=== PATIENT | female | born 1950 | race Caucasian/White ===

== ENCOUNTER 2023-05-26 11:45 | Outpatient (AMB) | payer MEDICARE, OTHER, SELFPAY ==
[2023-05-26 11:54] VITALS: BP 112/72; PULSE 47; O2SAT 96; BMI 31.8
--- NOTE | 2023-05-26 11:54 | HO.NEPHOV ---
PFSH Family History Brother Hemochromatosis Brother Parkinson's disease Social History Alcohol intake: current Patient Tobacco Use Status: Never used Tobacco Vital Signs 05/26/23 11:54 Height 5 ft 3 in Weight 179 lb 6 oz BMI 31.8 BP 112/72 Blood Pressure Location Lt brachial Position Sitting Pulse 47 L Pulse Source Pulse Oximeter Pulse Oximetry (%) 96 Oxygen Delivery Method Room Air Physical Exam Vital Signs: Last Vital Signs Pulse 47 L 05/26/23 11:54 BP 112/72 05/26/23 11:54 Pulse Ox 96 05/26/23 11:54 Oxygen Delivery Method Room Air 05/26/23 11:54 BMI result Body Mass Index 31.8 Const General: comfortable; No acute distress Orientation/consciousness: patient oriented x3 Eyes General: appearance normal, both eyes and all related structures Visual Blank: normal visual blank by confrontation Neck Neck: Yes supple and Yes no JVD Resp Effort & Inspection: normal respiratory effort and respiratory effort not decreased Auscultation: rhonchi Cardio Palpation: no palpable S3 and no palpable S4 Heart sounds: no rubs GI Inspection: Yes normal to inspection Palpation (GI): Soft to palpation Percussion: Yes normal to percussion Auscultation: normal bowel sounds General: Yes no CVA tenderness Back/Spine/Pelvis Back: no CVA tenderness Skin General skin exam: no petechiae and no purpura Neuro General: patient oriented x3 and no focal motor deficits Extrem General: No clubbing and No edema Assessment & Plan Assessment & Plan (1) HTN (hypertension): Code(s): I10 - Essential (primary) hypertension Plan: BP is well controlled Renal function is stable Stay on low salt diet Monitor BP At home Needs weight loss No changes were made Orders: Orders Basic Metabolic Panel 6 Months I10 - Essential (primary) hypertension Coding Level of Care Code Est Pt Level 4 (81685) Diagnoses HTN (hypertension) I10 Results Reviewed Results Reviewed: 05/17/23 BUN 24 Cr 0.99 UMACR 5 K 4.7 Nephrology Results: No Data to Display
== END 2023-05-26 12:10 | disposition home or self-care (01) ==
LOC: HO.HKA 11:45
PROVIDERS: PCP Internal Medicine; Visit Provider Internal Medicine Hypertension Specialist
DX: I10 Essential (primary) hypertension (principal)
CPT/HCPCS: 99214

== ENCOUNTER → 2023-05-26 11:45 | Outpatient (BNVA) | payer MEDICARE, OTHER, SELFPAY | PROVIDERS: PCP Internal Medicine; Visit Provider Internal Medicine Hypertension Specialist | DX: I10 Essential (primary) hypertension (principal) | CPT/HCPCS: 99212 ==

== ENCOUNTER 2023-07-03 07:48 | Outpatient (AMB) | payer MEDICARE, OTHER, SELFPAY ==
--- NOTE | 2023-07-03 07:59 | MHC.OFFVIS ---
Intake Vital Signs 07/03/23 08:00 Height 5 ft 3 in Weight 179 lb BMI 31.7 BP 114/70 Blood Pressure Location Rt brachial Position Sitting Respiration 16 Pulse 70 Pulse Source Pulse Oximeter Pulse Oximetry (%) 98 Oxygen Delivery Method Room Air Intake Visit Reasons: [id number] Intake Note: Pt presents tot he office for new pt evaluation for tremors. Pt reports this has been going on for a year, grant UE, mostly the left. Sales And Marketing Specialist Required: No Allergies dexamethasone [From Maxitrol (neomycin sulf)] Allergy (Mild, Verified 07/03/23 08:00) Swelling neomycin [From Maxitrol (neomycin sulf)] Allergy (Mild, Verified 07/03/23 08:00) Swelling polymyxin B [From Maxitrol (neomycin sulf)] Allergy (Mild, Verified 07/03/23 08:00) Swelling simvastatin Allergy (Mild, Verified 07/03/23 08:00) cramping Seasonal Allergies Allergy (Unknown, Verified 07/03/23 08:00) Unknown HPI HPI Comments History of Present Illness Details 73y/o right handed female comes for evaluation of tremors. she started noticing tremors in her left hand about 1 year ago and now she has tremors in both her hands left more than right . The tremors are intermittent both at rest and with action. It is worse when she is stressed. she is concerned as her brother and her mother have h/o parkinsons disease. No tremor sin her legs , voice or head tremors.No h/o head injury . No exposure to chemical or pesticides. Memory- mild Mood- she has son with mental health issues that affects her mood. SLeep- has sleep apnea on CPAP no REM behavior disorder reported . 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; occlusion with macular edema, she has a prism [facility] Medical History (Updated 07/03/23 @ 08:34 by Cordelia Engle MD) Coarse tremors Arthritis Low back pain Diabetes Strabismic amblyopia Irritable bowel syndrome Hyperlipidemia GERD (gastroesophageal reflux disease) Diverticulosis CKD (chronic kidney disease) stage 3, GFR 30-59 ml/min Colon polyp Asthma Allergic rhinitis Surgical History H/O section History of appendectomy H/O eye surgery Family History Brother Hemochromatosis Brother Parkinson's disease Mother Parkinson's disease Social History Alcohol intake: current Patient Tobacco Use Status: Never used Tobacco Physical Exam Vital Signs: Last Vital Signs Pulse 70 07/03/23 08:00 Resp 16 07/03/23 08:00 BP 114/70 07/03/23 08:00 Pulse Ox 98 07/03/23 08:00 Oxygen Delivery Method Room Air 07/03/23 08:00 BMI result Body Mass Index 31.7 Const General: cooperative, healthy appearing, comfortable and no acute distress Nutritional Appearance: overweight Orientation/consciousness: patient oriented x3 Eyes Pupils: Equal, round and reactive pupils present Neuro Other: mild voice tremors Mild postural and action tremors L>R General: patient oriented x3, gait normal, tone normal, moves all extremities and no focal motor deficits Cranial nerves: Yes Facial sensation intact/muscles of mastication intact, Yes Equal, round and reactive pupils present, Yes Bilaterally intact EOM present, Yes Normal facial strength present, Yes Midline tongue present and Yes Ability to bilaterally elevate shoulders present Cognition (Neuro): normal cognition Gait exam (Neuro): Normal gait present Motor exam (neuro): 5/5 motor strength present throughout and Normal motor muscle tone present throughout Deep tendon reflexes (DTR's): Right triceps reflex intensity grade: 1+, Left triceps reflex intensity grade: 1+, Rt Biceps (C5, C6): 1+, Left biceps reflex intensity grade: 1+, Right brachioradialis reflex intensity grade: 1+, Left brachioradialis reflex intensity grade: 1+, Right patellar reflex intensity grade: 1+ and Left patellar reflex intensity grade: 1+ Coordination: [id number] test normal Psych Affect: Anxious affect present Assessment & Plan Assessment & Plan (1) Coarse tremors: Comment: essential tremors vs exaggerated physiological tremors Code(s): G25.2 - Other specified forms of tremor Plan No evidence of parkinsons on todays visit Discussed various management options and she wants to start with occupational therapy before considering medications. Orders: Orders OT Evaluation and Treatment Today G25.2 - Other specified forms of tremor Coding Level of Care Code New Pt Level 4 (98555) Diagnoses Coarse tremors G25.2
[2023-07-03 08:00] VITALS: BP 114/70; PULSE 70; RESP 16; O2SAT 98; BMI 31.7
== END 2023-07-03 08:41 | disposition home or self-care (01) ==
PROVIDERS: PCP Internal Medicine; Visit Provider Psychiatry & Neurology Neurology
DX: G25.2 Other specified forms of tremor (principal)
CPT/HCPCS: 99204

== ENCOUNTER → 2023-07-03 07:48 | Outpatient (BNVA) | payer MEDICARE, OTHER, SELFPAY | PROVIDERS: PCP Internal Medicine; Visit Provider Psychiatry & Neurology Neurology | DX: G25.2 Other specified forms of tremor (principal) | CPT/HCPCS: 99202 ==

== ENCOUNTER 2023-12-03 13:30 | Outpatient (AMB) | payer OTHER, SELFPAY ==
--- NOTE | 2023-12-03 13:25 | HO.NEPHOV_ITS ---
Vital Signs 12/03/23 13:27 Height 5 ft 3 in Weight 185 lb BMI 32.8 BP 116/74 Blood Pressure Location Rt brachial Position Sitting Pulse 73 Pulse Source Pulse Oximeter Pulse Oximetry (%) 94 Oxygen Delivery Method Room Air Intake Visit Reasons: November FU/ Conf Production Control Expediter Required: No Accompanied by: Self / Same As Patient Allergies dexamethasone [From Maxitrol (neomycin sulf)] Allergy (Mild, Verified 12/03/23 13:32) Swelling neomycin [From Maxitrol (neomycin sulf)] Allergy (Mild, Verified 12/03/23 13:32) Swelling polymyxin B [From Maxitrol (neomycin sulf)] Allergy (Mild, Verified 12/03/23 13:32) Swelling simvastatin Allergy (Mild, Verified 12/03/23 13:32) cramping Seasonal Allergies Allergy (Unknown, Verified 12/03/23 13:32) Unknown Medication List - Last Reconciled 12/03/23 by Walt Engle MD albuterol sulfate 90 mcg/actuation 2 puffs inhalation Q6H PRN cholecalciferol (vitamin D3) 10 mcg PO DAILY coenzyme Q10 100 mg PO DAILY famotidine 20 mg PO BID fenofibrate micronized 200 mg PO DAILY glipizide 2.5 mg PO DAILY lisinopril 10 mg PO DAILY magnesium oxide 250 mg PO DAILY metformin 1,000 mg PO BID naltrexone 50 mg PO DAILY nifedipine ER 90 mg PO DAILY omega-3 acid ethyl esters 2 caps PO BID rosuvastatin 5 mg PO DAILY HPI Comments Details: Pleasant woman with long standing HTn and DM with mild CKD Here for annual follow up No new issues today Home BP readings are excellent [facility] Medical History (Updated 12/03/23 @ 13:44 by Walt Engle MD) Coarse tremors Arthritis Low back pain Diabetes Strabismic amblyopia Irritable bowel syndrome Hyperlipidemia GERD (gastroesophageal reflux disease) Diverticulosis CKD (chronic kidney disease) stage 3, GFR 30-59 ml/min Colon polyp Asthma Allergic rhinitis Surgical History H/O section History of appendectomy H/O eye surgery Family History Brother Hemochromatosis Brother Parkinson's disease Mother Parkinson's disease Social History Alcohol intake: current Patient Tobacco Use Status: Never used Tobacco Physical Exam Vital Signs: Last Vital Signs Pulse 73 12/03/23 13:27 BP 116/74 12/03/23 13:27 Pulse Ox 94 12/03/23 13:27 Oxygen Delivery Method Room Air 12/03/23 13:27 BMI result Body Mass Index 32.8 Const General: comfortable; No acute distress Orientation/consciousness: patient oriented x3 Eyes General: appearance normal, both eyes and all related structures Visual Carter: normal visual carter by confrontation Neck Neck: Yes supple and Yes no JVD Resp Effort & Inspection: normal respiratory effort and respiratory effort not decreased Auscultation: rhonchi Cardio Palpation: no palpable S3 and no palpable S4 Heart sounds: no rubs GI Inspection: Yes normal to inspection Palpation (GI): Soft to palpation Percussion: Yes normal to percussion Auscultation: normal bowel sounds General: Yes no CVA tenderness Back/Spine/Pelvis Back: no CVA tenderness Skin General skin exam: no petechiae and no purpura Neuro General: patient oriented x3 and no focal motor deficits Extrem General: No clubbing and Yes edema (1+) Results Reviewed Results Reviewed: Cr 1.05 on 11/18/23 eGFR 57 ml/mt Nephrology Results: No Data to Display Assessment & Plan Assessment & Plan (1) CKD (chronic kidney disease) stage 3, GFR 30-59 ml/min: Comment: Mild and Stable; Cr 1.05 on 11/18/23 Code(s): N18.30 - Chronic kidney disease, stage 3 unspecified Category: Medical (2) HTN (hypertension): Code(s): I10 - Essential (primary) hypertension Category: Medical Plan Elderly woman with HTN Overall , BP is well controlled Renal function is stable Maintain A1C < 7% BP < 130/80 She will benefit form SGLT-2 inhibitors , weight loss and low salt diet Mild Edema due to CCB Coding Level of Care Code Est Pt Level 4 (69574) Diagnoses CKD (chronic kidney disease) stage 3, GFR 30-59 ml/min N18.30 HTN (hypertension) I10
[2023-12-03 13:27] VITALS: BP 116/74; PULSE 73; O2SAT 94; BMI 32.8
== END 2023-12-03 13:46 | disposition home or self-care (01) ==
PROVIDERS: PCP Internal Medicine; Visit Provider Internal Medicine Hypertension Specialist
DX: N18.30 Chronic kidney disease, stage 3 unspecified (principal); I10 Essential (primary) hypertension
CPT/HCPCS: 99214

== ENCOUNTER → 2023-12-03 13:30 | Outpatient (BNVA) | payer MEDICARE, OTHER, SELFPAY | PROVIDERS: PCP Internal Medicine; Visit Provider Internal Medicine Hypertension Specialist | DX: I12.9 Hypertensive chronic kidney disease with stage 1 through stage 4 chronic kidney disease, or unspecified chronic kidney disease (principal); E11.22 Type 2 diabetes mellitus with diabetic chronic kidney disease; N18.30 Chronic kidney disease, stage 3 unspecified | CPT/HCPCS: 99212 ==

== ENCOUNTER 2024-01-06 14:27 | Outpatient (AMB) | payer MEDICARE, OTHER, SELFPAY ==
--- NOTE | 2024-01-06 14:29 | A.OFFVIS_ITS ---
Vital Signs 01/06/24 14:30 Height 5 ft 3 in Weight 182 lb BMI 32.2 BP 118/76 Blood Pressure Location Rt brachial Position Sitting Intake Visit Reasons: 6 Month F/U Intake Note: Patient presents for follow up Allergies dexamethasone [From Maxitrol (neomycin sulf)] Allergy (Mild, Verified 01/06/24 14:32) Swelling neomycin [From Maxitrol (neomycin sulf)] Allergy (Mild, Verified 01/06/24 14:32) Swelling polymyxin B [From Maxitrol (neomycin sulf)] Allergy (Mild, Verified 01/06/24 14:32) Swelling simvastatin Allergy (Mild, Verified 01/06/24 14:32) cramping Seasonal Allergies Allergy (Unknown, Verified 01/06/24 14:32) Unknown HPI Comments Details: 73y/o right handed female comes for follow up of tremors. No change since last visit . she did OT and does the exercises everyday. SHe had trouble carrying things due to tremors. Initial visit history-she started noticing tremors in her left hand about 1 year ago and now she has tremors in both her hands left more than right . The tremors are intermittent both at rest and with action. It is worse when she is stressed. she is concerned as her brother and her mother have h/o parkinsons disease. No tremor sin her legs , voice or head tremors.No h/o head injury . No exposure to chemical or pesticides. Memory- mild Mood- she has son with mental health issues that affects her mood. SLeep- has sleep apnea on CPAP no REM behavior disorder reported . 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; occlusion with macular edema, she has a prism PFSH Medical History Coarse tremors Arthritis Low back pain Diabetes Strabismic amblyopia Irritable bowel syndrome Hyperlipidemia GERD (gastroesophageal reflux disease) Diverticulosis CKD (chronic kidney disease) stage 3, GFR 30-59 ml/min Colon polyp Asthma Allergic rhinitis Surgical History H/O section History of appendectomy H/O eye surgery Family History Brother Hemochromatosis Brother Parkinson's disease Mother Parkinson's disease Social History Alcohol intake: current Patient Tobacco Use Status: Never used Tobacco Physical Exam Vital Signs: Last Vital Signs BP 118/76 01/06/24 14:30 BMI result Body Mass Index 32.2 Const General: cooperative, healthy appearing, comfortable and no acute distress Nutritional Appearance: overweight Orientation/consciousness: patient oriented x3 Eyes Pupils: Equal, round and reactive pupils present Neuro Other: mild voice tremors Mild postural and action tremors L>R General: patient oriented x3, gait normal, tone normal, moves all extremities and no focal motor deficits Cranial nerves: Yes Facial sensation intact/muscles of mastication intact, Yes E qual, round and reactive pupils present, Yes Bilaterally intact EOM present, Yes Normal facial strength present, Yes Midline tongue present and Yes Ability to bilaterally elevate shoulders present Cognition (Neuro): normal cognition Gait exam (Neuro): Normal gait present Motor exam (neuro): 5/5 motor strength present throughout and Normal motor muscle tone present throughout Coordination: [id number] test normal Psych Affect: Anxious affect present Assessment & Plan Assessment & Plan (1) Coarse tremors: Comment: essential tremors vs exaggerated physiological tremors Code(s): G25.2 - Other specified forms of tremor Category: Medical Plan No evidence of parkinsons on todays visit Discussed various management options will hold off on medications for now continue exercise Coding Level of Care Code Est Pt Level 4 (30456) Complex EM visit Add On G2211 Diagnoses Coarse tremors G25.2
[2024-01-06 14:30] VITALS: BP 118/76; BMI 32.2
== END 2024-01-06 15:00 | disposition home or self-care (01) ==
PROVIDERS: PCP Internal Medicine; Visit Provider Psychiatry & Neurology Neurology
DX: G25.2 Other specified forms of tremor (principal)
CPT/HCPCS: 99214; G2211

== ENCOUNTER → 2024-01-06 14:27 | Outpatient (BNVA) | payer MEDICARE, OTHER, SELFPAY | PROVIDERS: PCP Internal Medicine; Visit Provider Psychiatry & Neurology Neurology | DX: G25.2 Other specified forms of tremor (principal) | CPT/HCPCS: 99212 ==

== ENCOUNTER 2024-12-01 13:46 | Outpatient (AMB) | payer MEDICARE, OTHER, SELFPAY ==
--- OUTSIDE RECORDS SUMMARY | 2023-09-05 09:56 | XMS_ITS | Encounter Summary ---
Author Organization [facility] Address [address] [place] [address] Care Team Providers Care Fiberglass Quality Technician Name Role Phone Clara Motley MD Primary Care Provider + [phone] Daisy Ramsey MD Unavailable [phone] Frank Livingston MD Unavailable [phone] Shirley De La Garza APRN Unavailable Cordelia Engle MD Unavailable [phone] Daja Sloan MD Unavailable [phone] Luis Alberto Renee MD Unavailable [phone] Vandana Bates RN Unavailable [phone] Clara Motley MD Unavailable [phone] Clarence Hollingsworth MD Unavailable Encounter Details Date Type Department Care Team (Late st Contact Info) Description 09/05/2023 9:56 AM EDT Hospital Encounter [facility] [address] [place] [address] Social History Tobacco Use Types Packs/Day Years Used Date Smoking Tobacco: Never Smokeless Tobacco: Never Alcohol Use Standard Drinks/Week Comments Yes 1 (1 standard drink = 0.6 oz pur e alcohol) social [facility] Utilities Answer Date Recorded In the past 12 months has [employer] electric, gas, oil, or water company threatened to shut off services in your home? No 02/05/2024 Social Connection and Isolation Panel [NHANES] A nswer Date Recorded In a typical week, how many times do you talk on the phone with family, friends, or neighbors? Once a week 02/05/2024 Frequency of Social Gatherings with Friends and Family Not on file 02/05/2024 Attends Yazdanism Services Not on file 02/04 Active Member [...] any time in the past 12 m [facility], were you homeless or living in a halfway (including now)? No 02/05/2024 Education Answer Date [...] Care Team (Late st Contact Info) Description 12/13/2024 11:15 AM EDT Office Visit [address] [place] [phone] Clara Motley MD [address] [place] [address] [place] [phone] documented as of this encounter Procedures Procedure [...] on filedocumented in this encounter Care Teams Fiberglass Quality Technician Relationship Specialty Start Date End Date Clara Motley MD PCP - General Internal Medicine 10/16/15 Clara Motley MD [address] [place] [address] PCP - MSSP Attributed 03/24/21 4 Daisy Ramsey MD [address] [place] [address] Consulting Provider Dermatology 06/17/17 Frank Livingston MD [address] [place] [address] Gastroenterology 06/17/17 Shirley De La Garza APRN [address] [place] [address] Nurse Practitioner Gynecology 06/17/17 Cordelia Engle MD [address] [address] Nephrology 06/17/17 Daja Sloan MD [address] [address] Ophthalmology 06/17/17 Luis Alberto Renee MD [address] [place] [phone] Ophthalmology 05/19/18 Vandana Bates, RN [address] [address] [facility] Community Route Sales Delivery Driver 04/01/19 10/08/24 Clarence Hollingsworth MD [address] [place] [id number] Primary [place] Cardiovascular Disease 03/24/22 documented as of this encounter
[2024-12-01 13:41] VITALS: BP 134/74; PULSE 68; O2SAT 98; BMI 31.9
--- NOTE | 2024-12-01 13:41 | HO.NEPHOV_ITS ---
Vital Signs 12/01/24 13:41 Height 5 ft 3 in Weight 180 lb BMI 31.9 BP 134/74 Blood Pressure Location Rt brachial Position Sitting Pulse 68 Pulse Source Pulse Oximeter Pulse Oximetry (%) 98 Oxygen Delivery Method Room Air Intake Visit Reasons: 1 yr follow up-Conf Clinical Assistant Professor Required: No Accompanied by: Self / Same As Patient Allergies dexamethasone (From Maxitrol (neomycin sulf)) Allergy (Mild, Verified 12/01/24 13:43) Swelling neomycin (From Maxitrol (neomycin sulf)) Allergy (Mild, Verified 12/01/24 13:43) Swelling polymyxin B (From Maxitrol (neomycin sulf)) Allergy (Mild, Verified 12/01/24 13:43) Swelling simvastatin Allergy (Mild, Verified 12/01/24 13:43) cramping Seasonal Allergies Allergy (Unknown, Verified 12/01/24 13:43) Unknown Medication List - Last Reconciled 12/01/24 by Walt Engle MD albuterol sulfate 90 mcg/actuation 2 puffs inhalation Q6H PRN cholecalciferol (vitamin D3) 10 mcg PO DAILY coenzyme Q10 100 mg PO DAILY famotidine 20 mg PO BID fenofibrate micronized 200 mg PO DAILY glipizide 2.5 mg PO DAILY lisinopril 10 mg PO DAILY magnesium oxide 250 mg PO DAILY metformin 1,000 mg PO BID naltrexone 50 mg PO DAILY nifedipine ER 60 mg PO DAILY omega-3 acid ethyl esters 2 caps PO BID rosuvastatin 5 mg PO DAILY HPI Comments Details: Pleasant woman with long standing HTn and DM with mild CKD Here for annual follow up No new issues today Home BP readings are excellent 12/01/24 Doing well. No new issues [facility] Medical History Coarse tremors Arthritis Low back pain Diabetes Strabismic amblyopia Irritable bowel syndrome Hyperlipidemia GERD (gastroesophageal reflux disease) Diverticulosis CKD (chronic kidney disease) stage 3, GFR 30-59 ml/min Colon polyp Asthma Allergic rhinitis Surgical History H/O section History of appendectomy H/O eye surgery Family History Brother Hemochromatosis Brother Parkinson's disease Mother Parkinson's disease Social History Alcohol intake: current Patient Tobacco Use Status: Never used Tobacco Physical Exam Vital Signs: Last Vital Signs Pulse 68 12/01/24 13:41 Pulse Ox 98 12/01/24 13:41 Oxygen Delivery Method Room Air 12/01/24 13:41 BMI result Body Mass Index 31.9 Const General: comfortable; No acute distress Orientation/consciousness: patient oriented x3 Eyes General: appearance normal, both eyes and all related structures Visual Carter: normal visual carter by confrontation Neck Neck: Yes supple and Yes no JVD Resp Effort & Inspection: normal respiratory effort and respiratory effort not decreased Auscultation: rhonchi Cardio Palpation: no palpable S3 and no palpable S4 Heart sounds: no rubs GI Inspection: Yes normal to inspection Palpation (GI): Soft to palpation Percussion: Yes normal to percussion Auscultation: normal bowel sounds General: Yes no CVA tenderness Back/Spine/Pelvis Back: no CVA tenderness Skin General skin exam: no petechiae and no purpura Neuro General: patient oriented x3 and no focal motor deficits Extrem General: No clubbing and Yes edema (1+) Assessment & Plan Assessment & Plan (1) HTN (hypertension): Code(s): I10 - Essential (primary) hypertension Category: Medical Plan Elderly woman with HTN Overall , BP is well controlled Renal function is stable Maintain A1C < 7% BP < 130/80 She will benefit form SGLT-2 inhibitors , weight loss and low salt diet 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
--- OUTSIDE RECORDS SUMMARY | 2024-12-01 16:51 | XMS_ITS | Encounter Summary ---
Author Organization [facility] Address [address] [place] [id number] Care Team Providers Care Crown Attacher Name Role Phone Clara Motley MD Primary Care Provider Daisy Ramsey MD Unavailable [phone] Frank Livingston MD Unavailable [phone] Shirley De La Garza APRN Unavailable Cordelia Engle MD Unavailable [phone] Daja Sloan MD Unavailable [phone] Clara Motley MD Unavailable [phone] Arin Liu RN Unavailable [phone] Luis Alberto Renee MD Unavailable [phone] Vandana Bates RN Unavailable [phone] Clara Motley MD Unavailable [phone] Clarence Hollingsworth MD Unavailable Dawn Agrawal LCSW Unavailable [phone] Renay Ford Unavailable Encounter Details Date Type Department Care Team (Late st Contact Info) Description 02/24/2019 Scanned Document [facility] [address] [place] [address] Provider, Generic Social History Tobacco Use Types Packs/Day Years Used Date Smoking Tobacco: Never Smokeless Tobacco: Never Alcohol Use Standard Drinks/Week Comments Yes 1 (1 standard drink = 0.6 oz pur e alcohol) social Comments No Sex and Gender Information Value Date Recorded Sex Assigned at Female 09/03/2022 7:45 AM EDT Legal Sex Female 11:33 AM EDT Gender Identity Female 03/30/2020 6:15 AM EST Sexual Orientation Heterosexual (straight) 03/30 6:15 AM EST documented as of this encounter Plan of Treatment Upcoming Encounters Date Type Department Care Team (Late st Contact Info) Description 12/13/2024 11:15 AM EDT Office Visit [facility] [address] [place] [address] Clara Motley MD [address] [place] [address] documented as of this encounter Visit Diagnoses Not on filedocumented in this encounter Care Teams Crown Attacher Relationship Specialty Start Date End Date Clara Motley MD PCP - General Internal Medicine 10/16/15 Clara Motley MD [address] [place] [address] PCP - MSSP Attributed 09/21/18 0 Clara Motley MD [address] [place] [address] PCP - MSSP Attributed 03/24/21 4 Daisy Ramsey MD [address] [place] [address] Consulting Provider Dermatology 06/17/17 Frank Livingston MD [address] [place] [address] Gastroenterology 06/17/17 Shirley De La Garza APRN [address] [place] [address] Nurse Practitioner Gynecology 06/17/17 Cordelia Engle MD [address] [address] Nephrology 06/17/17 Daja Sloan MD [address] [address] Ophthalmology 06/17/17 Arin Liu RN [address] [facility] [address] [place] [address] ICP Community Wheat Inspector 01/29/18 04/01/19 Luis Alberto Renee MD [address] [place] [id number] Ophthalmology 05/19/18 Vandana Bates RN [address] [facility] [address] [place] [address] ICP Community Wheat Inspector 04/01/19 10/08/24 Clarence Hollingsworth MD [address] [place] [address] Primary Traffic Worker Cardiovascular Disease 03/24/22 Dawn Agrawal STORE ADMINISTRATIVE ASSISTANT [address] Adrianoanna Begum [address] [place] [address] ICP Community Wheat Inspector 10/08/24 10/26/24 Renay Ford [address] araceli [address] [address] ICP Community Wheat Inspector 10/26/24 documented as of this encounter
--- OUTSIDE RECORDS SUMMARY | 2024-12-01 16:51 | XMS_ITS ---
Author Name [facility] Organization Unknown Results Test Name/Text Value Interpretation Date Range Source Globulin Ser Calc-mCnc 2.3 g/dL (calc) Normal 11/30/2024 1.9 - 3.7 [facility] Albumin SerPl-mCnc 4.6 g/dL Normal 11/30/2024 3.6 - 5.1 [facility] BUN/Creat SerPl SEE NOTE: 11/30/2024 6 - [address] Prot SerPl-mCnc 6.9 g/dL Normal 11/30/2024 6.1 - 8.[address] Glucose SerPl-mCnc 138.0 mg/dL Above high normal 11/30/2024 65 - 99 [facility] CO2 SerPl-sCnc 30.0 mmol/L Normal 11/30/2024 20 - 32 [facility] Sodium SerPl-sCnc 142.0 mmol/L Normal 11/30/2024 135 - 14 6 [facility] eGFRcr SerPlBld CKD-EPI 2020 64.0 mL/min/1.73m2 Normal 11/30/2024 - [facility] Bilirub SerPl-mCnc 0.4 mg/dL Normal 11/30/2024 0.2 - 1.2 [facility] AST SerPl-cCnc 23.0 U/L Normal 11/30/2024 10 - 35 [facility] Chloride SerPl-sCnc 105.0 mmol/L Normal 11/30/2024 98 - 110 [facility] Albumin/Glob SerPl 2.0 (calc) Normal 11/30/2024 1 - 2.5 [facility] ALP SerPl-cCnc 45.0 U/L Normal 11/30/2024 37 - 153 [facility] BUN SerPl-mCnc 20.0 mg/dL Normal 11/30/2024 7 - [address] Potassium SerPl-sCnc 4.3 mmol/L Normal 11/30/2024 3.5 - 5.3 [facility] ALT SerPl-cCnc 21.0 U/L Normal 11/30/2024 6 - 29 [facility] Calcium SerPl-mCnc 9.5 mg/dL Normal 11/30/2024 8.6 - 10.4 [facility] Creat SerPl-mCnc 0.95 mg/dL Normal 11/30/2024 0.6 - 1 Q [facility] MCH RBC Qn Auto 30.5 pg Normal 11/30/2024 27 - [address] WBC # Bld Auto 5.7 Thousand/uL Normal 11/30/2024 3.8 - 10 .8 [facility] PMV Bld Андрей-Pritesh 10.8 fL Normal 11/30/2024 7.5 - 12.5 [facility] RBC # Bld Auto 4.36 Million/uL Normal 11/30/2024 3.8 - 5. 1 [facility] MCV RBC Auto 95.0 fL Normal 11/30/2024 80 - 100 [facility] Hgb Bld-mCnc 13.3 g/dL Normal 11/30/2024 11.7 - 15.5 [facility] Erythrocyte DistWidth Bld Auto 12.8 % Normal 11/30/2024 11 - 15 [facility] Platelet # Bld Auto 291.0 Thousand/uL Normal 11/30/2024 140 - 400 [facility] Hct VFr Bld Auto 41.4 % Normal 11/30/2024 35 - 45 [facility] MCHC RBC Auto-EntMCnc 32.1 g/dL Normal 11/30/2024 32 - 36 [facility] TSH SerPl-aCnc 3.46 mIU/L Normal 11/30/2024 0.4 - 4.[address] HbA1c MFr Bld 7.3 % Above high normal 11/30/2024 - 5.7 [facility] HbA1c MFr Bld 7.2 % of total Hgb Above high normal 5 - 5.7 [facility] Albumin/Creat Ur 9.0 mg/g creat Normal 06/22/2024 - 30 [facility] Microalbumin Ur-mCnc 0.5 mg/dL Normal 06/22/2024 - [facility] Creat Ur-mCnc 56.0 mg/dL Normal 06/22/2024 20 - 275 [facility] RBC Auto 95.3 fL Normal 06/22/2024 80 - 100 [facility] MCHC RBC Auto-EntMCnc 31.8 g/dL Below low normal 06/22/2024 32 - 36 [facility] Platelet # Bld Auto 255.0 Thousand/uL Normal 06/22/2024 140 - 400 [facility] RBC # Bld Auto 4.49 Million/uL Normal 06/22/2024 3.8 - 5. 1 [facility] RDW RBC Auto 12.8 % Normal 06/22/2024 11 - 15 [facility] Hgb Bld-mCnc 13.6 g/dL Normal 06/22/2024 11.7 - 15.5 [facility] WBC # Bld Auto 7.0 Thousand/uL Normal 06/22/2024 3.8 - 10 .8 [facility] PMV Bld Андрей-Pritesh 11.0 fL Normal 06/22/2024 7.5 - 12.5 [facility] MCH RBC Qn Auto 30.3 pg Normal 06/22/2024 27 - [address] Hct VFr Bld Auto 42.8 % Normal 06/22/2024 35 - 45 [facility] NonHDLc SerPl-mCnc 112.0 mg/dL (calc) Normal 06/22/2024 - 130 [facility] Cholest SerPl-mCnc 178.0 mg/dL Normal 06/22/2024 - 200 [facility] Cholest/HDLc SerPl 2.7 (calc) Normal 06/22/2024 - 5 [facility] HDLc SerPl-mCnc 66.0 mg/dL Normal 06/22/2024 - [facility] Trigl SerPl-mCnc 125.0 mg/dL Normal 06/22/2024 - 150 [facility] LDLc SerPl Calc-mCnc 89.0 mg/dL (calc) Normal 06/22/2024 [facility] BUN/Creat SerPl SEE NOTE: Normal 06/22/2024 6 - [address] BUN SerPl-mCnc 23.0 mg/dL Normal 06/22/2024 7 - [address] ALP SerPl-cCnc 57.0 U/L Normal 06/22/2024 37 - 153 [facility] Potassium SerPl-sCnc 4.1 mmol/L Normal 06/22/2024 3.5 - 5.3 [facility] Creat SerPl-mCnc 0.88 mg/dL Normal 06/22/2024 0.6 - 1 Q [facility] eGFRcr SerPlBld CKD-EPI 2020 70.0 mL/min/1.73m2 Normal 06/22/2024 - [facility] Sodium SerPl-sCnc 140.0 mmol/L Normal 06/22/2024 135 - 14 6 [facility] Chloride SerPl-sCnc 102.0 mmol/L Normal 06/22/2024 98 - 110 [facility] Albumin SerPl-mCnc 4.6 g/dL Normal 06/22/2024 3.6 - 5.1 [facility] Prot SerPl-mCnc 7.0 g/dL Normal 06/22/2024 6.1 - 8.[address] ALT SerPl-cCnc 20.0 U/L Normal 06/22/2024 6 - 29 [facility] Glucose SerPl-mCnc 124.0 mg/dL Above high normal 06/22/2024 65 - 99 [facility] Globulin Ser Calc-mCnc 2.4 g/dL (calc) Normal 06/22/2024 1.9 - 3.7 [facility] Albumin/Glob SerPl 1.9 (calc) Normal 06/22/2024 1 - 2.5 [facility] AST SerPl-cCnc 20.0 U/L Normal 06/22/2024 10 - 35 [facility] Bilirub SerPl-mCnc 0.4 mg/dL Normal 06/22/2024 0.2 - 1.2 [facility] Calcium SerPl-mCnc 9.8 mg/dL Normal 06/22/2024 8.6 - 10.4 [facility] CO2 SerPl-sCnc 30.0 mmol/L Normal 06/22/2024 20 - 32 [facility] Hgb Ur Ql Strip.auto NEGATIVE Normal 05/29/2023 [facility] Clarity Ur Refract.auto CLOUDY Normal 05/29/2023 [facility] pH Ur Strip.auto 7.0 Normal 05/29/2023 4.5 - 8 [facility] Ketones Ur Ql Strip.auto NEGATIVE Normal 05/29/2023 [facility] Glucose Ur Ql Strip.auto NEGATIVE Normal 05/29/2023 [facility] Leukocyte esterase Ur Ql Strip.auto SMALL Abnormal 05/29/2023 - [facility] Sp Gr Ur Strip.auto 1.015 Normal 05/29/2023 1.005 - 1.03 [facility] Prot Ur Ql Strip.auto 30.0 mg/dL Abnormal 05/29/2023 - [facility] Nitrite Ur Ql Strip.auto POSITIVE Abnormal 05/29/2023 - [facility] SPECIMEN SOURCE XXX URINE CLEAN CATCH Normal 05/29/2023 [facility] SQUAMOUS NO./AREA URNS LPF 15.0 /LPF Above high normal 05/29/2023 0 - 5 [facility] RBC number/area UrnS Auto 1.0 /HPF Normal 05/29/2023 0 - 3 [facility] WBC number/area UrnS Auto 4.0 /HPF Normal 05/29/2023 0 - 5 [facility] IMMATURE GRANULOCYTE, ABSOLUTE 0.01 k/uL Normal 05/29/2023 - 0.1 [facility] NEUTROPHILS NO. BLD AUTO 3.1 K/uL Normal 05/29/2023 1.8 - 7.8 [facility] MONOCYTES NO. BLD AUTO 0.5 K/uL Normal 05/29/2023 0 - 0.8 [facility] WBC NO. BLD AUTO 5.5 K/uL Normal 05/29/2023 4 - 10.5 CT [facility] LYMPHOCYTES NFR BLD AUTO 30.7 % Normal 05/29/2023 20 - 48 [facility] BASOPHILS IN BLOOD BY AUTOMATED COUNT 0.0 K/uL Normal 05/29/2023 0 - 0.2 [facility] HCT VFR BLD AUTO 38.9 % Normal 05/29/2023 37 - 47 [facility] RDW RBC AUTO RTO 12.3 % Normal 05/29/2023 12.1 - 16.2 [facility] RBC NO. BLD AUTO 4.16 M/uL Below low normal 05/29/2023 4.2 - 5.4 [facility] BASOPHILS NFR BLD AUTO 0.2 % Normal 05/29/2023 0 - 2 [facility] EOSINOPHIL NO. BLD AUTO 0.2 K/uL Normal 05/29/2023 0 - 0.5 [facility] PLATELET NO. BLD AUTO 215.0 K/uL Normal 05/29/2023 150 - 450 [facility] IMMATURE GRANULOCYTE, PERCENT 0.2 % Normal 05/29/2023 0 - 1 [facility] LYMPHOCYTES NO. BLD AUTO 1.7 K/uL Normal 05/29/2023 1 - 3.2 [facility] MCHC RBC AUTO MCNC 32.9 g/dL Normal 05/29/2023 32 - 36 [facility] PMV BLD AUTO 10.9 fL Normal 05/29/2023 7.4 - 11.4 [facility] NEUTROPHILS NFR BLD AUTO 57.2 % Normal 05/29/2023 44 - 74 [facility] MCH RBC QN AUTO 30.8 pg Normal 05/29/2023 25 - 33 [facility] MONOCYTES NFR BLD AUTO 8.4 % Normal 05/29/2023 2 - 12 [facility] HGB BLD MCNC 12.8 g/dL Normal 05/29/2023 12.5 - 16 [facility] H EOSINOPHIL NFR BLD AUTO 3.3 % Normal 05/29/2023 0 - 6 [facility] NUCLEATED RBC 0.0 % Normal 05/29/2023 0 - 1 [facility] MCV RBC AUTO 93.5 fL Normal 05/29/2023 78 - 100 [facility] INR PPP 1.0 Normal 05/29/2023 0.8 - 1.1 [facility] PT TIME PPP 11.9 sec Normal 05/29/2023 10.5 - 13.3 [facility] D DIMER DDU PPP EIA MCNC 208.0 ng/mL DDU Normal 05/29/2023 - 231 [facility] Troponin I SerPl HS-mCnc 5.0 ng/L Normal 05/29/2023 0 - 14 [facility] CHLORIDE SERPL SCNC 105.0 mmol/L Normal 05/29/2023 98 - 107 [facility] CREAT SERPL MCNC 1.1 mg/dL Above high normal 05/29/2023 0.5 - 1 [facility] BILIRUB SERPL MCNC 0.3 mg/dL Normal 05/29/2023 0.3 - 1 [facility] AST SERPL CCNC 42.0 U/L Above high normal 05/29/2023 5 - 40 [facility] HCO3 SER SCNC 29.0 mmol/L Normal 05/29/2023 24 - 32 [facility] ANION GAP SERPL SCNC 9.0 mmol/L Normal 05/29/2023 5 - 14 [facility] ALT SERPL CCNC 54.0 U/L Above high normal 05/29/2023 7 - 52 [facility] SODIUM SERPL SCNC 143.0 mmol/L Normal 05/29/2023 135 - 14 5 [facility] Glomerular filtration rate/1.73 sq M. predicted 54.0 Below low normal 05/29/2023 60 - [facility] CALCIUM SERPL MCNC 9.6 mg/dL Normal 05/29/2023 8.4 - 10.2 [facility] ALP SERPL-CCNC 50.0 U/L Normal 05/29/2023 34 - 104 [facility] POTASSI[facility]PL SCNC 3.8 mmol/L Normal 05/29/2023 3.5 - 5.1 [facility] BUN SERPL MCNC 26.0 mg/dL Above high normal 05/29/2023 7 - 1 7 [facility] ALBUMIN SERPL BCG MCNC 4.4 g/dL Normal 05/29/2023 3.5 - 5 [facility] PROT SERPL MCNC 7.1 g/dL Normal 05/29/2023 6.4 - 8.5 [facility] GLUCOSE SERPL MCNC 128.0 mg/dL Normal 05/29/2023 70 - 199 [facility] Service [facility] XXX-Imp Cepheid GeneXpert (RT-PCR) [facility] Normal 05/29/2023 [facility] FLUBV RNA Nph Ql JORDAN+non-probe NEGATIVE Normal 05/29/2023 [facility] RSV RNA Nph Ql JORDAN+non-probe NEGATIVE Normal 05/29/2023 [facility] FLUAV RNA Nph Ql JORDAN+non-probe NEGATIVE Normal 05/29/2023 [facility] SPECIMEN SOURCE XXX NASOPHARYNGEAL Normal 05/29/2023 [facility] History of Medication Use Medication Directions Dispensed Refills Start Date End Date Stat predniSONE (DELTASONE) tablet 60 mg 60 mg, Oral, Once, On Fri10/17/23 at 2330, For 1 dose 10/18/2023 completed rosuvastatin (CRESTOR) 5 MG tablet TAKE 1 TABLET (5 MG TOTAL) BY MOUTH DAILY. 05/19/2023 active ezetimibe (ZeTIA) 10 MG tablet TAKE 1 TABLET BY MOUTH EVERY DAY 03/17/2022 active ezetimibe (ZeTIA) 10 MG tablet Take 1 tablet (10 mg total) by mouth daily. 02/18/2022 active glipiZIDE (GLUCOTROL XL) 2.5 MG 24 hr tablet Take 1 tablet (2.5 mg total) by mouth every morning with breakfast. 10/16/2021 active lisinopril (PRINIVIL,ZeSTRIL) 10 MG tablet Take 1 tablet (10 mg total) by mouth daily. 11/17/2020 active albuterol (PROVENTIL HFA; VENTOLIN HFA) 108 (90 Base) MCG/ACT inhaler Inhale 2 puffs 4 times daily (every 6 hours) as needed for wheezing or shortness of breath. 10/13/2020 2 active Carboxymeth-Glycerin- Polysorb (Refresh Optive Advanced) 0.5-1-0.5 % Solution by Does not apply route. 11/22/2019 active naltrexone (REVIA) 50 MG tablet Take 1 tablet (50 mg total) by mouth 2 (two) times a day. 10/26/2018 active lisinopril (PRINIVIL,ZESTRIL) tablet 20 mg Take 10 mg by mouth daily as needed. 06/08/2015 active acetaminophen (TYLENOL) 325 MG tablet Take 2 tablets (650 mg total) by mouth 4 times daily (every 6 hours) as needed for mild pain. active Aflibercept (EYLEA) 2 MG/0.05ML SOLN by Intravitreal route. Every 5 weeks active cholecalciferol (VITAMIN D3) 400 units tablet Take 400 Units by mouth daily. active coenzyme Q10 (CO Q 10) 100 MG capsule Take 1 capsule (100 mg total) by mouth daily. active Lutein-Zeaxanthin 20-1 MG CAPS Take 1 tablet by mouth daily. active Psyllium (METAMUCIL FIBER PO) Take by mouth 2 (two) times a day. active psyllium (METAMUCIL) 58.6 % powder Take 1 packet by mouth 2 (two) times a day. active TURMERIC PO Take 1 tablet by mouth daily. active Ubiquinol 100 MG Cap Take by mouth. active Allergies Allergen Reaction Severity Comment Documented Date Source Statu s STATINS OTHER (SEE COMMENTS)OTHER (SEE COMMENTS) Has cramping with Simvastatin 09/15/2017 [facility] active OTHER OTHER (SEE COMMENTS) [facility]al [facility] 01/19/2015 [facility] NEOMYCIN-POLYM YXIN-DEXAMETH SWELLING 12/13/2014 [facility] active Problems Problem Status Onset Date Problem Type Date of Resolution Source Encounter for gynecological examination with abnormal finding active 2019-12-06 ProblemAct [facility] Osteoporosis screening active 2019-12-06 ProblemAct [facility] Class 1 obesity due to excess calories with serious comorbidity and body mass index (BMI) of 33.0 to 33.9 in adult active 2021-07-02 ProblemAct [facility] Diverticular disease of left colon active 2021-11-15 ProblemAct [facility] Encounter for colorectal cancer screening active 2021-11-15 ProblemAct [facility] Duodenal erythema active 2018-12-03 ProblemAct [facility] Essential hypertension active 2019-12-06 ProblemAct [facility] Contact dermatitis active EncounterDiagnosisAct [facility] Hiatal hernia with gastroesophageal reflux active 2018-12-03 ProblemAct [facility] Breast cancer screening active 2019-12-06 ProblemAct [facility] Prominent ileocecal valve active 2021-11-15 ProblemAct [facility] Polyp of stomach active 2018-12-03 ProblemAct [facility] Cervical cancer screening active 2019-12-06 ProblemAct [facility] Post-traumatic osteoarthritis, left shoulder active 2016-02-27 ProblemAct [facility] Colon polyp active 2021-11-15 ProblemAct [facility] Chronic left shoulder pain active 2016-02-06 ProblemAct [facility] Internal hemorrhoids without complication active 2021-11-15 ProblemAct [facility] Osteopenia of left hip active 2021-07-02 ProblemAct [facility] History of rectal polyps active 2015-11-09 ProblemAct [facility] Tear of left rotator cuff active 2016-02-06 ProblemAct [facility] Chronic kidney disease, stage III (moderate) active 2014-09-19 ProblemAct [facility] 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 active 2014-09-19 ProblemAct [facility] Gastroesophageal reflux disease without esophagitis active 2013-07-29 ProblemAct [facility] Plantar fasciitis of right foot active 2018-06-16 ProblemAct [facility] Perez's neuroma of right foot active 2018-06-16 ProblemAct [facility] Shoulder pain active 2016-02-06 ProblemAct [facility] Impingement syndrome of left shoulder active 2016-02-06 ProblemAct [facility] Migraine without aura, not intractable active 2013-07-29 ProblemAct [facility] Rotator cuff disorder, left active EncounterDiagnosisAct [facility] Impingement of left shoulder active EncounterDiagnosisAct [facility] Asthma active 2013-07-29 ProblemAct [facility] Bleeding internal hemorrhoids active 2015-11-09 ProblemAct [facility] History of colonic polyps active 2015-11-09 ProblemAct [facility] Diverticular disease of left colon active 2015-11-09 ProblemAct [facility] Allergic rhinitis active 2013-07-29 ProblemAct [facility] Benign neoplasm of colon active 2013-07-29 ProblemAct [facility] Low back pain active 2014-12-13 ProblemAct [facility] Muscle pain active 2018-06-18 ProblemAct [facility] Abnormal ECG active 2022-12-17 ProblemAct [facility] Family history of colon cancer active 2015-11-09 ProblemAct [facility] Impingement syndrome of shoulder region active 2016-02-06 ProblemAct [facility] Strabismic amblyopia active 2013-07-29 ProblemAct [facility] Irritable bowel syndrome active 2013-07-29 ProblemAct [facility] Traumatic arthropathy involving shoulder region active 2016-02-27 ProblemAct [facility] Right foot pain active 2018-06-16 ProblemAct [facility] Chronic left shoulder pain active EncounterDiagnosisAct [facility] Essential hypertension active ProblemAct [facility] Hyperlipidemia active 2014-09-[address] Rotator cuff syndrome active 2016-02-06 ProblemAct [facility] Heart palpitations active 2022-12-17 ProblemAct [facility] Immunizations Vaccine Date Source Lot Number Status Influenza High-Dose Quadriva lent,(FLUZONE HIGH-DOSE), Perservative Free IM 0.7 mL 65 years and older 02/12/2021 [facility] [id number] completed Influenza High-Dose Trivalen t,(FLUZONE HIGH-DOSE), Perservative Free IM 0.5 mL 65 years and older 02/12/2021 [facility] [id number] completed Influenza, Unspecified 02/12/2021 [facility] [id number] co mpleted zzInfluenza Inactivated/Spli t with Preservative IM 02/12/2021 [facility] [id number] completed Zoster Vaccine Live/Attenuated (Zostavax) 11/07/2020 [facility] [id number] completed Zoster Vaccine Recombinant (Shingrix) 11/07/2020 [facility] [id number] completed Zoster Vaccine Live/Attenuated (Zostavax) 08/02/2020 [facility] [id number] completed Zoster Vaccine Recombinant (Shingrix) 08/02/2020 [facility] [id number] completed Covid-19 MRNA Vaccine - Pfiz er 12+ (Purple Cap) 05/31/2020 [facility] [id number] completed Influenza Virus Trivalent Sp lit Vaccine (MDV) IM 01/07/2020 [facility] [id number] completed Influenza High-Dose Quadriva lent,(FLUZONE HIGH-DOSE), Perservative Free IM 0.7 mL 65 years and older 12/08/2018 [facility] completed Influenza High-Dose Trivalen t,(FLUZONE HIGH-DOSE), Perservative Free IM 0.5 mL 65 years and older 12/08/2018 [facility] [id number] completed Influenza, Unspecified 12/08/2018 [facility] co mpleted Pneumococcal Polysaccharide 23-Valent 09/18/2018 [facility] completed Pneumococcal Conjugate 13-Valent 06/17/2017 [facility] [id number] completed Influenza (AFLURIA/FLUZONE) Inactivated/Split Quadrivalent with Preservative IM 02/24/2014 [facility] [id number] completed Influenza Virus Trivalent Sp lit Vaccine (MDV) IM 02/24/2014 [facility] [id number] completed Influenza (AFLURIA/FLUZONE) Inactivated/Split Quadrivalent with Preservative IM 02/02/2013 [facility] [id number] 2P completed Influenza Virus Trivalent Sp lit Vaccine (MDV) IM 02/02/2013 [facility] 1346 2P completed Influenza Virus Trivalent Sp lit Vaccine (MDV) IM 12/26/2011 [facility] [id number] completed Influenza Virus Trivalent Sp lit Vaccine (MDV) IM 02/26/2011 [facility] [id number] completed Tdap 01/12/2010 [facility] [id number] completed Influenza (AFLURIA/FLUZONE) Inactivated/Split Quadrivalent with Preservative IM 01/30/2009 [facility] [id number] completed Influenza Virus Trivalent Sp lit Vaccine (MDV) IM 01/30/2009 [facility] [id number] completed Encounters Encounter Type Encounter Reason Primary Diagnosis Location Date Ambulatory Encounter for screening mammogram for malignant neoplasm of breast Encounter for screening mammogram for malignant neoplasm of breast [facility] 08/04/2024 Ambulatory Essential (primary) hypertension Essential (primary) hypertension [facility] 03/09/2024 Ambulatory Essential (primary) hypertension Essential (primary) hypertension [facility] 02/06/2024 Ambulatory [facility] 11/18/2023 Emergency Unspecified contact dermatitis, unspecified cause Unspecified contact dermatitis, unspecified cause [facility] 10/17/2023 Ambulatory [facility] 10/14/2023 Ambulatory [facility] 10/01/2023 Ambulatory [facility] 09/29/2023 Ambulatory Type 2 diabetes mellitus without complications Type 2 diabetes mellitus without complications [facility] 09/22/2023 Ambulatory [facility] 09/16/2023 Ambulatory [facility] 09/09/2023 Ambulatory [facility] 09/05/2023 Ambulatory Hand Injury Hand Injury [facility] 09/05/2023 Ambulatory [facility] 09/04/2023 Ambulatory Pain in left shoulder Pain in left shoulder [facility] 09/03/2023 Ambulatory Pain in left shoulder Pain in left shoulder [facility] 09/01/2023 Ambulatory [facility] 08/27/2023 Ambulatory [facility] 08/26/2023 Ambulatory [facility] 08/25/2023 Ambulatory [facility] 08/21/2023 Ambulatory Pain in left shoulder Pain in left shoulder [facility] 08/19/2023 Ambulatory [facility] 08/15/2023 Ambulatory Pain in left shoulder Pain in left shoulder [facility] 08/13/2023 Ambulatory Pain in left shoulder Pain in left shoulder [facility] 08/11/2023 Ambulatory Tremor, unspecified Tremor, unspecified [facility] 07/31/[facility]23 Ambulatory Pain in left shoulder Pain in left shoulder [facility] 07/30/2023 Emergency COVID-19 COVID-19 [facility] 05/29/19 Ambulatory Deficiency of other specified B group vitamins Deficiency of other specified B group vitamins [facility] 05/09/2023 Ambulatory Family history of other endocrine, nutritional and metabolic diseases Family history of other endocrine, nutritional and metabolic diseases [facility] 01/10/2023 Ambulatory Precordial pain Precordial pain [facility] 01/03/2023 Ambulatory Precordial pain Precordial pain [facility] 12/17/2022 Ambulatory Palpitations [facility] 09/12/2022 Ambulatory Hallux valgus (acquired), left foot [facility] 09/03/2022 Ambulatory Bunion of left foot [facility] 08/27/2022 Ambulatory Type 2 diabetes mellitus without complications [facility] 05/07/2022 Ambulatory [facility] 03/28/2022 Ambulatory Pain in left shoulder [facility] 03/26/2022 Ambulatory Pain in left shoulder [address] [facility] 03/08/2022 Ambulatory [place] [facility] 02/26/2022 Ambulatory Mild intermitten t asthma with (acute) exacerbation [place] [facility] 02/22/2022 Ambulatory [place] [facility] 02/21/2022 Ambulatory Acute cough [place] [facility] 02/17/2022 Ambulatory Type 2 diabetes mellitus without complications [place] [facility] 02/12/2022 Ambulatory [place] [facility] 02/07/2022 Ambulatory [place] [facility] 11/20/2021 Ambulatory Strain of muscle (s) and tendon(s) of the rotator cuff of left shoulder, subsequent encounter [facility] 11/06/2021 Ambulatory Arthralgia of le ft temporomandibular joint [place] [facility] 11/03/2021 Ambulatory Strain of muscle (s) and tendon(s) of the rotator cuff of left shoulder, subsequent encounter [facility] 11/02/2021 Ambulatory Strain of muscle (s) and tendon(s) of the rotator cuff of left shoulder, subsequent encounter [facility] 10/30/2021 Ambulatory [facility] 10/25/2021 Ambulatory [place] [facility] 10/23/2021 Ambulatory Personal history of other diseases of the circulatory system [place] [facility] 10/21/2021 Ambulatory Tremor, unspecified [place] [facility] 10/12/2021 Ambulatory Strain of muscle (s) and tendon(s) of the rotator cuff of left shoulder, subsequent encounter [facility] 10/10/2021 Ambulatory Strain of muscle (s) and tendon(s) of the rotator cuff of left shoulder, subsequent encounter [facility] 10/03/2021 Ambulatory Strain of muscle (s) and tendon(s) of the rotator cuff of left shoulder, subsequent encounter [facility] 10/01/2021 Ambulatory Strain of muscle (s) and tendon(s) of the rotator cuff of left shoulder, subsequent encounter [facility] 09/28/2021 Ambulatory Strain of muscle (s) and tendon(s) of the rotator cuff of left shoulder, subsequent encounter [facility] 09/25/2021 Ambulatory Strain of muscle (s) and tendon(s) of the rotator cuff of left shoulder, subsequent encounter [facility] 09/21/2021 Ambulatory Strain of muscle (s) and tendon(s) of the rotator cuff of left shoulder, subsequent encounter [facility] 09/18/2021 Ambulatory [facility] 09/14/2021 Ambulatory Strain of muscle (s) and tendon(s) of the rotator cuff of left shoulder, subsequent encounter [facility] 09/12/2021 Ambulatory [facility] 09/07/2021 Ambulatory [facility] 09/04/2021 Ambulatory Strain of muscle (s) and tendon(s) of the rotator cuff of left shoulder, subsequent encounter [facility] 08/31/2021 Ambulatory Hypertension [facility] 06/12/2021 Ambulatory Pain in left shoulder [address] [facility] 05/24/2021 Ambulatory Pain in left shoulder [address] [facility] 05/22/2021 Ambulatory Pain in left shoulder [address] [facility] 05/17/2021 Ambulatory Pain in left shoulder [address] [facility] 05/14/2021 Ambulatory Pain in left shoulder [address] [facility] 05/09/2021 Ambulatory Pain in left shoulder [address] [facility] 05/07/2021 Ambulatory Pain in left shoulder [address] [facility] 05/04/2021 Ambulatory Pain in left shoulder [address] [facility] 05/02/2021 Ambulatory Pain in left shoulder [address] [facility] 04/24/2021 Ambulatory Pain in left shoulder [address] [facility] 04/19/2021 Ambulatory COVID-19 [employer] 03/06/2021 Ambulatory Type 2 diabetes mellitus without complications [employer] 02/12/2021 Care Team Organization Name Specialty Phone Email Start Date End Da te [employer] [facility] 08/04/202409/02 [facility] Primary Care 05/29/2023 10/05/2024 [facility] 05/29/2023 [facility] Primary Care 0 05/29/2023 [facility] 01/24/2023 [facility] 12/13/2022 024 [facility] 08/24/2022 [employer] Clara Motley Primary Care 02/[facility]202209[facility]02 [facility] 10/17/201702/12 Maria G Gonzalez
--- OUTSIDE RECORDS SUMMARY | 2024-12-01 16:51 | XMS_ITS | Encounter Summary ---
Author Organization [facility] Address [address] [place] [address] Care Team Providers Care Regional Sales Representative Name Role Phone Clara Motley MD Primary Care Provider [phone] Daisy Ramsey MD Unavailable +[phone] Frank Livingston MD Unavailable +[phone] Shirley De La Garza APRN Unavailable Cordelia Engle MD Unavailable +[phone] Daja Sloan MD Unavailable [phone] Luis Alberto Renee MD Unavailable [phone] Vandana Bates RN Unavailable [phone] Clara Motley MD Unavailable +[phone] Clarence Hollingsworth MD Unavailable Dawn Agrawal LCSW Unavailable +[phone] Renay Ford Unavailable Encounter Details Date Type Department Care Team (Late st Contact Info) Description 12/18/2021 Scanned Document [facility] PRIMARY CARE SCAN Clara Motley MD [address] [place] [address] Social History Tobacco Use Types Packs/Day Years [...] Orientation Heterosexual (straight) 03/30 6:15 AM EST COVID-19 Exposure Response Date Recorded In the last 10 days, have yo u been in contact with someone who was confirmed or suspected to have Coronavirus/COVID-19? No / Unsure 11/20/2021 2:01 PM EDT documented as of this encounter Plan of Treatment Upcoming Encounters Date Type Department Care Team (Late st Contact Info) Description 12/13/2024 11:15 AM EDT Office Visit [facility] [address] [facility] [address] [place] [address] Clara Motley MD 100 [facility] [address] [place] [address] documented as of this encounter Visit Diagnoses Not on filedocumented in this encounter Care Teams Regional Sales Representative Relationship Specialty Start Date End Date Clara Motley MD PCP - General Internal Medicine 10/16/15 Claar Motley MD [address] [place] [address] PCP - MSSP Attributed 03/24/21 4 Daisy Ramsey MD [address] [facility] [address] [place] [address] Consulting Provider Dermatology 06/17/17 Frank Livingston MD [address] [place] [address] Gastroenterology 06/17/17 Shirley De La Garza APRN [address] [place] [address] Nurse Practitioner Gynecology 06/17/17 Cordelia Engle MD [address] [address] Nephrology 06/17/17 Daja Sloan MD [address] [address] Ophthalmology 06/17/17 Luis Alberto Renee MD 43 [place] [address] Ophthalmology 05/19/18 Vandana Bates, JUAN MIGUEL [address] [facility] 4 [place] [address] ICP Community Director Of Digital Platforms 04/01/19 10/08/24 Clarence Hollingsworth MD 420 [place] [address] Primary Transit Mixer Driver Cardiovascular Disease 03/24/22 Dawn Agrawal LCSW [address] [address] ICP Community Director Of Digital Platforms 10/08/24 10/26/24 Renay Ford [address] [address] ICP Community Director Of Digital Platforms 10/26/24 documented as of this encounter
--- OUTSIDE RECORDS SUMMARY | 2024-12-01 16:51 | XMS_ITS | Encounter Summary ---
Author Organization [facility] Address [address] [place] [address] Care Team Providers Care Nursing Service Administrator Name Role Phone Clara Motley MD Primary Care Provider [phone] Daisy Ramsey MD Unavailable [phone] Frank Livingston MD Unavailable [phone] Shirley De La Garza APRN Unavailable Cordelia Engle MD Unavailable [phone] Daja Sloan MD Unavailable [phone] Luis Alberto Renee MD Unavailable [phone] Vandana Bates RN Unavailable [phone] Clara Motley MD Unavailable [phone] Clarence Hollingsworth MD Unavailable Dawn Agrawal LCSW Unavailable +[phone] Renay Ford Unavailable Encounter Details Date Type Department Care Team (Late st Contact Info) Description 05/16/2022 Scanned Document [facility] PRIMARY CARE SCAN Clara Motley MD [address] [place] [address] Social History Tobacco Use Types Packs/Day Years [...] suspected to have Coronavirus/COVID-19? No / Unsure 05/07/2022 10:51 AM EST documented as of this encounter Plan of Treatment Upcoming Encounters Date Type Department Care Team (Late st Contact Info) Description 12/13/2024 11:15 AM EDT Office Visit [facility] [address] [facility] [address] [place] [address] Clara Motley MD 100 [facility] [address] [place] [address] documented as of this encounter Visit Diagnoses Not on filedocumented in this encounter Care Teams Nursing Service Administrator Relationship Specialty Start Date End Date Clara Motley MD PCP - General Internal Medicine 10/16/15 Clara Motley MD 100 [facility] [address] [place] [address] PCP - MSSP Attributed 03/24/21 4 Daisy Ramsey MD [address] [facility] [address] [place] [address] Consulting Provider Dermatology 06/17/17 Frank Livingston MD [address] [place] [address] Gastroenterology 06/17/17 Shirley De La Garza APRN [address] [place] [address] Nurse Practitioner Gynecology 06/17/17 Cordelia Engle MD [address] [address] Nephrology 06/17/17 Daja Sloan MD [address] [address] Ophthalmology 06/17/17 Luis Alberto Renee MD 43 [place] [address] Ophthalmology 05/19/18 Vandana Bates, JUAN MIGUEL [address] [address] ICP Community Gift Shop Assistant 04/01/19 10/08/24 Clarence Hollingsworth MD 420 [place] [address] Primary Hemstitching Machine Operator Cardiovascular Disease 03/24/22 Dawn Agrawal LCSW [address] [address] ICP Community Gift Shop Assistant 10/08/24 10/26/24 Renay Ford [address] [address] ICP Community Gift Shop Assistant 10/26/24 documented as of this encounter
--- OUTSIDE RECORDS SUMMARY | 2024-12-01 16:51 | XMS_ITS | Encounter Summary ---
Author Organization [facility] Address [address] [place] [address] Care Team Providers Care Solid Waste Collection Worker Name Role Phone Clara Motley MD Primary Care Provider Daisy Ramsey MD Unavailable [phone] Frank Livingston MD Unavailable [phone] Shirley De La Garza APRN Unavailable Cordelia Engle MD Unavailable [phone] Daja Sloan MD Unavailable [phone] Luis Alberto Renee MD Unavailable [phone] Vandana Bates RN Unavailable [phone] Clara Motley MD Unavailable [phone] Clarence Hollingsworth MD Unavailable Dawn Agrawal LCSW Unavailable [phone] Renay Ford Unavailable Encounter Details Date Type Department Care Team (Late st Contact Info) Description 03/23/2021 Scanned Document [address] [place] [address] Provider, Generic Social History Tobacco Use [...] Exposure Response Date Recorded In the last month, have you been in contact with someone who was confirmed or suspected to have Coronavirus / COVID-19? Unable to assess 03/06/2021 11:34 AM ES T documented as of this encounter Plan of Treatment Upcoming Encounters Date Type Department Care Team (Late st Contact Info) Description 12/13/2024 11:15 AM EDT Office Visit [facility] [address] [place] [address] Clara Motley MD [address] [place] [address] documented as of this encounter Visit Diagnoses Not on filedocumented in this encounter Care Teams Solid Waste Collection Worker Relationship Specialty Start Date End Date Clara Motley MD PCP - General Internal Medicine 10/16/15 Clara Motley MD [address] [place] [address] PCP - MSSP Attributed 03/24/21 4 Daisy Ramsey MD [address] [place] [address] Consulting Provider Dermatology 06/17/17 Frank Livingston MD [address] [place] [address] Gastroenterology 06/17/17 Shirley De La Garza APRN [address] [place] [address] Nurse Practitioner Gynecology 06/17/17 Cordelia Engle MD [address] [address] Nephrology 06/17/17 Daja Sloan MD [address] [address] Ophthalmology 06/17/17 Luis Alberto Renee MD 43 [place] [address] Ophthalmology 05/19/18 Vandana Bates RN [address] [address] ICP Community Senior Front End Engineer 04/01/19 10/08/24 Clarence Hollingsworth MD [address] [place] [address] Primary Calender Runner Cardiovascular Disease 03/24/22 Dawn Agrawal LCSW [address] [address] ICP Community Senior Front End Engineer 10/08/24 10/26/24 Renay Ford [address] [address] ICP Community Senior Front End Engineer 10/26/24 documented as of this encounter
--- OUTSIDE RECORDS SUMMARY | 2024-12-01 16:51 | XMS_ITS | Encounter Summary ---
Author Organization [facility] Address [address] [place] [address] Care Team Providers Care Senior Quality Technician Name Role Phone Clara Motley MD Primary Care Provider Daisy Ramsey MD Unavailable [phone] Frank Livingston MD Unavailable [phone] Shirley De La Garza APRN Unavailable Cordelia Engle MD Unavailable [phone] Daja Sloan MD Unavailable [phone] Luis Alberto Renee MD Unavailable [phone] Vandana Bates RN Unavailable [phone] Clara Motley MD Unavailable +[phone] Clarence Hollingsworth MD Unavailable Dawn Agrawal LCSW Unavailable [phone] Renay Ford Unavailable Encounter Details Date Type Department Care Team (Late st Contact Info) Description 03/15/2022 Scanned Document [address] [place] [address] Provider, Generic Social History Tobacco Use [...] suspected to have Coronavirus/COVID-19? No / Unsure 03/08/2022 1:57 PM EST documented as of this encounter Plan of Treatment Upcoming Encounters Date Type Department Care Team (Late st Contact Info) Description 12/13/2024 11:15 AM EDT Office Visit [facility] [address] [place] [address] Clara Motley MD [address] [facility] [address] [place] [address] documented as of this encounter Visit Diagnoses Not on filedocumented in this encounter Care Teams Senior Quality Technician Relationship Specialty Start Date End Date Clara Motley MD PCP - General Internal Medicine 10/16/15 Clara Motley MD 100 [facility] [address] [place] [address] PCP - MSSP Attributed 03/24/21 4 Daisy Ramsey MD [address] [place] [address] Consulting Provider Dermatology 06/17/17 Frank Livingston MD [address] [place] [address] Gastroenterology 06/17/17 Shirley De La Garza APRN [address] [place] [address] Nurse Practitioner Gynecology 06/17/17 Cordelia Engle MD [address] [address] Nephrology 06/17/17 Daja Sloan MD [address] [address] Ophthalmology 06/17/17 Luis Alberto Renee MD 43 [place] [address] Ophthalmology 05/19/18 Vandana Bates RN [address] [address] ICP Community Legislative Analyst 04/01/19 10/08/24 Clarence Hollingsworth MD [address] [place] [address] Primary Meter Calibrator Cardiovascular Disease 03/24/22 Dawn Agrawal LCSW [address] [address] ICP Community Legislative Analyst 10/08/24 10/26/24 Renay Ford [address] [address] ICP Community Legislative Analyst 10/26/24 documented as of this encounter
--- OUTSIDE RECORDS SUMMARY | 2024-12-01 16:51 | XMS_ITS | Encounter Summary ---
Author Organization [facility] Address [address] [place] [address] Care Team Providers Care Builder Operator Name Role Phone Clara Motley MD Primary Care Provider Daisy Ramsey MD Unavailable [phone] Frank Livingston MD Unavailable [phone] Shirley De La Garza APRN Unavailable Cordelia Engle MD Unavailable [phone] Daja Sloan MD Unavailable [phone] Clara Motley MD Unavailable [phone] Arin Liu RN Unavailable [phone] Luis Alberto Renee MD Unavailable [phone] Vandana Bates RN Unavailable [phone] Clara Motley MD Unavailable [phone] Clarence Hollingsworth MD Unavailable Dawn Agrawal LCSW Unavailable [phone] Renay Ford Unavailable Encounter Details Date Type Department Care Team (Late st Contact Info) Description 10/20/2015 Scanned Document [address] [place] [address] Provider, Generic Social History Tobacco Use Types Packs/Day Years Used Date Smoking Tobacco: Never Alcohol Use Standard Drinks/Week Comments Not Asked 0 (1 standard drink = 0.6 oz pur e alcohol) Comments Unknown Sex and Gender Information Value Date Recorded Sex Assigned at Female 09/03/2022 7:45 AM EDT Legal Sex Female 11:33 AM EDT Gender Identity Female 03/30/2020 6:15 AM EST Sexual Orientation Heterosexual (straight) 03/30 6:15 AM EST documented as of this encounter Plan of Treatment Upcoming Encounters Date Type Department Care Team (Late st Contact Info) Description 12/13/2024 11:15 AM EDT Office Visit [facility] 100 [facility] [address] [place] [address] Clara Motley MD [address] [place] [address] documented as of this encounter Procedures Procedure Name Priority Date/Time Associated Diagnosis Comments PATHOLOGY SURGERY 11/09/2015 LAB RESULT 10/20/2015 documented in this encounter Results * PATHOLOGY SURGERY (11/09/2015) Narrative 11/09/2015 Ordered by an unspecified provider. Generic Provider [facility] HX PATH PROCEDURES Edited R esult - Final * LAB RESULT (10/20/2015) Narrative 10/20/2015 Ordered by an unspecified provider. us Generic Provider HX AMB PROCEDURES Edited Result - Final documented in this encounter Visit Diagnoses Not on filedocumented in this encounter Care Teams Builder Operator Relationship Specialty Start Date End Date Clara Motley MD PCP - General Internal Medicine 10/16/15 Clara Motley MD [address] [place] [address] PCP - MSSP Attributed 09/21/18 0 Clara Motley MD [address] [place] [address] PCP - MSSP Attributed 03/24/21 4 Daisy Ramsey MD [address] [facility] [address] [place] [address] Consulting Provider Dermatology 06/17/17 Frank Livingston MD [address] [facility] [address] [place] [address] Gastroenterology 06/17/17 Shirley De La Garza APRN [address] [place] [address] Nurse Practitioner Gynecology 06/17/17 Cordelia Engle MD [address] [address] Nephrology 06/17/17 Daja Sloan MD [address] [address] Ophthalmology 06/17/17 Arin Liu RN 1290 [facility] [address] [place], [place] [address] [facility] Community Physical Sciences Professor 01/29/18 04/01/19 Luis Alberto Renee MD 43 [place] [address] Ophthalmology 05/19/18 Vandana Bates, RN [address] [place] [address] [facility] Community Physical Sciences Professor 04/01/19 10/08/24 Clarence Hollingsworth MD [address] [place] [address] Primary Nail Making Machine Tender Cardiovascular Disease 03/24/22 Dawn Agrawal LCSW [address] [address] [facility] Community Physical Sciences Professor 10/08/24 10/26/24 Renay Ford [address] [address] ICP Community Physical Sciences Professor 10/26/24 documented as of this encounter
--- OUTSIDE RECORDS SUMMARY | 2024-12-01 16:51 | XMS_ITS | Encounter Summary ---
Author Organization [facility] Address [address] [place] [address] Care Team Providers Care Patient Service Representative Name Role Phone Clara Motley MD Primary Care Provider + [phone] Daisy Ramsey MD Unavailable [phone] Frank Livingston MD Unavailable [phone] Shirley De La Garza APRN Unavailable Cordelia Engle MD Unavailable Daja Sloan MD Unavailable [phone] Luis Alberto Renee MD Unavailable [phone] Vandana Bates RN Unavailable [phone] Clara Motley MD Unavailable +[phone] Clarence Hollingsworth MD Unavailable Dawn Agrawal LCSW Unavailable +[phone] Renay Ford Unavailable Encounter Details Date Type Department Care Team (Late st Contact Info) Description 11/04/2021 Scanned Document [address] [place] [address] Gastroenterology, Scan Social History Tobacco Use Types Packs/Day Years [...] suspected to have Coronavirus/COVID-19? No / Unsure 11/06/2021 7:06 AM EDT documented as of this encounter Plan of Treatment Upcoming Encounters Date Type Department Care Team (Late st Contact Info) Description 12/13/2024 11:15 AM EDT Office Visit [facility] 100 [facility] [address] [place] [address] Clara Motley MD [address] [facility] [address] [place] [address] documented as of this encounter Visit Diagnoses Not on filedocumented in this encounter Care Teams Patient Service Representative Relationship Specialty Start Date End Date Clara Motley MD PCP - General Internal Medicine 10/16/15 Clara Motley MD [address] [facility] [address] [place] [address] PCP - MSSP Attributed 03/24/21 4 Daisy Ramsey MD [address] [place] [address] Consulting Provider Dermatology 06/17/17 Frank Livingston MD [address] [place] [address] Gastroenterology 06/17/17 Shirley De La Garza APRN [address] [place] [address] Nurse Practitioner Gynecology 06/17/17 Cordelia Engle MD [address] [address] Nephrology 06/17/17 Daja Sloan MD [address] [address] Ophthalmology 06/17/17 Luis Alberto Renee MD 43 [place] [address] Ophthalmology 05/19/18 Vandana Bates RN [address] [address] ICP Community Care Advocate 04/01/19 10/08/24 Clarence Hollingsworth MD [address] [place] [address] Primary Flue Gas Analyst Cardiovascular Disease 03/24/22 Dawn Agrawal LCSW [address] [address] ICP Community Care Advocate 10/08/24 10/26/24 Renay Ford [address] [address] ICP Community Care Advocate 10/26/24 documented as of this encounter
--- OUTSIDE RECORDS SUMMARY | 2024-12-01 16:51 | XMS_ITS | Encounter Summary ---
Author Organization [facility] Address [address] [place] [address] Care Team Providers Care Power System Operator Name Role Phone Clara Motley MD Primary Care Provider + [phone] Daisy Ramsey MD Unavailable [phone] Frank Livingston MD Unavailable [phone] Shirley De La Garza APRN Unavailable Cordelia Engle MD Unavailable Daja Sloan MD Unavailable +[phone] Clara Motley MD Unavailable +[phone] Arin Liu RN Unavailable +[phone] Luis Alberto Renee MD Unavailable [phone] Vandana Bates RN Unavailable [phone] Clara Motley MD Unavailable +[phone] Clarence Hollingsworth MD Unavailable Dawn Agrawal LCSW Unavailable +[phone] Renay Ford Unavailable Reason for Visit * Reason Comments Medication Refill Encounter Details Date Type Department Care Team (Late st Contact Info) Description 02/28/[address] [address] Clara Motley MD 100 [facility] [address] [place] [address] HTN (hypertension), benign Social History Tobacco Use Types Packs/Day Years [...] Description 12/13/2024 11:15 AM EDT Office Visit [facility] [address] [address] Clara Motley MD [address] [address] documented as of this encounter Visit Diagnoses Diagnosis HTN (hypertension), benign Essential hypertension, benign documented in this encounter Care Teams Power System Operator Relationship Specialty Start Date End Date Clara Motley MD PCP - General Internal Medicine 10/16/15 Clara Motley MD 100 [facility] [address] [place] [address] PCP - MSSP Attributed 09/21/18 0 Clara Motley MD 100 [facility] [address] [place] [address] PCP - MSSP Attributed 03/24/21 4 Daisy Ramsey MD 113 [facility] [address] [place] [address] Consulting Provider Dermatology 06/17/17 Frank Livingston MD [address] [place] [address] Gastroenterology 06/17/17 Shirley De La Garza APRN [address] [place] [address] Nurse Practitioner Gynecology 06/17/17 Cordelia Engle MD [address] [address] Nephrology 06/17/17 Daja Sloan MD [address] [address] Ophthalmology 06/17/17 Arin Liu RN [facility] [address] [place], [place] [address] ICP Community Property Accountant 01/29/18 04/01/19 Luis Alberto Renee MD 43 [place] [address] Ophthalmology 05/19/18 Vandana Bates, JUAN MIGUEL [address] [facility] [place], [place] [address] ICP Community Property Accountant 04/01/19 10/08/24 Clarence Hollingsworth MD [address] [place] [address] Primary Chain Mortiser Operator Cardiovascular Disease 03/24/22 Dawn Agrawal LCSW [address] [address] [facility] Community Property Accountant 10/08/24 10/26/24 Renay Ford [address] [address] [facility] Community Property Accountant 10/26/24 documented as of this encounter
--- OUTSIDE RECORDS SUMMARY | 2024-12-01 16:51 | XMS_ITS | Encounter Summary ---
Author Organization [facility]ly [facility] Address [address] [place] [address] Care Team Providers Care Broke Worker Name Role Phone Clara Motley MD Primary Care Provider [phone] Daisy Ramsey MD Unavailable [phone] Frank Livingston MD Unavailable +[phone] Shirley De La Garza APRN Unavailable Cordelia Engle MD Unavailable [phone] Daja Sloan MD Unavailable [phone] Luis Alberto Renee MD Unavailable [phone] Vandana Bates RN Unavailable [phone] Clara Motley MD Unavailable +[phone] Clarence Hollingsworth MD Unavailable Dawn Agrawal LCSW Unavailable +[phone] Renay Ford Unavailable Encounter Details Date Type Department Care Team (Late st Contact Info) Description 02/19/[address] [place] [phone] Clara Motley MD [address] [place] [address] [address] [place] [address] Social History Tobacco Use Types Packs/Day Years Used Date Smoking Tobacco: Never Smokeless Tobacco: Never Alcohol Use Standard Drinks/Week Comments Yes 1 (1 standard drink = 0.6 oz pur e alcohol) social PHQ-2 Answer Date Recorded PHQ-2 Total Score 0 01/10/2023 Comments No Sex and Gender Information Value Date Recorded Sex Assigned at Female 09/03/2022 7:45 AM EDT Legal Sex Female 11:33 AM EDT Gender Identity Female 03/30/2020 6:15 AM EST Sexual Orientation Heterosexual (straight) 03/30 6:15 AM EST documented as of this encounter Miscellaneous Notes * Telephone Encounter - Miryam Marsh MA - 02/21/2023 8:41 AM EST New referral and OV notes faxed * Telephone Encounter - Maria Del Rosario [place] - 02/19/2023 2:19 PM EST Pt stated (neuro)changed practices.They are asking for a new referral and clinical notes to be faxed to [phone] documented in this encounter Plan of Treatment Upcoming Encounters Date Type Department Care Team (Late st Contact Info) Description 12/13/2024 11:15 AM EDT Office Visit [address] [place] [phone] Clara Motley MD [address] [place] [address] [address] [place] [address] documented as of this encounter Visit Diagnoses Not on filedocumented in this encounter Care Teams Broke Worker Relationship Specialty Start Date End Date Clara Motley MD PCP - General Internal Medicine 10/16/15 Clara Motley MD [address] [place] [address] PCP - MSSP Attributed 03/24/21 4 Daisy Ramsey MD [address] [place] [address] Consulting Provider Dermatology 06/17/17 Frank Livingston MD [address] [place] [address] Gastroenterology 06/17/17 Shirley De La Garza APRN [address] [place] [address] Nurse Practitioner Gynecology 06/17/17 Cordelia Engle MD [address] [address] Nephrology 06/17/17 Daja Sloan MD [address] [address] Ophthalmology 06/17/17 Luis Alberto Renee MD [address] [place] [phone] Ophthalmology 05/19/18 Vandana Bates, JUAN MIGUEL [address] [id number] [facility] Community Copra Sampler 04/01/19 10/08/24 Clarence Hollingsworth MD [address] [place] [address] Primary Professional Employer Consultant Cardiovascular Disease 03/24/22 Dawn Agrawal LCSW [address] Oh araceli [address] [address] [facility] Community Copra Sampler 10/08/24 10/26/24 Renay Ford [address] Oh araceli [address] [address] [facility] Community Copra Sampler 10/26/24 documented as of this encounter
--- OUTSIDE RECORDS SUMMARY | 2024-12-01 16:51 | XMS_ITS | Encounter Summary ---
Author Organization [facility] Address [address] [place] [address] Care Team Providers Care Court Crier Name Role Phone Clara Motley MD Primary Care Provider + [phone] Daisy Ramsey MD Unavailable [phone] Frank Livingston MD Unavailable +[phone] Shirley De La Garza APRN Unavailable Cordelia Engle MD Unavailable +[phone] Daja Sloan MD Unavailable [phone] Luis Alberto Renee MD Unavailable [phone] Vandana Bates RN Unavailable [phone] Clara Motley MD Unavailable [phone] Clarence Hollingsworth MD Unavailable Dawn Agrawal LCSW Unavailable +[phone] Renay oFrd Unavailable Encounter Details Date Type Department Care Team (Late st Contact Info) Description 12/26/2020 Scanned Document [address] [place] [phone] Provider, Generic Social History Tobacco Use [...] or suspected to have Coronavirus / COVID-19? No / Unsure 12/04/2020 12:48 PM EDT documented as of this encounter Plan of Treatment Upcoming Encounters Date Type Department Care Team (Late st Contact Info) Description 12/13/2024 11:15 AM EDT Office Visit [facility] [address] [place] [address] Clara Motley MD [address] [facility] [address] [place] [address] documented as of this encounter Visit Diagnoses Not on filedocumented in this encounter Care Teams Court Crier Relationship Specialty Start Date End Date Clara Motley MD PCP - General Internal Medicine 10/16/15 Clara Motley MD 100 [facility] [address] [place] [address] PCP - MSSP Attributed 03/24/21 4 Daisy Ramsey MD [address] [place] [address] Consulting Provider Dermatology 06/17/17 Frank Livingston MD [address] [place] [address] Gastroenterology 06/17/17 Shirley De La Garza APRN [address] [place] [address] Nurse Practitioner Gynecology 06/17/17 Cordelia Engle MD [address] [address] Nephrology 06/17/17 Daja Sloan MD [address] [address] Ophthalmology 06/17/17 Luis Alberto Renee MD 43 [place] [phone] Ophthalmology 05/19/18 Vandana Bates RN [address] Oh [address] [address] [facility] Community Forensic Medical Examiner 04/01/19 10/08/24 Clarence Hollingsworth MD [address] [place] [address] Primary Printing Machine Operator Tape Rules Cardiovascular Disease 03/24/22 Dawn Agrawal LCSW [address] Oh [address] [address] [facility] Community Forensic Medical Examiner 10/08/24 10/26/24 Renay Ford [address] [address] [facility] Community Forensic Medical Examiner 10/26/24 documented as of this encounter
--- OUTSIDE RECORDS SUMMARY | 2024-12-01 16:51 | XMS_ITS | Encounter Summary ---
Author Organization [facility] Address [address] [place] [address] Care Team Providers Care Drying Room Supervisor Name Role Phone Clara Motley MD Primary Care Provider Daisy Ramsey MD Unavailable [phone] Frank Livingston MD Unavailable [phone] Shirley De La Garza APRN Unavailable Cordelia Engle MD Unavailable [phone] Daja Sloan MD Unavailable [phone] Luis Alberto Renee MD Unavailable [phone] Vandana Bates RN Unavailable [phone] Clara Motley MD Unavailable [phone] Clarence Hollingsworth MD Unavailable Dawn Agrawal LCSW Unavailable [phone] Renay Ford Unavailable Encounter Details Date Type Department Care Team (Late st Contact Info) Description 07/13/2021 Scanned Document [address] [place] [phone] Provider, Generic Social History Tobacco Use [...] Description 12/13/2024 11:15 AM EDT Office Visit [facility] [address] [place] [address] Clara Motley MD [address] [place] [address] documented as of this encounter Visit Diagnoses Not on filedocumented in this encounter Care Teams Drying Room Supervisor Relationship Specialty Start Date End Date Clara Motley MD PCP - General Internal Medicine 10/16/15 Clara Motley MD [address] [place] [address] PCP - MSSP Attributed 03/24/21 4 Daisy Ramsey MD [address] [place] [address] Consulting Provider Dermatology 06/17/17 Frank Livingston MD [address] [place] [address] Gastroenterology 06/17/17 Shirley De La Garza APRN [address] [place] [address] Nurse Practitioner Gynecology 06/17/17 Cordelia Engle MD [address] [address] Nephrology 06/17/17 Daja Sloan MD [address] [address] Ophthalmology 06/17/17 Luis Alberto Renee MD [address] [place] [phone] Ophthalmology 05/19/18 Vandana Bates, JUAN MIGUEL [address] [address] [facility] Community Battery Builder 04/01/19 10/08/24 Clarence Hollingsworth MD [address] [place] [address] Primary Black Leather Buffer Cardiovascular Disease 03/24/22 Dawn Agrawal LCSW [address] Oh [address] [address] [facility] Community Battery Builder 10/08/24 10/26/24 Renay Ford [address] [address] [facility] Community Battery Builder 10/26/24 documented as of this encounter
--- OUTSIDE RECORDS SUMMARY | 2024-12-01 16:51 | XMS_ITS | Encounter Summary ---
Author Organization [facility] Address [address] [place] [address] Care Team Providers Care Cost Consultant Name Role Phone Clara Motley MD Primary Care Provider + [phone] Daisy Ramsey MD Unavailable [phone] Frank Livingston MD Unavailable [phone] Shirley De La Garza APRN Unavailable Cordelia Engle MD Unavailable [phone] Daja Sloan MD Unavailable [phone] Luis Alberto Renee MD Unavailable [phone] Vandana Bates RN Unavailable [phone] Clara Motley MD Unavailable [phone] Clarence Hollingsworth MD Unavailable Dawn Agrawal LCSW Unavailable [phone] Renay Ford Unavailable Encounter Details Date Type Department Care Team (Late st Contact Info) Description 07/18/2020 Scanned Document [address] [place] [phone] Provider, Generic Social History Tobacco Use [...] Description 12/13/2024 11:15 AM EDT Office Visit [facility] [address] [place] [address] Clara Motley MD [address] [place] [address] documented as of this encounter Visit Diagnoses Not on filedocumented in this encounter Care Teams Cost Consultant Relationship Specialty Start Date End Date Clara Motley MD PCP - General Internal Medicine 10/16/15 Clara Motley MD [address] [place] [address] PCP - MSSP Attributed 03/24/21 4 Daisy Ramsey MD [address] [place] [address] Consulting Provider Dermatology 06/17/17 Frank Livingston MD [address] [place] [address] Gastroenterology 06/17/17 Shirley De La Garza APRN [address] [place] [address] Nurse Practitioner Gynecology 06/17/17 Cordelia Engle MD [address] [address] Nephrology 06/17/17 Daja Sloan MD [address] [address] Ophthalmology 06/17/17 Luis Alberto Renee MD [address] [place] [phone] Ophthalmology 05/19/18 Vandana Bates, JUAN MIGUEL [address] Noble [address] [address] [facility] Community Intelligence Consultant 04/01/19 10/08/24 Clarence Hollingsworth MD [address] [place] [address] Primary Forging Operator Cardiovascular Disease 03/24/22 Dawn Agrawal LCSW [address] [address] [facility] Community Intelligence Consultant 10/08/24 10/26/24 Renay Ford [address] [address] [facility] Community Intelligence Consultant 10/26/24 documented as of this encounter
--- OUTSIDE RECORDS SUMMARY | 2024-12-01 16:51 | XMS_ITS | Encounter Summary ---
Author Organization [facility] Address [address] [place] [address] Care Team Providers Care Asphalt Blender Name Role Phone Clara Motley MD Primary Care Provider Daisy Ramsey MD Unavailable [phone] Frank Livingston MD Unavailable [phone] Shirley De La Garza APRN Unavailable Cordelia Engle MD Unavailable [phone] Daja Sloan MD Unavailable [phone] Luis Alberto Renee MD Unavailable [phone] Vandana Bates RN Unavailable [phone] Clara Motley MD Unavailable [phone] Clarence Hollingsworth MD Unavailable Dawn Agrawal LCSW Unavailable [phone] Renay Ford Unavailable Encounter Details Date Type Department Care Team (Late st Contact Info) Description 06/11/2020 Scanned Document [address] [place] [phone] Provider, Generic Social History Tobacco Use [...] Description 12/13/2024 11:15 AM EDT Office Visit [facility] [address] [place] [address] Clara Motley MD [address] [place] [address] documented as of this encounter Visit Diagnoses Not on filedocumented in this encounter Care Teams Asphalt Blender Relationship Specialty Start Date End Date Clara Motley MD PCP - General Internal Medicine 10/16/15 Clara Motley MD [address] [place] [address] PCP - MSSP Attributed 03/24/21 4 Daisy Ramsey MD [address] [facility] [address] [place] [address] Consulting Provider Dermatology 06/17/17 Frank Livingston MD [address] [place] [address] Gastroenterology 06/17/17 Shirley De La Garza APRN [address] [place] [address] Nurse Practitioner Gynecology 06/17/17 Cordelia Engle MD [address] [address] Nephrology 06/17/17 Daja Sloan MD [address] [address] Ophthalmology 06/17/17 Luis Alberto Renee MD [address] [place] [phone] Ophthalmology 05/19/18 Vandana Bates, JUAN MIGUEL [address] Noble [address] [address] [facility] Community Blood Bank Calendar Control Clerk 04/01/19 10/08/24 Clarence Hollingsworth MD [address] [place] [address] Primary Bottle And Glass Inspector Cardiovascular Disease 03/24/22 Dawn Agrawal LCSW [address] Oh [address] [address] [facility] Community Blood Bank Calendar Control Clerk 10/08/24 10/26/24 Renay Ford [address] Oh [address] [address] [facility] Community Blood Bank Calendar Control Clerk 10/26/24 documented as of this encounter
--- OUTSIDE RECORDS SUMMARY | 2024-12-01 16:51 | XMS_ITS | Encounter Summary ---
Author Organization [facility] Address [address] [place] [address] Care Team Providers Care Recreational Programs Director Name Role Phone Clara Motley MD Primary Care Provider Daisy Ramsey MD Unavailable [phone] Frank Livingston MD Unavailable [phone] Shirley De La Garza APRN Unavailable Cordelia Engle MD Unavailable [phone] Daja Sloan MD Unavailable [phone] Luis Alberto Renee MD Unavailable [phone] Vandana Bates RN Unavailable [phone] Clara Motley MD Unavailable [phone] Clarence Hollingsworth MD Unavailable Dawn Agrawal LCSW Unavailable [phone] Renay Ford Unavailable Encounter Details Date Type Department Care Team (Late st Contact Info) Description 01/14/2022 Scanned Document [address] [place] [phone] Provider, Generic Social History Tobacco Use Types [...] Description 12/13/2024 11:15 AM EDT Office Visit [facility] [address] [place] [address] Clara Motley MD [address] [place] [address] documented as of this encounter Procedures Procedure Name Priority Date/Time Associated Diagnosis Comments IMAGING BREAST/BX/MAMMO 01/14/2022 documented in this encounter Results * IMAGING BREAST/BX/MAMMO (01/14/2022) Anatomical Region Laterality Modality Other 01/14/2022 Narrative 01/14/2022 Ordered by an unspecified provider. us Generic Provider IMG LEGACY PROCEDURES Edited Re sult - Final documented in this encounter Visit Diagnoses Not on filedocumented in this encounter Care Teams Recreational Programs Director Relationship Specialty Start Date End Date Clara Motley MD PCP - General Internal Medicine 10/16/15 Clara Motley MD [address] [place] [address] PCP - MSSP Attributed 03/24/21 4 Daisy Ramsey MD [address] [place] [address] Consulting Provider Dermatology 06/17/17 Frank Livingston MD [address] [place] [address] Gastroenterology 06/17/17 Shirley De La Garza APRN [address] [place] [address] Nurse Practitioner Gynecology 06/17/17 Cordelia Engle MD [address] [address] Nephrology 06/17/17 Daja Sloan MD [address] [address] Ophthalmology 06/17/17 Luis Alberto Renee MD 43 [place] [phone] Ophthalmology 05/19/18 Vandana Bates, JUAN MIGUEL [address] [address] [facility] Community Marketing Communications Coordinator 04/01/19 10/08/24 Clarence Hollingsworth MD 420 [facility] [place] [address] Primary Help Aid Cardiovascular Disease 03/24/22 Dawn Agrawal LCSW 12[address] Noble [facility] [address] [place] [address] [facility] Community Marketing Communications Coordinator 10/08/24 10/26/24 Renay Ford [address] [place] [address] [facility] Community Marketing Communications Coordinator 10/26/24 documented as of this encounter
--- OUTSIDE RECORDS SUMMARY | 2024-12-01 16:51 | XMS_ITS | Encounter Summary ---
Author Organization [facility] Address [address] [place] [address] Care Team Providers Care Trimmer Operator Three Knife Name Role Phone Clara Motley MD Primary Care Provider [phone] Daisy Ramsey MD Unavailable [phone] Frank Livingston MD Unavailable [phone] Shirley De La Garza APRN Unavailable Cordelia Engle MD Unavailable [phone] Daja Sloan MD Unavailable [phone] Luis Alberto Renee MD Unavailable [phone] Vandana Bates RN Unavailable [phone] Clara Motley MD Unavailable [phone] Clarence Hollingsworth MD Unavailable Dawn Agrawal LCSW Unavailable [phone] Renay Ford Unavailable Encounter Details Date Type Department Care Team (Late st Contact Info) Description 09/06/[address] [place] [phone] Clara Motley MD [address] [place] [address] [address] [place] [address] Social History Tobacco Use Types Packs/Day Years [...] suspected to have Coronavirus/COVID-19? No / Unsure 09/03/2022 7:30 AM EDT documented as of this encounter Miscellaneous Notes * Telephone Encounter - Miryam Marsh MA - 09/06/2022 10:48 AM EDT T/c to Pt, aware lab orders have been placed. * Telephone Encounter - Clara Motley MD - 09/06/2022 10:34 AM EDT She only needs BMP and A1c. New orders placed. * Telephone Encounter - Miryam Marsh MA - 09/06/2022 9:35 AM EDT Last labs done done 05/24/22, orders placed for A1C, CMP, CBC, TSH and lipid for diabetes. * Telephone Encounter - Maria Del Rosario [place] - 09/06/2022 9:10 AM EDT Pt Is asking to get labs done before her appt. Please call once placed. documented in this encounter Plan of Treatment Upcoming Encounters Date Type Department Care Team (Late st Contact Info) Description 12/13/2024 11:15 AM EDT Office Visit [facility] [address] [place] [address] Clara Motley MD [address] [place] [address] documented as of this encounter Visit Diagnoses Not on filedocumented in this encounter Care Teams Trimmer Operator Three Knife Relationship Specialty Start Date End Date Clara Motley MD PCP - General Internal Medicine 10/16/15 Clara Motley MD [address] [place] [address] PCP - MSSP Attributed 03/24/21 4 Daisy Ramsey MD [address] [place] [address] Consulting Provider Dermatology 06/17/17 Frank Livingston MD [address] [place] [address] Gastroenterology 06/17/17 Shirley De La Garza APRN [address] [place] [address] Nurse Practitioner Gynecology 06/17/17 Cordelia Engle MD [address] [address] Nephrology 06/17/17 Daja Sloan MD [address] [address] Ophthalmology 06/17/17 Luis Alberto Renee MD [address] [place] [phone] Ophthalmology 05/19/18 Vandana Bates, RN [address] Oh [address] [address] [facility] Community Warehouse Supervisor 3Rd Shift 04/01/19 10/08/24 Clarence Hollingsworth MD [address] [place] [address] Primary Computer Lab Assistant Cardiovascular Disease 03/24/22 Dawn Agrawal [facility] [address] [place] [address] [address] [facility] Community Warehouse Supervisor 3Rd Shift 10/08/24 10/26/24 Renay Ford [address] [address] [facility] Community Warehouse Supervisor 3Rd Shift 10/26/24 documented as of this encounter
--- OUTSIDE RECORDS SUMMARY | 2024-12-01 16:51 | XMS_ITS | Encounter Summary ---
Author Organization [facility] Address [address] [place] [address] Care Team Providers Care Emergency Room Doctor Name Role Phone Clara Motley MD Primary Care Provider Daisy Ramsey MD Unavailable [phone] Frank Livingston MD Unavailable [phone] Shirley De La Garza APRN Unavailable Cordelia Engle MD Unavailable [phone] Daja Sloan MD Unavailable [phone] Clara Motley MD Unavailable +[phone] Arin Liu RN Unavailable [phone] Luis Alberto Renee MD Unavailable [phone] Vandana Bates RN Unavailable [phone] Clara Motley MD Unavailable [phone] Clarence Hollingsworth MD Unavailable Dawn Agrawal LCSW Unavailable +[phone] Renay Ford Unavailable Encounter Details Date Type Department Care Team (Late st Contact Info) Description 10/16/2018 Scanned Document [address] [place] [address] Provider, Generic Social History Tobacco [...] Description 12/13/2024 11:15 AM EDT Office Visit [facility] [address] [place] [address] Clara Motley MD [address] [place] [address] documented as of this encounter Visit Diagnoses Not on filedocumented in this encounter Care Teams Emergency Room Doctor Relationship Specialty Start Date End Date Clara Motley MD PCP - General Internal Medicine 10/16/15 Clara Motley MD [address] [place] [address] PCP - MSSP Attributed 09/21/18 0 Clara Motley MD [address] [place] [address] PCP - MSSP Attributed 03/24/21 4 Daisy Ramsey MD [address] [place] [address] Consulting Provider Dermatology 06/17/17 Frank Livingston MD [address] [place] [address] Gastroenterology 06/17/17 Shirley De La Garza APRN [address] [place] [address] Nurse Practitioner Gynecology 06/17/17 Cordelia Engle MD [address] [address] Nephrology 06/17/17 Daja Sloan MD [address] [address] Ophthalmology 06/17/17 Arin Liu RN [address] [facility] [address] [place] [address] [facility] Community Plant Operations Manager 01/29/18 04/01/19 Luis Alberto Renee MD [address] [place] [phone] Ophthalmology 05/19/18 Vandana Bates RN 12[address] Oh [facility] 4 [place] [address] ICP Community Plant Operations Manager 04/01/19 10/08/24 Clarence Hollingsworth MD [address] [place] [address] Primary Boatswains Mate Cardiovascular Disease 03/24/22 Dawn Agrawal WASTE MACHINE OPERATOR [address] Adrianoanna Begum [address] [place] [address] [facility] Community Plant Operations Manager 10/08/24 10/26/24 Renay Ford [address] araceli [address] [address] [facility] Community Plant Operations Manager 10/26/24 documented as of this encounter
--- OUTSIDE RECORDS SUMMARY | 2024-12-01 16:51 | XMS_ITS | Encounter Summary ---
Author Organization [facility] Address [address] [place] [address] Care Team Providers Care Hand Stemmer Name Role Phone Clara Motley MD Primary Care Provider + [phone] Daisy Ramsey MD Unavailable +[phone] Frank Livingston MD Unavailable +[phone] Shirley De La Garza APRN Unavailable Cordelia Engle MD Unavailable +[phone] Daja Sloan MD Unavailable +[phone] Luis Alberto Renee MD Unavailable Vandana Bates RN Unavailable +[phone] Clara Motley MD Unavailable +[phone] Clarence Hollingsworth MD Unavailable Dawn Agrawal LCSW Unavailable +[phone] Renay Ford Unavailable Reason for Visit * Reason Comments Appointment Encounter Details Date Type Department Care Team (Late st Contact Info) Description 08/28/[address] [address] Suyapa Webb, DPArchana [address] [phone] Appointment Social History Tobacco Use Types Packs/Day Years [...] was confirmed or suspected to have Coronavirus/COVID-19? Unable to assess 08/27/2022 9:49 AM EDT documented as of this encounter Plan of Treatment Upcoming Encounters Date Type Department Care Team (Late st Contact Info) Description 12/13/2024 11:15 AM EDT Office Visit [facility] 100 [facility] 101 [place] [address] Clara Motley MD 100 [facility] [address] [place] [address] documented as of this encounter Visit Diagnoses Not on filedocumented in this encounter Care Teams Hand Stemmer Relationship Specialty Start Date End Date Clara Motley MD PCP - General Internal Medicine 10/16/15 Clara Motley MD 100 [facility] [address] [place] [address] PCP - MSSP Attributed 03/24/21 4 Daisy Ramsey MD 113 [facility] [address] [place] [phone] Consulting Provider Dermatology 06/17/17 Frank Livingston MD [address] [place] [address] Gastroenterology 06/17/17 Shirley De La Garza APRN [address] [place] [address] Nurse Practitioner Gynecology 06/17/17 Cordelia Engle MD [address] [address] Nephrology 06/17/17 Daja Sloan MD [address] [address] Ophthalmology 06/17/17 Luis Alberto Renee MD [address] [place] [phone] Ophthalmology 05/19/18 Vandana Bates, JUAN MIGUEL [address] [phone] [facility] Community Guest Services Manager 04/01/19 10/08/24 Clarence Hollingsworth MD [address] [place] [address] Primary Merchandise Coordinator Cardiovascular Disease 03/24/22 Dawn Agrawal LCSW [address] [id number] [facility] Community Guest Services Manager 10/08/24 10/26/24 Renay Ford [address] [address] [facility] Community Guest Services Manager 10/26/24 documented as of this encounter
--- OUTSIDE RECORDS SUMMARY | 2024-12-01 16:51 | XMS_ITS | Encounter Summary ---
Author Organization [facility] Address [address] [place] [address] Care Team Providers Care Wiring Technician Name Role Phone Clara Motley MD Primary Care Provider + [phone] Daisy Ramsey MD Unavailable [phone] Frank Livingston MD Unavailable [phone] Shirley De La Garza APRN Unavailable Cordelia Engle MD Unavailable +[phone] Daja Sloan MD Unavailable [phone] Clara Motley MD Unavailable [phone] Arin Liu RN Unavailable +[phone] Luis Alberto Renee MD Unavailable +[phone] Vandana Bates RN Unavailable +[phone] Clara Motley MD Unavailable +[phone] Clarence Hollingsworth MD Unavailable Dawn Agrawal LCSW Unavailable +[phone] Renay Ford Unavailable Encounter Details Date Type Department Care Team (Late st Contact Info) Description 11/25/2018 Scanned Document [facility] 100 [facility] [address] [place] [address] Gastroenterology, Scan Social History Tobacco Use [...] Description 12/13/2024 11:15 AM EDT Office Visit [facility] [address] [place] [address] Clara Motley MD [address] [place], [place] [phone] documented as of this encounter Procedures Procedure Name Priority Date/Time Associated Diagnosis Comments PATHOLOGY GENERAL 12/03/2018 documented in this encounter Results * PATHOLOGY GENERAL (12/03/2018) 12/03/2018 us Scan Gastroenterology [facility] HX PATH PROCEDURES Radames yordan Result - Final documented in this encounter Visit Diagnoses Not on filedocumented in this encounter Care Teams Wiring Technician Relationship Specialty Start Date End Date Clara Motley MD PCP - General Internal Medicine 10/16/15 Clara Motley MD [address] [place] [address] PCP - MSSP Attributed 09/21/18 0 Clara Motley MD [address] [place] [address] PCP - MSSP Attributed 03/24/21 4 Daisy Ramsey MD [address] [place] [address] Consulting Provider Dermatology 06/17/17 Frank Livingston MD [address] [place] [address] Gastroenterology 06/17/17 Shirley De La Garza APRN [address] [place] [address] Nurse Practitioner Gynecology 06/17/17 Cordelia Engle MD [address] [address] Nephrology 06/17/17 Daja Sloan MD [address] [address] Ophthalmology 06/17/17 Arin Liu RN [address] [facility] [address] [place] [address] ICP Community District Operations Manager 01/29/18 04/01/19 Luis Alberto Renee MD 43 [place] [phone] Ophthalmology 05/19/18 Vandana Bates RN [address] [facility] Fl 4 [place] [address] ICP Community District Operations Manager 04/01/19 10/08/24 Clarence Hollingsworth MD 420 [place] [address] Primary Tankroom Tender Cardiovascular Disease 03/24/22 Dawn Agrawal LCSW [address] araceli [address] [address] [facility] Community District Operations Manager 10/08/24 10/26/24 Renay Ford [address] [address] [facility] Community District Operations Manager 10/26/24 documented as of this encounter
--- OUTSIDE RECORDS SUMMARY | 2024-12-01 16:51 | XMS_ITS | Encounter Summary ---
Author Organization [facility] Address [address] [place] [address] Care Team Providers Care Investment Recovery Technician Name Role Phone Clara Motley MD Primary Care Provider Daisy Ramsey MD Unavailable +[phone] Frank Livingston MD Unavailable +[phone] Shirley De La Garza APRN Unavailable Cordelia Engle MD Unavailable [phone] Daja Sloan MD Unavailable [phone] Clara Motley MD Unavailable [phone] Arin Liu RN Unavailable [phone] Luis Alberto Renee MD Unavailable [phone] Vandana Bates RN Unavailable [phone] Clara Motley MD Unavailable +[phone] Clarence Hollingsworth MD Unavailable Dawn Agrawal LCSW Unavailable +[phone] Renay Ford Unavailable Encounter Details Date Type Department Care Team (Late st Contact Info) Description 12/26/2015 Scanned Document [address] [place] [address] Provider, Generic Social History Tobacco [...] Description 12/13/2024 11:15 AM EDT Office Visit [facility] [address] [place] [address] Clara Motley MD [address] [place] [address] documented as of this encounter Visit Diagnoses Not on filedocumented in this encounter Care Teams Investment Recovery Technician Relationship Specialty Start Date End Date Clara Motley MD PCP - General Internal Medicine 10/16/15 Clara Motley MD [address] [place] [address] PCP - MSSP Attributed 09/21/18 0 Clara Motley MD [address] [place] [address] PCP - MSSP Attributed 03/24/21 4 Daiys Ramsey MD [address] [place] [address] Consulting Provider Dermatology 06/17/17 Frank Livingston MD [address] [place] [address] Gastroenterology 06/17/17 Shirley De La Garza APRN [address] [place] [address] Nurse Practitioner Gynecology 06/17/17 Cordelia Engle MD [address] [address] Nephrology 06/17/17 Daja Sloan MD [address] [address] Ophthalmology 06/17/17 Arin Liu RN [address] [facility] 4[address] [place] [address] ICP Community Interventional Radiology Rn 01/29/18 04/01/19 Luis Alberto Renee MD [address] [place] [phone] Ophthalmology 05/19/18 Vandana Bates RN [address] [facility] 4 [place] [address] ICP Community Interventional Radiology Rn 04/01/19 10/08/24 Clarence Hollingsworth MD [address] [place] [address] Primary Foundry Metallurgist Cardiovascular Disease 03/24/22 Dawn Agrawal LCSW [address] [facility] [address] [place] [address] [facility] Community Interventional Radiology Rn 10/08/24 10/26/24 Renay Ford [address] [address] [facility] Community Interventional Radiology Rn 10/26/24 documented as of this encounter
--- OUTSIDE RECORDS SUMMARY | 2024-12-01 16:51 | XMS_ITS | Encounter Summary ---
Author Organization [facility] Address [address] [place] [address] Care Team Providers Care Rice Drier Name Role Phone Clara Motley MD Primary Care Provider + [phone] Daisy Ramsey MD Unavailable [phone] Frank Livingston MD Unavailable [phone] Shirley De La Garza APRN Unavailable Cordelia Engle MD Unavailable [phone] Daja Sloan MD Unavailable [phone] Luis Alberto Renee MD Unavailable [phone] Vandana Bates RN Unavailable [phone] Clara Motley MD Unavailable +[phone] Clarence Hollingsworth MD Unavailable Dawn Agrawal LCSW Unavailable +[phone] Renay Ford Unavailable Encounter Details Date Type Department Care Team (Late st Contact Info) Description 10/24/2020 Scanned Document [address] [place] [address] Provider, Generic Social History Tobacco Use [...] 12/13/2024 11:15 AM EDT Office Visit [facility] [address] [place] [address] Clara Motley MD [address] [place] [address] documented as of this encounter Visit Diagnoses Not on filedocumented in this encounter Care Teams Rice Drier Relationship Specialty Start Date End Date Clara Motley MD PCP - General Internal Medicine 10/16/15 Clara Motley MD [address] [place] [address] PCP - MSSP Attributed 03/24/21 4 Daisy Ramsey MD [address] [facility] [address] [place] [address] Consulting Provider Dermatology 06/17/17 Frank Livingston MD [address] [place] [address] Gastroenterology 06/17/17 Shirley De La Garza APRN [address] [place] [address] Nurse Practitioner Gynecology 06/17/17 Cordelia Engle MD [address] [address] Nephrology 06/17/17 Daja Sloan MD [address] [address] Ophthalmology 06/17/17 Luis Alberto Renee MD [address] [place] [phone] Ophthalmology 05/19/18 Vandana Bates, JUAN MIGUEL [address] [address] ICP Community Refrigeration Person 04/01/19 10/08/24 Clarence Hollingsworth MD [address] [place] [address] Primary Wildland Fire Operations Specialist Cardiovascular Disease 03/24/22 Dawn Agrawal LCSW [address] [address] ICP Community Refrigeration Person 10/08/24 10/26/24 Renay Ford [address] [address] ICP Community Refrigeration Person 10/26/24 documented as of this encounter
--- OUTSIDE RECORDS SUMMARY | 2024-12-01 16:51 | XMS_ITS | Encounter Summary ---
Author Organization [facility] Address 100 [place] [address] Care Team Providers Care Banquet Kitchen Supervisor Name Role Phone Clara Motley MD Primary Care Provider + [phone] Daisy Ramsey MD Unavailable [phone] Frank Livingston MD Unavailable [phone] Shirley De La Garza APRN Unavailable Cordelia Engle MD Unavailable [phone] Daja Sloan MD Unavailable [phone] Luis Alberto Renee MD Unavailable [phone] Vandana Bates RN Unavailable [phone] Clarence Hollingsworth MD Unavailable Dawn AgrawalW Unavailable [phone] Renay Ford Unavailable Encounter Details Date Type Department Care Team (Late st Contact Info) Description 08/24/2024 Scanned Document [facility] [address] [place] [address] Ophthalmology, Scan Social History Tobacco Use Types Packs/Day Years Used Date Smoking Tobacco: Never Smokeless Tobacco: Never Alcohol Use Standard Drinks/Week Comments Yes 1 (1 standard drink = 0.6 oz pur e alcohol) social [facility] Utilities Answer Date Recorded In the past 12 months has [employer] gas, oil, or water [employer] threatened to shut off services in your home? No 02/05/2024 Social Connection and Isolation Panel [NHANES] A nswer Date Recorded In a typical week, how many times do you talk on the phone with family, friends, or neighbors? Once a week 02/05/2024 Frequency of Social Gatherings with Friends and Family Not on file 02/05/2024 Attends Buddhism Services Not on file 02/04 Active Member [...] any time in the past 12 m [facility], were you homeless or living in a fpc (including now)? No 02/05/2024 Education Answer Date [...] Description 12/13/2024 11:15 AM EDT Office Visit [facility] [address] [place] [address] Clara Motley MD [address] [facility] [address] [place] [address] documented as of this encounter Visit Diagnoses Not on filedocumented in this encounter Care Teams Banquet Kitchen Supervisor Relationship Specialty Start Date End Date Clara Motley MD PCP - General Internal Medicine 10/16/15 Daisy Ramsey MD 113 [facility] [address] [place] [address] Consulting Provider Dermatology 06/17/17 Frank Livingston MD 139 [facility] [address] [place] [address] Gastroenterology 06/17/17 Shirley De La Garza APRN 151 [place] [address] Nurse Practitioner Gynecology 06/17/17 Cordelia Engle MD [address] [address] Nephrology 06/17/17 Daja Sloan MD [address] [address] Ophthalmology 06/17/17 Luis Alberto Renee MD [address] [place] [phone] Ophthalmology 05/19/18 Vandana Bates, JUAN MIGUEL [address] araceli [address] [address] ICP Community Vocal Music Teacher 04/01/19 10/08/24 Clarence Hollingsworth MD [address] [place] [address] Primary Order Takers Supervisor Cardiovascular Disease 03/24/22 Dawn Agrawal [facility] [address] [address] ICP Community Vocal Music Teacher 10/08/24 10/26/24 Renay Ford [address] [address] ICP Community Vocal Music Teacher 10/26/24 documented as of this encounter
--- OUTSIDE RECORDS SUMMARY | 2024-12-01 16:51 | XMS_ITS | Encounter Summary ---
Author Organization [facility] Address [address] [place] [address] Care Team Providers Care Manager Integrity Name Role Phone Clara Motley MD Primary Care Provider Daisy Ramsey MD Unavailable [phone] Frank Livingston MD Unavailable [phone] Shirley De La Garza APRN Unavailable Cordelia Engle MD Unavailable [phone] Daja Sloan MD Unavailable [phone] Luis Alberto Renee MD Unavailable [phone] Vandana Bates RN Unavailable [phone] Clara Motley MD Unavailable +[phone] Clarence Hollingsworth MD Unavailable Dawn gArawal LCSW Unavailable +[phone] Renay Ford Unavailable Encounter Details Date Type Department Care Team (Late st Contact Info) Description 06/12/2021 Scanned Document [address] [place] [address] Provider, Generic Social History Tobacco Use [...] have Coronavirus / COVID-19? No / Unsure 05/22/2021 2:20 PM EST documented as of this encounter Plan of Treatment Upcoming Encounters Date Type Department Care Team (Late st Contact Info) Description 12/13/2024 11:15 AM EDT Office Visit [facility] [address] [place] [address] Clara Motley MD [address] [place] [address] documented as of this encounter Visit Diagnoses Not on filedocumented in this encounter Care Teams Manager Integrity Relationship Specialty Start Date End Date Clara Motley MD PCP - General Internal Medicine 10/16/15 Clara Motley MD [address] [place] [address] PCP - MSSP Attributed 03/24/21 4 Daisy Ramsey MD [address] [place] [address] Consulting Provider Dermatology 06/17/17 Frank Livingston MD [address] [place] [address] Gastroenterology 06/17/17 Shirley De La Garza APRN [address] [place] [address] Nurse Practitioner Gynecology 06/17/17 Cordelia Engle MD [address] [address] Nephrology 06/17/17 Daja Sloan MD [address] [address] Ophthalmology 06/17/17 Luis Alberto Renee MD 43 [place] [phone] Ophthalmology 05/19/18 Vandana Bates RN [address] [address] ICP Community Cytology Laboratory Manager 04/01/19 10/08/24 Clarence Hollingsworth MD [address] [place] [address] Primary Friction Paint Machine Tender Cardiovascular Disease 03/24/22 Dawn Agrawal LCSW [address] [address] ICP Community Cytology Laboratory Manager 10/08/24 10/26/24 Renay Ford [address] [address] ICP Community Cytology Laboratory Manager 10/26/24 documented as of this encounter
--- OUTSIDE RECORDS SUMMARY | 2024-12-01 16:51 | XMS_ITS | Encounter Summary ---
Author Organization [facility] Address [address] [place] [address] Care Team Providers Care Distance Education Faculty Liaison Name Role Phone Clara Motley MD Primary Care Provider Daisy Ramsey MD Unavailable [phone] Frank Livingston MD Unavailable [phone] Shirley De La Garza APRN Unavailable Cordelia Engle MD Unavailable [phone] Daja Sloan MD Unavailable [phone] Clara Motley MD Unavailable +[phone] Arin Liu RN Unavailable +[phone] Luis Alberto Renee MD Unavailable [phone] Vandana Bates RN Unavailable +[phone] Clara Motley MD Unavailable +[phone] Clarence Hollingsworth MD Unavailable Dawn Agrawal LCSW Unavailable +[phone] Renay Ford Unavailable Encounter Details Date Type Department Care Team (Late st Contact Info) Description 06/13/2015 Scanned Document [address] [place] [address] Provider, Generic Social History Tobacco [...] Description 12/13/2024 11:15 AM EDT Office Visit [facility] [address] [place] [address] Clara Motley MD [address] [place] [address] documented as of this encounter Visit Diagnoses Not on filedocumented in this encounter Care Teams Distance Education Faculty Liaison Relationship Specialty Start Date End Date Clara Motley MD PCP - General Internal Medicine 10/16/15 Clara Motley MD [address] [place] [address] PCP - MSSP Attributed 09/21/18 0 Clara Motley MD [address] [place] [address] PCP - MSSP Attributed 03/24/21 4 Daisy Ramsey MD [address] [facility] [address] [place] [address] Consulting Provider Dermatology 06/17/17 Frank Livingston MD [address] [place] [address] Gastroenterology 06/17/17 Shirley De La Garza APRN [address] [place] [address] Nurse Practitioner Gynecology 06/17/17 Cordelia Engle MD [address] [address] Nephrology 06/17/17 Daja Sloan MD [address] [address] Ophthalmology 06/17/17 Arin Liu RN [address] [facility] 4B [place] [address] ICP Community Food Court Team Member 01/29/18 04/01/19 Luis Alberto Renee MD [address] [place] [phone] Ophthalmology 05/19/18 Vandana Bates RN [address] [facility] 4 [place] [address] ICP Community Food Court Team Member 04/01/19 10/08/24 Clarence Hollingsworth MD [address] [place] [address] Primary Airline Pilot Cardiovascular Disease 03/24/22 Dawn Agrawal LCSW [address] Adriano [facility] 4[address] [place] [address] [facility] Community Food Court Team Member 10/08/24 10/26/24 Renay Ford [address] [address] [facility] Community Food Court Team Member 10/26/24 documented as of this encounter
--- OUTSIDE RECORDS SUMMARY | 2024-12-01 16:51 | XMS_ITS | Encounter Summary ---
Author Organization [facility] Address [address] [place] [address] Care Team Providers Care Counselor Aid Name Role Phone Clara Motley MD Primary Care Provider + [phone] Daisy Ramsey MD Unavailable [phone] Frank Livingston MD Unavailable [phone] Shirley De La Garza APRN Unavailable Cordelia Engle MD Unavailable [phone] Daja Sloan MD Unavailable [phone] Clara Motley MD Unavailable +[phone] Arin Liu RN Unavailable +[phone] Luis Alberto Renee MD Unavailable [phone] Vandana Bates RN Unavailable +[phone] Clara Motley MD Unavailable +[phone] Clarence Hollingsworth MD Unavailable Dawn Agrawal LCSW Unavailable +[phone] Renay Ford Unavailable Encounter Details Date Type Department Care Team (Late st Contact Info) Description 08/31/2018 Scanned Document [facility] 100 [facility] [address] [place] [address] Vascular Surgery, Scan Social History Tobacco Use Types Packs/Day [...] Description 12/13/2024 11:15 AM EDT Office Visit [facility] 100 [facility] [address] [place] [phone] Clara Motley MD 100 [facility] [address] [place] [address] documented as of this encounter Procedures Procedure Name Priority Date/Time Associated Diagnosis Comments VASCULAR TEST 08/31/2018 documented in this encounter Results * VASCULAR TEST (08/31/2018) us Scan Vascular Surgery HX AMB PROCEDURES Final Re sult documented in this encounter Visit Diagnoses Not on filedocumented in this encounter Care Teams Counselor Aid Relationship Specialty Start Date End Date Clara Motley MD PCP - General Internal Medicine 10/16/15 Clara Motley MD [address] [place] [address] PCP - MSSP Attributed 09/21/18 0 Clara Motley MD [address] [place] [address] PCP - MSSP Attributed 03/24/21 4 Daisy Ramsey MD 113 [facility] 304 [place] [address] Consulting Provider Dermatology 06/17/17 Frank Livingston MD [address] [place] [address] Gastroenterology 06/17/17 Shirley De La Garza APRN [address] [place] [address] Nurse Practitioner Gynecology 06/17/17 Cordelia Engle MD [address] [address] Nephrology 06/17/17 Daja Sloan MD [address] [address] Ophthalmology 06/17/17 Arin Liu RN [facility] [address] [place], [place] [address] ICP Community Pick Pulling Machine Tender 01/29/18 04/01/19 Luis Alberto Renee MD 43 [place] [phone] Ophthalmology 05/19/18 Vandana Bates, JUAN MIGUEL [address] [facility] 4 [place], [place] [address] ICP Community Pick Pulling Machine Tender 04/01/19 10/08/24 Clarence Hollingsworth MD [address] [place] [address] Primary Information Security Architect Cardiovascular Disease 03/24/22 Dawn Agrawal LCSW [address] [address] [facility] Community Pick Pulling Machine Tender 10/08/24 10/26/24 Renay Ford [address] [address] [facility] Community Pick Pulling Machine Tender 10/26/24 documented as of this encounter
--- OUTSIDE RECORDS SUMMARY | 2024-12-01 16:51 | XMS_ITS | Clinical Summary ---
Author Organization [facility] Address [address] [place] [address] Care Team Providers Care Cadd Technician Name Role Phone Clara Motley MD Primary Care Provider [phone] Daisy Ramsey MD Unavailable [phone] Frank Livingston MD Unavailable [phone] Shirley De La Garza APRN Unavailable Cordelia Engle MD Unavailable [phone] Daja Sloan MD Unavailable [phone] Luis Alberto Renee MD Unavailable [phone] Clarence Hollingsworth MD Unavailable Renay Ford Unavailable Allergies Active Allergy Reactions Criticality Noted Date Comments Qewqsobf-Rrzlwzmxi-G exameth Swelling Medium 12/13/2014 Other Unknown/Patient and Family Unable to Define,Other (See Comments) Medium 01/19/2015 Seasonal allergies Seasonal allergies Statins Myalgia/Myositis/Art h ralgia/Arthritis,Othe r (See Comments) Low 09/15/2017 Has cramping with Simvastatin Has cramping with Simvastatin Other reaction(s): Other (See Comments) Has cramping with Simvastatin Has cramping with Simvastatin Medications famotidine (PEPCID) 20 MG tablet 2 (two) times a day. Famotidine 20 MG Oral Tablet ; Start Date: 10/06/2012; End Date: Active acetaminophen (TYLENOL) 325 MG tablet Take 2 tablets (650 mg total) by mouth 4 times daily (every 6 hours) as needed for mild pain. Active SUPPLY DME MISCIndications:Venous insufficiency Bilateral compression stockings 1 supply Active naltrexone (REVIA) 50 MG tablet Take 1 tablet (50 mg total) by mouth 2 (two) times a day. 0 Active cholecalciferol (VITAMIN D3) 10 MCG (400 UNIT) tablet Take 1 tablet (400 Units total) by mouth. Active Ubiquinol 100 MG Cap Take by mouth. Active Nutritional Supplements (SILICA PO) Take by mouth. Act geovany ASHWAGANDHA PO Take by mouth. Active TURMERIC PO Take by mouth. Act geovany glucose monitoring kit (FREESTYLE) monitoring kitIndications:Type 2 diabetes mellitus without complication, without long-term current use of insulin ([facility]) Check twice daily 1 Device Active coenzyme Q10 (CO Q 10) 100 MG capsule Take 1 capsule (100 mg total) by mouth daily. Active Lutein-Zeaxanthin 20-1 MG Cap Take 1 tablet by mouth daily. Active aflibercept (Eylea) 2 MG/0.05ML ophthalmic syringe by Intravitreal route. Active Hjdrmhsmiqc-Mzqtwndi-Ga lysorb (Refresh Optive Advanced) 0.5-1-0.5 % Solution by Does not apply route. Active FREESTYLE LITE stripIndications:Type 2 diabetes mellitus without complication, without long-term current use of insulin ([facility]) USE TO TEST ONCE DAILY 100 strip 1 Active FreeStyle Lancets lancetIndications:Type 2 diabetes mellitus without complication, without long-term current use of insulin ([facility]) USE TO TEST ONCE DAILY 100 each 1 Active Magnesium Oxide 250 MG Tab tablet Take 1 tablet (250 mg total) by mouth daily. Take 2 hours apart from other medications; take with food Active lisinopril (PRINIVIL,ZeSTRIL) 10 MG tablet Take 1 tablet (10 mg total) by mouth daily. 023 Active omega-3 acid ethyl esters (LOVAZA) 1 G capsuleIndications:Hype rlipidemia, unspecified hyperlipidemia type TAKE 2 CAPSULES BY MOUTH IN THE MORNING WITH BREAKFAST & TAKE 2 CAPSULES IN THE EVENING WITH SUPPER 360 capsule 4 024 Active metFORMIN (GLUCOPHAGE) 1000 MG tabletIndications:Diabe ginger mellitus without complication (HCC) Take 1 tablet (1,000 mg total) by mouth 2 (two) times a day with meals. 180 tablet 3 025 Active rosuvastatin (CRESTOR) 5 MG tabletIndications:Hyper cholesterolemia Take 1 tablet (5 mg total) by mouth daily. 90 tablet 3 025 Active albuterol (PROVENTIL HFA; VENTOLIN HFA) 108 (90 Base) MCG/ACT inhalerIndications:Whee zing Inhale 2 puffs 4 times daily (every 6 hours) as needed for wheezing or shortness of breath. 1 each 025 Active glipiZIDE (GLUCOTROL XL) 2.5 MG 24 hr tabletIndications:Type 2 diabetes mellitus without complication, without long-term current use of insulin (HCC) TAKE 1 TABLET (2.5 MG TOTAL) BY MOUTH EVERY MORNING WITH BREAKFAST 90 tablet 1 025 Active NIFEdipine (PROCARDIA XL) 60 MG 24 hr tabletIndications:Essen tial hypertension TAKE 1 TABLET BY MOUTH EVERY DAY 90 tablet 1 025 Active fenofibrate micronized (LOFIBRA) 200 MG capsuleIndications:Pure hypercholesterolemia TAKE 1 CAPSULE BY MOUTH EVERY DAY 90 capsule 1 025 Active Active Problems Problem Noted Date Diagnosed Date Heart palpitations 12/17/2022 Abnormal ECG 12/17/2022 Muscle pain 06/18/2018 Plantar fasciitis of right foot 06/16/2018 Perez's neuroma of right foot 06/16/2018 Right foot pain 06/16/2018 Traumatic arthropathy involving shoulder region 02/27/2016 Shoulder pain 02/06/2016 Impingement syndrome of shoulder region 02/06/20 16 Rotator cuff syndrome 02/06/2016 Impingement syndrome of left shoulder 02/06/2016 Diverticular disease of left colon 11/09/2015 Family history of colon cancer 11/09/2015 Bleeding internal hemorrhoids 11/09/2015 History of colonic polyps 11/09/2015 Low back pain 12/13/2014 Chronic kidney disease, stage III (moderate) Hyperlipidemia 09/19/2014 Type 2 diabetes with ophthalmic manifestations 0 09/19/2014 Allergic rhinitis 07/29/2013 Asthma 07/29/2013 Benign neoplasm of colon 07/29/2013 Migraine without aura, not intractable 4 Diverticulosis of large intestine without hemorr solitario 07/29/2013 Esophageal reflux 07/29/2013 Irritable bowel syndrome 07/29/2013 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 Hypertension Resolved Problems Problem Noted Date Diagnosed Date Resolved Date Encounter for gynecological examination without abnormal finding 07/26/2016 09/07/2016 Encounter for screening for malignant neoplasm of colon 11/09/2015 09/07/2016 Dysuria 01/02/2015 02/15/2015 Obesity 07/29/2013 09/07/2016 Immunizations Immunization Administration Dates Next Due Covid-19 MRNA Vaccine - Pfiz er 12+ (Purple Cap) 05/31/2020,05/31/2020 Influenza (AFLURIA/FLUZONE) Inactivated/Split Quadrivalent with Preservative IM 02/24/2014,02/02/2013,01/30/2009 Influenza High-Dose Quadrivalent,(FLUZONE HIGH-DOSE), Perservative Free IM 0.7 mL 65 years and older 02/12/2021,12/08/2018,12/08/2018 Influenza High-Dose Trivalen t,(FLUZONE HIGH-DOSE), Perservative Free IM 0.5 mL 65 years and older 02/12/2021,12/08/2018 Influenza Inactivated/Split Preservative Free IM 01/07/2020,02/24/2014,02/02/2013,12/25,02/26/2011,01/30/2009, Influenza Virus Trivalent Sp lit Vaccine (MDV) IM 01/07/2020,02/24/2014,02/02/2013,12/25,02/26/2011,01/30/2009 Influenza, Unspecified 02/12/2021,12/08/2018 Pneumococcal Conjugate 13-Valent 06/17/2017 Pneumococcal Polysaccharide 23-Valent 09/18/2018 ,09/18/2018 Tdap 01/12/2010 Zoster Vaccine Live/Attenuat ed (Zostavax) 11/07/2020,08/02/2020 Zoster Vaccine Recombinant (Shingrix) ,11/07/2020,08/02/2020,08/02 Mastera Inactivated/Spli t with Preservative IM 02/12/2021 Family History Medical History Relation Name Comments Stroke Father Hypertension Mother Parkinson's disease Mother Hypertension Son Mental illness Son Relation Name Status Comments Brother Alive Father Mother Alive Son Alive Social History Tobacco Use Types Packs/Day Years Used Date Smoking Tobacco: Never Smokeless Tobacco: Never Tobacco Cessation:Counseling Given: Not Answered Alcohol Use Standard Drinks/Week Comments Yes 1 (1 standard drink = 0.6 oz pur e alcohol) social [facility] Utilities Answer Date Recorded In the past 12 months has th e electric, gas, oil, or water company threatened to shut off services in your home? No 02/05/2024 Social Connection and Isolation Panel [NHANES] A nswer Date Recorded In a typical week, how many times do you talk on the phone with family, friends, or neighbors? Once a week 02/05/2024 Frequency of Social Gatherings with Friends and Family Not on file 02/05/2024 Attends [employer] Services Not on file 02/04 Active Member [...] any time in the past 12 m [place], were you homeless or living in a fdc (including now)? No 02/05/2024 Education Answer Date [...] Orientation Heterosexual (straight) 03/30 6:15 AM EST Last Filed Vital Signs Vital Sign Reading Time Taken Comments Blood Pressure 122/70 08/04/2024 11:30 AM EDT Pulse 64 08/04/2024 11:30 AM EDT Temperature 36.6 C (97.8 F) 08/04/2024 11:30 AM EDT Respiratory Rate 16 08/04/2024 11:30 AM EDT Oxygen Saturation 99% 08/04/2024 11:30 AM EDT Inhaled Oxygen Concentration - - Weight 82.4 kg (181 lb 9.6 oz) 08/04/2024 11:30 AM EDT Height 160 cm (5' 2.99 ) 08/04/2024 11:30 AM EDT Body Mass Index 32.18 08/04/2024 11:30 AM EDT Plan of Treatment Upcoming Encounters Date Type Department Care Team (Late st Contact Info) Description 12/13/2024 11:15 AM EDT Office Visit [address] [phone] Clara Motley MD [address] [address] Health Maintenance Due Date Last Done Comments Advance Care Planning 1950 Physical 1970 RSV Vaccine 60 years and older and Patients (1 - Risk 60-74 years 1-dose series) 2012 DTaP/Tdap/Td Vaccines (2 - Td or Tdap) 01/13/2020 01/12/2010 Zoster (Shingles) Vaccine (3 of 3) 01/02/2021 11/07/2020, 11/07/2020, 11/07/2020, Additional history exists DXA Bone Density (Females,Ages 65 and older) 01/02/2022 01/03/2020 Annual Wellness Visit 01/11/2024 01/10/2023, 018 Influenza Vaccine 10/22/2024 02/12/2021, , 02/12/2021, Additional history exists COVID-19 Vaccine ( season) 2024 06/21/2020, 05/31/2020, 05/31/2020 Ophthalmology Exam 12/18/2024 12/19/2023, 0 08/05/2023, 05/08/2020, Additional history exists Foot Exam 02/05/2025 02/06/2024, 01/22, 01/10/2023, Additional history exists Hemoglobin A1C 05/29/2025 11/29/2024, 0303/2024, 02/03/2024, Additional history exists Lipid Panel 06/21/2025 06/21/2024, 01/22, 09/05/2023, Additional history exists Microalbumin/Creatinine Ratio Urine 06/21/2025 06/21/2024, 05/15/2023, 07/22/2020, Additional history exists Colonoscopy 10/29/2025 10/30/2015 (Prev iously Completed) Creatinine with GFR 11/29/2025 11/29/2024, 06/21/2024, 02/03/2024, Additional history exists Hepatitis C Virus Screening Completed 05/15/2018 Pneumococcal Vaccines 50+ Completed 2018, 09/18/2018, 06/17/2017 Mammogram Discontinued 08/07/2024, /10/2022, 01/14/2022, Additional history exists Hepatitis B Vaccines Aged Out No long er eligible based on patient's age to complete this topic Procedures Procedure Name Priority Date/Time Associated Diagnosis Comments COMPLETE BLOOD COUNT, WITHOUT DIFFERENTIAL Routine 11/29/2024 6:25 AM EDT Type 2 diabetes mellitus with other ophthalmic complication, without long-term current use of insulin (HCC) HEMOGLOBIN A1C Routine 11/29/2024 6:25 AM EDT Type 2 diabetes mellitus with other ophthalmic complication, without long-term current use of insulin (HCC) COMPREHENSIVE METABOLIC PANEL Routine 11/29/2024 6:25 AM EDT Type 2 diabetes mellitus with other ophthalmic complication, without long-term current use of insulin (HCC) TSH REFLEX TO FREE T4 Routine 11/29/2024 6:25 AM EDT Type 2 diabetes mellitus with other ophthalmic complication, without long-term current use of insulin (HCC) IMAGING BREAST/BX/MAMMO Routine 08/07/2024 1:58 PM EDT MICROALBUMIN, CREATININE, URINE, RANDOM Routine 06/21/2024 6:55 AM EDT Type 2 diabetes mellitus without complication, without long-term current use of insulin (HCC) LIPID PANEL WITH NONHDL Routine 06/21/2024 6:55 AM EDT Type 2 diabetes mellitus without complication, without long-term current use of insulin (HCC) HX OPHTHALMOLOGY TESTING PROCEDURES Routine 12/19/2023 12:17 PM EDT IMAGING DEXA 01/03/2020 HEPATITIS C VIRUS (HCV) ANTIBODY Routine 05/15/2018 6:01 AM EST Need for hepatitis C screening test from Last 3 Months or Most Recently Relevant to Health Maintenance Results * TSH REFLEX FREE T4 (11/29/2024 6:25 AM EDT) TSH reflex Free T4 3.46 0.40 - 4.50 mIU/L [facility] Blood specimen / Unknown 11/29/2024 6:25 AM EDT 11/29/2024 6:25 AM EDT Narrative [facility] - 11/29/2024 11:00 PM EDT FASTING:YES FASTING: YES Clara Motley MD LAB BLOOD ORDERABLES Final Result [facility] [address] [place] [phone] * COMPLETE BLOOD COUNT, WITHOUT DIFFERENTIAL (11/29/2024 6:25 AM EDT) Pathologist [facility] [place] White Blood Cell Count 5.7 3.8 - 10.8 Thousand/u L [facility] Red Blood Cell Count 4.36 3.80 - 5.10 Million/uL [facility] Hemoglobin 13.3 11.7 - 15.5 g/dL [facility] Hematocrit 41.4 35.0 - 45.0 % [facility] MCV 95.0 80.0 - 100.0 fL [facility] MCH 30.5 27.0 - 33.0 pg [facility] MCHC 32.1 32.0 - 36.0 g/dL [facility] Comment: For adults, a slight decrease in the calculated MCHC value (in the range of 30 to 32 g/dL) is most likely not clinically significant; however, it should be interpreted with caution in correlation with other red cell parameters and the patient's clinical condition. RDW 12.8 11.0 - 15.0 % [facility] Platelet Count 291 140 - 400 Thousand/u L [facility] MPV 10.8 7.5 - 12.5 fL [facility] Blood specimen / Unknown 11/29/2024 6:25 AM EDT 11/29/2024 6:25 AM EDT Narrative [facility] - 11/29/2024 11:00 PM EDT FASTING:YES FASTING: YES Clara Motley MD LAB BLOOD ORDERABLES Final Result Performing Organization Address [facility] de Phone Number [employer] [address] [place] [address] * (ABNORMAL) Hemoglobin A1C (11/29/2024 6:25 AM EDT) Hemoglobin A1C 7.3(H) <5.7 % [facility] Comment: For someone without known diabetes, a hemoglobin A1c value of 6.5% or greater indicates that they may have diabetes and this should be confirmed with a follow-up test. For someone with known diabetes, a value <7% indicates that their diabetes is well controlled and a value greater than or equal to 7% indicates suboptimal control. A1c targets should be individualized based on duration of diabetes, age, comorbid conditions, and other considerations. Currently, no consensus exists regarding use of hemoglobin A1c for diagnosis of diabetes for children. Blood specimen / Unknown 11/29/2024 6:25 AM EDT 11/29/2024 6:25 AM EDT Narrative [facility] - 11/29/2024 11:00 PM EDT FASTING:YES FASTING: YES Clara Motley MD LAB BLOOD ORDERABLES Final Result Performing Organization Address [facility] de Phone Number [employer] [address] [place] [address] * (ABNORMAL) Comprehensive Metabolic Panel (11/29/2024 6:25 AM EDT) Glucose 138(H) 65 - 99 mg/dL [facility] Comment: Fasting reference interval For someone without known diabetes, a glucose value >125 mg/dL indicates that they may have diabetes and this should be confirmed with a follow-up test. Blood Urea Nitrogen (BUN) 20 7 - 25 mg/dL [facility] Creatinine 0.95 0.60 - 1.00 mg/dL [facility] Creatinine w/ eGFR 64 > OR = 60 mL/min/1. 73m2 [facility] BUN/Creatinine Ratio SEE NOTE: 6 - 22 (calc) [facility] Comment: Not Reported: BUN and Creatinine are within reference range. Sodium 142 135 - 146 mmol/L [facility] Potassium 4.3 3.5 - 5.3 mmol/L [facility] Chloride 105 98 - 110 mmol/L [facility] CO2 30 20 - 32 mmol/L [facility] Calcium 9.5 8.6 - 10.4 mg/dL [facility] Protein, Total 6.9 6.1 - 8.1 g/dL [facility] Albumin 4.6 3.6 - 5.1 g/dL [facility] Globulin 2.3 1.9 - 3.7 g/dL (calc) [facility] Albumin/Globuli n Ratio 2.0 1.0 - 2.5 (calc) [facility] Bilirubin, Total 0.4 0.2 - 1.2 mg/dL [facility] Alkaline Phosphatase 45 37 - 153 U/L [facility] Aspartate Aminotrans (AST) 23 10 - 35 U/L [facility] Alanine Aminotrans (ALT) 21 6 - 29 U/L [facility] Blood Blood specimen / Unknown 11/29/2024 6:25 AM EDT 11/29/2024 6:25 AM EDT Narrative [facility] - 11/29/2024 11:00 PM EDT FASTING:YES FASTING: YES us Clara Motley MD LAB BLOOD ORDERABLES Final Result [facility] [address] [place] [phone] * Imaging Breast/Bx/Mammo Result (08/07/2024 1:58 PM EDT) Anatomical Region Laterality Modality Other us Scan Obstetrics And Gynecology IMG LEGACY PROCED URES Edited Result - Final * Lipid panel (06/21/2024 6:55 AM EDT) Cholesterol, Total 178 <200 mg/dL [facility] Cholesterol, HDL 66 > OR = 50 mg/dL [facility] Triglycerides 125 <150 mg/dL [facility] LDL Cholesterol 89 mg/dL (calc) [facility] Comment: Reference range: <100 Desirable range <100 mg/dL for primary prevention; <70 mg/dL for patients with CHD or diabetic patients with > or = 2 CHD risk factors. LDL-C is now calculated using the Robi-Silvestre calculation, which is a validated novel method providing better accuracy than the Friedewald equation in the estimation of LDL-C. Robi SS et al. SATISH. 2013;310(03): 6635-9450 (http://education.Hotelogix/faq/NQZ349) Cholesterol/HDL Ratio 2.7 <5.0 (calc) [facility] Non HDL Chol. (LDL+VLDL) 112 <130 mg/dL (calc) [facility] Comment: For patients with diabetes plus 1 major ASCVD risk factor, treating to a non-HDL-C goal of <100 mg/dL (LDL-C of <70 mg/dL) is considered a therapeutic option. Blood Blood specimen / Unknown 06/21/2024 6:55 AM EDT 06/21/2024 6:57 AM EDT Narrative [facility] - 06/22/2024 6:59 PM EDT FASTING:YES FASTING: YES Clara Motley MD LAB BLOOD ORDERABLES Final Result [employer] [address] [place] [phone] * Microalbumin, Creatinine, Urine, Random (06/21/2024 6:55 AM EDT) [facility] Creatinine, Urine, Random 56 20 - 275 mg/dL [facility] Microalbumin, Urine, Random 0.5 See Note: mg/dL [facility] Comment: Reference Range: Reference Range Not established Microalbumin/Creat inine Ratio 9 <30 mg/g creat [facility] Comment: The ADA defines abnormalities in albumin excretion as follows: Albuminuria Category Result (mg/g creatinine) Normal to Mildly increased <30 Moderately increased 30-299 Severely increased > OR = 300 The ADA recommends that at least two of three specimens collected within a 3-6 month period be abnormal before considering a patient to be within a diagnostic category. Urine Urine specimen / Unknown 06/21/2024 6:55 AM EDT 06/21/2024 6:57 AM EDT Narrative [facility] - 06/22/2024 6:59 PM EDT FASTING:YES FASTING: YES us Clara Motley MD URINE ORDERABLES Final Res ult [facility] [address] [place] [phone] * OPHTHALMOLOGY TESTING PROCEDURES (12/19/2023 12:17 PM EDT) us Scan Ophthalmology HX AMB PROCEDURES Edited Resu lt - Final * IMAGING DEXA (01/03/2020) Anatomical Region Laterality Modality Other 01/03/2020 Narrative 01/03/2020 Ordered by an unspecified provider. us Generic Provider IMG LEGACY PROCEDURES Edited Re sult - Final * Hepatitis C Virus (HCV) Antibody (05/15/2018 6:01 AM EST) Hepatitis C Antibody NON-REACT GEOVANY NON-REACT GEOVANY [facility] Hepatitis C Antibody (s/co) 0.01 <1.00 [facility] Comment: HCV antibody was non-reactive. There is no laboratory evidence of HCV infection. In most cases, no further action is required. However, if recent HCV exposure is suspected, a test for HCV RNA (test code 39258) is suggested. For additional information please refer to http://education.Actively Learn/faq/BNZ76w8 (This link is being provided for informational/ educational purposes only.) Blood specimen (specimen) 05/15/2018 6:01 AM EST 05/15/2018 6:01 AM EST Narrative [facility] - 05/16/2018 11:20 AM EST FASTING:YES FASTING: YES Resulting Agency Comment Performing Organization Information: Site ID: [id number] Name: [facility] Address: [address] [place] [address], [place] [address] Director: Yana Bates MD Clara Motley MD LAB BLOOD ORDERABLES Final Result [facility] [address], [place] [address] from Last 3 Months or Most Recently Relevant to Health Maintenance Insurance MEDICARE PART A & B [facility] [place] [id number] MEDICARE PART A & B [facility] [place] [id number] Care Teams Cadd Technician Relationship Specialty Start Date End Date Clara Motley MD PCP - General Internal Medicine 10/16/15 Daisy Ramsey MD [address] [place] [address] Consulting Provider Dermatology 06/17/17 Frank Livingston MD [address] [place] [address] Gastroenterology 06/17/17 Shirley De La Garza APRN [address] [place] [address] Nurse Practitioner Gynecology 06/17/17 Cordelia Engle MD [address] [address] Nephrology 06/17/17 Daja Sloan MD [address] [address] Ophthalmology 06/17/17 Luis Alberto Renee MD [address] [place] [phone] Ophthalmology 05/19/18 Clarence Hollingsworth MD [address] [place] [phone] Primary Systems Lead Cardiovascular Disease 03/24/22 Renay Ford [address] [address] [facility] Community Piercer 10/26/24
--- OUTSIDE RECORDS SUMMARY | 2024-12-01 16:51 | XMS_ITS | Encounter Summary ---
Author Organization [facility] Address [address] [place] [address] Care Team Providers Care Manager Data Warehousing Name Role Phone Clara Motley MD Primary Care Provider + [phone] Daisy Ramsey MD Unavailable [phone] Frank Livingston MD Unavailable [phone] Shirley De La Garza APRN Unavailable Cordelia Engle MD Unavailable Daja Sloan MD Unavailable [phone] Clara Motley MD Unavailable [phone] Arin Liu RN Unavailable [phone] Luis Alberto Renee MD Unavailable [phone] Vandana Bates RN Unavailable [phone] Clara Motley MD Unavailable [phone] Clarence Hollingsworth MD Unavailable Dawn Agrawal LCSW Unavailable [phone] Renay Ford Unavailable Reason for Visit * Reason Comments Medication Refill Encounter Details Date Type Department Care Team (Late st Contact Info) Description 01/25/[address] [place] [address] Clara Motley MD [address] [place] [address] Diabetes mellitus without complication (HCC) Social History Tobacco Use Types Packs/Day Years [...] Description 12/13/2024 11:15 AM EDT Office Visit [facility] 100 [facility] [address] [place] [phone] Clara Motley MD 100 [facility] [address] [place] [phone] documented as of this encounter Visit Diagnoses Diagnosis Diabetes mellitus without complication (HCC) Type II or unspecified type diabetes mellitus without mention of complication, not stated as uncontrolled documented in this encounter Care Teams Manager Data Warehousing Relationship Specialty Start Date End Date Clara Motley MD PCP - General Internal Medicine 10/16/15 Clara Motley MD [address] [place] [address] PCP - MSSP Attributed 09/21/1803/23/ 0 Clara Motley MD [address] [place] [address] PCP - MSSP Attributed 03/24/21 4 Daisy aRmsey MD 113 [facility] [address] [place] [address] Consulting Provider Dermatology 06/17/17 Frank Livingston MD [address] [place] [address] Gastroenterology 06/17/17 Shirley De La Garza APRN [address] [place] [address] Nurse Practitioner Gynecology 06/17/17 Cordelia Engle MD [address] [address] Nephrology 06/17/17 Daja Sloan MD [address] [address] Ophthalmology 06/17/17 Arin Liu RN [facility] [address] [place] [address] ICP Community Quality Assurance Qa Lab Technician 01/29/18 04/01/19 Luis Alberto Renee MD [address] [place] [phone] Ophthalmology 05/19/18 Vandana Bates RN [address] [facility] 4 [place], [place] [id number] ICP Community Quality Assurance Qa Lab Technician 04/01/19 10/08/24 Clarence Hollingsworth MD [address] [place] [address] [place] [address] Primary Public Relations Counselor Cardiovascular Disease 03/24/22 Dawn Agrawal LCSW [address] araceli [address] [address] [facility] Community Quality Assurance Qa Lab Technician 10/08/24 10/26/24 Renay Ford [address] [address] [facility] Community Quality Assurance Qa Lab Technician 10/26/24 documented as of this encounter
--- OUTSIDE RECORDS SUMMARY | 2024-12-01 16:52 | XMS_ITS | Encounter Summary ---
Author Organization [facility] Address [address] [place] [address] Care Team Providers Care Power Transformer Repair Supervisor Name Role Phone Clara Motley MD Primary Care Provider + [phone] Daisy Ramsey MD Unavailable [phone] Frank Livingston MD Unavailable [phone] Shirley De La Garza APRN Unavailable Cordelia Engle MD Unavailable +[phone] Daja Sloan MD Unavailable +[phone] Clara Motley MD Unavailable +[phone] Arin Liu RN Unavailable +[phone] Luis Alberto Renee MD Unavailable Vandana Bates RN Unavailable +[phone] Clara Motley MD Unavailable +[phone] Clarence Hollingsworth MD Unavailable Dawn Agrawal LCSW Unavailable +[phone] Renay Ford Unavailable Reason for Visit * Reason Comments Medication Refill Encounter Details Date Type Department Care Team (Late st Contact Info) Description 09/05/[address] [place] [address] Clara Motley MD 100 [facility] [address] [place] [address] Hyperlipidemia, unspecified hyperlipidemia type; Diabetes mellitus without complication (HCC); Hypertension; Pure hypercholesterolemia Social History Tobacco Use Types Packs/Day Years [...] Description 12/13/2024 11:15 AM EDT Office Visit [facility] [address] [address] Clara Motley MD [address] [address] documented as of this encounter Visit Diagnoses Diagnosis Hyperlipidemia, unspecified hyperlipidemia type Diabetes mellitus without complication (HCC) Type II or unspecified type diabetes mellitus without mention of complication, not stated as uncontrolled Hypertension Unspecified essential hypertension Pure hypercholesterolemia Pure hypercholesterolemia documented in this encounter Care Teams Power Transformer Repair Supervisor Relationship Specialty Start Date End Date Clara Motley MD PCP - General Internal Medicine 10/16/15 Clara Motley MD [address] [place] [address] PCP - MSSP Attributed 09/21/18 0 Clara Motley MD [address] [place] [address] PCP - MSSP Attributed 03/24/21 4 Daisy Ramsey MD [address] [place] [address] Consulting Provider Dermatology 06/17/17 Frank Livingston MD [address] [place] [address] Gastroenterology 06/17/17 Shirley De La Garza APRN [address] [place] [address] Nurse Practitioner Gynecology 06/17/17 Cordelia Engle MD [address] [address] Nephrology 06/17/17 Daja Sloan MD [address] [address] Ophthalmology 06/17/17 Arin Liu RN [address] [facility] [address] [place] [address] ICP Community Remote Sensing Analyst 01/29/18 04/01/19 Luis Alberto Renee MD 43 [place] [address] Ophthalmology 05/19/18 Vandana Bates RN [address] [facility] [address] 4 [place], [place] [id number] ICP Community Remote Sensing Analyst 04/01/19 10/08/24 Clarence Hollingsworth MD [address] [place] [address] Primary Heavy Forger Cardiovascular Disease 03/24/22 Dawn Agrawal LCSW [address] araceli [address] [address] [facility] Community Remote Sensing Analyst 10/08/24 10/26/24 Renay Ford [address] [address] [facility] Community Remote Sensing Analyst 10/26/24 documented as of this encounter
--- OUTSIDE RECORDS SUMMARY | 2024-12-01 16:52 | XMS_ITS | Encounter Summary ---
Author Organization [facility] Address [address] [place] [address] Care Team Providers Care Plastics Scientist Name Role Phone Clara Motley MD Primary Care Provider + [phone] Daisy Ramsey MD Unavailable [phone] Frank Livingston MD Unavailable [phone] Shirley De La Garza APRN Unavailable Cordelia Engle MD Unavailable +[phone] Daja Sloan MD Unavailable +[phone] Luis Alberto Renee MD Unavailable [phone] Vandana Bates RN Unavailable [phone] Clara Motley MD Unavailable +[phone] Clarence Hollingsworth MD Unavailable Dawn Agrawal LCSW Unavailable +[phone] Renay Ford Unavailable Encounter Details Date Type Department Care Team (Late st Contact Info) Description 10/23/2022 Scanned Document [facility] NEPHROLOGY SCAN Nephrology, Scan Social History Tobacco Use Types Packs/Day [...] Description 12/13/2024 11:15 AM EDT Office Visit [facility] [address] [place] [address] Clara Motley MD [address] [place] [address] documented as of this encounter Visit Diagnoses Not on filedocumented in this encounter Care Teams Plastics Scientist Relationship Specialty Start Date End Date Clara Motley MD PCP - General Internal Medicine 10/16/15 Clara Motley MD [address] [place] [address] PCP - MSSP Attributed 03/24/21 4 Daisy Ramsey MD 113 [facility] [address] [place] [address] Consulting Provider Dermatology 06/17/17 Frank Livingston MD [address] [place] [address] Gastroenterology 06/17/17 Shirley De La Garza APRN [address] [place] [address] Nurse Practitioner Gynecology 06/17/17 Cordelia Engle MD [address] [address] Nephrology 06/17/17 Daja Sloan MD [address] [address] Ophthalmology 06/17/17 Luis Alberto Renee MD [address] [place] [phone] Ophthalmology 05/19/18 Vandana Bates, JUAN MIGUEL [address] [address] [facility] Community Mirror Specialist 04/01/19 10/08/24 Clarence Hollingsworth MD [address] [place] [address] Primary Pediatric Physiatrist Cardiovascular Disease 03/24/22 Dawn Agrawal [facility] [address] [address] ICP Community Mirror Specialist 10/08/24 10/26/24 Renay Ford [address] [address] ICP Community Mirror Specialist 10/26/24 documented as of this encounter
--- OUTSIDE RECORDS SUMMARY | 2024-12-01 16:52 | XMS_ITS | Encounter Summary ---
Author Organization [facility] Address [address] [place] [address] Care Team Providers Care Rug Layer Name Role Phone Clara Motley MD Primary Care Provider + [phone] Daisy Ramsey MD Unavailable [phone] Frank Livingston MD Unavailable [phone] Shirley De La Garza APRN Unavailable Cordelia Engle MD Unavailable [phone] Daja Sloan MD Unavailable [phone] Clara Motley MD Unavailable [phone] Arin Liu RN Unavailable [phone] Luis Alberto Renee MD Unavailable Vandana Bates RN Unavailable +[phone] Clara Motley MD Unavailable +[phone] Clarence Hollingsworth MD Unavailable Dawn Agrawal LCSW Unavailable +[phone] Renay Ford Unavailable Reason for Visit * Reason Comments Medication Refill Encounter Details Date Type Department Care Team (Late st Contact Info) Description 06/09/[address] [place] [address] Clara Motley MD 100 [facility] [address] [place] [address] Diabetes mellitus without complication (HCC) Social History [...] encounter Miscellaneous Notes * Telephone Encounter - Betsy Rosenbaum LPN - 06/09/2018 8:36 AM EDT Tc from patient stating she took her morning and evening pills this morning. Patient has taken 2000Mg of Metformin, 20 mg of Lisinopril, 2.5 mg of Glipizide and 200 mg of fenofibrate. Patient statesshe feels a little jittery and off. Patient states she spoke with the pharmacist who told her to contact the office and was told to eat a big breakfast and keep snacks with her throughout the day andinformed patient of possible GI upset. Patient states she will restart he medication tomorrow and will call the office or go to the ER if symptoms increase. documented in this encounter Plan of Treatment Upcoming Encounters Date Type Department Care Team (Late st Contact Info) Description 12/13/2024 11:15 AM EDT Office Visit [address] [phone] Clara Motley MD 100 [facility] [address] [place] [address] documented as of this encounter Visit Diagnoses Diagnosis Diabetes mellitus without complication (HCC) Type II or unspecified type diabetes mellitus without mention of complication, not stated as uncontrolled documented in this encounter Care Teams Rug Layer Relationship Specialty Start Date End Date Clara Motley MD PCP - General Internal Medicine 10/16/15 Clara Motley MD [address] [place] [address] PCP - MSSP Attributed 09/21/18 0 Clara Motley MD [address] [place] [address] PCP - MSSP Attributed 03/24/21 4 Daisy Ramsey MD [address] [facility] [address] [place] [address] Consulting Provider Dermatology 06/17/17 Frank Livingston MD [address] [place] [address] Gastroenterology 06/17/17 Shirley De La Garza APRN [address] [place] [address] Nurse Practitioner Gynecology 06/17/17 Cordelai Engle MD [address] [address] Nephrology 06/17/17 Daja Sloan MD [address] [address] Ophthalmology 06/17/17 Arin Liu, JUAN MIGUEL [address] [place] [address] ICP Community Switchboard Mechanic 01/29/18 04/01/19 Luis Alberto Renee MD [address] [place] [phone] Ophthalmology 05/19/18 Vandana Bates, JUAN MIGUEL [address] [place] [address] ICP Community Switchboard Mechanic 04/01/19 10/08/24 Clarence Hollingsworth MD [address] [place] [address] Primary Software Educator Cardiovascular Disease 03/24/22 Dawn Agrawal LCSW [address] [facility] 4[address] [place] [address] ICP Community Switchboard Mechanic 10/08/24 10/26/24 Renay Ford [address] [place] [address] ICP Community Switchboard Mechanic 10/26/24 documented as of this encounter
--- OUTSIDE RECORDS SUMMARY | 2024-12-01 16:52 | XMS_ITS | Encounter Summary ---
Author Organization [facility] Address [address] [place] [address] Care Team Providers Care Oleo Hasher And Renderer Name Role Phone Clara Motley MD Primary Care Provider + [phone] Daisy Ramsey MD Unavailable [phone] Frank Livingston MD Unavailable [phone] Shirley De La Garza APRN Unavailable Cordelia Engle MD Unavailable [phone] Daja Sloan MD Unavailable [phone] Clara Motley MD Unavailable [phone] Arin Liu RN Unavailable [phone] Luis Alberto Renee MD Unavailable [phone] Vandana Bates RN Unavailable [phone] Clara Motley MD Unavailable [phone] Clarence Hollingsworth MD Unavailable Dawn Agrawal LCSW Unavailable +[phone] Renay Ford Unavailable Reason for Visit * Reason Comments Medication Refill Encounter Details Date Type Department Care Team (Late st Contact Info) Description 12/12/[address] [place] [address] Clara Motley MD 100 [facility] [address] [place] [address] Diabetes mellitus without complication (HCC) Social History [...] Description 12/13/2024 11:15 AM EDT Office Visit [facility] [address] [phone] Clara Motley MD 100 [place] [address] documented as of this encounter Visit Diagnoses Diagnosis Diabetes mellitus without complication (HCC) Type II or unspecified type diabetes mellitus without mention of complication, not stated as uncontrolled documented in this encounter Care Teams Oleo Hasher And Renderer Relationship Specialty Start Date End Date Clara Motley MD PCP - General Internal Medicine 10/16/15 Clara Motley MD [address] [address] PCP - MSSP Attributed 09/21/1803/23/ 0 Clara Motley MD [address] [address] PCP - MSSP Attributed 03/24/21 4 Daisy Ramsey MD 113 [facility] [address] [place] [address] Consulting Provider Dermatology 06/17/17 Frank Livingston MD [address] [place] [address] Gastroenterology 06/17/17 Shirley De La Garza APRN [address] [place] [address] Nurse Practitioner Gynecology 06/17/17 Cordelia Engle MD [address] [address] Nephrology 06/17/17 Daja Sloan MD [address] [address] Ophthalmology 06/17/17 Arin Liu RN 1290 [facility] [address] [place] [address] ICP Community Chief Data Officer 01/29/18 04/01/19 Luis Alberto Renee MD 43 [place] [phone] Ophthalmology 05/19/18 Vandana Bates RN [address] [facility] 4 [place], [place] [address] ICP Community Chief Data Officer 04/01/19 10/08/24 Clarence Hollingsworth MD 420 [facility] [place] [address] Primary Incinerator Plant General Supervisor Cardiovascular Disease 03/24/22 Dawn Agrawal LCSW [address] araceli [address] [address] [facility] Community Chief Data Officer 10/08/24 10/26/24 Renay Ford [address] [address] [facility] Community Chief Data Officer 10/26/24 documented as of this encounter
--- OUTSIDE RECORDS SUMMARY | 2024-12-01 16:52 | XMS_ITS | Encounter Summary ---
Author Organization [facility] Address [address] [place] [address] Care Team Providers Care Truck Caterer Name Role Phone Clara Motley MD Primary Care Provider Daisy Ramsey MD Unavailable +[phone] Frank Livingston MD Unavailable [phone] Shirley De La Garza APRN Unavailable Cordelia Engle MD Unavailable [phone] Daja Sloan MD Unavailable [phone] Clara Motley MD Unavailable +[phone] Arin Liu RN Unavailable [phone] Luis Alberto Renee MD Unavailable [phone] Vandana Bates RN Unavailable [phone] Clara Motley MD Unavailable [phone] Clarence Hollingsworth MD Unavailable Dawn Agrawal LCSW Unavailable +[phone] Renay Ford Unavailable Encounter Details Date Type Department Care Team (Late st Contact Info) Description 06/24/2017 Scanned Document [address] [place] [address] Provider, Generic Social History Tobacco [...] Description 12/13/2024 11:15 AM EDT Office Visit [facility] [address] [place] [address] Clara Motley MD [address] [place] [address] documented as of this encounter Visit Diagnoses Not on filedocumented in this encounter Care Teams Truck Caterer Relationship Specialty Start Date End Date Clara Motley MD PCP - General Internal Medicine 10/16/15 Clara Motley MD [address] [place] [address] PCP - MSSP Attributed 09/21/18 0 Clara Motley MD [address] [place] [address] PCP - MSSP Attributed 03/24/21 4 Daisy Ramsey MD [address] [place] [address] Consulting Provider Dermatology 06/17/17 Frank Livingston MD [address] [place] [address] Gastroenterology 06/17/17 Shirley De La Garza APRN [address] [place] [address] Nurse Practitioner Gynecology 06/17/17 Cordelia Engle MD [address] [address] Nephrology 06/17/17 Daja Sloan MD [address] [address] Ophthalmology 06/17/17 Arin Liu RN [address] [facility] [address] [place] [address] ICP Community Electronic Page Makeup System Operator 01/29/18 04/01/19 Luis Alberto Renee MD [address] [place] [phone] Ophthalmology 05/19/18 Vandana Bates RN [address] [facility] 4 [place] [address] ICP Community Electronic Page Makeup System Operator 04/01/19 10/08/24 Clarence Hollingsworth MD [address] [place] [address] Primary Solution Coordinator Cardiovascular Disease 03/24/22 Dawn Agrawal LCSW [address] [facility] [address] [place] [address] [facility] Community Electronic Page Makeup System Operator 10/08/24 10/26/24 Renay Ford [address] [address] [facility] Community Electronic Page Makeup System Operator 10/26/24 documented as of this encounter
--- OUTSIDE RECORDS SUMMARY | 2024-12-01 16:52 | XMS_ITS | Encounter Summary ---
Author Organization [facility] Address [address] [place] [address] Care Team Providers Care Cutter Grinder Name Role Phone Clara Motley MD Primary Care Provider + [phone] Daisy Ramsey MD Unavailable [phone] Frank Livingston MD Unavailable [phone] Shirley De La Garza APRN Unavailable Cordelia Engle MD Unavailable [phone] Daja Sloan MD Unavailable +[phone] Clara Motley MD Unavailable +[phone] Arin Liu RN Unavailable +[phone] Luis Alberto Renee MD Unavailable [phone] Vandana Bates RN Unavailable [phone] Clara Motley MD Unavailable +[phone] Clarence Hollingsworth MD Unavailable Dawn Agrawal LCSW Unavailable +[phone] Renay Ford Unavailable Encounter Details Date Type Department Care Team (Late st Contact Info) Description 01/08/2019 Scanned Document [address] [place] [phone] Clara Motley MD [address] [place] [address] Social History Tobacco Use Types Packs/Day Years [...] Description 12/13/2024 11:15 AM EDT Office Visit [facility] 100 [facility] [address] [place] [address] Clara Motley MD [address] [place], [place] [phone] documented as of this encounter Visit Diagnoses Not on filedocumented in this encounter Care Teams Cutter Grinder Relationship Specialty Start Date End Date Clara Motley MD PCP - General Internal Medicine 10/16/15 Clara Motley MD [address] [place] [address] PCP - MSSP Attributed 09/21/18 0 Clara Motley MD [address] [place] [address] PCP - MSSP Attributed 03/24/21 4 Daisy Ramsey MD 113 [facility] 304 [place] [address] Consulting Provider Dermatology 06/17/17 Frank Livingston MD [address] [facility] 3 [place] [address] Gastroenterology 06/17/17 Shirley De La Garza APRN [address] [place] [address] Nurse Practitioner Gynecology 06/17/17 Cordelia Engle MD [address] [address] Nephrology 06/17/17 Daja Sloan MD [address] [address] Ophthalmology 06/17/17 Arin Liu RN [address] [facility] 4[address] [place] [address] ICP Community Reservations Specialist 01/29/18 04/01/19 Luis Alberto Renee MD [address] [place] [phone] Ophthalmology 05/19/18 Vandana Bates RN [address] [facility] 4 [place] [address] ICP Community Reservations Specialist 04/01/19 10/08/24 Clarence Hollingsworth MD [address] [place] [address] Primary Client Service Consultant Cardiovascular Disease 03/24/22 Dawn Agrawal LCSW [address] araceli [address] [phone] [facility] Community Reservations Specialist 10/08/24 10/26/24 Renay Ford [address] arac[address] [address] [facility] Community Reservations Specialist 10/26/24 documented as of this encounter
--- OUTSIDE RECORDS SUMMARY | 2024-12-01 16:52 | XMS_ITS | Encounter Summary ---
Author Organization [facility] Address [address] [place] [address] Care Team Providers Care Photographer Scientific Name Role Phone Clara Motley MD Primary Care Provider Daisy Ramsey MD Unavailable [phone] Frank Livingston MD Unavailable [phone] Shirley De La Garza APRN Unavailable Cordelia Engle MD Unavailable +[phone] Daja Sloan MD Unavailable +[phone] Clara Motley MD Unavailable +[phone] Arin Liu RN Unavailable +[phone] Luis Alberto Renee MD Unavailable [phone] Vandana Bates RN Unavailable [phone] Clara Motley MD Unavailable +[phone] Clarence Hollingsworth MD Unavailable Dawn Agrawal LCSW Unavailable +[phone] Renay Ford Unavailable Encounter Details Date Type Department Care Team (Late st Contact Info) Description 04/23/2015 Scanned Document [address] [place] [address] Provider, Generic Social History Tobacco [...] Description 12/13/2024 11:15 AM EDT Office Visit [facility] [address] [place] [address] Clara Motley MD [address] [place] [address] documented as of this encounter Visit Diagnoses Not on filedocumented in this encounter Care Teams Photographer Scientific Relationship Specialty Start Date End Date Clara Motley MD PCP - General Internal Medicine 10/16/15 Clara Motlye MD [address] [place] [address] PCP - MSSP Attributed 09/21/18 0 Clara Motley MD [address] [place] [address] PCP - MSSP Attributed 03/24/21 4 Daisy Ramsey MD [address] [facility] [address] [place] [address] Consulting Provider Dermatology 06/17/17 Frank Livingston MD [address] [place] [address] Gastroenterology 06/17/17 Shirley De La Garza APRN [address] [place] [address] Nurse Practitioner Gynecology 06/17/17 Cordelia Engle MD [address] [address] Nephrology 06/17/17 Daja Sloan MD [address] [address] Ophthalmology 06/17/17 Arin Liu RN [address] [facility] 4[address] [place] [address] ICP Community [place] 01/29/18 04/01/19 Luis Alberto Renee MD [address] [place] [phone] Ophthalmology 05/19/18 Vandana Bates RN [address] [facility] 4 [place] [address] ICP Community [place] 04/01/19 10/08/24 Clarence Hollingsworth MD [address] [place] [address] Primary Pharmacy Student Cardiovascular Disease 03/24/22 Dawn Agrawal LCSW [address] Adriano [facility] [address] [place] [address] [facility] Community [place] 10/08/24 10/26/24 Renay Ford [address] [address] [facility] Community [place] L[place] 10/26/24 documented as of this encounter
--- OUTSIDE RECORDS SUMMARY | 2024-12-01 16:52 | XMS_ITS | Encounter Summary ---
Author Organization Formerly [facility] Address [address] [place] [address] Care Team Providers Care Icu Manager Name Role Phone Clara Motley MD Primary Care Provider Daisy Ramsey MD Unavailable [phone] Frank Livingston MD Unavailable [phone] Shirley De La Garza APRN Unavailable Cordelia Engle MD Unavailable +[phone] Daja Sloan MD Unavailable +[phone] Clara Motley MD Unavailable [phone] Arin Liu RN Unavailable +[phone] Luis Alberto Renee MD Unavailable [phone] Vandana Bates RN Unavailable +[phone] Clara Motley MD Unavailable +[phone] Clarence Hollingsworth MD Unavailable Dawn Agrawal LCSW Unavailable +[phone] Renay Ford Unavailable Encounter Details Date Type Department Care Team (Late st Contact Info) Description 07/08/2017 Scanned Document [address] [place] [address] Provider, Generic Social History Tobacco [...] Office Visit [facility] [address] [place] [address] Clara Motley MD [address] [place] [address] documented as of this encounter Visit Diagnoses Not on filedocumented in this encounter Care Teams Icu Manager Relationship Specialty Start Date End Date Clara Motley MD PCP - General Internal Medicine 10/16/15 Clara Motley MD [address] [place] [address] PCP - MSSP Attributed 09/21/18 0 Clara Motley MD [address] [place] [address] PCP - MSSP Attributed 03/24/21 4 Daisy aRmsey MD [address] [place] [address] Consulting Provider Dermatology 06/17/17 Frank Livingston MD [address] [place] [address] Gastroenterology 06/17/17 Shirley De La Garza APRN [address] [place] [address] Nurse Practitioner Gynecology 06/17/17 Cordelia Engle MD [address] [address] Nephrology 06/17/17 Daja Sloan MD [address] [address] Ophthalmology 06/17/17 Arin Liu RN [address] [facility] [address] [place] [address] ICP Community Breaker Off 01/29/18 04/01/19 Luis Alberto Renee MD [address] [place] [phone] Ophthalmology 05/19/18 Vandana Bates RN [address] Oh [facility] 4 [place] [address] ICP Community Breaker Off 04/01/19 10/08/24 Clarence Hollingsworth MD [address] [place] [address] Primary Western Philosophy Professor Cardiovascular Disease 03/24/22 Dawn Agrawal LCSW [address] Adriano [facility] [address] [place] [address] [facility] Community Breaker Off 10/08/24 10/26/24 Renay Ford [address] [address] [facility] Community Breaker Off 10/26/24 documented as of this encounter
--- OUTSIDE RECORDS SUMMARY | 2024-12-01 16:52 | XMS_ITS | Encounter Summary ---
Author Organization Formerly [facility] Address [address] [place] [address] Care Team Providers Care Appetizer Packer Name Role Phone Clara Motley MD Primary Care Provider + [phone] Daisy Ramsey MD Unavailable [phone] Frank Livingston MD Unavailable [phone] Sihrley De La Garza APRN Unavailable Cordelia Engle MD Unavailable [phone] Daja Sloan MD Unavailable +[phone] Clara Motley MD Unavailable [phone] Arin Liu RN Unavailable [phone] Luis Alberto Renee MD Unavailable Vandana Bates RN Unavailable +[phone] Clara Motley MD Unavailable +[phone] Clarence Hollingsworth MD Unavailable Dawn Agrawal LCSW Unavailable +[phone] Renay Ford Unavailable Reason for Visit * Reason Comments Medication Refill Encounter Details Date Type Department Care Team (Late st Contact Info) Description 12/10/[address] [place] [address] Clara Motley MD [address] [place] [address] HTN (hypertension), benign Social History Tobacco Use [...] Description 12/13/2024 11:15 AM EDT Office Visit [facility] 100 [facility] 101 [place] [address] Clara Motley MD 100 [facility] [address] [place] [address] documented as of this encounter Visit Diagnoses Diagnosis HTN (hypertension), benign Essential hypertension, benign documented in this encounter Care Teams Appetizer Packer Relationship Specialty Start Date End Date Clara Motley MD PCP - General Internal Medicine 10/16/15 Clara Motley MD [address] [place] [address] PCP - MSSP Attributed 09/21/18 0 Clara Motley MD [address] [place] [address] PCP - MSSP Attributed 03/24/21 4 Daisy Ramsey MD 113 [facility] 304 [place] [address] Consulting Provider Dermatology 06/17/17 Frank Livingston MD [address] [place] [address] Gastroenterology 06/17/17 Shirley De La Garza APRN [address] [place] [address] Nurse Practitioner Gynecology 06/17/17 Cordelia Engle MD [address] [address] Nephrology 06/17/17 Daja Slona MD [address] [address] Ophthalmology 06/17/17 Arin Liu RN 1290 [facility] [place], [place] [address] ICP Community Atg Architect 01/29/18 04/01/19 Luis Alberto Renee MD 43 [place] [phone] Ophthalmology 05/19/18 Vandana Bates, JUAN MIGUEL [address] [facility] 4 [place], [place] [address] ICP Community Atg Architect 04/01/19 10/08/24 Clarence Hollingsworth MD [address] [place] [address] Primary Predatory Animal Exterminator Cardiovascular Disease 03/24/22 Dawn Agrawal LCSW [address] Oh [address] [address] [facility] Community Atg Architect 10/08/24 10/26/24 Renay Ford [address] [address] [facility] Community Atg Architect 10/26/24 documented as of this encounter
--- OUTSIDE RECORDS SUMMARY | 2024-12-01 16:52 | XMS_ITS | Encounter Summary ---
Author Organization [facility] Address [address] [place] [address] Care Team Providers Care Water Technician Name Role Phone Clara Motley MD Primary Care Provider + [phone] Daisy Ramsey MD Unavailable [phone] Frank Livingston MD Unavailable [phone] Shirley De La Garza APRN Unavailable Cordelia Engle MD Unavailable [phone] Daja Sloan MD Unavailable [phone] Clara Motley MD Unavailable [phone] Luis Alberto Renee MD Unavailable [phone] Vandana Bates RN Unavailable [phone] Clara Motley MD Unavailable [phone] Clarence Hollingsworth MD Unavailable ArictorresDawn alcantarW Unavailable +[phone] Renay Ford Unavailable Encounter Details Date Type Department Care Team (Late st Contact Info) Description 01/03/2020 Scanned Document [address] [place] [address] Provider, Generic Social History Tobacco Use [...] AM EST documented as of this encounter Progress Notes * Padmini Myles APRN - 01/07/2020 7:22 AM EDT Benign finding * Padmini Myles APRN - 01/05/2020 12:35 PM EDT Osteopenia. Takes calcium and vitamin D. documented in this encounter Plan of Treatment Upcoming Encounters Date Type Department Care Team (Late st Contact Info) Description 12/13/2024 11:15 AM EDT Office Visit [address] [place] [phone] Clara Motley MD [address] [place] [address] [place] [address] documented as of this encounter Procedures Procedure Name Priority Date/Time Associated Diagnosis Comments IMAGING DEXA 01/03/2020 IMAGING BREAST/BX/MAMMO 01/03/2020 documented in this encounter Results * IMAGING DEXA (01/03/2020) Anatomical Region Laterality Modality Other 01/03/2020 Narrative 01/03/2020 Ordered by an unspecified provider. us Generic Provider IMG LEGACY PROCEDURES Edited Re sult - Final * IMAGING BREAST/BX/MAMMO (01/03/2020) Anatomical Region Laterality Modality Other 01/03/2020 Narrative 01/03/2020 Ordered by an unspecified provider. us Generic Provider IMG LEGACY PROCEDURES Edited Re sult - Final documented in this encounter Visit Diagnoses Not on filedocumented in this encounter Care Teams Water Technician Relationship Specialty Start Date End Date Clara Motley MD PCP - General Internal Medicine 10/16/15 Clara Motley MD [address] [place] [address] PCP - MSSP Attributed 09/21/18 0 Clara Motley MD [address] [place] [address] PCP - MSSP Attributed 03/24/21 4 Daisy Ramsey MD 113 [facility] [address] [place] [address] Consulting Provider Dermatology 06/17/17 Frank Livingston MD [address] [place] [address] Gastroenterology 06/17/17 Shirley De La Garza APRN [address] [place] [address] Nurse Practitioner Gynecology 06/17/17 Cordelia Engle MD [address] [address] Nephrology 06/17/17 Daja Sloan MD [address] [address] Ophthalmology 06/17/17 Luis Alberto Renee MD 43 [place] [address] Ophthalmology 05/19/18 Vandana Bates, RN [address] [address] [facility] Community Farm Rancher 04/01/19 10/08/24 Clarence Hollingsworth MD [address] [place] [address] Primary Forensic Engineer Cardiovascular Disease 03/24/22 Dawn Agrawal LCSW [address] Oh araceli [address] [address] [facility] Community Farm Rancher 10/08/24 10/26/24 Renay Ford [address] [address] [facility] Community Farm Rancher 10/26/24 documented as of this encounter
--- OUTSIDE RECORDS SUMMARY | 2024-12-01 16:52 | XMS_ITS | Encounter Summary ---
Author Organization [facility] Address [address] [place] [address] Care Team Providers Care Electronic Installer Name Role Phone Clara Motley MD Primary Care Provider Daisy Ramsey MD Unavailable [phone] Frank Livingston MD Unavailable [phone] Shirley De La Garza APRN Unavailable Cordelia Engle MD Unavailable [phone] Daja Sloan MD Unavailable [phone] Clara Motley MD Unavailable [phone] Arin Liu RN Unavailable [phone] Luis Alberto Renee MD Unavailable [phone] Vandana Bates RN Unavailable [phone] Clara Motley MD Unavailable [phone] Clarence Hollingsworth MD Unavailable Dawn Agrawal LCSW Unavailable [phone] Renay Ford Unavailable Encounter Details Date Type Department Care Team (Late st Contact Info) Description 04/17/2016 Scanned Document [address] [place] [address] Provider, Generic Social History Tobacco [...] [facility] [address] [place] [address] Clara Motley MD [address] [place] [address] documented as of this encounter Visit Diagnoses Not on filedocumented in this encounter Care Teams Electronic Installer Relationship Specialty Start Date End Date Clara Motley MD PCP - General Internal Medicine 10/16/15 Clara Motley MD [address] [place] [address] PCP - MSSP Attributed 09/21/18 0 Clara Motley MD [address] [place] [address] PCP - MSSP Attributed 03/24/21 4 Daisy Ramsey MD [address] [place] [address] Consulting Provider Dermatology 06/17/17 Frank Livingston MD [address] [place] [address] Gastroenterology 06/17/17 Shirley De La Garza APRN [address] [place] [address] Nurse Practitioner Gynecology 06/17/17 Cordelia Engle MD [address] [address] Nephrology 06/17/17 Daja Sloan MD [address] [address] Ophthalmology 06/17/17 Arin Liu RN [address] [facility] 4[address] [place] [address] ICP Community Manager Renewable Energy 01/29/18 04/01/19 Luis Alberto Renee MD [address] [place] [phone] Ophthalmology 05/19/18 Vandana Bates RN [address] Oh [facility] 4 [place] [address] ICP Community Manager Renewable Energy 04/01/19 10/08/24 Clarence Hollingsworth MD [address] [place] [address] Primary Sausage Cooker Cardiovascular Disease 03/24/22 Dawn Agrawal LCSW [address] Adriano [facility] 4[address] [place] [address] [facility] Community Manager Renewable Energy 10/08/24 10/26/24 Renay Ford [address] [address] [facility] Community Manager Renewable Energy 10/26/24 documented as of this encounter
--- OUTSIDE RECORDS SUMMARY | 2024-12-01 16:52 | XMS_ITS | Encounter Summary ---
Author Organization [facility] Address [address] [place] [address] Care Team Providers Care Halver Machine Operator Name Role Phone Clara Motley MD Primary Care Provider Daisy Ramsey MD Unavailable [phone] Frank Livingston MD Unavailable [phone] Shirley De La Garza APRN Unavailable Cordelia Enlge MD Unavailable Daja Sloan MD Unavailable [phone] Luis Alberto Renee MD Unavailable [phone] Vandana Bates RN Unavailable [phone] Clara Motley MD Unavailable [phone] Clarence Hollingsworth MD Unavailable Dawn Agrawal LCSW Unavailable +[phone] Renay Ford Unavailable Encounter Details Date Type Department Care Team (Late st Contact Info) Description 10/09/2021 Scanned Document [address] [place] [address] Provider, Generic Social History Tobacco Use [...] suspected to have Coronavirus/COVID-19? No / Unsure 10/10/2021 10:31 AM EDT documented as of this encounter Plan of Treatment Upcoming Encounters Date Type Department Care Team (Late st Contact Info) Description 12/13/2024 11:15 AM EDT Office Visit [facility] 100 [facility] [address] [place] [address] Clara Motley MD [address] [facility] [address] [place] [address] documented as of this encounter Visit Diagnoses Not on filedocumented in this encounter Care Teams Halver Machine Operator Relationship Specialty Start Date End Date Clara Motley MD PCP - General Internal Medicine 10/16/15 Clara Motley MD 100 [facility] [address] [place] [address] PCP - MSSP Attributed 03/24/21 4 Daisy Ramsey MD [address] [place] [address] Consulting Provider Dermatology 06/17/17 Frank Livingston MD [address] [place] [address] Gastroenterology 06/17/17 Shirley De La Garza APRN [address] [place] [address] Nurse Practitioner Gynecology 06/17/17 Cordelia Engle MD [address] [address] Nephrology 06/17/17 Daja Sloan MD [address] [address] Ophthalmology 06/17/17 Luis Alberto Renee MD 43 [place] [address] Ophthalmology 05/19/18 Vandana Bates RN [address] Oh [address] [address] [facility] Community Neuropsychology Division Chief 04/01/19 10/08/24 Clarence Hollingsworth MD [address] [place] [address] Primary Hospital Personnel Director Cardiovascular Disease 03/24/22 Dawn Agrawal LCSW [address] [address] [facility] Community Neuropsychology Division Chief 10/08/24 10/26/24 Renay Ford [address] [address] [facility] Community Neuropsychology Division Chief 10/26/24 documented as of this encounter
--- OUTSIDE RECORDS SUMMARY | 2024-12-01 16:52 | XMS_ITS | Encounter Summary ---
Author Organization [facility] Address [address] [place] [address] Care Team Providers Care Chamfering Machine Operator Name Role Phone Clara Motley MD Primary Care Provider Daisy Ramsey MD Unavailable [phone] Frank Livingston MD Unavailable +[phone] Shirley De La Garza APRN Unavailable Cordelia Engle MD Unavailable [phone] Daja Sloan MD Unavailable [phone] Clara Motley MD Unavailable [phone] Arin Liu RN Unavailable [phone] Luis Alberto Renee MD Unavailable [phone] Vandana Bates RN Unavailable [phone] Clara Motley MD Unavailable +[phone] Clarence Hollingsworth MD Unavailable Dawn Agrawal LCSW Unavailable +[phone] eRnay Ford Unavailable Encounter Details Date Type Department Care Team (Late st Contact Info) Description 06/24/2017 Scanned Document [address] [place] [address] Provider, Generic Social History Tobacco [...] [facility] [address] [place] [address] Clara Motley MD [address] [place] [address] documented as of this encounter Visit Diagnoses Not on filedocumented in this encounter Care Teams Chamfering Machine Operator Relationship Specialty Start Date End Date Calra Motley MD PCP - General Internal Medicine 10/16/15 Clara Motley MD [address] [place] [address] PCP - MSSP Attributed 09/21/18 0 Clara Motley MD [address] [place] [address] PCP - MSSP Attributed 03/24/21 4 Daisy Ramsey MD [address] [place] [address] Consulting Provider Dermatology 06/17/17 Frank Livingston MD [address] [place] [address] Gastroenterology 06/17/17 Shirley De La Garza APRN [address] [place] [address] Nurse Practitioner Gynecology 06/17/17 Cordelia Engle MD [address] [address] Nephrology 06/17/17 Daja Sloan MD [address] [address] Ophthalmology 06/17/17 Arin Liu RN [address] [facility] 4[address] [place] [address] ICP Community Manager Golf 01/29/18 04/01/19 Luis Alberto Renee MD [address] [place] [phone] Ophthalmology 05/19/18 Vandana Bates RN [address] Oh [facility] 4 [place] [address] ICP Community Manager Golf 04/01/19 10/08/24 Clarence Hollingsworth MD [address] [place] [address] Primary Director Of Medical Staff Services Cardiovascular Disease 03/24/22 Dawn Agrawal LCSW [address] Adriano [facility] 4[address] [place] [address] [facility] Community Manager Golf 10/08/24 10/26/24 Renay Ford [address] [address] [facility] Community Manager Golf 10/26/24 documented as of this encounter
--- OUTSIDE RECORDS SUMMARY | 2024-12-01 16:52 | XMS_ITS | Encounter Summary ---
Author Organization [facility] Address [address] [place] [address] Care Team Providers Care Legal Coordinator Name Role Phone Clara Motley MD Primary Care Provider Daisy Ramsey MD Unavailable [phone] Frank Livingston MD Unavailable +[phone] Shirley De La Garza APRN Unavailable Cordelia Engle MD Unavailable [phone] Daja Sloan MD Unavailable [phone] Clara Motley MD Unavailable [phone] Arin Liu RN Unavailable +[phone] Luis Alberto Renee MD Unavailable [phone] Vandana Bates RN Unavailable [phone] Clara Motley MD Unavailable +[phone] Clarence Hollingsworth MD Unavailable Dawn Agrawal LCSW Unavailable +[phone] Renay Ford Unavailable Encounter Details Date Type Department Care Team (Late st Contact Info) Description 02/24/2018 Scanned Document [address] [place] [address] Provider, Generic Social History Tobacco [...] [facility] [address] [place] [address] Clara Motley MD [address] [place] [address] documented as of this encounter Visit Diagnoses Not on filedocumented in this encounter Care Teams Legal Coordinator Relationship Specialty Start Date End Date Clara Motley MD PCP - General Internal Medicine 10/16/15 Clara Motley MD [address] [place] [address] PCP - MSSP Attributed 09/21/18 0 Clara Motley MD [address] [place] [address] PCP - MSSP Attributed 03/24/21 4 Daisy Ramsey MD [address] [place] [address] Consulting Provider Dermatology 06/17/17 Frank Livingston MD [address] [place] [address] Gastroenterology 06/17/17 Shirley De La Garza APRN [address] [place] [address] Nurse Practitioner Gynecology 06/17/17 Cordelia Engle MD [address] [address] Nephrology 06/17/17 Daja Sloan MD [address] [address] Ophthalmology 06/17/17 Arin Liu RN [address] [facility] 4B [place] [address] ICP Community Sanitarian Inspector 01/29/18 04/01/19 Luis Alberto Renee MD 43 [place] [phone] Ophthalmology 05/19/18 Vandana Bates RN [address] Oh [facility] 4 [place] [address] ICP Community Sanitarian Inspector 04/01/19 10/08/24 Clarence Hollingsworth MD [address] [place] [address] Primary Access Tech Cardiovascular Disease 03/24/22 Dawn Agrawal SUGARCANE PLANTER [address] Adrianoanna Begum [address] [place] [address] [facility] Community Sanitarian Inspector 10/08/24 10/26/24 Renay Ford [address] Oh araceli [address] [address] [facility] Community Sanitarian Inspector 10/26/24 documented as of this encounter
--- OUTSIDE RECORDS SUMMARY | 2024-12-01 16:52 | XMS_ITS | Clinical Summary ---
Author Organization [facility] it Address [id number] [place] [id number] Care Team Providers Care X Ray Equipment Servicer Name Role Phone Clara Motley MD Primary Care Provider [phone] Immunizations Name Administration Dates Next Due Pfizer SARS-CoV-2 COVID-19, mRNA, LNP-S, preservative free 06/21/2020 Surgical History Surgery Date Site/Laterality Comments APPENDECTOMY PROCEDURE:APPENDECTOMY SECTION PROCEDURE: SECTION EYE SURGERY PROCEDURE:EYE SURGERY;COMMENT:grant COLONOSCOPY PROCEDURE:COLONOSCOPY;COMMENT :last one 3 years ago hx of polyps WISDOM TOOTH EXTRACTION PROCEDURE:WISDOM TOOTH EXTRACTION COLONOSCOPY 11/09/2015 N/A PROCEDURE:COLONOSCOPY;COMMENT :Procedure: COLONOSCOPY B SF/biopsy and polypectomy; Surgeon: Frank Livingston MD; Location: [facility]; Service: Gastroenterology; Laterality: N/A; UTERINE FIBROID SURGERY PROCEDURE:UTERINE FIBROID SURGERY COLONOSCOPY 10/15/2018 N/A PROCEDURE:COLONOSCOPY;COMMENT :Procedure: COLONOSCOPY- BSF/Biopsy and polypectomy; Surgeon: Frank Livingston MD; Location: [facility]; Service: Gastroenterology; Laterality: N/A; UPPER GASTROINTESTINAL ENDOSCOPY 12/03/2018 N/A PROCEDURE:UPPER GASTROINTESTINAL ENDOSCOPY;COMMENT:Procedure: UPPER ENDOSCOPY-EGD/Biopsy and polypectomy; Surgeon: Frank Livingston MD; Location: [facility]; Service: Gastroenterology; Laterality: N/A; DILATION AND CURETTAGE OF UTERUS PROCEDURE:DILATION AND CURETTAGE OF UTERUS;COMMENT:x2 COLONOSCOPY 11/15/2021 N/A PROCEDURE:COLONOSCOPY;COMMENT :Procedure: COLONOSCOPY B SF/Biopsy and polypectomy; Surgeon: Frank Livingston MD; Location: [facility]; Service: Gastroenterology; Laterality: N/A; Medical History Medical History Date Comments Asthma DX:Asthma Heart murmur DX:Heart murmur GERD (gastroesophageal reflux disease) DX:GERD (gastroesophageal reflux disease);COMMENT:acid reflux Hypertension DX:Hypertension Hyperlipidemia DX:Hyperlipidemi a Osteoarthritis DX:Osteoarthriti s Diabetes mellitus, type II ( CMS/HCC V24, CMS/HCC V28) DX:Diabetes mellitus, type I I (HCC) Sleep apnea, central DX:Sleep ap zaira, central;COMMENT:CPAP Diverticulosis DX:Diverticulosi s 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 Family History Medical History Relation Name Comments Stroke Father Colon cancer Maternal Grandfather Colon cancer Maternal Grandmother Parkinsonism Mother Colon cancer Mother's Sister Relation Name Status Comments Father Maternal Grandfather Maternal Grandmother Mother Mother's Sister Social History Tobacco Use Types Packs/Day Years Used Date Smoking Tobacco: Never Smokeless Tobacco: Never Alcohol Use Standard Drinks/Week Comments Yes 4 (1 standard drink = 0.6 oz pur e alcohol) Comments Unknown Sex and Gender Information Value Date Recorded Sex Assigned at Not on file Legal Sex Female 12:56 PM EST Gender Identity Not on file Sexual Orientation Not on file Obstetrics History Last Filed Vital Signs Vital Sign Reading Time Taken Comments Blood Pressure 116/68 07/02/2021 3:54 PM EDT Sit ting Left arm Pulse - - Temperature - - Respiratory Rate - - Oxygen Saturation - - Inhaled Oxygen Concentration - - Weight 86.6 kg (191 lb) 07/02/2021 3:54 PM EDT Height - - Body Mass Index - - Plan of Treatment Health Maintenance Due Date Last Done Comments Breast Cancer Screening 1950 DTaP,Tdap,and Td Vaccines (2 - Td or Tdap) 01/13/2020 01/12/2010 Cholesterol Screening (Lipid Panel) 02/28/2022 Colorectal Cancer Screening: Colonoscopy 02/28/2022 Falls Risk Assessment 02/28/2022 Hepatitis C Screening 02/28/2022 Social Influencers of Health Screening 02/28/2022 Depression Screening 03/24/2024 Hypertension/CHF/CAD Annual BMP Blood Test 05/28/2024 05/29/2023, 05/29/2023 COVID-19 Vaccine ( season) 2024 06/21/2020, 05/31/2020 Influenza Vaccine (#1) 2024 , 01/07/2020, 12/08/2018, Additional history exists RSV Immunization Adult Patients (1 - 1-dose 75+ series) 2027 Osteoporosis Screening (Bone Density Screening) 01/12/2032 01/11/2022 Pneumococcal Vaccine: 50+ Years Completed 09/18/2018, 06/17/2017 Zoster Vaccines Completed 11/07/2020, 08/02/2020 HIB Vaccines Aged Out No longer eligi ble based on patient's age to complete this topic HPV Vaccines Aged Out No longer eligi ble based on patient's age to complete this topic Hepatitis A Vaccines Aged Out No long er eligible based on patient's age to complete this topic Hepatitis B Vaccines Aged Out No long er eligible based on patient's age to complete this topic IPV Vaccines Aged Out No longer eligi ble based on patient's age to complete this topic MMR Vaccines Aged Out No longer eligi ble based on patient's age to complete this topic Meningococcal ACWY Vaccine Aged Out N o longer eligible based on patient's age to complete this topic Meningococcal B Vaccine Aged Out No l onger eligible based on patient's age to complete this topic RSV Immunization Patients Under 20 months Aged Out No longer eligible based on patient's age to complete this topic Varicella Vaccines Aged Out No longer eligible based on patient's age to complete this topic Procedures Procedure Name Priority Date/Time Associated Diagnosis Comments BONE DENSITY STUDY Routine 01/11/2022 2: 08 PM EDT Encounter for screening for osteoporosis Other specified disorders of bone density and structure, left thigh from Last 3 Months or Most Recently Relevant to Health Maintenance Results * BONE DENSITY STUDY (01/11/2022 2:08 PM EDT) Anatomical Region Laterality Modality Bone Densitometr y 07/02/2021 5:46 PM EDT Narrative 01/14/2022 9:35 AM EDT Bone density study Indication and risk factors: Postmenopausal female. Screening for osteoporosis. No priors. Study acquired on a iSSimple densitometer. Imaging of the lumbar spine and hip was completed. FINDINGS: Averaged L1 through L4: Bone density: 1.27 g/cm2 Z score: 1.6 T score: 0.6 Left femoral neck: Bone density: 0.85 g/cm2 Z score: -0.1 T score: -1.4 CONCLUSION: 1. Osteopenia of the left hip. 2. Lumbar spine bone density is within normal limits. FRAX 10 year probability of fracture, when taking into consideration the patient's personal risk factors: There is a 7% chance of a major osteoporotic fracture and a 1% chance of a hip fracture. SESSION: Not applicable World Health Organization Definitions of Osteoporosis: T score -0.9 and above: Normal BMD T score between -1.0 and -2.4: Low BMD (Osteopenia) T score -2.5 and below: Osteoporosis Report reviewed and signed by : Dr. Babita Rosenbaum on 01/14/2022 9:35 AM. Workstation Name - [employer] Procedure Note Babita Rosenbaum MD - 03/15/2022 Bone density study Indication and risk factors: Postmenopausal female. Screening forosteoporosis. No priors. Study acquired on a iSSimple densitometer. Imaging of thelumbar spine and hip was completed. FINDINGS: Averaged L1 through L4: Bone density: 1.27 g/cm2 Z score: 1.6 T score: 0.6 Left femoral neck: Bone density: 0.85 g/cm2 Z score: -0.1 T score: -1.4 CONCLUSION: 1. Osteopenia of the left hip. 2. Lumbar spine bone density is within normal limits. FRAX 10 year probability of fracture, when taking into consideration thepatient's personal risk factors: There is a 7% chance of a majorosteoporotic fracture and a 1% chance of a hip fracture. SESSION: Not applicable World Health Organization Definitions of Osteoporosis: T score -0.9 and above: Normal BMD T score between -1.0 and -2.4: Low BMD (Osteopenia) T score -2.5 and below: Osteoporosis Report reviewed and signed by : Dr. Babita Rosenbaum on 01/14/2022 9:35 AM.Workstation Name - [employer] Shirley De La Garza NP IM DXA PROCEDURES Final Result from Last 3 Months or Most Recently Relevant to Health Maintenance Care Teams X Ray Equipment Servicer Relationship Specialty Start Date End Date Clara Motley MD [address] [place] [address] PCP - General Internal Medicine 10/13/18
--- OUTSIDE RECORDS SUMMARY | 2024-12-01 16:52 | XMS_ITS | Encounter Summary ---
Author Organization [facility] Address [address] [place] [address] Care Team Providers Care Nanotechnician Name Role Phone Clara Motley MD Primary Care Provider Daisy Ramsey MD Unavailable [phone] Frank Livingston MD Unavailable [phone] Shirley De La Garza APRN Unavailable Cordelia Engle MD Unavailable [phone] Daja Sloan MD Unavailable [phone] Clara Motley MD Unavailable [phone] Arin Liu RN Unavailable [phone] Luis Alberto Renee MD Unavailable [phone] Vandana Bates RN Unavailable [phone] Clara Motley MD Unavailable [phone] Clarence Hollingsworth MD Unavailable Dawn Agrawal LCSW Unavailable [phone] Renay Ford Unavailable Encounter Details Date Type Department Care Team (Late st Contact Info) Description 12/24/2016 Scanned Document [address] [place] [address] Provider, Generic Social History Tobacco [...] Description 12/13/2024 11:15 AM EDT Office Visit [facility] [address] [place] [phone] Clara Motley MD [address] [place] [address] documented as of this encounter Visit Diagnoses Not on filedocumented in this encounter Care Teams Nanotechnician Relationship Specialty Start Date End Date Clara Motley MD PCP - General Internal Medicine 10/16/15 Clara Motley MD [address] [place] [address] PCP - MSSP Attributed 09/21/18 0 Clara Motley MD [address] [place] [address] PCP - MSSP Attributed 03/24/21 4 Daisy Ramsey MD [address] [place] [address] Consulting Provider Dermatology 06/17/17 Frank Livingston MD [address] [place] [address] Gastroenterology 06/17/17 Shirley De La Garza APRN [address] [place] [address] Nurse Practitioner Gynecology 06/17/17 Cordelia Engle MD [address] [address] Nephrology 06/17/17 Daja Sloan MD [address] [address] Ophthalmology 06/17/17 Arin Liu RN [address] [facility] [address] [place] [address] [facility] Community Chromium Plater 01/29/18 04/01/19 Luis Alberto Renee MD [address] [place] [phone] Ophthalmology 05/19/18 Vandana Bates RN [address] [facility] [address] [place] [address] [facility] Community Chromium Plater 04/01/19 10/08/24 Clarence Hollingsworth MD [address] [place] [address] Primary Flash Welding Machine Operator Cardiovascular Disease 03/24/22 Dawn Agrawal LCSW [address]ano [facility] [address] [place] [address] [facility] Community Chromium Plater 10/08/24 10/26/24 Renay Ford [address] [address] [facility] Community Chromium Plater 10/26/24 documented as of this encounter
--- OUTSIDE RECORDS SUMMARY | 2024-12-01 16:52 | XMS_ITS | Encounter Summary ---
Author Organization [facility] Address [address] [place] [address] Care Team Providers Care Human Resources Assistant Manager Name Role Phone Clara Motley MD Primary Care Provider + [phone] Daisy Ramsey MD Unavailable [phone] Frank Livingston MD Unavailable [phone] Shirley De La Garza QUALITY CONTROL TESTER Unavailable Cordelia Engle MD Unavailable [phone] Daja Sloan MD Unavailable [phone] Clara Motley MD Unavailable [phone] Luis Alberto Renee MD Unavailable [phone] Vandana Bates RN Unavailable [phone] Clara Motley MD Unavailable [phone] Clarence Hollingsworth MD Unavailable ArictorresDawn alcantarW Unavailable [phone] Renay Ford Unavailable Reason for Visit * Reason Comments Medication Refill Encounter Details Date Type Department Care Team (Late st Contact Info) Description 10/31/[address] [place] [phone] Clara Motley MD [address] [place] [address] [place] [phone] Type 2 diabetes mellitus with complication, without long-term current use of insulin (HCC); HTN (hypertension), benign Social History Tobacco Use [...] Description 12/13/2024 11:15 AM EDT Office Visit [facility] [address] [address] Clara Motley MD [address] [address] documented as of this encounter Visit Diagnoses Diagnosis Type 2 diabetes mellitus with complication, without long-term current use of insulin (HCC) HTN (hypertension), benign Essential hypertension, benign documented in this encounter Care Teams Human Resources Assistant Manager Relationship Specialty Start Date End Date Clara Motley MD PCP - General Internal Medicine 10/16/15 Clara Motley MD [address] [address] PCP - MSSP Attributed 09/21/1803/23/ 0 Clara Motley MD [address] [address] PCP - MSSP Attributed 03/24/21 4 Daisy Ramsey MD [facility] [address] [place] [address] Consulting Provider Dermatology 06/17/17 Frank Livingston MD [address] [place] [address] Gastroenterology 06/17/17 Shirley De La Garza APRN [address] [place] [address] Nurse Practitioner Gynecology 06/17/17 Cordelia Engle MD [address] [address] Nephrology 06/17/17 Daja Sloan MD [address] [address] Ophthalmology 06/17/17 Luis Alberto Renee MD 43 [place] [phone] Ophthalmology 05/19/18 Vandana Bates, RN [address] [place] [address] [address] [facility] Community Ordnance Truck Installation Mechanic 04/01/19 10/08/24 Clarence Hollingsworth MD [address] [place] [address] Primary Taker Off Cardiovascular Disease 03/24/22 Dawn Agrawal LCSW [address] [address] [facility] Community Ordnance Truck Installation Mechanic 10/08/24 10/26/24 Renay Ford [address] [address] [facility] Community Ordnance Truck Installation Mechanic 10/26/24 documented as of this encounter
--- OUTSIDE RECORDS SUMMARY | 2024-12-01 16:52 | XMS_ITS | Encounter Summary ---
Author Organization [facility] Address [address] [place] [address] Care Team Providers Care Sawyer Cork Slabs Name Role Phone Clara Motley MD Primary Care Provider Daisy Ramsey MD Unavailable [phone] Frank Livingston MD Unavailable [phone] Shirley De La Garza APRN Unavailable Cordelia Engle MD Unavailable [phone] Daja Sloan MD Unavailable [phone] Clara Motley MD Unavailable [phone] Arin Liu RN Unavailable [phone] Luis Alberto Renee MD Unavailable [phone] Vandana Bates RN Unavailable [phone] Clara Motley MD Unavailable [phone] Clarence Hollingsworth MD Unavailable Dawn Agrawal LCSW Unavailable [phone] Renay Ford Unavailable Encounter Details Date Type Department Care Team (Late st Contact Info) Description 11/24/2018 Scanned Document [address] [place] [address] Provider, Generic Social History Tobacco [...] Description 12/13/2024 11:15 AM EDT Office Visit [facility] [address] [place] [address] Clara Motley MD [address] [place] [address] documented as of this encounter Visit Diagnoses Not on filedocumented in this encounter Care Teams Sawyer Cork Slabs Relationship Specialty Start Date End Date Clara Motley MD PCP - General Internal Medicine 10/16/15 Clara Motley MD [address] [place] [address] PCP - MSSP Attributed 09/21/18 0 Clara Motley MD [address] [place] [address] PCP - MSSP Attributed 03/24/21 4 Daisy Ramsey MD [address] [place] [address] Consulting Provider Dermatology 06/17/17 Frank Livingston MD [address] [place] [address] Gastroenterology 06/17/17 Shirley De La Garza APRN [address] [place] [address] Nurse Practitioner Gynecology 06/17/17 Cordelia Engle MD [address] [address] Nephrology 06/17/17 Daja Sloan MD [address] [address] Ophthalmology 06/17/17 Arin Liu RN [address] [facility] [address] [place] [address] [facility] Community Financial Services Internship 01/29/18 04/01/19 Luis Alberto Renee MD 43 [place] [phone] Ophthalmology 05/19/18 Vandana Bates RN [address] Oh [facility] 4 [place] [address] [facility] Community Financial Services Internship 04/01/19 10/08/24 Clarence Hollingsworth MD [address] [place] [address] Primary Body Fitter Cardiovascular Disease 03/24/22 Dawn Agrawal SINGER AND UNLOADER [address] Begum [address] [place] [address] [facility] [employer] Internship 10/08/24 10/26/24 Renay Ford [address] Oh araceli [address] [address] [facility] [employer] 10/26/24 documented as of this encounter
--- OUTSIDE RECORDS SUMMARY | 2024-12-01 16:52 | XMS_ITS | Clinical Summary ---
Author Organization [facility] Address [address] [place] [address] Care Team Providers Care Cryptography Teacher Name Role Phone Clara Motley MD Primary Care Provider [phone] Allergies Active Allergy Reactions Criticality Noted Date Comments Neomycin-Polymyxin- Dexameth Swelling Medium 08/11/2015 Statins Other (See Comments) Low 09/15/2017 Has cramping with Simvastatin Medications Medication Sig Dispensed Refills Start Date End Date Status metFORMIN (GLUCOPHAGE) tablet 500 mg Take 1,000 mg by mouth 2 (two) times a day with meals. 0 08/04/2015 Active lisinopril (PRINIVIL,ZESTRIL) tablet 20 mg Take 10 mg by mouth daily as needed. 0 06/08/2015 Active famotidine (PEPCID) 20 MG tablet 2 (two) times a day. 0 10/06/2012 Acti ve fenofibrate micronized (LOFIBRA) 200 MG capsule Take 200 mg by mouth daily. 0 08/04/2015 Active Albuterol Sulfate (PROAIR HFA IN) Inhale 2 puffs into the lungs as needed. 0 Active Aflibercept (EYLEA) 2 MG/0.05ML SOLN by Intravitreal route. Every 5 weeks 0 Active glipiZIDE (GLUCOTROL XL) ER 24 hr tablet 2.5 mg Take 2.5 mg by mouth daily. 0 Active Psyllium (METAMUCIL FIBER PO) Take by mouth 2 (two) times a day. 0 Active Rousseau-3 Fatty Acids (FISH OIL PO) Take 1 tablet by mouth daily. 0 Active TURMERIC PO Take 1 tablet by mouth daily. 0 Active cholecalciferol (VITAMIN D3) 400 units tablet Take 400 Units by mouth daily. 0 Active UNABLE TO FIND Take 1 tablet by mouth daily. Bospro 0 Active ASHWAGANDHA PO Take 1 tablet by mouth 2 (two) times a day. 0 Active NIACINAMIDE PO Take 1 tablet by mouth 2 (two) times a day. 0 Active Ascorbic Acid (VITAMIN C) 1000 MG tablet Take 1,000 mg by mouth daily. 0 Active Coenzyme Q10 (COQ10) 100 MG CAPS Take 1 caplet by mouth daily. 0 Active naltrexone (DEPADE) 50 MG tablet Take by mouth daily. 0 05/18/2020 Acti ve NIFEdipine (PROCARDIA XL) 90 MG 24 hr tablet TAKE 1 TABLET (90 MG TOTAL) BY MOUTH 1 (ONE) TIME EACH DAY DO NOT CRUSH, CHEW, OR SPLIT. 0 06/14/2021 Active Lutein-Zeaxanthin 20-1 MG CAPS Take 1 tablet by mouth daily. 0 Active Iodine Strong, Lugols, (IODINE STRONG PO) Take 1 tablet by mouth daily. 0 Active predniSONE (DELTASONE) tablet 20 mg Take 3 [id number],2 tabx 4 days,[id number],1/2 tabx4 days. 26 tablet 0 10/17/2023 Active Active Problems Problem Noted Date Diagnosed Date Encounter for colorectal cancer screening 2021 Colon polyp 11/15/2021 Prominent ileocecal valve 11/15/2021 Diverticular disease of left colon 11/15/2021 Internal hemorrhoids without complication 2021 Class 1 obesity due to exces s calories with serious comorbidity and body mass index (BMI) of 33.0 to 33.9 in adult 07/02/2021 Osteopenia of left hip 07/02/2021 Encounter for gynecological examination with abnormal finding 12/06/2019 Breast cancer screening 12/06/2019 Osteoporosis screening 12/06/2019 Cervical cancer screening 12/06/2019 Essential hypertension 12/06/2019 Hiatal hernia with gastroesophageal reflux 12/03 Duodenal erythema 12/03/2018 Polyp of stomach 12/03/2018 Encounter for colorectal cancer screening 2018 Colon polyp 10/15/2018 Diverticular disease of left colon 10/15/2018 Internal hemorrhoids without complication 2018 Encounter for gynecological examination without abnormal finding 07/26/2016 Post-traumatic osteoarthritis, left shoulder 08/2015 Tear of left rotator cuff 02/06/2016 Chronic left shoulder pain 02/06/2016 Impingement syndrome of left shoulder 02/06/2016 Encounter for colorectal cancer screening 2015 Family history of colon cancer 11/09/2015 History of rectal polyps 11/09/2015 Hemorrhoids, internal, with bleeding 11/09/2015 Diverticular disease of left colon 11/09/2015 Resolved Problems Problem Noted Date Diagnosed Date Resolved Date Class 1 obesity due to exces s calories with serious comorbidity and body mass index (BMI) of 32.0 to 32.9 in adult 12/06/2019 07/02/2021 Hot flash, menopausal 12/06/20192021 Immunizations Name Administration Dates Next Due Covid-19 (Pfizer) Dilution Required 05/31/2020 Influenza Trivalent (Fluzone High Dose) 0.7 mL (65yrs &>) 02/12/2021,12/08/2018 Influenza Trivalent (Fluzone /Afluria) 5.0mL Multi-dose Vial 02/12/2021,01/07/2020,02/24/2014,02/02,12/26/2011,02/26/2011,01/30/2009 Influenza Vaccine, Unspecifi ed formulation 02/12/2021,12/08/2018 Pneumococcal Conjugate PCV13 06/17/2017 Pneumococcal Polysaccharide PPSV23 09/18/2018 Shingrix Vaccine (Zoster Recombinant) 11/07/2020 ,08/02/2020 Tdap 01/12/2010 Zostavax (Zoster Live) 11/07/2020,08/02/2020 Family History Medical History Relation Name Comments Stroke Father Colon cancer Maternal Aunt Colon cancer Maternal Grandfather Colon cancer Maternal Grandmother Parkinsonism Mother Relation Name Status Comments Father Maternal Aunt Maternal Grandfather Maternal Grandmother Mother Social History Tobacco Use Types Packs/Day Years Used Date Smoking Tobacco: Never Smokeless Tobacco: Never Tobacco Cessation:Counseling Given: No Alcohol Use Standard Drinks/Week Comments Yes 4 (1 standard drink = 0.6 oz pur e alcohol) Sex and Gender Information Value Date Recorded Sex Assigned at Female 10/13/2018 11:09 AM EDT Gender Identity Female 12/06/2019 9:35 AM EDT Sexual Orientation Straight 12/06/2019 9: 35 AM EDT Job Start Date Occupation Industry Not on file Not on file Not on file Last Filed Vital Signs Vital Sign Reading Time Taken Comments Blood Pressure 138/89 10/17/2023 10:48 PM EDT Pulse 74 10/17/2023 10:48 PM EDT Temperature 36.4 C (97.5 F) 10/17/2023 10:48 PM EDT Respiratory Rate 20 10/17/2023 10:48 PM EDT Oxygen Saturation 97% 10/17/2023 10:48 PM EDT Inhaled Oxygen Concentration - - Weight 81.6 kg (180 lb) 10/17/2023 10:48 PM EDT Height 162.6 cm (5' 4 ) 10/17/2023 10:48 PM EDT Body Mass Index 30.9 10/17/2023 10:48 PM EDT Plan of Treatment Health Maintenance Due Date Last Done Comments Hepatitis C Screening 1950 Breast Cancer Screening (Mammogram) 2002 Fall Risk Assessment 2017 DTap / Tdap / Td (2 - Td or Tdap) 01/13/2020 01/12/2010 BMI Counseling 07/02/2022 07/02/2021, 12/06/2019 Depression Screening 07/02/2022 07/02/2021, 12/06/19 Preventative Health Evaluation 07/02/2022 07/02/2021, 07/26/2016 Osteoporosis Screening (DEXA Scan) 01/12/2024 01/11/2022 COVID-19 Vaccine ( season) 2024 06/21/2020, 05/31/2020 Influenza Vaccine (#1) 2024 , 02/12/2021, 02/12/2021, Additional history exists RSV Adult > 60+ Yrs or (1 - 1-dose 75+ series) 2027 Colon Cancer Screening (Colonoscopy) 11/16/2031 11/15/2021 Pneumococcal Vaccine Completed 09/18/2018, 06/18/19 18 Shingrix-Zoster Vaccine Completed 11/07/2020, 08/02 Hepatitis B Vaccines Aged Out No long er eligible based on patient's age to complete this topic RSV Ped < 20 months Aged Out No longe r eligible based on patient's age to complete this topic Advance Directives For more information, please contact: [phone] Latest Code Status on File Code Status Date Activated Date Inactivated Comments Full Code 11/15/2021 10:33 AM 11/15/2021 5:21 PM This code status was ascertained in the following way: discussion with patient . Code Status History Code Status Date Activated Date Inactivated Comments Full Code 12/03/2018 10:44 AM 12/03/2018 5:21 PM This code status was ascertained in the following way: discussion with patient . Full Code 10/15/2018 9:32 AM 10/15/2018 4:26 PM This code status was ascertained in the following way: discussion with patient . Full Code 11/09/2015 8:49 AM 11/09/2015 3:35 PM This code status was ascertained in the following way: discussion with patient. Care Teams Cryptography Teacher Relationship Specialty Start Date End Date Clara Motley MD [address] [place] [address] PCP - General Internal Medicine 10/13/18
--- OUTSIDE RECORDS SUMMARY | 2024-12-01 16:52 | XMS_ITS | Encounter Summary ---
Author Organization [facility] Address [address] [place] [address] Phone Care Team Providers Care Residential Coordinator Name Role Phone Unavailable Primary Care Provider Unavailabl e Encounter Details Date Type Department Care Team (Late st Contact Info) Description 12/19/2021 Telephone [facility] [address] [place] [address] Walt Engle MD Social History Tobacco Use Types Packs/Day Years Used Date Smoking Tobacco: Never Smokeless Tobacco: Never Alcohol Use Standard Drinks/Week Comments Yes 0 (1 standard drink = 0.6 oz pure alcohol) Alcoholic Drinks/day: Occasional social drink Comments Unknown Sex and Gender Information Value Date Recorded Sex Assigned at Not on file Legal Sex Female 5:10 PM EST Gender Identity Not on file Sexual Orientation Not on file documented as of this encounter Miscellaneous Notes * Telephone Encounter - Tayler Cook - 12/19/2021 4:31 PM EDT Pt advised told her to call back if symptoms dont improve * Telephone Encounter - Tayler Cook - 12/19/2021 11:17 AM EDT Please advise * Telephone Encounter - Chio Beard - 12/19/2021 10:56 AM EDT Pt called, her BP readings has been flucuatoing between being very low and being normal every couple days. Right now her bp is at 94/69 and she feels light headed. Please call her back at [phone] Thank you documented in this encounter Plan of Treatment Not on file documented as of this encounter Visit Diagnoses Not on filedocumented in this encounter
--- OUTSIDE RECORDS SUMMARY | 2024-12-01 16:52 | XMS_ITS | Encounter Summary ---
Author Organization [facility] Address [address] [place] [address] Care Team Providers Care Vault Mechanic Name Role Phone Clara Motley MD Primary Care Provider Daisy Ramsey MD Unavailable [phone] Frank Livingston MD Unavailable [phone] Shirley De La Garza APRN Unavailable Cordelia Engle MD Unavailable [phone] Daja Sloan MD Unavailable [phone] Clara Motley MD Unavailable [phone] Arin Liu RN Unavailable [phone] Luis Alberto Renee MD Unavailable [phone] Vandana Bates RN Unavailable [phone] Clara Motley MD Unavailable [phone] Clarence Hollingsworth MD Unavailable Dawn Agrawal LCSW Unavailable [phone] Renay Ford Unavailable Encounter Details Date Type Department Care Team (Late st Contact Info) Description 07/05/2017 Scanned Document [address] [place] [address] Provider, Generic Social History Tobacco [...] Description 12/13/2024 11:15 AM EDT Office Visit [facility] [address] [place] [address] Clara Motley MD [address] [place] [address] documented as of this encounter Visit Diagnoses Not on filedocumented in this encounter Care Teams Vault Mechanic Relationship Specialty Start Date End Date Clara Motley MD PCP - General Internal Medicine 10/16/15 Clara Motley MD [address] [place] [address] PCP - MSSP Attributed 09/21/18 0 Clara Motley MD [address] [place] [address] PCP - MSSP Attributed 03/24/21 4 Daisy Ramsey MD [address] [place] [address] Consulting Provider Dermatology 06/17/17 Frank Livingston MD [address] [place] [address] Gastroenterology 06/17/17 Shirley De La Garza APRN [address] [place] [address] Nurse Practitioner Gynecology 06/17/17 Cordelia Engle MD [address] [address] Nephrology 06/17/17 Daja Sloan MD [address] [address] Ophthalmology 06/17/17 Arin Liu RN [address] [facility] [address] [place] [address] ICP Community Sales Branch Manager 01/29/18 04/01/19 Luis Alberto Renee MD [address] [place] [phone] Ophthalmology 05/19/18 Vandana Bates RN [address] [facility] 4 [place] [address] ICP Community Sales Branch Manager 04/01/19 10/08/24 Clarence Hollingsworth MD [address] [place] [address] Primary Accessibility Lift Technician Cardiovascular Disease 03/24/22 Dawn Agrawal LCSW [address] [facility] [address] [place] [address] [facility] Community Sales Branch Manager 10/08/24 10/26/24 Renay Ford [address] [address] [facility] Community Sales Branch Manager 10/26/24 documented as of this encounter
--- OUTSIDE RECORDS SUMMARY | 2024-12-01 16:52 | XMS_ITS | Clinical Summary ---
Author Organization [facility] Address [address] [place] [address] Phone Care Team Providers Care Communications Technician Name Role Phone Unavailable Primary Care Provider Unavailabl e Allergies Active Allergy Reactions Criticality Noted Date Comments Lisrzyuc-Rqbvhaedh-C exameth Swelling Medium 12/13/2014 Other Other (see comments) Medium 01/19/2015 Seasonal allergies Statins Other (see comments) Low 09/15/2017 Other reaction(s): Other (See Comments) Has cramping with Simvastatin Has cramping with Simvastatin Medications acetaminophen (TYLENOL) 325 MG tablet Take 650 mg by mouth every 6 (six) hours if needed Active Aflibercept (Eylea) 2 MG/0.05ML solution by Intravitreal route Active albuterol HFA (PROVENTIL HFA;VENTOLIN HFA) 108 (90 Base) MCG/ACT inhaler 8 Active ascorbic acid (VITAMIN C) 1000 MG tablet Take 1,000 mg by mouth Active Cholecalciferol (VITAMIN D3 PO) Take 5,000 Units by mouth 1 (one) time each day Active coenzyme Q-10 100 MG capsule Take 100 mg by mouth daily Active famotidine (PEPCID) 20 MG tablet twice a day 3 Active fenofibrate micronized (LOFIBRA) 200 MG capsule Take 1 capsule by mouth 1 (one) time each day 6 Active glipiZIDE (GLUCOTROL XL) 2.5 MG 24 hr tablet Take 2.5 mg by mouth daily 0 Active Lutein-Zeaxanth in 20-1 MG capsule Take 1 tablet by mouth daily Active metFORMIN (GLUCOPHAGE) 1000 MG tablet Take 1,000 mg by mouth 2 (two) times a day with meals 1 Active naltrexone (DEPADE) 50 MG tablet Take 50 mg by mouth 1 (one) time each day 1 Active psyllium (METAMUCIL) 0.52 g capsule Activ e TURMERIC PO Take by mouth Acti ve fish oil-omega-3 fatty acids 1000 MG capsule Take by mouth Active ASHWAGANDHA PO Take by mouth A ctive pravastatin (PRAVACHOL) 10 MG tablet 1 Active ezetimibe (ZETIA) 10 MG tablet Take 10 mg by mouth 1 (one) time each day 2 Active NIFEdipine XL (PROCARDIA XL) 90 MG 24 hr tablet TAKE 1 TABLET (90 MG TOTAL) BY MOUTH 1 TIME EACH DAY DO NOT CRUSH, CHEW, OR SPLIT. 90 tablet 3 3 Active lisinopril 40 MG tablet TAKE 0.5 TABLETS BY MOUTH 2 TIMES A DAY. 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 Osteopenia 07/02/2021 Cervical cancer screening 12/06/2019 Essential hypertension 12/06/2019 Menopausal flushing 12/06/2019 Obesity 12/06/2019 Osteoporosis screening 12/06/2019 Hiatal hernia with gastroesophageal reflux 12/03 Erythematous duodenopathy 12/03/2018 Internal hemorrhoids 10/15/2018 Overview (12/23/2023): Replacing diagnoses that were inactivated after the 12/23/23 Regulatory Import Polyp of colon 10/15/2018 Muscle pain 06/18/2018 Pain in right foot 06/16/2018 Plantar fasciitis of right foot 06/16/2018 Patient encounter status 07/26/2016 Traumatic arthropathy involving shoulder region 02/27/2016 Chronic pain 02/06/2016 Impingement syndrome of left shoulder region Rotator cuff syndrome 02/06/2016 Shoulder pain 02/06/2016 Rupture of rotator cuff of left shoulder 016 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 11/08 Family history of cancer of colon 11/09/2015 History of polyp of colon 11/09/2015 Low back pain 12/13/2014 Chronic kidney disease stage 3 09/19/2014 Disorder of eye due to type 2 diabetes mellitus 09/19/2014 Hyperlipidemia 09/19/2014 Allergic rhinitis 07/29/2013 Asthma 07/29/2013 Benign neoplasm of colon 07/29/2013 Diverticulosis of large inte kamran without perforation or abscess without bleeding 07/29/2013 Irritable bowel syndrome 07/29/2013 Migraine without aura, not refractory 07/29/2013 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 Immunizations Immunization Administration Dates Next Due Influenza Split High Dose Pr eservative Free IM 02/12/2021,12/08/2018 Influenza TIV (IM) 01/07/2020, 4,02/02/2013,12/25,02/26/2011,01/30/2009 Influenza, Unspecified 02/12/2021,12/08/2018 Pfizer SARS-COV-2 06/21/2020,05/31/2020 Pneumococcal Conjugate 13-Valent 06/17/2017 Pneumococcal Polysaccharide 09/18/2018 Shingrix 11/07/2020,08/02/2020 Tdap 01/12/2010 Zoster 11/07/2020,08/02/2020 Family History Medical History Relation Comments Hypertension Father Stroke Father Cancer Sibling brother Relation Status Comments Father Mother Alive Sibling Social History Tobacco Use Types Packs/Day Years [...] on file Sexual Orientation Not on file Last Filed Vital Signs Vital Sign Reading Time Taken Comments Blood Pressure 120/80 10/22/2022 1:23 PM EDT Pulse 67 10/22/2022 1:23 PM EDT Temperature - - Respiratory Rate - - Oxygen Saturation 98% 10/22/2022 1:23 PM EDT Inhaled Oxygen Concentration - - Weight 83.9 kg (185 lb) 10/09/2021 1:28 PM EDT Height 160 cm (5' 3 ) 12/26/2020 2:29 PM EDT Body Mass Index 32.77 12/26/2020 2:29 PM EDT Plan of Treatment Health Maintenance Due Date Last Done Comments Breast Cancer Screening 1950 Colorectal Cancer Screening: Annual FOBT 2001 Colorectal Cancer Screening: Colonoscopy 2001 Colorectal Cancer Screening: Sigmoidoscopy 2001 Diabetes: Hemoglobin A1C 04/21/2020 Diabetes: Ophthalmology Exam 04/21/2020 Diabetes: Pedal Pulse Checked 04/21/2020 Diabetes: Sensory Foot Exam 04/21/2020 Diabetes: Visual Foot Exam 04/21/2020 Influenza Vaccine (#1) 2024 , 02/12/2021, 01/07/2020, Additional history exists Pneumococcal Vaccine: 50+ Years Completed 09/18/2018, 06/17/2017 Pneumococcal Vaccine: Peds (0 to 5 Years) and At-Risk Patients (6 to 49 Years) Discontinued 09/18/2018, 06/17/2017 Hepatitis B Vaccine Aged Out No longe r eligible based on patient's age to complete this topic Insurance Medicare [facility] [place] [id number] Medicare [facility] [place] [id number]
--- OUTSIDE RECORDS SUMMARY | 2024-12-01 16:52 | XMS_ITS | Encounter Summary ---
Author Organization [facility] Address [address] [place] [address] Care Team Providers Care Manager Social Responsibility Name Role Phone Clara Motley MD Primary Care Provider + [phone] Daisy Ramsey MD Unavailable [phone] Frank Livingston MD Unavailable [phone] Shirley De La Garza APRN Unavailable Cordelia Engle MD Unavailable Daja Sloan MD Unavailable [phone] Clara Motley MD Unavailable [phone] Arin Liu RN Unavailable [phone] Luis Alberto Renee MD Unavailable [phone] Vandana Bates RN Unavailable [phone] Clara Motley MD Unavailable [phone] Clarence Hollingsworth MD Unavailable Dawn Agrawal LCSW Unavailable [phone] Renay Ford Unavailable Reason for Visit * Reason Comments Medication Refill Encounter Details Date Type Department Care Team (Late st Contact Info) Description 04/17/[address] [place] [address] Clara Motley MD [address] [place] [address] Diabetes mellitus without complication (HCC) Social History [...] AM EDT Office Visit [facility] 100 [facility] [address] [place] [phone] Clara Motley MD 100 [facility] [address] [place] [address] documented as of this encounter Visit Diagnoses Diagnosis Diabetes mellitus without complication (HCC) Type II or unspecified type diabetes mellitus without mention of complication, not stated as uncontrolled documented in this encounter Care Teams Manager Social Responsibility Relationship Specialty Start Date End Date Clara Motley MD PCP - General Internal Medicine 10/16/15 Clara Motley MD [address] [place] [address] PCP - MSSP Attributed 09/21/1803/23/ 0 Clara Motley MD [address] [place] [address] PCP - MSSP Attributed 03/24/21 4 Daisy Ramsey MD 113 [facility] [address] [place] [address] Consulting Provider Dermatology 06/17/17 Frank Livingston MD [address] [place] [address] Gastroenterology 06/17/17 Shirley De La Garza APRN [address] [place] [address] Nurse Practitioner Gynecology 06/17/17 Cordelia Engle MD [address] [address] Nephrology 06/17/17 Daja Sloan MD [address] [address] Ophthalmology 06/17/17 Arin Liu RN [facility] [address] [place] [address] ICP Community Transportation Escort 01/29/18 04/01/19 Luis Alberto Renee MD 43 [place] [phone] Ophthalmology 05/19/18 Vandana Bates RN [address] [facility] 4 [place], [place] [id number] ICP Community Transportation Escort 04/01/19 10/08/24 Clarence Hollingsworth MD [address] [place] [address] [place] [address] Primary Sound Controller Cardiovascular Disease 03/24/22 Dawn Agrawal LCSW [address] araceli [address] [address] [facility] Community Transportation Escort 10/08/24 10/26/24 Renay Ford [address] [address] [facility] Community Transportation Escort 10/26/24 documented as of this encounter
--- OUTSIDE RECORDS SUMMARY | 2024-12-01 16:52 | XMS_ITS | Encounter Summary ---
Author Organization [facility] Address [address] [place] [address] Care Team Providers Care Mental Health Consultant Name Role Phone Clara Motley MD Primary Care Provider Daisy Ramsey MD Unavailable [phone] Frank Livingston MD Unavailable [phone] Shirley De La Garza APRN Unavailable Cordelia Engle MD Unavailable [phone] Daja Sloan MD Unavailable [phone] Clara Motley MD Unavailable [phone] Arin Liu RN Unavailable [phone] Luis Alberto Renee MD Unavailable [phone] Vandana Bates RN Unavailable [phone] Clara Motley MD Unavailable [phone] Clarence Hollingsworth MD Unavailable Dawn Agrawal LCSW Unavailable [phone] Renay Ford Unavailable Encounter Details Date Type Department Care Team (Late st Contact Info) Description 05/20/2016 Scanned Document [address] [place] [address] Provider, Generic Social History Tobacco [...] EDT Office Visit [facility] [address] [place] [address] Clara Motley MD [address] [place] [address] documented as of this encounter Visit Diagnoses Not on filedocumented in this encounter Care Teams Mental Health Consultant Relationship Specialty Start Date End Date Clara Motley MD PCP - General Internal Medicine 10/16/15 Clara Motley MD [address] [place] [address] PCP - MSSP Attributed 09/21/18 0 Clara Motley MD [address] [place] [address] PCP - MSSP Attributed 03/24/21 4 Daisy Ramsey MD [address] [place] [address] Consulting Provider Dermatology 06/17/17 Frank Livingston MD [address] [place] [address] Gastroenterology 06/17/17 Shirley De La Garza APRN [address] [place] [address] Nurse Practitioner Gynecology 06/17/17 Cordelia Engle MD [address] [address] Nephrology 06/17/17 Daja Sloan MD [address] [address] Ophthalmology 06/17/17 Arin Liu RN [address] [facility] [address] [place] [address] ICP Community Construction Sales Manager 01/29/18 04/01/19 Luis Alberto Renee MD [address] [place] [phone] Ophthalmology 05/19/18 Vandana Bates RN [address] [facility] 4 [place] [address] ICP Community Construction Sales Manager 04/01/19 10/08/24 Clarence Hollingsworth MD [address] [place] [address] Primary Senior Business Process Analyst Cardiovascular Disease 03/24/22 Dawn Agrawal LCSW [address] [facility] [address] [place] [address] [facility] Community Construction Sales Manager 10/08/24 10/26/24 Renay Ford [address] [address] [facility] Community Construction Sales Manager 10/26/24 documented as of this encounter
--- OUTSIDE RECORDS SUMMARY | 2024-12-01 16:52 | XMS_ITS | Encounter Summary ---
Author Organization [facility] Address [address] [place] [address] Care Team Providers Care Head Paper Tester Name Role Phone Clara Motley MD Primary Care Provider Daisy Ramsey MD Unavailable +[phone] Frank Livingston MD Unavailable +[phone] Shirley De La Garza APRN Unavailable Cordelia Engle MD Unavailable +[phone] Daja Sloan MD Unavailable +[phone] Clara Motley MD Unavailable +[phone] Arin Liu RN Unavailable +[phone] Luis Alberto Renee MD Unavailable [phone] Vandana Bates RN Unavailable +[phone] Clara Motley MD Unavailable +[phone] Clarence Hollingsworth MD Unavailable Dawn Agrawal LCSW Unavailable +[phone] Renay Ford Unavailable Encounter Details Date Type Department Care Team (Late st Contact Info) Description 06/30/2017 Scanned Document [address] [place] [address] Provider, Generic Social History Tobacco [...] 12/13/2024 11:15 AM EDT Office Visit [facility] [address] [place] [address] Clara Motley MD [address] [place] [address] documented as of this encounter Visit Diagnoses Not on filedocumented in this encounter Care Teams Head Paper Tester Relationship Specialty Start Date End Date Clara Motley MD PCP - General Internal Medicine 10/16/15 Clara Motley MD [address] [place] [address] PCP - MSSP Attributed 09/21/18 0 Clara Motley MD [address] [place] [address] PCP - MSSP Attributed 03/24/21 4 Daisy Ramsey MD [address] [place] [address] Consulting Provider Dermatology 06/17/17 Frank Livingston MD [address] [place] [address] Gastroenterology 06/17/17 Shirley De La Garza APRN [address] [place] [address] Nurse Practitioner Gynecology 06/17/17 Cordelia Engle MD [address] [address] Nephrology 06/17/17 Daaj Sloan MD [address] [address] Ophthalmology 06/17/17 Arin Liu RN [address] [facility] [address] [place] [address] ICP Community Business Systems Advisor 01/29/18 04/01/19 Luis Alberto Renee MD [address] [place] [phone] Ophthalmology 05/19/18 Vandana Bates RN [address] Oh [facility] 4 [place] [address] ICP Community Business Systems Advisor 04/01/19 10/08/24 Clarence Hollingsworth MD [address] [place] [address] Primary Helicopter Officer Cardiovascular Disease 03/24/22 Dawn Agrawal LCSW [address] Adriano [facility] [address] [place] [address] [facility] Community Business Systems Advisor 10/08/24 10/26/24 Renay Ford [address] [address] [facility] Community Business Systems Advisor 10/26/24 documented as of this encounter
--- OUTSIDE RECORDS SUMMARY | 2024-12-01 16:52 | XMS_ITS | Encounter Summary ---
Author Organization [facility] Address [address] [place] [address] Care Team Providers Care Senior Microstrategy Developer Name Role Phone Clara Motley MD Primary Care Provider Daisy Ramsey MD Unavailable +[phone] Frank Livingston MD Unavailable +[phone] Shirley De La Garza APRN Unavailable Cordelia Engle MD Unavailable +[phone] Daja Sloan MD Unavailable +[phone] Clara Motley MD Unavailable +[phone] Arin Liu RN Unavailable +[phone] Luis Alberto Renee MD Unavailable [phone] Vandana Bates RN Unavailable +[phone] Clara Motley MD Unavailable +[phone] Clarence Hollingsworth MD Unavailable Dawn Agrawal LCSW Unavailable +[phone] Renay Ford Unavailable Encounter Details Date Type Department Care Team (Late st Contact Info) Description 04/23/2015 Scanned Document [address] [place] [address] Provider, Generic Social History Tobacco [...] Description 12/13/2024 11:15 AM EDT Office Visit [facility] [address] [place] [address] Clara Motley MD [address] [place] [address] documented as of this encounter Visit Diagnoses Not on filedocumented in this encounter Care Teams Senior Microstrategy Developer Relationship Specialty Start Date End Date Clara Motley MD PCP - General Internal Medicine 10/16/15 Clara Motley MD [address] [place] [address] PCP - MSSP Attributed 09/21/18 0 Clara Motley MD [address] [place] [address] PCP - MSSP Attributed 03/24/21 4 Daisy Ramsey MD [address] [facility] [address] [place] [address] Consulting Provider Dermatology 06/17/17 Frank Livingston MD [address] [place] [address] Gastroenterology 06/17/17 Shirley De La Garza APRN [address] [place] [address] Nurse Practitioner Gynecology 06/17/17 Cordelia Engle MD [address] [address] Nephrology 06/17/17 Daja Sloan MD [address] [address] Ophthalmology 06/17/17 Arin Liu RN [address] [facility] 4[address] [place] [address] ICP Community Mercerizing Range Feeder 01/29/18 04/01/19 Luis Alberto Renee MD [address] [place] [phone] Ophthalmology 05/19/18 Vandana Bates RN [address] Oh [facility] 4 [place] [address] ICP Community Mercerizing Range Feeder 04/01/19 10/08/24 Clarence Hollingsworth MD [address] [place] [address] Primary Flight Physician Cardiovascular Disease 03/24/22 Dawn Agrawal LCSW [address] Adriano [facility] 4[address] [place] [address] [facility] Community Mercerizing Range Feeder 10/08/24 10/26/24 Renay Ford [address] [address] [facility] Community Mercerizing Range Feeder 10/26/24 documented as of this encounter
--- OUTSIDE RECORDS SUMMARY | 2024-12-01 16:52 | XMS_ITS | Encounter Summary ---
Author Organization [facility] Address [address] [place] [address] Care Team Providers Care Client Retention Specialist Name Role Phone Clara Motley MD Primary Care Provider + [phone] Daisy Ramsey MD Unavailable +[phone] Frank Livingston MD Unavailable [phone] Shirley De La Garza APRN Unavailable Cordelia Engle MD Unavailable +[phone] Daja Sloan MD Unavailable +[phone] Clara Motley MD Unavailable +[phone] Arin Liu RN Unavailable +[phone] Luis Alberto Renee MD Unavailable [phone] Vandana Bates RN Unavailable +[phone] Clara Motley MD Unavailable +[phone] Clarence Hollingsworth MD Unavailable Dawn Agrawal LCSW Unavailable +[phone] Renay Ford Unavailable Reason for Visit * Reason Comments Medication Refill Encounter Details Date Type Department Care Team (Late st Contact Info) Description 11/15/[address] [place] [address] Clara Motley MD [address] [place] [address] Type 2 diabetes mellitus with complication, without long-term current use of insulin (HCC) Social History Tobacco Use Types Packs/Day [...] 11:15 AM EDT Office Visit [facility] 100 [facility] [address] [place] [address] Clara Motley MD 100 [facility] [address] [place] [address] documented as of this encounter Visit Diagnoses Diagnosis Type 2 diabetes mellitus with complication, without long-term current use of insulin (HCC) documented in this encounter Care Teams Client Retention Specialist Relationship Specialty Start Date End Date Clara Motley MD PCP - General Internal Medicine 10/16/15 Clara Motley MD [address] [place] [address] PCP - MSSP Attributed 09/21/1803/23/ 0 Clara Motley MD [address] [place] [address] PCP - MSSP Attributed 03/24/21 4 Daisy Ramsey MD 113 [facility] [address] [place] [address] Consulting Provider Dermatology 06/17/17 Frank Livingston MD [address] [place] [address] Gastroenterology 06/17/17 Shirley De La Garza APRN [address] [place] [address] Nurse Practitioner Gynecology 06/17/17 Cordelia Engle MD [address] [address] Nephrology 06/17/17 Daja Sloan MD [address] [address] Ophthalmology 06/17/17 Arin Liu RN [facility] [address] [place] [address] ICP Community Health Care Sanitary Technician 01/29/18 04/01/19 Luis Alberto Renee MD 43 [place] [phone] Ophthalmology 05/19/18 Vandana Bates RN [address] Oh [facility] Fl 4 [place] [address] ICP Community Health Care Sanitary Technician 04/01/19 10/08/24 Clarence Hollingsworth MD [address] [place] [place] [address] Primary Area Supervisor Cardiovascular Disease 03/24/22 Dawn Agrawal LCSW [address] Oh [address] [address] [facility] Community Health Care Sanitary Technician 10/08/24 10/26/24 Renay Ford [address] Oh [address] [address] [facility] Community Health Care Sanitary Technician 10/26/24 documented as of this encounter
--- OUTSIDE RECORDS SUMMARY | 2024-12-01 16:52 | XMS_ITS | Encounter Summary ---
Author Organization [facility] Address [address] [place] [address] Care Team Providers Care Bill Board Poster Name Role Phone Clara Motley MD Primary Care Provider + [phone] Daisy Ramsey MD Unavailable [phone] Frank Livingston MD Unavailable +[phone] Shirley De La Garza APRN Unavailable Cordelia Engle MD Unavailable [phone] Daja Sloan MD Unavailable +[phone] Clara Motley MD Unavailable +[phone] Arin Liu RN Unavailable +[phone] Luis Alberto Renee MD Unavailable [phone] Vandana Bates RN Unavailable [phone] Clara Motley MD Unavailable +[phone] Clarence Hollingsworth MD Unavailable Dawn Agrawal LCSW Unavailable +[phone] Renya Ford Unavailable Reason for Visit * Reason Comments Medication Refill Encounter Details Date Type Department Care Team (Late st Contact Info) Description 01/10/[address] [place] [address] Clara Motley MD [address] [place] [address] Pure hypercholesterolemia Social History Tobacco Use Types [...] 12/13/2024 11:15 AM EDT Office Visit [facility] 100 [facility] [address] [place] [address] Clara Motely MD [address] [place] [address] documented as of this encounter Visit Diagnoses Diagnosis Pure hypercholesterolemia Pure hypercholesterolemia documented in this encounter Care Teams Bill Board Poster Relationship Specialty Start Date End Date Clara Motley MD PCP - General Internal Medicine 10/16/15 Clara Motley MD [address] [place] [address] PCP - MSSP Attributed 09/21/18 0 Clara Motley MD [address] [place] [address] PCP - MSSP Attributed 03/24/21 4 Daisy Ramsey MD 113 [facility] 304 [place] [address] Consulting Provider Dermatology 06/17/17 Frank Livingston MD [address] [place] [address] Gastroenterology 06/17/17 Shirley De La Garza APRN [address] [place] [address] Nurse Practitioner Gynecology 06/17/17 Cordelia Engle MD [address] [address] Nephrology 06/17/17 Djaa Sloan MD [address] [address] Ophthalmology 06/17/17 Arin Liu RN [facility] [address] [place] [address] ICP Community Retail Sales Teammate 01/29/18 04/01/19 Luis Alberto Renee MD [address] [place] [phone] Ophthalmology 05/19/18 Vandana Bates RN [address] Oh [facility] 4 [place] [address] ICP Community Retail Sales Teammate 04/01/19 10/08/24 Clarence Hollingsworth MD [address] [place] [address] Primary Health Inspector Cardiovascular Disease 03/24/22 Dawn Agrawal LCSW [address] Oh araceli [address] [address] [facility] Community Retail Sales Teammate 10/08/24 10/26/24 Renay Ford [address] Oh araceli [address] [address] [facility] Community Retail Sales Teammate 10/26/24 documented as of this encounter
--- OUTSIDE RECORDS SUMMARY | 2024-12-01 16:52 | XMS_ITS | Encounter Summary ---
Author Organization [facility] Address [address] [place] [address] Care Team Providers Care Hand Developer Name Role Phone Clara Motley MD Primary Care Provider Daisy Ramsey MD Unavailable +[phone] Frank Livingston MD Unavailable +[phone] Shirley De La Garza APRN Unavailable Cordelia Engle MD Unavailable [phone] Daja Sloan MD Unavailable +[phone] Clara Motley MD Unavailable +[phone] Arin Liu RN Unavailable +[phone] Luis Alberto Renee MD Unavailable [phone] Vandana Bates RN Unavailable [phone] Clara Motley MD Unavailable +[phone] Clarence Hollingsworth MD Unavailable Dawn Agrawal LCSW Unavailable +[phone] Renay Ford Unavailable Encounter Details Date Type Department Care Team (Late st Contact Info) Description 06/25/2016 Scanned Document [address] [place] [address] Provider, Generic Social History Tobacco [...] Description 12/13/2024 11:15 AM EDT Office Visit [facility] [address] [place] [address] Clara Motley MD [address] [place] [address] documented as of this encounter Visit Diagnoses Not on filedocumented in this encounter Care Teams Hand Developer Relationship Specialty Start Date End Date Clara Motley MD PCP - General Internal Medicine 10/16/15 Clara Motley MD [address] [place] [address] PCP - MSSP Attributed 09/21/18 0 Clara Motley MD [address] [place] [address] PCP - MSSP Attributed 03/24/21 4 Daisy Ramsey MD [address] [place] [address] Consulting Provider Dermatology 06/17/17 Frank Livingston MD [address] [place] [address] Gastroenterology 06/17/17 Shirley De La Garza APRN [address] [place] [address] Nurse Practitioner Gynecology 06/17/17 Cordelia Engle MD [address] [address] Nephrology 06/17/17 Daja Sloan MD [address] [address] Ophthalmology 06/17/17 Arin Liu RN [address] [facility] 4[address] [place] [address] ICP Community Motor Power Connector 01/29/18 04/01/19 Luis Alberto Renee MD [address] [place] [phone] Ophthalmology 05/19/18 Vandana Bates RN [address] Oh [facility] 4 [place] [address] ICP Community Motor Power Connector 04/01/19 10/08/24 Clarence Hollingsworth MD [address] [place] [address] Primary Utility Worker Roller Shop Cardiovascular Disease 03/24/22 Dawn Agrawal LCSW [address] Adriano [facility] [address] [place] [address] [facility] Community Motor Power Connector 10/08/24 10/26/24 Renay Ford [address] [address] [facility] Community Motor Power Connector 10/26/24 documented as of this encounter
--- OUTSIDE RECORDS SUMMARY | 2024-12-01 16:52 | XMS_ITS | Encounter Summary ---
Author Organization [facility] Address [address] [place] [address] Care Team Providers Care Plastic Battery Assembler Name Role Phone Clara Motley MD Primary Care Provider + [phone] Daisy Ramsey MD Unavailable [phone] Frank Livingston MD Unavailable +[phone] Shirley De La Garza APRN Unavailable Cordelia Engle MD Unavailable +[phone] Daja Sloan MD Unavailable +[phone] Clara Motley MD Unavailable +[phone] Arin Liu RN Unavailable +[phone] Luis Alberto Renee MD Unavailable +[phone] Vandana Bates RN Unavailable +[phone] Clara Motley MD Unavailable +[phone] Clarence Hollingsworth MD Unavailable Dawn Agrawal LCSW Unavailable +[phone] Renay Ford Unavailable Reason for Visit * Reason Comments Medication Refill Encounter Details Date Type Department Care Team (Late st Contact Info) Description 01/19/[address] [place] [address] Clara Motley MD [address] [place] [address] Pure hypercholesterolemia Social History Tobacco Use Types [...] Description 12/13/2024 11:15 AM EDT Office Visit [facility] [address] [place] [address] Clara Motley MD [address] [place] [address] documented as of this encounter Visit Diagnoses Diagnosis Pure hypercholesterolemia Pure hypercholesterolemia documented in this encounter Care Teams Plastic Battery Assembler Relationship Specialty Start Date End Date Clara Motley MD PCP - General Internal Medicine 10/16/15 Clara Motley MD [address] [place] [address] PCP - MSSP Attributed 09/21/1803/23/ 0 Clara Motley MD [address] [place] [address] PCP - MSSP Attributed 03/24/21 4 Daisy Ramsey MD [address] [facility] 304 [place] [address] Consulting Provider Dermatology 06/17/17 Frank Livingston MD [address] [place] [address] Gastroenterology 06/17/17 Shirley De La Garza APRN [address] [place] [address] Nurse Practitioner Gynecology 06/17/17 Cordelia Engle MD [address] [address] Nephrology 06/17/17 Daja Sloan MD [address] [address] Ophthalmology 06/17/17 Arin Liu RN 1290 [facility] 4B [place] [address] ICP Community Sorter Operator 01/29/18 04/01/19 Luis Alberto Renee MD [address] [place] [phone] Ophthalmology 05/19/18 Vandana Bates RN [address] Oh [facility] 4 [place], [place] [address] ICP Community Sorter Operator 04/01/19 10/08/24 Clarence Hollingsworth MD [address] [place] [address] Primary Animal Impersonator Cardiovascular Disease 03/24/22 Dawn Agrawal LCSW [address] Oh araceli [address] [address] [facility] Community Sorter Operator 10/08/24 10/26/24 Renay Ford [address] Oh araceli [address] [address] [facility] Community Sorter Operator 10/26/24 documented as of this encounter
--- OUTSIDE RECORDS SUMMARY | 2024-12-01 16:52 | XMS_ITS | Encounter Summary ---
Author Organization [facility] Address [address] [place] [address] Care Team Providers Care Preschool Education Director Name Role Phone Clara Motley MD Primary Care Provider + [phone] Daisy Ramsey MD Unavailable [phone] Frank Livingston MD Unavailable +[phone] Shirley De La Garza APRN Unavailable Cordelia Engle MD Unavailable +[phone] Daja Sloan MD Unavailable +[phone] Clara Motley MD Unavailable +[phone] Arin Liu RN Unavailable +[phone] Luis Alberto Renee MD Unavailable [phone] Vandana Bates RN Unavailable [phone] Clara Motley MD Unavailable +[phone] Clarence Hollingsworth MD Unavailable Dawn Agrawal LCSW Unavailable +[phone] Renay Ford Unavailable Encounter Details Date Type Department Care Team (Late st Contact Info) Description 10/12/2018 Scanned Document [facility] 100 [facility] [address] [place] [address] Gastroenterology, Scan Social History Tobacco [...] Description 12/13/2024 11:15 AM EDT Office Visit [facility] [address] [place] [address] Clara Motley MD [address] [place], [place] [address] documented as of this encounter Procedures Procedure Name Priority Date/Time Associated Diagnosis Comments PATHOLOGY GENERAL 10/15/2018 documented in this encounter Results * PATHOLOGY GENERAL (10/15/2018) 10/15/2018 us Scan Gastroenterology [facility] HX PATH PROCEDURES Radames yordan Result - Final documented in this encounter Visit Diagnoses Not on filedocumented in this encounter Care Teams Preschool Education Director Relationship Specialty Start Date End Date Clara Motley MD PCP - General Internal Medicine 10/16/15 Clara Motley MD [address] [place] [address] PCP - MSSP Attributed 09/21/18 0 Clara Motley MD [address] [place] [address] PCP - MSSP Attributed 03/24/21 4 Daisy Ramsey MD [address] [place] [address] Consulting Provider Dermatology 06/17/17 Frank Livingston MD [address] [place] [address] Gastroenterology 06/17/17 Shirley De La Garza APRN [address] [place] [address] Nurse Practitioner Gynecology 06/17/17 Cordelia Engle MD [address] [address] Nephrology 06/17/17 Daja Sloan MD [address] [address] Ophthalmology 06/17/17 Arin Liu RN [address] [facility] 4[address] [place] [address] ICP Community Weapons Designer 01/29/18 04/01/19 Luis Alberto Renee MD 43 [place] [phone] Ophthalmology 05/19/18 Vandana Bates RN [address] Oh [facility] Fl 4 [place] [address] ICP Community Weapons Designer 04/01/19 10/08/24 Clarence Hollingsworth MD 420 [facility] [address] Primary Crop Ranch Hand Cardiovascular Disease 03/24/22 Dawn Agrawal LCSW [address] araceli [address] [address] [facility] Community Weapons Designer 10/08/24 10/26/24 Renay Ford [address] [address] [facility] Community Weapons Designer 10/26/24 documented as of this encounter
--- OUTSIDE RECORDS SUMMARY | 2024-12-01 16:52 | XMS_ITS | Encounter Summary ---
Author Organization Formerly [facility] Address [address] [place] [address] Care Team Providers Care Certified Surgical Tech/First Assistant Name Role Phone Clara Motley MD Primary Care Provider + [phone] Daisy Ramsey MD Unavailable [phone] Frank Livingston MD Unavailable [phone] Shirley De La Garza APRN Unavailable Cordelia Engle MD Unavailable +[phone] Daja Sloan MD Unavailable [phone] Clara Motley MD Unavailable [phone] Arin Liu RN Unavailable [phone] Luis Alberto Renee MD Unavailable [phone] Vandana Bates RN Unavailable [phone] Clara Motley MD Unavailable [phone] Clarence Hollingsworth MD Unavailable Dawn Agrawal LCSW Unavailable +[phone] Renay [place] Unavailable Reason for Visit * Reason Comments Medication Refill Encounter Details Date Type Department Care Team (Late st Contact Info) Description 07/21/[address] [place] [address] Clara Motley MD [address] [place] [address] Pure hypercholesterolemia Social History Tobacco Use Types [...] Office Visit [facility] 100 [facility] [address] [place] [address] Clara Motley MD [address] [place] [address] documented as of this encounter Visit Diagnoses Diagnosis Pure hypercholesterolemia Pure hypercholesterolemia documented in this encounter Care Teams Certified Surgical Tech/First Assistant Relationship Specialty Start Date End Date Clara Motley MD PCP - General Internal Medicine 10/16/15 Clara Motley MD [address] [place] [address] PCP - MSSP Attributed 09/21/18 0 Clara Motley MD [address] [place] [address] PCP - MSSP Attributed 03/24/21 4 Daisy Ramsey MD 113 [facility] 304 [place] [address] Consulting Provider Dermatology 06/17/17 Frank Livingston MD [address] [place] [address] Gastroenterology 06/17/17 Shirley De La Garza APRN [address] [place] [address] Nurse Practitioner Gynecology 06/17/17 Cordelia Engle MD [address] [address] Nephrology 06/17/17 Daja Sloan MD [address] [address] Ophthalmology 06/17/17 Arin Liu RN [facility] [address] [place] [address] ICP Community Travel Consultant 01/29/18 04/01/19 Luis Alberto Renee MD [address] [place] [phone] Ophthalmology 05/19/18 Vandana Bates RN [address] [facility] 4 [place] [address] ICP Community Travel Consultant 04/01/19 10/08/24 Clarence Hollingsworth MD [address] [place] [address] Primary Employment Manager Cardiovascular Disease 03/24/22 Dawn Agrawal LCSW [address] araceli [address] [address] [facility] Community Travel Consultant 10/08/24 10/26/24 Renay [place] [address] [address] [facility] Community Travel Consultant 10/26/24 documented as of this encounter
== END 2024-12-01 13:54 | disposition home or self-care (01) ==
LOC: HO.HKAE 13:46
PROVIDERS: PCP Internal Medicine; Visit Provider Internal Medicine Hypertension Specialist
DX: I10 Essential (primary) hypertension (principal)
CPT/HCPCS: 99214

== ENCOUNTER → 2024-12-01 13:46 | Outpatient (BNVA) | payer MEDICARE, OTHER, SELFPAY | PROVIDERS: PCP Internal Medicine; Visit Provider Internal Medicine Hypertension Specialist | DX: I10 Essential (primary) hypertension (principal); N18.30 Chronic kidney disease, stage 3 unspecified | CPT/HCPCS: 99212 ==

== ENCOUNTER 2025-01-25 08:54 | Outpatient (AMB) | payer OTHER, SELFPAY ==
--- OUTSIDE RECORDS SUMMARY | 2018-08-31 09:45 | XMS_ITS | Continuity of Care Document ---
Author Organization [facility] Address [address] [address] Phone Care Team Providers Care Electrophysiology Technologist Name Role Phone Leon Aragon MD Unavailable Unavailabl e Allergies, Adverse Reactions, Alerts Substance Reaction Status Criticality POLYMYXIN B SULFATE Active No Infor mation neomycin Active No Information dexamethasone Active No Information Medications Medication Instructions Dosage Effective Dates (start - stop) Status Comments METFORMIN HCL (unknown strength) Not Available - Active LISINOPRIL (unknown strength) Not Available - Active FENOFIBRATE (unknown strength) Not Available - Active AMLODIPINE BESYLATE (unknown strength) Not Available - Active GLIPIZIDE (unknown strength) Not Available - Active PRAVASTATIN SODIUM (unknown strength) Not Available - Active Procedures Procedure Date Office/Oupt E&M New Pt 30 Mins 19 Duplex Scan-extrem Veins; Comp 19 Advance Directives Directive Yes / No Effective Date File Name No Information Encounters Encounter Description Practice Location Reason(s) For Visit Diagnoses Date Provider Providers Copied on Encounter Office/Oupt E&M New Pt 30 Mins [facility], [address] [facility], [place], [place], [id number], tel:[phone] [facility] Body mass index (BMI) 33.0-33.9, adultCramp and spasmLocalized edema 0-201 9 Mahesh Quintero. [address] [facility] [address], [place], [address], [place]. tel:[phone] Referring Provider: Clara Motley MD H, [address], [address]. tel:[phone] [facility], [address] [place] [address], [id number], [place] tel:[phone] [facility] Varicose veins of bilateral lower extremities with pain 0201 9 Mahesh Quintero. [address] [place], [address], [facility] [place], [address], [place]. tel: [phone] Referring Provider: Clara Motley MD H, [address] [place] [address], [address]. tel:[phone] Family History Family Member Type Diagnosis Age At Onset Father Problem (finding) Stroke Payers Payer name Insurance type Covered green party ID Authormikeya tibrannon(s) Medicare [place] [id number] Social History Type Description Quantity Date Captured Comments Alcohol Use Details Caffeine Use Details Unknown Tobacco Use Status No Information Smoking Status Never smoker Sex Female Vital Signs Date / Time: Height Weight BMI Pulse Rate Blood Pressure Temperature Respiratory Rate Body Surface Area Head Circumference Head Circ. Percentile Wt./Parviz. Percentile BMI percentile Pulse Ox Inhaled Ox 3:05 PM 63.00 in 85.729 kg (189.00 lbs) 33.4 8 kg/m eter (2) 68 /min 122/84 mm[Hg] 18 /min Chief Complaint And Reason For Visit No Information Reason For Referral Reason For Referral No Information Plan Of Treatment Date Type Action Status Goal Diet education completed Referral Ordered: Duplex Scan-extrem Veins; Comp Bilateral leg ordered History Of Present Illness Encounter Date Complaint History Of Prese nt Illness Skin Changes Cramping Functional Status Date Functional Assessmen t Pain Score 2/10 Instructions Date Instruction Additional Infor mation Continue compression stocking us e Related to Cramping Patient education booklet given Related to Cramping Giving Encouragement to Exercise Related to Body mass index (BMI) 33.0-33.9, adult Diet education Related to Body mass index (BMI) 33.0-33.9, adult Assessments Type Assessment Date assessment Body mass index (BMI) 33.0-33.9, adult assessment Cramp and spasm assessment Localized edema Patient Care Teams Name Effective Dates (start - stop) Status Members No Information
--- OUTSIDE RECORDS SUMMARY | 2023-09-05 08:56 | XMS_ITS | Encounter Summary ---
Author Organization [facility] Address [address] [place] [address] Care Team Providers Care Building And Construction Manager Name Role Phone Clara Motley MD Primary Care Provider + [phone] Daisy Ramsey MD Unavailable [phone] Frank Livingston MD Unavailable [phone] Shirley De La Garza APRN Unavailable Cordelia Engle MD Unavailable [phone] Daja Sloan MD Unavailable [phone] Luis Alberto Renee MD Unavailable [phone] Vandana Bates RN Unavailable [phone] Clara Motley MD Unavailable [phone] Clarence Hollingsworth MD Unavailable Encounter Details Date Type Department Care Team (Late st Contact Info) Description 09/05/2023 9:56 AM EDT Hospital Encounter [facility] [address] [place] [address] Social History Tobacco Use Types Packs/Day Years Used Date Smoking Tobacco: Never Smokeless Tobacco: Never Alcohol Use Standard Drinks/Week Comments Yes 1 (1 standard drink = 0.6 oz pur e alcohol) social [facility] Utilities Answer Date Recorded In the past 12 months has [employer] electric, gas, oil, or water company threatened to shut off services in your home? No 02/05/2024 Social Connection and Isolation Panel Answer Date Recorded In a typical week, how many times do you talk on the phone with family, friends, or neighbors? Once a week 02/05/2024 Frequency of Social Gatherings with Friends and Family Not on file 02/05/2024 Attends Sabianism Services Not on file 02/04 Active Member of Clubs or Organizations Not on f ile 02/05/2024 Attends Club or Organization Meetings Not on dmitry e 02/05/2024 Marital Status Not on file 02/05/2024 AUDIT-C Answer Date Recorded Q1: How often do you have a drink containing alc ohol? 2-3 times a week 02/05/2024 Q2: How many drinks containi ng alcohol do you have on a typical day when you are drinking? 1 or 2 02/05/2024 Frequency of Binge Drinking Not on file 01/22 PHQ-2 Answer Date Recorded PHQ-2 Total Score 0 01/10/2023 Hunger Vital Sign Answer Date Recorded Within the past 12 months, y ou worried that your food would run out before you got the money to buy more. Never true 02/05/20 24 Within the past 12 months, t he food you bought just didn't last and you didn't have money to get more. Never true 02/05/2024 PRAPARE - Transportation Answer Date Re corded In the past 12 months, has l ack of transportation kept you from medical appointments or from getting medications? No 01/22 In the past 12 months, has l ack of transportation kept you from meetings, work, or from getting things needed for daily living? No 02/05/2024 Housing Stability Vital Sign Answer Parveen e Recorded In the last 12 months, was t here a time when you were not able to pay the mortgage or rent on time? No 02/05/2024 In the past 12 months, how m any times have you moved where you were living? 0 02/05/2024 At any time in the past 12 m [facility], were you homeless or living in a senior care (including now)? No 02/05/2024 Education Answer Date Recorded What is the highest level of school you have completed or the highest degree you have received? Associate degree: academic program 02/05/2024 Comments No Sex and Gender Information Value Date Recorded Sex Assigned at Female 09/03/2022 7:45 AM EDT Legal Sex Female 11:33 AM EDT Gender Identity Female 03/30/2020 6:15 AM EST Sexual Orientation Heterosexual (straight) 03/30 6:15 AM EST documented as of this encounter Functional Status * Q1: How often do you have a drink containing alcohol? Answer Date of Assessment Author 2-3 times a week 02/05/2024 11:37 AM EST Mychart , Generic * Q2: How many drinks containing alcohol do you have on a typical day when you are drinking? Answer Date of Assessment Author 1 or 2 02/05/2024 11:37 AM EST Mychart, Generic documented as of this encounter Plan of Treatment Upcoming Encounters Date Type Department Care Team (Late st Contact Info) Description 04/19/2025 8:45 AM EST Office Visit [address] [place] [phone] Clara Motley MD [address] [place] [address] [place] [phone] documented as of this encounter Procedures Procedure Name Priority Date/Time Associated Diagnosis Comments XR FINGER (3RD) 2+ VIEWS-LEFT STAT 09/05/2023 10:03 AM EDT Contusion of left middle finger without damage to nail, initial encounter documented in this encounter Results * XR Finger (3rd) 2+ views-Left (09/05/2023 10:03 AM EDT) Anatomical Region Laterality Modality Hand Left Computed Radiogr aphy 09/05/2023 10:1 5 AM EDT Impressions 09/05/2023 10:17 AM EDT No acute osseous injury detected Narrative 09/05/2023 10:17 AM EDT XR FINGER (3RD) 2+ VIEWS-LEFT: 09/05/2023 9:56 AM CLINICAL HISTORY: Left 3rd digiti pain s/p crushing injury; rule out fracture. Finger pain, left. FINDINGS: The osseous structures are intact. There is no evidence of fracture. There are degenerative changes at the proximal interphalangeal joint. Calcification seen at the dorsal aspect of the middle phalanx possibly due to focal area of tendinosis. Procedure Note Elver Wasserman MD - 09/05/2023 XR FINGER (3RD) 2+ VIEWS-LEFT: 09/05/2023 9:56 AM CLINICAL HISTORY: Left 3rd digiti pain s/p crushing injury; rule out fracture. Finger pain,left. FINDINGS: The osseous structures are intact. There is no evidence of fracture. There are degenerative changes at the proximal interphalangeal joint. Calcification seen at the dorsal aspect of the middle phalanx possibly dueto focal area of tendinosis. IMPRESSION: No acute osseous injury detected RHONDA Tolbert IMG DIAGNOSTIC IMAGING ORDERABL ES Final Result documented in this encounter Visit Diagnoses Not on filedocumented in this encounter Care Teams Building And Construction Manager Relationship Specialty Start Date End Date Clara Motley MD PCP - General Internal Medicine 10/16/15 Clara Motley MD [address] [place] [address] PCP - MSSP Attributed 03/24/21 4 Daisy Ramsey MD [address] [place] [address] Consulting Provider Dermatology 06/17/17 Frank Livingston MD [address] [place] [address] Gastroenterology 06/17/17 Shirley De La Garza APRN [address] [place] [address] Nurse Practitioner Gynecology 06/17/17 Cordelia Engle MD [address] [address] Nephrology 06/17/17 Daja Sloan MD [address] [address] Ophthalmology 06/17/17 Luis Alberto Renee MD [address] [place] [phone] Ophthalmology 05/19/18 Vandana Bates, JUAN MIGUEL [address] [place] [address] [address] [facility] Community Utilization Review Specialist 04/01/19 10/08/24 Clarence Hollingsworth MD [address] [place] [address] Primary Garnett Mechanic Cardiovascular Disease 03/24/22 documented as of this encounter
[2025-01-25 08:57] VITALS: BP 138/82; PULSE 64; O2SAT 97; BMI 32.3
--- NOTE | 2025-01-25 08:57 | MHC.OFFVIS ---
Vital Signs 01/25/25 08:57 Height 5 ft 3 in Weight 182 lb 8 oz BMI 32.3 BP 138/82 Blood Pressure Location Rt brachial Position Sitting Pulse 64 Pulse Source Pulse Oximeter Pulse Oximetry (%) 97 Oxygen Delivery Method Room Air Intake Visit Reasons: F/U CX from 01/05/2025 Intake Note: Follow up Coarse tremors Shredder/Granulator Operator Required: No Accompanied by: Self / Same As Patient Allergies dexamethasone (From Maxitrol (neomycin sulf)) Allergy (Mild, Verified 01/25/25 08:57) Swelling neomycin (From Maxitrol (neomycin sulf)) Allergy (Mild, Verified 01/25/25 08:57) Swelling polymyxin B (From Maxitrol (neomycin sulf)) Allergy (Mild, Verified 01/25/25 08:57) Swelling simvastatin Allergy (Mild, Verified 01/25/25 08:57) cramping Seasonal Allergies Allergy (Unknown, Verified 01/25/25 08:57) Unknown Medication List - Last Reconciled 01/25/25 by Cordelia Engle MD albuterol sulfate 90 mcg/actuation 2 puffs inhalation Q6H PRN cholecalciferol (vitamin D3) 10 mcg PO DAILY coenzyme Q10 100 mg PO DAILY famotidine 20 mg PO BID fenofibrate micronized 200 mg PO DAILY glipizide 2.5 mg PO DAILY lisinopril 10 mg PO DAILY magnesium oxide 250 mg PO DAILY metformin 1,000 mg PO BID naltrexone 50 mg PO DAILY nifedipine ER 60 mg PO DAILY omega-3 acid ethyl esters 2 caps PO BID rosuvastatin 5 mg PO DAILY HPI Comments Details: 74y/o right handed female comes for follow up of tremors. No change in tremors since last visit . she did OT and does the exercises everyday. SHe had trouble carrying things due to tremors. she reports a fall while walking down the stairs without holding the rail Initial visit history-she started noticing tremors in her left hand about 1 year ago and now she has tremors in both her hands left more than right . The tremors are intermittent both at rest and with action. It is worse when she is stressed. she is concerned as her brother and her mother have h/o parkinsons disease. No tremor sin her legs , voice or head tremors.No h/o head injury . No exposure to chemical or pesticides. Memory- mild Mood- she has son with mental health issues that affects her mood. SLeep- has sleep apnea on CPAP no REM behavior disorder reported . 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; occlusion with macular edema, she has a prism PFSH Medical History Coarse tremors Arthritis Low back pain Diabetes Strabismic amblyopia Irritable bowel syndrome Hyperlipidemia GERD (gastroesophageal reflux disease) Diverticulosis CKD (chronic kidney disease) stage 3, GFR 30-59 ml/min Colon polyp Asthma Allergic rhinitis Surgical History H/O section History of appendectomy H/O eye surgery Family History Brother Hemochromatosis Brother Parkinson's disease Mother Parkinson's disease Social History Alcohol intake: current Patient Tobacco Use Status: Never used Tobacco Physical Exam Vital Signs: Last Vital Signs Pulse 64 01/25/25 08:57 BP 138/82 01/25/25 08:57 Pulse Ox 97 01/25/25 08:57 Oxygen Delivery Method Room Air 01/25/25 08:57 BMI result Body Mass Index 32.3 Const General: cooperative, healthy appearing, comfortable and no acute distress Nutritional Appearance: overweight Orientation/consciousness: patient oriented x3 Eyes Pupils: Equal, round and reactive pupils present Neuro Other: mild voice tremors Mild postural and action tremors L>R General: patient oriented x3, gait normal, tone normal, moves all extremities and no focal motor deficits Cranial nerves: Yes Facial sensation intact/muscles of mastication intact, Yes Equal, round and reactive pupils present, Yes Bilaterally intact EOM present, Yes Normal facial strength present, Yes Midline tongue present and Yes Ability to bilaterally elevate shoulders present Cognition (Neuro): normal cognition Gait exam (Neuro): Normal gait present Motor exam (neuro): 5/5 motor strength present throughout and Normal motor muscle tone present throughout Coordination: [id number] test normal Psych Affect: Anxious affect present Assessment & Plan Assessment & Plan (1) Coarse tremors: Comment: essential tremors vs exaggerated physiological tremors Code(s): G25.2 - Other specified forms of tremor Category: Medical Plan No evidence of parkinsons on todays visit Discussed various management options will hold off on medications for now continue exercise PT for balance Orders: Orders PT Evaluation and Treatment Today W19.XXXA - Unspecified fall, initial encounter Coding Level of Care Code Est Pt Level 4 (60219) Diagnoses Coarse tremors G25.2
--- OUTSIDE RECORDS SUMMARY | 2025-01-25 09:34 | XMS_ITS | Clinical Summary ---
Author Organization [facility] Address [address] [place] [address] Care Team Providers Care Edge Worker Name Role Phone Clara Motley MD Primary Care Provider [phone] Allergies Active Allergy Reactions Criticality Noted Date Comments Grass Pollen 01/25/2025 Neomycin-Polymyxin B-Dexameth Swelling Medium 12/13/2014 Hcalhpz-Pih-Wqq Reductase Inhibitors Pain Low 09/15/2017 Has cramping with Simvastatin Medications albuterol HFA (PROVENTIL HFA;VENTOLIN HFA) 108 (90 Base) MCG/ACT inhaler Inhale 2 puffs by mouth every 6 (six) hours if needed. Active ASHWAGANDHA EXTRACT ORAL Take 1 tablet by mouth 2 (two) times a day. Active OMEGA-3 FATTY ACIDS-FISH OIL ORAL Take 1 tablet by mouth 1 (one) time each day. Active fenofibrate micronized (LOFIBRA) 200 mg capsule Take 1 capsule (200 mg total) by mouth. 08/04/2015 Active glipiZIDE (GLUCOTROL XL) 2.5 mg 24 hr tablet Take 1 tablet (2.5 mg total) by mouth. Active lisinopriL (PRINIVIL,ZESTR IL) 20 mg tablet Take 0.5 tablets (10 mg total) by mouth. 06/08/2015 Active lutein-zeaxanth in 20 mg- 1,000 mcg capsule Take 1 tablet by mouth 1 (one) time each day. Active metFORMIN (GLUCOPHAGE) 500 mg tablet Take 2 tablets (1,000 mg total) by mouth. 08/04/2015 Active naltrexone (DEPADE) 50 mg tablet Take by mouth 1 (one) time each day. 05/18/2020 Active famotidine (PEPCID) 20 mg tablet 2 (two) times a day. 10/06/2012 Active NIFEdipine XL (PROCARDIA XL) 90 mg 24 hr tablet TAKE 1 TABLET (90 MG TOTAL) BY MOUTH 1 (ONE) TIME EACH DAY DO NOT CRUSH, CHEW, OR SPLIT. 06/14/2021 Active coenzyme [id number]-[id number] E 100-5 mg-unit capsule Take by mouth. Active cholecalciferol (VITAMIN D-3) 25 mcg (1,000 unit) capsule Take 5 capsules (5,000 Units total) by mouth 1 (one) time each day. Active turmeric, bulk, 95 % powder Take by mouth. Active rosuvastatin (CRESTOR) 5 mg tablet Take 1 tablet (5 mg total) by mouth daily. 05/23/2024 Active Immunizations Immunization Administration Dates Next Due Pfizer SARS-CoV-2 COVID-19, mRNA, LNP-S, preservative free 06/21/2020 Surgical History Surgery Date Site/Laterality Comments APPENDECTOMY PROCEDURE:APPENDECTOMY SECTION PROCEDURE: SECTION EYE SURGERY PROCEDURE:EYE SURGERY;COMMENT:grant COLONOSCOPY PROCEDURE:COLONOSCOPY;COMMENT :last one 3 years ago hx of polyps WISDOM TOOTH EXTRACTION PROCEDURE:WISDOM TOOTH EXTRACTION COLONOSCOPY 11/09/2015 N/A PROCEDURE:COLONOSCOPY;COMMENT :Procedure: COLONOSCOPY B SF/biopsy and polypectomy; Surgeon: Frank Livingston MD; Location: [facility]; Service: Gastroenterology; Laterality: N/A; UTERINE FIBROID SURGERY PROCEDURE:UTERINE FIBROID SURGERY COLONOSCOPY 10/15/2018 N/A PROCEDURE:COLONOSCOPY;COMMENT :Procedure: COLONOSCOPY- BSF/Biopsy and polypectomy; Surgeon: Frank Livingston MD; Location: [facility]; Service: Gastroenterology; Laterality: N/A; UPPER GASTROINTESTINAL ENDOSCOPY 12/03/2018 N/A PROCEDURE:UPPER GASTROINTESTINAL ENDOSCOPY;COMMENT:Procedure: UPPER ENDOSCOPY-EGD/Biopsy and polypectomy; Surgeon: Frank Livingston MD; Location: [facility]; Service: Gastroenterology; Laterality: N/A; DILATION AND CURETTAGE OF UTERUS PROCEDURE:DILATION AND CURETTAGE OF UTERUS;COMMENT:x2 COLONOSCOPY 11/15/2021 N/A PROCEDURE:COLONOSCOPY;COMMENT :Procedure: COLONOSCOPY B SF/Biopsy and polypectomy; Surgeon: Frank Livingston MD; Location: [facility]; Service: Gastroenterology; Laterality: N/A; Medical History [...] Mass Index - - Plan of Treatment Upcoming Encounters Date Type Department Care Team (Late st Contact Info) Description 02/03/2025 8:00 AM EST Hospital Encounter [facility] End[facility] [address] [place] [address] Frank Livingston MD [address] [place] [address] Health Maintenance Due Date Last Done Comments Breast Cancer Screening 1952 Colorectal Cancer Screening: Colonoscopy 1952 Diabetes: Annual Foot Exam 1962 Diabetes: Annual Retina Eye Exam 1962 RSV Immunization Adult Patients (1 - Risk 50-74 years 1-dose series) 2002 DTaP,Tdap,and Td Vaccines (2 - Td or Tdap) 01/13/2020 01/12/2010 Zoster Vaccines (2 of 3) 01/02/2021 11/07/2020, 07/22 Cholesterol Screening (Lipid Panel) 02/28/2022 Falls Risk Assessment 02/28/2022 Hepatitis C Screening 02/28/2022 Medicare Annual Wellness Visit 02/28/2022 Social Influencers of Health Screening 02/28/2022 Depression Screening 03/24/2024 Diabetes: Annual GFR (Glomerular Filtration Rate) 05/28/2024 05/29/2023, 05/29/2023, 09/07/2022 Hypertension/CHF/CAD Annual BMP Blood Test 05/28/2024 05/29/2023, 05/29/2023, 09/07/2022 COVID-19 Vaccine ( season) 2024 06/21/2020, 05/31/2020 Influenza Vaccine (#1) 2024 , 01/07/2020, 12/08/2018, Additional history exists Diabetes: Blood Sugar Control Test (HGBA1C) 01/20/2025 Diabetes: Annual Urine Albumin-Creatinine Ratio (uACR) 06/21/2025 06/21/2024, 05/15/2023, 07/22/2020, Additional history exists Osteoporosis Screening (Bone Density Screening) 01/12/2032 01/11/2022 Pneumococcal Vaccine: 50+ Years Completed 09/18/2018, 06/17/2017 HIB Vaccines Aged Out No longer eligi [...] on patient's age to complete this topic Goals Goal Patient Goal Type Associated Problems Recent Progress Patient-Stated? Author Autogenerat ed Goal Care Plan Autogenerated Problem No Shantal Womack Procedures Procedure Name Priority Date/Time Associated Diagnosis [...] osteoporosis. No priors. Study acquired on a Lovejuice densitometer. Imaging of the lumbar spine and [...] on 01/14/2022 9:35 AM. Workstation Name - SHIRLEY Procedure Note Babita Rosenbaum MD - 03/15/2022 Bone density study Indication and risk factors: Postmenopausal female. Screening forosteoporosis. No priors. Study acquired on a Lovejuice densitometer. Imaging of thelumbar spine and hip [...] Rosenbaum on 01/14/2022 9:35 AM.Workstation Name - SHIRLEY Shirley De La Garza NP IMG DXA PROCEDURES Final Result from Last 3 Months or Most Recently Relevant to Health Maintenance Additional Health Concerns Active Problems Noted Date Diagnosed Date Autogenerated Problem 01/18/2025 Insurance MEDICARE [facility] Care Teams Edge Worker Relationship Specialty Start Date End Date Clara Motley MD [address] [place], [place] [address] PCP - General Internal Medicine 10/13/18
--- OUTSIDE RECORDS SUMMARY | 2025-01-25 09:34 | XMS_ITS | Encounter Summary ---
Author Organization [facility] Address [address] [place] [address] Care Team Providers Care Discount Clerk Name Role Phone Clara Motley MD Primary Care Provider + [phone] Daisy Ramsey MD Unavailable [phone] Frank Livingston MD Unavailable [phone] Shirley De La Garza APRN Unavailable Cordelia Engle MD Unavailable Daja Sloan MD Unavailable [phone] Luis Alberto Renee MD Unavailable [phone] Vandana Bates RN Unavailable [phone] Clara Motley MD Unavailable [phone] Clarence Hollingsworth MD Unavailable Dawn Agrawal LCSW Unavailable [phone] Renay [place] Unavailable Clara Motley MD Unavailable [phone] Encounter Details Date Type Department Care Team (Late st Contact Info) Description 07/18/2020 Scanned Document [address] [place] [phone] Provider, Generic Social History Tobacco Use [...] Description 04/19/2025 8:45 AM EST Office Visit [facility] [place] [address] [place] [address] Clara Motley MD [address] [place] [address] documented as of this encounter Visit Diagnoses Not on filedocumented in this encounter Care Teams Discount Clerk Relationship Specialty Start Date End Date Clara Motley MD PCP - General Internal Medicine 10/16/15 Clara Motley MD [address] [place] [address] PCP - MSSP Attributed 03/24/21 4 Clara Motley MD [address] [place] [address] PCP - MSSP Attributed 06/22/24 Daisy Ramsey MD [address] [place] [address] Consulting Provider Dermatology 06/17/17 Frank Livingston MD [address] [place] [address] Gastroenterology 06/17/17 Shirley De La Garza APRN [address] [place] [address] Nurse Practitioner Gynecology 06/17/17 Cordelia Engle MD [address] [address] Nephrology 06/17/17 Daja Sloan MD [address] [address] Ophthalmology 06/17/17 Luis Alberto Renee MD [address] [place] [phone] Ophthalmology 05/19/18 Vandana Bates, JUAN MIGUEL [address] [phone] [facility] Community Ex Chef 04/01/19 10/08/24 Clarence Hollingsworth MD [address] [place] [address] Primary Mushroom Cultivator Cardiovascular Disease 03/24/22 Dawn Agrawal LCSW [address] [id number] [facility] Community Ex Chef 10/08/24 10/26/24 Renay [place] [address]aceli [address] [address] ICP Community Ex Chef 10/26/24 documented as of this encounter
--- OUTSIDE RECORDS SUMMARY | 2025-01-25 09:34 | XMS_ITS | Encounter Summary ---
Author Organization [facility] Address [address] [place] [address] Care Team Providers Care Division Traffic Superintendent Name Role Phone Clara Motley MD Primary Care Provider + [phone] Daisy Ramsey MD Unavailable [phone] Frank Livingston MD Unavailable [phone] Shirley De La Garza APRN Unavailable Cordelia Engle MD Unavailable [phone] Daja Sloan MD Unavailable [phone] Luis Alberto Renee MD Unavailable [phone] Vandana Bates RN Unavailable [phone] Clara Motley MD Unavailable [phone] Clarence Hollingsworth MD Unavailable Dawn AgrawalW Unavailable [phone] Renay [place] Unavailable Clara Motley MD Unavailable [phone] Encounter Details Date Type Department Care Team (Late st Contact Info) Description 11/04/2021 Scanned Document [address] [place] [phone] Gastroenterology, Scan Social History Tobacco Use [...] Upcoming Encounters Date Type Department Care Team ([facility] st Contact Info) Description 04/19/2025 8:45 AM EST Office Visit [facility] [address] [address] Clara Motley MD 100 [facility] [address] [place] [address] documented as of this encounter Visit Diagnoses Not on filedocumented in this encounter Care Teams Division Traffic Superintendent Relationship Specialty Start Date End Date Clara Motley MD PCP - General Internal Medicine 10/16/15 Clara Motley MD [address] [place], [place] [address] [address] [place] [address] PCP - MSSP Attributed 03/24/21 4 Clara Motley MD 100 [facility] [address] [place] [address] PCP - MSSP Attributed 06/22/24 Daisy Ramsey MD [address] [place] [address] [address] [place] [address] Consulting Provider Dermatology 06/17/17 Frank Livingston MD [address] [place] [address] Gastroenterology 06/17/17 Shirley De La Garza APRN [address] [place] [address] Nurse Practitioner Gynecology 06/17/17 Cordelia Engle MD [address] [address] Nephrology 06/17/17 Daja Sloan MD [address] [address] Ophthalmology 06/17/17 Luis Alberto Renee MD 43 [place] [address] Ophthalmology 05/19/18 Vandana Bates, RN [address] [phone] [facility] Community Medication Manager 04/01/19 10/08/24 Clarence Hollingsworth MD 420 [facility] [place] [address] Primary Real Estate Clerk Cardiovascular Disease 03/24/22 Dawn Agrawal LCSW [address] [facility] [address] [place], [place] [id number] [facility] Community Medication Manager 10/08/24 10/26/24 Renay [place] [address] [place] [address] [facility] Community Medication Manager 10/26/24 documented as of this encounter
--- OUTSIDE RECORDS SUMMARY | 2025-01-25 09:34 | XMS_ITS | Encounter Summary ---
Author Organization [facility] Address [address] [place] [address] Care Team Providers Care Dictaphone Typist Name Role Phone Clara Motley MD Primary Care Provider + [phone] Daisy Ramsey MD Unavailable [phone] Frank Livingston MD Unavailable [phone] Shirley De La Garza APRN Unavailable Cordelia Engle MD Unavailable [phone] Daja Sloan MD Unavailable [phone] Luis Alberto Renee MD Unavailable [phone] Vandana Bates RN Unavailable [phone] Clara Motley MD Unavailable [phone] Clarence Hollingsworth MD Unavailable Dawn AgrawalW Unavailable [phone] Renay [place] Unavailable Clara Motley MD Unavailable [phone] Encounter Details Date Type Department Care Team (Late st Contact Info) Description 03/23/2021 Scanned Document [address] [place] [phone] Provider, Generic Social History Tobacco Use [...] Upcoming Encounters Date Type Department Care Team ([facility] st Contact Info) Description 04/19/2025 8:45 AM EST Office Visit [facility] 100 [facility] [address] [place] [address] Clara Motley MD 100 [facility] [address] [place] [address] documented as of this encounter Visit Diagnoses Not on filedocumented in this encounter Care Teams Dictaphone Typist Relationship Specialty Start Date End Date Clara Motley MD PCP - General Internal Medicine 10/16/15 Clara Motley MD 100 [facility] [address] [place] [address] PCP - MSSP Attributed 03/24/21 4 Clara Motley MD 100 [facility] [address] [place] [address] PCP - MSSP Attributed 06/22/24 Daisy Ramsey MD [address] [place] [address] Consulting Provider Dermatology 06/17/17 Frank Livingston MD [address] [place] [address] Gastroenterology 06/17/17 Shirley De La Garza APRN [address] [place] [address] Nurse Practitioner Gynecology 06/17/17 Cordelia Engle MD [address] [address] Nephrology 06/17/17 Daja Sloan MD [address] [address] Ophthalmology 06/17/17 Luis Alberto Renee MD 43 [place] [address] Ophthalmology 05/19/18 Vandana Bates, RN [address] [id number] [facility] Community Loan Counselor 04/01/19 10/08/24 Clarence Hollingsworth MD 420 [facility] [address] Primary Digital Account Supervisor Cardiovascular Disease 03/24/22 Dawn Agrawal LCSW [address] [facility] [address] [place] [address] ICP Community Loan Counselor 10/08/24 10/26/24 Renay [place] [address] [place] [address] [facility] Community Loan Counselor 10/26/24 documented as of this encounter
--- OUTSIDE RECORDS SUMMARY | 2025-01-25 09:34 | XMS_ITS | Encounter Summary ---
Author Organization [facility] Address [address] [place] [address] Care Team Providers Care Manager Support Name Role Phone Clara Motley MD Primary Care Provider + [phone] Daisy Ramsey MD Unavailable [phone] Frank Livingston MD Unavailable [phone] Shirley De La Garza APRN Unavailable Cordelia Engle MD Unavailable [phone] Daja Sloan MD Unavailable [phone] Clara Motley MD Unavailable [phone] Arin Liu RN Unavailable [phone] Luis Alberto Renee MD Unavailable [phone] Vandana Bates RN Unavailable [phone] Clara Motley MD Unavailable [phone] Clarence Hollingsworth MD Unavailable Dawn Agrawal LCSW Unavailable [phone] Renay Ford Unavailable Clara Motley MD Unavailable [phone] Encounter Details Date Type Department Care Team (Late st Contact Info) Description 08/31/2018 Scanned Document [facility] [address] [address] Vascular Surgery, Scan Social History Tobacco Use [...] Description 04/19/2025 8:45 AM EST Office Visit [address] [phone] Clara Motley MD [address] [place] [address] documented as of this encounter Procedures Procedure Name Priority Date/Time Associated Diagnosis Comments VASCULAR TEST 08/31/2018 documented in this encounter Results * VASCULAR TEST (08/31/2018) us Scan Vascular Surgery HX AMB PROCEDURES Final Re sult documented in this encounter Visit Diagnoses Not on filedocumented in this encounter Care Teams Manager Support Relationship Specialty Start Date End Date Clara Motley MD PCP - General Internal Medicine 10/16/15 Clara Motley MD [address] [place] [address] PCP - MSSP Attributed 09/21/1803/23/ 0 Clara Motley MD [address] [place] [address] PCP - MSSP Attributed 03/24/21 4 Clara Motley MD [address] [place] [address] PCP - MSSP Attributed 06/22/24 Daisy Ramsey MD [address] [facility] [address] [place] [address] Consulting Provider Dermatology 06/17/17 Frank Livingston MD [address] [place] [address] Gastroenterology 06/17/17 Shirley De La Garza APRN [address] [place] [address] Nurse Practitioner Gynecology 06/17/17 Cordelia Engle MD [address] [address] Nephrology 06/17/17 Daja Sloan MD [address] [address] Ophthalmology 06/17/17 Arin Liu RN [address] [facility] [address] [place], [place] [phone] [facility] Community [address] Project Manager 01/29/18 04/01/19 Luis Alberto Renee MD [address] [place] [phone] Ophthalmology 05/19/18 Vandana Bates, RN [address] [place] [address] [facility] Community [address] Project Manager 04/01/19 10/08/24 Clarence Hollingsworth MD [address] [facility] [address] Primary Paper Slitter Cardiovascular Disease 03/24/22 Dawn Agrawal LCSW [address] [facility] [address] [place] [address] [facility] Community [address] Project Manager 10/08/24 10/26/24 Renay Ford [address] [address] [facility] Community [address] Project Manager 10/26/24 documented as of this encounter
--- OUTSIDE RECORDS SUMMARY | 2025-01-25 09:34 | XMS_ITS | Encounter Summary ---
Author Organization [facility] Address [address] [place] [address] Care Team Providers Care Artist Color Separation Name Role Phone Clara Motley MD Primary Care Provider + [phone] Daisy Ramsey MD Unavailable [phone] Frank Livingston MD Unavailable [phone] Shirley De La Garza APRN Unavailable Cordelia Engle MD Unavailable [phone] Daja Sloan MD Unavailable [phone] Luis Alberto Renee MD Unavailable [phone] Vandana Bates RN Unavailable [phone] Clara Motley MD Unavailable [phone] Clarence Hollingsworth MD Unavailable Dawn Agrawal LCSW Unavailable [phone] Renay Ford Unavailable Clara Motley MD Unavailable [phone] Encounter Details Date Type Department Care Team (Late st Contact Info) Description 06/11/2020 Scanned Document [address] [place] [phone] Provider, Generic Social History Tobacco Use [...] Description 04/19/2025 8:45 AM EST Office Visit [facility] [place] [address] [place] [address] Clara Motley MD [address] [place] [address] documented as of this encounter Visit Diagnoses Not on filedocumented in this encounter Care Teams Artist Color Separation Relationship Specialty Start Date End Date Clara Motley MD PCP - General Internal Medicine 10/16/15 Clara Motley MD [address] [place] [address] PCP - MSSP Attributed 03/24/21 4 Clara Motley MD [address] [place] [address] PCP - MSSP Attributed 06/22/24 Daisy Ramsey MD [address] [place] [address] Consulting Provider Dermatology 06/17/17 Frank Livingston MD [address] [place] [address] Gastroenterology 06/17/17 Shirley De La Garza APRN [address] [place] [address] Nurse Practitioner Gynecology 06/17/17 Cordelia Engle MD [address] [address] Nephrology 06/17/17 Daja Sloan MD [address] [address] Ophthalmology 06/17/17 Luis Alberto Renee MD [address] [place] [phone] Ophthalmology 05/19/18 Vandana Bates, JUAN MIGUEL [address] [phone] [facility] Community Food Cart Attendant 04/01/19 10/08/24 Clarence Hollingsworth MD [address] [place] [address] Primary Dock Operations Supervisor Cardiovascular Disease 03/24/22 Dawn Agrawal LCSW [address] [phone] [facility] Community Food Cart Attendant 10/08/24 10/26/24 Renay Ford [address]aceli [address] [address] [facility] Community Food Cart Attendant 10/26/24 documented as of this encounter
--- OUTSIDE RECORDS SUMMARY | 2025-01-25 09:34 | XMS_ITS | Encounter Summary ---
Author Organization [facility] Address [address] [place] [address] Care Team Providers Care Elocution Teacher Name Role Phone Clara Motley MD Primary Care Provider [phone] Daisy Ramsey MD Unavailable [phone] Frank Livingston MD Unavailable [phone] Shirley De La Garza APRN Unavailable Cordelia Engle MD Unavailable [phone] Daja Slona MD Unavailable [phone] Luis Alberto Renee MD Unavailable [phone] Vandana Bates RN Unavailable [phone] Clara Motley MD Unavailable [phone] Clarence Hollingsworth MD Unavailable Dawn AgrawalW Unavailable [phone] Renay Ford Unavailable Clara Motley MD Unavailable [phone] Encounter Details Date Type Department Care Team (Late st Contact Info) Description 12/18/2021 Scanned Document [facility] Clara Motley MD [address] [place] [address] Social History Tobacco Use Types Packs/Day Years [...] Description 04/19/2025 8:45 AM EST Office Visit [facility] [address] [place] [address] Clara Motley MD [address] [place] [address] documented as of this encounter Visit Diagnoses Not on filedocumented in this encounter Care Teams Elocution Teacher Relationship Specialty Start Date End Date Clara Motley MD PCP - General Internal Medicine 10/16/15 Clara Motley MD [address] [place] [address] PCP - MSSP Attributed 03/24/21 4 Clara Motley MD [address] [place] [address] PCP - MSSP Attributed 06/22/24 Daisy Ramsey MD [facility] [address] [place] [address] Consulting Provider Dermatology 06/17/17 Frakn Livingston MD [address] [place] [address] Gastroenterology 06/17/17 Shirley De La Garza APRN [address] [place] [address] Nurse Practitioner Gynecology 06/17/17 Cordelia Engle MD [address] [address] Nephrology 06/17/17 Daja Sloan MD [address] [address] Ophthalmology 06/17/17 Luis Alberto Renee MD [address] [place] [phone] Ophthalmology 05/19/18 Vandana Bates, JUAN MIGUEL [address] [phone] [facility] Community Corporate Treasury Analyst 04/01/19 10/08/24 Clarence Hollingsworth MD 420 [place] [address] Primary Knotting Machine Operator Portable Cardiovascular Disease 03/24/22 Dawn Agrawal LCSW [address] [phone] [facility] Community Corporate Treasury Analyst 10/08/24 10/26/24 Renay Ford [address] [address] [facility] Community Corporate Treasury Analyst 10/26/24 documented as of this encounter
--- OUTSIDE RECORDS SUMMARY | 2025-01-25 09:34 | XMS_ITS | Clinical Summary ---
Author Organization [facility] Address [address] [place] [address] Care Team Providers Care Long Term Care Phlebotomist Name Role Phone Clara Motley MD Primary Care Provider Daisy Ramsey MD Unavailable [phone] Frank Livingston MD Unavailable [phone] Shirley De La Garza APRN Unavailable Cordelia Engle MD Unavailable [phone] Daja Sloan MD Unavailable [phone] Luis Alberto Renee MD Unavailable [phone] Clarence Hollingsworth MD Unavailable Renay Ford Unavailable Clara Motley MD Unavailable [phone] Allergies Active Allergy Reactions Criticality Noted Date Comments Mnblgwoz-Kkacggiee-P exameth Swelling Medium 12/13/2014 Other Unknown/Patient and [...] complication, without long-term current use of insulin ([facility]) Check twice daily 1 Device Active coenzyme Q10 (CO Q 10) 100 MG capsule Take 1 capsule (100 mg total) by mouth daily. Active Lutein-Zeaxanthin 20-1 MG Cap Take 1 tablet by mouth daily. Active aflibercept (Eylea) 2 MG/0.05ML ophthalmic syringe by Intravitreal route. Active Uumqiawgwid-Cinrdzxr-Jg lysorb (Refresh Optive Advanced) 0.5-1-0.5 % Solution by Does not apply route. Active FREESTYLE LITE stripIndications:Type 2 diabetes mellitus without complication, without long-term current use of insulin ([facility]) USE TO TEST ONCE DAILY 100 strip 1 022 Active FreeStyle Lancets lancetIndications:Type 2 diabetes mellitus without complication, without long-term current use of insulin ([facility]) USE TO TEST ONCE DAILY 100 each 1 Active Magnesium Oxide 250 MG Tab tablet Take 1 tablet (250 mg total) by mouth daily. Take 2 hours apart from other medications; take with food Active lisinopril (PRINIVIL,ZeSTRIL) 10 MG tablet Take 1 tablet (10 mg total) by mouth daily. 09/25/2 023 Active omega-3 acid ethyl esters (LOVAZA) [...] 09/07/2016 Dysuria 01/02/2015 02/15/2015 Obesity 07/29/2013 09/07/2016 Encounters Date Type Department Care Team Description 01/19/2025 Scanned Document [facility] OPHTHALMOLOGY [address] [place] [address] Ophthalmology, Scan 12/17/2024 Scanned Document [facility] OPTHALMOLOGY SCAN Ophthalmology, Scan 12/13/2024 11:15 AM EDT Office Visit [facility] [address] [facility] [address] [place] [phone] Clara Motley MD Type 2 diabetes mellitus with chronic kidney disease, without long-term current use of insulin, unspecified CKD stage (HCC) (Primary Dx); Essential hypertension ; Hypercholesterolemia ; SYDNEY on CPAP 12/13/2024 Travel 12/08/2024 11:45 AM EDT Office Visit [facility] [address] [place] [address] Keshawn Alcala MD 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, 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, 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 Close exposure to COVID-19 virus (Primary Dx); Nasal congestion 12/08/2024 Travel from Last 3 Months Immunizations Immunization Administration Dates Next Due Covid-19 [...] (Zostavax) 11/07/2020,08/02/2020 Zoster Vaccine Recombinant (Shingrix) ,11/07/2020,08/02/2020,08/02 zzInfluenza Inactivated/Spli t with Preservative IM 02/12/2021 Family [...] = 0.6 oz pur e alcohol) social C Utilities Answer Date Recorded In the past 12 months has mya[employer], gas, oil, or water [employer] threatened to shut off services in your [...] any time in the past 12 m [facility], were you homeless or living in a chcf (including now)? No 02/05/2024 Education Answer Date [...] Sign Reading Time Taken Comments Blood Pressure 130/72 12/13/2024 11:02 AM EDT Pulse 78 12/13/2024 11:02 AM EDT Temperature 36.6 C (97.9 F) 12/13/2024 11:02 AM EDT Respiratory Rate 16 12/13/2024 11:02 AM EDT Oxygen Saturation 98% 12/13/2024 11:02 AM EDT Inhaled Oxygen Concentration - - Weight 82 kg (180 lb 12.8 oz) 12/13/2024 11:02 A M EDT Height 160 cm (5' 2.99 ) 12/13/2024 11:02 AM EDT Body Mass Index 32.04 12/13/2024 11:02 AM EDT Plan of Treatment Upcoming Encounters Date Type Department Care Team (Late st Contact Info) Description 04/19/2025 8:45 AM EST Office Visit [facility] [address] [facility] [address] [place] [phone] Clara Motley MD [address] [facility] [address] [place] [address] Health Maintenance Due Date Last Done Comments Advance Care Planning 1950 Physical 1970 RSV Vaccine 50 years and older and Patients (1 - Risk 50-74 years 1-dose series) 2002 DTaP/Tdap/Td Vaccines (2 - Td or Tdap) 01/13/2020 01/12/2010 Zoster (Shingles) Vaccine (3 of 3) 01/02/2021 11/07/2020, 11/07/2020, 11/07/2020, Additional history exists Annual Wellness Visit 01/11/2024 01/10/2023, 018 DXA Bone Density (Females,Ages 65 and older) 01/12/2024 01/11/2022, 01/03/2020 Influenza Vaccine 10/22/2024 02/12/2021, , 02/12/2021, Additional history exists COVID-19 Vaccine ( season) 2024 06/21/2020, 05/31/2020, 05/31/2020 Ophthalmology Exam 12/18/2024 12/19/2023, 0 08/05/2023, 05/08/2020, Additional history exists Foot Exam 02/05/2025 02/06/2024, 01/22, 01/10/2023, Additional history exists Hemoglobin A1C 05/29/2025 11/29/2024, 05/24, 02/03/2024, Additional history exists Lipid Panel 06/21/2025 06/21/2024, 01/22, 09/05/2023, Additional history exists Microalbumin/Creatinine Ratio Urine 06/21/2025 06/21/2024, 05/15/2023, 07/22/2020, Additional history exists Creatinine with GFR 11/29/2025 11/29/2024, 06/21/2024, 02/03/2024, Additional history exists Colonoscopy 11/16/2031 11/15/2021, 10/2015 (Previously Completed) Hepatitis C Virus Screening Completed 05/15/2018 Pneumococcal Vaccines 50+ Completed 2018, 09/18/2018, 06/17/2017 Mammogram Discontinued 08/07/2024, 01/23, 01/14/2022, Additional history exists Hepatitis B Vaccines Aged Out No long er eligible based on patient's age to complete this topic Procedures Procedure Name Priority Date/Time Associated Diagnosis Comments POCT RAPID COVID-19 AG (FDA EUA) Routine 12/08/2024 12:56 PM EDT Close exposure to COVID-19 virus COMPLETE BLOOD COUNT, WITHOUT DIFFERENTIAL Routine 11/29/2024 [...] Recently Relevant to Health Maintenance Results * POCT Rapid COVID-19 Antigen (FDA EUA) (12/08/2024 12:56 PM EDT) COVID-19 Rapid Antigen, POC (FDA EUA) Negative Result Comments: A Positive Result does not rule out bacterial infection or co-infection with other viruses. Clinical correlation advised. A Negative Result in symptomatic patients should be considered presumptive and needs confirmation by PCR. Kit Lot Number [id number] Washer Cutter Pass Pass Swab, Nasal Specimen from nose / Unknown 12/08/2024 12:56 PM EDT Fifi Willis APRN POINT OF CARE TEST ORDERA BLES Final Result * TSH REFLEX FREE T4 (11/29/2024 6:25 AM EDT) TSH reflex Free T4 3.46 0.40 - 4.50 mIU/L [facility] Blood specimen / Unknown 11/29/2024 6:25 AM EDT 11/29/2024 6:25 AM EDT Narrative [facility] - 11/29/2024 11:00 PM EDT FASTING:YES FASTING: YES us Clara Motley MD LAB BLOOD ORDERABLES Final Result [facility] [address] [place] [phone] * COMPLETE BLOOD COUNT, WITHOUT DIFFERENTIAL (11/29/2024 6:25 AM EDT) White Blood Cell Count 5.7 3.8 - 10.8 Thousand/u L [facility] Red Blood Cell Count 4.36 3.80 - 5.10 Million/uL [facility] Hemoglobin 13.3 11.7 - 15.5 g/dL [facility] Hematocrit 41.4 35.0 - 45.0 % [facility] Han grass biomass MCV 95.0 80.0 - 100.0 fL [facility] MCH 30.5 27.0 - 33.0 pg [facility] Han grass biomass MCHC 32.1 32.0 - 36.0 g/dL [facility] Han grass biomass Comment: For adults, a slight decrease in the calculated MCHC value (in the range of 30 to 32 g/dL) is most likely not clinically significant; however, it should be interpreted with caution in correlation with other red cell parameters and the patient's clinical condition. RDW 12.8 11.0 - 15.0 % [facility] Han grass biomass Platelet Count 291 140 - 400 Thousand/u L [facility] MPV 10.8 7.5 - 12.5 fL [facility] Blood specimen / Unknown 11/29/2024 6:25 AM EDT 11/29/2024 6:25 AM EDT Narrative [facility] - 11/29/2024 11:00 PM EDT FASTING:YES FASTING: YES us Clara Motley MD LAB BLOOD ORDERABLES Final Result Performing Organization Address [facility] Co de Phone Number [employer] [address] [place] [phone] * (ABNORMAL) Hemoglobin A1C (11/29/2024 6:25 AM EDT) Hemoglobin A1C 7.3(H) <5.7 % [facility] Comment: For someone without known diabetes, a [...] BLOOD ORDERABLES Final Result Performing Organization Address [facility] de Phone Number [employer] [address] [place] [phone] * (ABNORMAL) Comprehensive Metabolic Panel (11/29/2024 6:25 AM EDT) Glucose 138(H) 65 - 99 mg/dL [facility] Comment: Fasting reference interval For someone without known diabetes, a glucose value >125 mg/dL indicates that they may have diabetes and this should be confirmed with a follow-up test. Blood Urea Nitrogen (BUN) 20 7 - 25 mg/dL [facility] Creatinine 0.95 0.60 - 1.00 mg/dL [facility] Creatinine w/ eGFR 64 > OR = 60 mL/min/1. 73m2 [facility] BUN/Creatinine Ratio SEE NOTE: 6 - 22 (calc) [facility] Comment: Not Reported: BUN and Creatinine are within reference range. Sodium 142 135 - 146 mmol/L [facility] Potassium 4.3 3.5 - 5.3 mmol/L [facility] Chloride 105 98 - 110 mmol/L [facility] CO2 30 20 - 32 mmol/L [facility] Calcium 9.5 8.6 - 10.4 mg/dL [facility] Protein, Total 6.9 6.1 - 8.1 g/dL [facility] Albumin 4.6 3.6 - 5.1 g/dL [facility] Globulin 2.3 1.9 - 3.7 g/dL (calc) [facility] Albumin/Globuli n Ratio 2.0 1.0 - 2.5 (calc) [facility] Bilirubin, Total 0.4 0.2 - 1.2 mg/dL [facility] Alkaline Phosphatase 45 37 - 153 U/L [facility] Aspartate Aminotrans (AST) 23 10 - 35 U/L [facility] Alanine Aminotrans (ALT) 21 6 - 29 U/L [facility] Blood Blood specimen / Unknown 11/29/2024 6:25 AM EDT 11/29/2024 6:25 AM EDT Narrative [facility] - 11/29/2024 11:00 PM EDT FASTING:YES FASTING: YES us Clara Motley MD LAB BLOOD ORDERABLES Final Result [employer] [address] [place] [phone] * Imaging Breast/Bx/Mammo Result (08/07/2024 1:58 PM EDT) Anatomical Region Laterality Modality Other us Scan Obstetrics And Gynecology IMG LEGACY PROCED URES Edited Result - Final * Lipid panel (06/21/2024 6:55 AM EDT) Cholesterol, Total 178 <200 mg/dL [facility] Cholesterol, HDL 66 > OR = 50 mg/dL [facility] Triglycerides 125 <150 mg/dL [facility] LDL Cholesterol 89 mg/dL (calc) [facility] Comment: Reference range: <100 Desirable range <100 mg/dL for primary prevention; <70 mg/dL for patients with CHD or diabetic patients with > or = 2 CHD risk factors. LDL-C is now calculated using the Lacey calculation, which is a validated novel method providing better accuracy than the Friedewald equation in the estimation of LDL-C. Roib SS et al. SATISH. 2013;310(09): 4373-7471 (http://education.Worktopia/faq/QKX859) Cholesterol/HDL Ratio 2.7 <5.0 (calc) [facility] Non HDL Chol. (LDL+VLDL) 112 <130 mg/dL (calc) [facility] Comment: For patients with diabetes plus 1 major ASCVD risk factor, treating to a non-HDL-C goal of <100 mg/dL (LDL-C of <70 mg/dL) is considered a therapeutic option. Blood Blood specimen / Unknown 06/21/2024 6:55 AM EDT 06/21/2024 6:57 AM EDT Narrative [facility] - 06/22/2024 6:59 PM EDT FASTING:YES FASTING: YES Clara Motley MD LAB BLOOD ORDERABLES Final Result [employer] [address] [place] [phone] * Microalbumin, Creatinine, Urine, Random (06/21/2024 6:55 AM EDT) Creatinine, Urine, Random 56 20 - 275 mg/dL [facility] Microalbumin, Urine, Random 0.5 See Note: mg/dL [facility] Comment: Reference Range: Reference Range Not established Microalbumin/Creat inine Ratio 9 <30 mg/g creat [facility] Comment: The ADA defines abnormalities in albumin [...] Motley MD URINE ORDERABLES Final Res ult [employer] [address] [place] [phone] * OPHTHALMOLOGY TESTING PROCEDURES (12/19/2023 12:17 PM [...] Hepatitis C Antibody NON-REACT GEOVANY NON-REACT GEOVANY [facility] Hepatitis C Antibody (s/co) 0.01 <1.00 [facility] Comment: HCV antibody was non-reactive. There is no laboratory evidence of HCV infection. In most cases, no further action is required. However, if recent HCV exposure is suspected, a test for HCV RNA (test code 17864) is suggested. For additional information please refer to http://education.ScoreStream/faq/WBX54b8 (This link is being provided for informational/ educational purposes only.) Blood specimen (specimen) 05/15/2018 6:01 AM EST 05/15/2018 6:01 AM EST Narrative [facility] - 05/16/2018 11:20 AM EST FASTING:YES FASTING: YES Resulting Agency Comment Performing Organization Information: Site ID: [id number] Name: [facility] Address: [address], [place] [address] Director: Yana Bates MD Clara Motley MD LAB BLOOD ORDERABLES Final Result [facility] [address], [place] [address] from Last 3 Months or Most Recently Relevant to Health Maintenance Insurance MEDICARE PART A & B [facility] [place] [id number] MEDICARE PART A & [place] [id number] Care Teams Long Term Care Phlebotomist Relationship Specialty Start Date End Date Clara Motley MD PCP - General Internal Medicine 10/16/15 Clara Motley MD [address] [place] [phone] PCP - MSSP Attributed 06/22/24 Daisy Ramsey MD [address] [place] [address] Consulting Provider Dermatology 06/17/17 Frank Livingston MD [address] [place] [id number] Gastroenterology 06/17/17 Shirley De La Garza APRN [address] [place] [address] Nurse Practitioner Gynecology 06/17/17 Cordelia Engle MD [address] [address] Nephrology 06/17/17 Daja Sloan MD [address] [address] Ophthalmology 06/17/17 Luis Alberto Renee MD [address] [place] [phone] Ophthalmology 05/19/18 Clarence Hollingsworth MD 420 [place] [address] Primary Roller Maker Cardiovascular Disease 03/24/22 Renay Ford [address] [address] [facility] Community Telephone Order Supervisor 10/26/24
--- OUTSIDE RECORDS SUMMARY | 2025-01-25 09:34 | XMS_ITS | Encounter Summary ---
Author Organization [facility] Address [address] [place] [address] Care Team Providers Care Cattle Dealer Name Role Phone Clara Motley MD Primary Care Provider + [phone] Daisy Ramsey MD Unavailable +[phone] Frank Livingston MD Unavailable +[phone] Shirley De La Garza APRN Unavailable Cordelia Engle MD Unavailable +[phone] Daja Sloan MD Unavailable +[phone] Clara Motley MD Unavailable +[phone] Arin Liu RN Unavailable +[phone] Luis Alberto Renee MD Unavailable +[phone] Vandana Bates RN Unavailable +[phone] Clara Motley MD Unavailable +[phone] Clarence Hollingsworth MD Unavailable Dawn Agrawal LCSW Unavailable +[phone] Renay Ford Unavailable Clara Motley MD Unavailable +[phone] Reason for Visit * Reason Comments Medication Refill Encounter Details Date Type Department Care Team (Late st Contact Info) Description 01/25/2016 Refill [facility] [address] [address] Clara Motley MD [address] [address] Diabetes mellitus without complication (HCC) Social History [...] Description 04/19/2025 8:45 AM EST Office Visit [address] [phone] Clara Motley MD [address] [address] documented as of this encounter Visit Diagnoses Diagnosis Diabetes mellitus without complication (HCC) Type II or unspecified type diabetes mellitus without mention of complication, not stated as uncontrolled documented in this encounter Care Teams Cattle Dealer Relationship Specialty Start Date End Date Clara Motley MD PCP - General Internal Medicine 10/16/15 Clara Motley MD [address] [address] PCP - MSSP Attributed 09/21/18 0 Clara Motley MD [address] [place] [address] PCP - MSSP Attributed 03/24/21 4 Clara Motley MD [address] [place] [address] PCP - MSSP Attributed 06/22/24 Daisy Ramsey MD [address] [facility] [address] [place] [address] Consulting Provider Dermatology 06/17/17 Frank Livingston MD [address] [place] [address] Gastroenterology 06/17/17 Shirley De La Garza APRN [address] [place] [address] Nurse Practitioner Gynecology 06/17/17 Cordelia Engle MD [address] [address] Nephrology 06/17/17 Daja Sloan MD [address] [address] Ophthalmology 06/17/17 Arin Liu, JUAN MIGUEL 1290 [facility] [address] [place], [place] [phone] [facility] Community Rehabilitation Therapy Aide 01/29/18 04/01/19 Luis Alberto Renee MD [address] [place] [phone] Ophthalmology 05/19/18 Vandana Bates, RN [address] [address] [facility] Community Rehabilitation Therapy Aide 04/01/19 10/08/24 Clarence Hollingsworth MD [address] [place] [address] Primary Store Sales Leader Cardiovascular Disease 03/24/22 Dawn Agrawal LCSW [address] [address] [facility] Community Rehabilitation Therapy Aide 10/08/24 10/26/24 Renay Ford [address] Oh araceli [address] [address] [facility] Community Rehabilitation Therapy Aide 10/26/24 documented as of this encounter
--- OUTSIDE RECORDS SUMMARY | 2025-01-25 09:34 | XMS_ITS | Encounter Summary ---
Author Organization [facility] Address [address] [place] [address] Care Team Providers Care Animal Handler Name Role Phone Clara Motley MD Primary Care Provider + [phone] Daisy Ramsey MD Unavailable +[phone] Frakn Livingston MD Unavailable +[phone] Shirley De La Garza APRN Unavailable Cordelia Engle MD Unavailable +[phone] Daja Sloan MD Unavailable +[phone] Luis Alberto Renee MD Unavailable Vandana Bates RN Unavailable +[phone] Clara Motley MD Unavailable +[phone] Clarence Hollingsworth MD Unavailable Dawn AgrawalW Unavailable +[phone] Renay Ford Unavailable Clara Motley MD Unavailable +[phone] Encounter Details Date Type Department Care Team (Late st Contact Info) Description 12/26/2020 Scanned Document [address] [place] [phone] Provider, Generic Social History Tobacco Use [...] Description 04/19/2025 8:45 AM EST Office Visit [facility] 100 [facility] [address] [place] [address] Clara Motley MD 100 [facility] [address] [place] [address] documented as of this encounter Visit Diagnoses Not on filedocumented in this encounter Care Teams Animal Handler Relationship Specialty Start Date End Date Clara Motley MD PCP - General Internal Medicine 10/16/15 Clara Motley MD 100 [facility] [address] [place] [address] PCP - MSSP Attributed 03/24/21 4 Clara Motley MD 100 [facility] [address] [place] [address] PCP - MSSP Attributed 06/22/24 Daisy Ramsey MD [address] [place] [address] Consulting Provider Dermatology 06/17/17 Frank Livingston MD [address] [place] [address] Gastroenterology 06/17/17 Shirley De La Garza APRN [address] [place] [address] Nurse Practitioner Gynecology 06/17/17 Cordelia Enlge MD [address] [address] Nephrology 06/17/17 Daja Sloan MD [address] [address] Ophthalmology 06/17/17 Luis Alberto Renee MD 43 [place] [phone] Ophthalmology 05/19/18 Vandana Bates, RN [address] [phone] [facility] Community Metal Sander And Finisher 04/01/19 10/08/24 Clarence Hollingsworth MD 420 [place] [address] Primary Pottery Decoration Designer Cardiovascular Disease 03/24/22 Dawn Agrawal LCSW [address] [facility] [address] [place] [address] [facility] Community Metal Sander And Finisher 10/08/24 10/26/24 Renay Ford [address] [place] [address] [facility] Community Metal Sander And Finisher 10/26/24 documented as of this encounter
--- OUTSIDE RECORDS SUMMARY | 2025-01-25 09:34 | XMS_ITS | Encounter Summary ---
Author Organization [facility] Address [address] [place] [address] Care Team Providers Care Horticultural Nursery Assistant Name Role Phone Clara Motley MD Primary Care Provider + [phone] Daisy Ramsey MD Unavailable +[phone] Frank Livingston MD Unavailable +[phone] Shirley De La Garza APRN Unavailable Cordelia Engle MD Unavailable +[phone] Daja Sloan MD Unavailable +[phone] Luis Alberto Renee MD Unavailable [phone] Vandana Bates RN Unavailable +[phone] Clara Motley MD Unavailable [phone] Clarence Hollingsworth MD Unavailable Dawn Agrawal LCSW Unavailable +[phone] Renay Ford Unavailable Clara Motley MD Unavailable +[phone] Encounter Details Date Type Department Care Team (Late st Contact Info) Description 01/14/2022 Scanned Document [address] [place] [phone] Provider, Generic Social History Tobacco Use [...] Description 04/19/2025 8:45 AM EST Office Visit [facility] 100 [facility] [address] [place] [address] Clara Motley MD [address] [place] [address] documented as of this encounter Procedures Procedure Name Priority Date/Time Associated Diagnosis Comments IMAGING BREAST/BX/MAMMO 01/14/2022 documented in this encounter Results * IMAGING BREAST/BX/MAMMO (01/14/2022) Anatomical Region Laterality Modality Other 01/14/2022 Narrative 01/14/2022 Ordered by an unspecified provider. us Generic Provider IMG LEGACY PROCEDURES Edited Re sult - Final documented in this encounter Visit Diagnoses Not on filedocumented in this encounter Care Teams Horticultural Nursery Assistant Relationship Specialty Start Date End Date Clara Motley MD PCP - General Internal Medicine 10/16/15 Clara Motley MD [address] [place] [address] PCP - MSSP Attributed 03/24/21 4 Clara Motley MD [address] [place] [address] PCP - MSSP Attributed 06/22/24 Daisy Ramsey MD [address] [place] [address] Consulting Provider Dermatology 06/17/17 Frank Livingston MD [address] [place] [address] Gastroenterology 06/17/17 Shirley De La Garza APRN [address] [place] [address] Nurse Practitioner Gynecology 06/17/17 Cordelia Engle MD [address] [address] Nephrology 06/17/17 Daja Sloan MD [address] [address] Ophthalmology 06/17/17 Luis Alberto Renee MD [address] [place] [phone] Ophthalmology 05/19/18 Vandana Bates, JUAN MIGULE [address] [address] [facility] Community Condominium Association Manager 04/01/19 10/08/24 Clarence Hollingsworth MD [address] [place] [address] Primary Latex Spooler Cardiovascular Disease 03/24/22 Dawn Agrawal LCSW [address] araceli [address] [phone] [facility] Community Condominium Association Manager 10/08/24 10/26/24 Renay Ford [address] araceli [address] [address] [facility] Community Condominium Association Manager 10/26/24 documented as of this encounter
--- OUTSIDE RECORDS SUMMARY | 2025-01-25 09:34 | XMS_ITS | Encounter Summary ---
Author Organization [facility] Address [address] [place] [address] Care Team Providers Care Instructor Looping Name Role Phone Clara Motley MD Primary Care Provider + [phone] Daisy Ramsey MD Unavailable +[phone] Frank Livingston MD Unavailable [phone] Shirley De La Garza APRN Unavailable Cordelia Engle MD Unavailable +[phone] Daja Sloan MD Unavailable +[phone] Luis Alberto Renee MD Unavailable Vandana Bates RN Unavailable +[phone] Clara Motley MD Unavailable +[phone] Clarence Hollingsworth MD Unavailable Dawn AgrawalW Unavailable +[phone] Renay Ford Unavailable Clara Motley MD Unavailable +[phone] Encounter Details Date Type Department Care Team (Late st Contact Info) Description 03/15/2022 Scanned Document [address] [place] [phone] Provider, Generic Social History Tobacco Use [...] Description 04/19/2025 8:45 AM EST Office Visit [facility] 100 [facility] [address] [place] [address] Clara Motley MD 100 [facility] [address] [place] [address] documented as of this encounter Visit Diagnoses Not on filedocumented in this encounter Care Teams Instructor Looping Relationship Specialty Start Date End Date Clara Motley MD PCP - General Internal Medicine 10/16/15 Clara Motley MD 100 [facility] [address] [place] [address] PCP - MSSP Attributed 03/24/21 4 Clara Motley MD 100 [facility] [address] [place] [address] PCP - MSSP Attributed 06/22/24 Daisy Ramsey MD [address] [place] [address] [address] [place] [address] Consulting Provider Dermatology 06/17/17 Frank Livingston MD [address] [place] [address] Gastroenterology 06/17/17 Shirley De La Garza APRN [address] [place] [address] Nurse Practitioner Gynecology 06/17/17 Cordelia Engle MD [address] [address] Nephrology 06/17/17 Daja Sloan MD [address] [address] Ophthalmology 06/17/17 Luis Alberto Renee MD 43 [place] [phone] Ophthalmology 05/19/18 Vandana Bates, RN [address] [phone] [facility] Community Enamel Buffer 04/01/19 10/08/24 Clarence Hollingsworth MD 420 [facility] [place] [address] Primary Parking Control Officer Cardiovascular Disease 03/24/22 Dawn Agrawal LCSW [address] [facility] [address] [place] [address] [facility] Community Enamel Buffer 10/08/24 10/26/24 Renay Ford [address] [place] [address] [facility] Community Enamel Buffer 10/26/24 documented as of this encounter
--- OUTSIDE RECORDS SUMMARY | 2025-01-25 09:34 | XMS_ITS | Encounter Summary ---
Author Organization [facility] Address [address] [place] [address] Care Team Providers Care Supervisor Tower Name Role Phone Clara Motley MD Primary Care Provider [phone] Daisy Ramsey MD Unavailable +[phone] Frank Livingston MD Unavailable +[phone] Shirley De La Garza APRN Unavailable Cordelia Engle MD Unavailable +[phone] Daja Sloan MD Unavailable +[phone] Luis Alberto Renee MD Unavailable [phone] Vandana Bates RN Unavailable [phone] Clara Motley MD Unavailable +[phone] Clarence Hollingsworth MD Unavailable Dawn AgrawalW Unavailable +[phone] Renay Ford Unavailable Clara Motley MD Unavailable +[phone] Encounter Details Date Type Department Care Team (Late st Contact Info) Description 05/16/2022 Scanned Document [facility] PRIMARY CARE SCAN Clara Motley MD [address] [place] [address] Social History Tobacco Use Types Packs/Day Years [...] Description 04/19/2025 8:45 AM EST Office Visit [facility] [address] [place] [address] Clara Motley MD [address] [place] [address] documented as of this encounter Visit Diagnoses Not on filedocumented in this encounter Care Teams Supervisor Tower Relationship Specialty Start Date End Date Clara Motley MD PCP - General Internal Medicine 10/16/15 Clara Motley MD [address] [place] [address] PCP - MSSP Attributed 03/24/21 4 Claar Motley MD [address] [place] [address] PCP - MSSP Attributed 06/22/24 Daisy Ramsey MD [address] [facility] [address] [place] [address] Consulting Provider Dermatology 06/17/17 Frank Livingston MD [address] [place] [address] Gastroenterology 06/17/17 Shirley De La Garza APRN [address] [place] [address] Nurse Practitioner Gynecology 06/17/17 Cordelia Engle MD [address] [address] Nephrology 06/17/17 Daja Sloan MD [address] [address] Ophthalmology 06/17/17 Luis Alberto Renee MD [address] [place] [phone] Ophthalmology 05/19/18 Vandana Bates, JUAN MIGUEL [address] [phone] [facility] Community Blood Typer 04/01/19 10/08/24 Clarence Hollingsworth MD 420 [place] [address] Primary Grades 9 12 Tutor Cardiovascular Disease 03/24/22 Dawn Agrawal LCSW [address] [phone] [facility] Community Blood Typer 10/08/24 10/26/24 Renay Ford [address] araceli [address] [address] [facility] Community Blood Typer 10/26/24 documented as of this encounter
--- OUTSIDE RECORDS SUMMARY | 2025-01-25 09:34 | XMS_ITS | Encounter Summary ---
Author Organization [facility] Address [address] [place] [address] Care Team Providers Care Steam And Power Superintendent Name Role Phone Clara Motley MD Primary Care Provider + [phone] Daisy Ramsey MD Unavailable +[phone] Frank Livingston MD Unavailable +[phone] Shirley De La Garza APRN Unavailable Cordelia Engle MD Unavailable +[phone] Daja Sloan MD Unavailable +[phone] Luis Alberto Renee MD Unavailable [phone] Vandana Bates RN Unavailable +[phone] Clara Motley MD Unavailable +[phone] Clarence Hollingsworth MD Unavailable Dawn Agrawal LCSW Unavailable +[phone] Renay Ford Unavailable Clara Motley MD Unavailable +[phone] Reason for Visit * Reason Comments Appointment Encounter Details Date Type Department Care Team (Late st Contact Info) Description 08/28/[address] [address] Suyapa Webb, DPM [address] [address] Appointment Social History Tobacco Use Types Packs/Day [...] 8:45 AM EST Office Visit [facility] [address] [phone] Clara Motley MD [address] [place] [address] [place] [address] documented as of this encounter Visit Diagnoses Not on filedocumented in this encounter Care Teams Steam And Power Superintendent Relationship Specialty Start Date End Date Clara Motley MD PCP - General Internal Medicine 10/16/15 Clara Motley MD [address] [place] [address] [address] [place] [address] PCP - MSSP Attributed 03/24/21 4 Clara Motley MD [address] [place] [address] PCP - MSSP Attributed 06/22/24 Daisy Ramsey MD 113 [facility] [address] [place] [address] Consulting Provider Dermatology 06/17/17 Frank Livingston MD [address] [place] [address] Gastroenterology 06/17/17 Shirley De La Garza APRN [address] [place] [address] Nurse Practitioner Gynecology 06/17/17 Cordelia Engle MD [address] [address] Nephrology 06/17/17 Daja Sloan MD [address] [address] Ophthalmology 06/17/17 Luis Alberto Renee MD 43 [place] [phone] Ophthalmology 05/19/18 Vandana Bates, RN [address] [address] [facility] Community General Manager Farm 04/01/19 10/08/24 Clarence Hollingsworth MD [address] [place] [address] Primary Health Type Technician Cardiovascular Disease 03/24/22 Dawn Agrawal LCSW [address] [address] [facility] Community General Manager Farm 10/08/24 10/26/24 Renay Ford [address] [address] [facility] Community General Manager Farm 10/26/24 documented as of this encounter
--- OUTSIDE RECORDS SUMMARY | 2025-01-25 09:34 | XMS_ITS | Encounter Summary ---
Author Organization [facility] Address [address] [place] [address] Care Team Providers Care Cna Caregiver Name Role Phone Clara Motley MD Primary Care Provider + [phone] Daisy Ramsey MD Unavailable +[phone] Frank Livingston MD Unavailable +[phone] Shirley De La Garza APRN Unavailable Cordelia Engle MD Unavailable +[phone] Daja Sloan MD Unavailable +[phone] Luis Alberto Renee MD Unavailable [phone] Vandana Bates RN Unavailable [phone] Clara Motley MD Unavailable +[phone] Clarence Hollingsworth MD Unavailable Dawn AgrawalW Unavailable +[phone] Renay Ford Unavailable Clara Motley MD Unavailable +[phone] Encounter Details Date Type Department Care Team (Late st Contact Info) Description 09/06/[address] [place] [phone] Clara Motley MD 100 [facility] [address] Social History Tobacco Use Types Packs/Day Years [...] Description 04/19/2025 8:45 AM EST Office Visit [facility] [address] [place] [address] Clara Motley MD [address] [place] [address] documented as of this encounter Visit Diagnoses Not on filedocumented in this encounter Care Teams Cna Caregiver Relationship Specialty Start Date End Date Clara Motley MD PCP - General Internal Medicine 10/16/15 Clara Motley MD [address] [place] [address] PCP - MSSP Attributed 03/24/21 4 Clara Motley MD [address] [place] [address] PCP - MSSP Attributed 06/22/24 Daisy Ramsey MD [address] [place] [address] Consulting Provider Dermatology 06/17/17 Frank Livingston MD [address] [place] [address] Gastroenterology 06/17/17 Shirley De La Garza APRN [address] [place] [address] Nurse Practitioner Gynecology 06/17/17 Cordelia Engle MD [address] [address] Nephrology 06/17/17 Daja Sloan MD [address] [address] Ophthalmology 06/17/17 Luis Alberto Renee MD [address] [place] [phone] Ophthalmology 05/19/18 Vandana Bates, JUAN MIGUEL [address] [address] [facility] Community Agriculture Manager 04/01/19 10/08/24 Clarence Hollingsworth MD [address] [place] [address] Primary Manager Case Cardiovascular Disease 03/24/22 Dawn Agrawal LCSW [address] [address] [facility] Community Agriculture Manager 10/08/24 10/26/24 Renay Ford [address] [address] [facility] Community Agriculture Manager 10/26/24 documented as of this encounter
--- OUTSIDE RECORDS SUMMARY | 2025-01-25 09:34 | XMS_ITS | Encounter Summary ---
Author Organization [facility] Address [address] [place] [address] Care Team Providers Care Store Operations Manager Name Role Phone Clara Motley MD Primary Care Provider + [phone] Daisy Ramsey MD Unavailable +[phone] Frank Livingston MD Unavailable +[phone] Shirley De La Garza APRN Unavailable Cordelia Engle MD Unavailable +[phone] Daja Sloan MD Unavailable +[phone] Luis Alberto Renee MD Unavailable [phone] Vandana Bates RN Unavailable +[phone] Clara Motley MD Unavailable +[phone] Clarence Hollingsworth MD Unavailable Dawn Agrawal LCSW Unavailable +[phone] Renay Ford Unavailable Clara Motley MD Unavailable +[phone] Encounter Details Date Type Department Care Team (Late st Contact Info) Description 07/13/2021 Scanned Document [address] [place] [phone] Provider, Generic Social History Tobacco Use [...] Office Visit [facility] [place] [address] [place] [address] Clara Motley MD [address] [place] [address] documented as of this encounter Visit Diagnoses Not on filedocumented in this encounter Care Teams Store Operations Manager Relationship Specialty Start Date End Date Clara Motley MD PCP - General Internal Medicine 10/16/15 Clara Motley MD [address] [place] [address] PCP - MSSP Attributed 03/24/21 4 Clara Motley MD [address] [place] [address] PCP - MSSP Attributed 06/22/24 Daisy Ramsey MD [address] [place] [address] Consulting Provider Dermatology 06/17/17 Frank Livingston MD [address] [place] [address] Gastroenterology 06/17/17 Shirley De La Garza APRN [address] [place] [address] Nurse Practitioner Gynecology 06/17/17 Cordelia Engle MD [address] [address] Nephrology 06/17/17 Daja Sloan MD [address] [address] Ophthalmology 06/17/17 Luis Alberto Renee MD [address] [place] [phone] Ophthalmology 05/19/18 Vandana Bates, JUAN MIGUEL [address] [phone] [facility] Community Industrial Conveyor Belt Repairer 04/01/19 10/08/24 Clarence Hollingsworth MD [address] [place] [address] Primary Business Process Architect Cardiovascular Disease 03/24/22 Dawn Agrawal LCSW [address] [phone] [facility] Community Industrial Conveyor Belt Repairer 10/08/24 10/26/24 Renay Ford [address] araceli [address] [address] [facility] Community Industrial Conveyor Belt Repairer 10/26/24 documented as of this encounter
--- OUTSIDE RECORDS SUMMARY | 2025-01-25 09:34 | XMS_ITS | Encounter Summary ---
Author Organization [facility] Address [address] [place] [address] Care Team Providers Care Pipe And Boiler Covers Supervisor Name Role Phone Clara Motley MD Primary Care Provider + [phone] Daisy Ramsey MD Unavailable +[phone] Frank Livingston MD Unavailable +[phone] Shirley De La Garza APRN Unavailable Cordelia Engle MD Unavailable +[phone] Daja Sloan MD Unavailable +[phone] Luis Alberto Renee MD Unavailable +[phone] Vandana Bates RN Unavailable +[phone] Clara Motley MD Unavailable +[phone] Clarence Hollingsworth MD Unavailable Dawn AgrwaalW Unavailable +[phone] Renay Ford Unavailable Clara Motley MD Unavailable +[phone] Encounter Details Date Type Department Care Team (Late st Contact Info) Description 02/19/[address] [place] [phone] Clara Motley MD 100 [facility] [address] [place] [address] Social History Tobacco Use Types Packs/Day Years [...] and clinical notes to be faxed to [phone] documented in this encounter Plan of Treatment Upcoming Encounters Date Type Department Care Team (Late st Contact Info) Description 04/19/2025 8:45 AM EST Office Visit [address] [place] [phone] Clara Motley MD [address] [place] [address] [place] [address] documented as of this encounter Visit Diagnoses Not on filedocumented in this encounter Care Teams Pipe And Boiler Covers Supervisor Relationship Specialty Start Date End Date Clara Motley MD PCP - General Internal Medicine 10/16/15 Clara Motley MD [address] [place] [address] PCP - MSSP Attributed 03/24/21 4 Clara Motley MD [address] [place] [address] PCP - MSSP Attributed 06/22/24 Daisy Ramsey MD 113 [facility] 304 [place] [address] Consulting Provider Dermatology 06/17/17 Frank Livingston MD [address] [place] [address] Gastroenterology 06/17/17 Shirley De La Garza APRN [address] [place] [address] Nurse Practitioner Gynecology 06/17/17 Cordelia Engle MD [address] [address] Nephrology 06/17/17 Daja Sloan MD [address] [address] Ophthalmology 06/17/17 Luis Alberto Renee MD [address] [place] [phone] Ophthalmology 05/19/18 Vandana Bates, JUAN MIGUEL [address] [place] [address] ICP Community Log Roper 04/01/19 10/08/24 Clarence Hollingsworth MD [address] [place] [address] [place] [address] Primary Unit Manager Rn Cardiovascular Disease 03/24/22 Dawn Agrawal LCSW [address] [address] ICP Community Log Roper 10/08/24 10/26/24 Renay Ford [address] araceli [address] [address] ICP Community Log Roper 10/26/24 documented as of this encounter
--- OUTSIDE RECORDS SUMMARY | 2025-01-25 09:34 | XMS_ITS | Encounter Summary ---
Author Organization [facility] Address 100 [place] [address] Care Team Providers Care Nurse Supervisor Name Role Phone Clara Motley MD Primary Care Provider + [phone] Daisy Ramsey MD Unavailable +[phone] Frank Livingston MD Unavailable +[phone] Shirley De La Garza APRN Unavailable Cordelia Engle MD Unavailable +[phone] Daja Sloan MD Unavailable +[phone] Clara Motley MD Unavailable +[phone] Arin Liu RN Unavailable +[phone] Luis Alberto Renee MD Unavailable +[phone] Vandana Bates RN Unavailable +[phone] Clara Motley MD Unavailable +[phone] Clarence Hollingsworth MD Unavailable Dawn Agrawal LCSW Unavailable +[phone] Renay Ford Unavailable Clara Motley MD Unavailable +[phone] Reason for Visit * Reason Comments Medication Refill Encounter Details Date Type Department Care Team (Late st Contact Info) Description 02/28/2016 Refill [facility] 1559 [facility] [place] [address] Clara Motley MD [address] [place] [address] HTN (hypertension), benign Social History Tobacco Use [...] Description 04/19/2025 8:45 AM EST Office Visit [address] [address] Clara Motley MD 100 [place] [address] documented as of this encounter Visit Diagnoses Diagnosis HTN (hypertension), benign Essential hypertension, benign documented in this encounter Care Teams Nurse Supervisor Relationship Specialty Start Date End Date Clara Motley MD PCP - General Internal Medicine 10/16/15 Clara Motley MD [address] [place] [address] PCP - MSSP Attributed 09/21/1803/23/ 0 Clara Motley MD [address] [place] [address] PCP - MSSP Attributed 03/24/21 4 Clara Motley MD [address] [place] [address] PCP - MSSP Attributed 06/22/24 Daisy Ramsey MD [address] [facility] [address] [place] [address] Consulting Provider Dermatology 06/17/17 Frank Livingston MD [address] [place] [address] Gastroenterology 06/17/17 Shirley De La Garza APRN [address] [place] [address] Nurse Practitioner Gynecology 06/17/17 Cordelia Engle MD [address] [address] Nephrology 06/17/17 Daja Sloan MD [address] [address] Ophthalmology 06/17/17 Arin Liu RN 1290 [facility] [address] [place], [place] [phone] [facility] Community Orthodontist Small Business Owner 01/29/18 04/01/19 Luis Alberto Renee MD [address] [place] [phone] Ophthalmology 05/19/18 Vandana Bates, RN [address] [place] [address] [facility] Community Orthodontist Small Business Owner 04/01/19 10/08/24 Clarence Hollingsworth MD 420 [facility] [place] [address] Teller Cardiovascular Disease 03/24/22 Dawn Agrawal LCSW [address] [facility] [address] [place] [address] [facility] Community Orthodontist Small Business Owner 10/08/24 10/26/24 Renay Ford [address] [address] [facility] Community Orthodontist Small Business Owner 10/26/24 documented as of this encounter
--- OUTSIDE RECORDS SUMMARY | 2025-01-25 09:34 | XMS_ITS | Encounter Summary ---
Author Organization [facility] Address [address] [place] [address] Care Team Providers Care Equipment Service Lead Name Role Phone Clara Motley MD Primary Care Provider + [phone] Daisy Ramsey MD Unavailable +[phone] Frank Livingston MD Unavailable +[phone] Shirley De La Garza APRN Unavailable Cordelia Engle MD Unavailable +[phone] Daja Sloan MD Unavailable +[phone] Clara Motley MD Unavailable +[phone] Arin Liu RN Unavailable +[phone] Luis Alberto Renee MD Unavailable +[phone] Vandana Bates RN Unavailable +[phone] Clara Motley MD Unavailable +[phone] Clarence Hollingsworth MD Unavailable Dawn Agrawal LCSW Unavailable +[phone] Renay Ford Unavailable Clara Motley MD Unavailable +[phone] Encounter Details Date Type Department Care Team (Late st Contact Info) Description 10/20/2015 Scanned Document [facility] [address] [address] Provider, Generic Social History Tobacco Use Types [...] Description 04/19/2025 8:45 AM EST Office Visit [address] [address] Clara Motley MD [address] [address] documented as of this encounter Procedures Procedure Name Priority Date/Time Associated Diagnosis Comments PATHOLOGY SURGERY 11/09/2015 LAB RESULT 10/20/2015 documented in this encounter Results * PATHOLOGY SURGERY (11/09/2015) Narrative 11/09/2015 Ordered by an unspecified provider. Generic Provider [facility] HX PATH PROCEDURES Edited R esult - Final * LAB RESULT (10/20/2015) Narrative 10/20/2015 Ordered by an unspecified provider. us Generic Provider HX AMB PROCEDURES Edited Result - Final documented in this encounter Visit Diagnoses Not on filedocumented in this encounter Care Teams Equipment Service Lead Relationship Specialty Start Date End Date Clara Motley MD PCP - General Internal Medicine 10/16/15 Clara Motley MD [address] [place] [address] PCP - MSSP Attributed 09/21/18 0 Clara Motley MD [address] [place] [address] PCP - MSSP Attributed 03/24/21 4 Clara Motley MD [address] [place] [address] PCP - MSSP Attributed 06/22/24 Daisy Ramsey MD [address] [facility] [address] [place] [address] Consulting Provider Dermatology 06/17/17 Frank Livingston MD [address] [place] [address] Gastroenterology 06/17/17 Shirley De La Garza APRN [address] [place] [address] Nurse Practitioner Gynecology 06/17/17 Cordelia Engle MD [address] [address] Nephrology 06/17/17 Daja Sloan MD [address] [address] Ophthalmology 06/17/17 Arin Liu RN 1290 [facility] [address] [place] [address] ICP Community Open Hearth Laborer 01/29/18 04/01/19 Luis Alberto Renee MD [address] [place] [address] Ophthalmology 05/19/18 Vandana Bates, JUAN MIGUEL [address] [address] [facility] Community Open Hearth Laborer 04/01/19 10/08/24 Clarence Hollingsworth MD [address] [place] [address] Primary Talent Consultant Cardiovascular Disease 03/24/22 Dawn Agrawal [facility] [address] [address] [facility] Community Open Hearth Laborer 10/08/24 10/26/24 Renay Ford [address] [address] ICP Community Open Hearth Laborer 10/26/24 documented as of this encounter
--- OUTSIDE RECORDS SUMMARY | 2025-01-25 09:34 | XMS_ITS | Encounter Summary ---
Author Organization [facility] Address [address] [place] [address] Care Team Providers Care Traffic Control Technician Name Role Phone Clara Motley MD Primary Care Provider + [phone] Daisy Ramsey MD Unavailable +[phone] Frank Livingston MD Unavailable +[phone] Shirley De La Garza APRN Unavailable Cordelia Engle MD Unavailable +[phone] Daja Sloan MD Unavailable +[phone] Clara Motley MD Unavailable +[phone] Arin Liu RN Unavailable +[phone] Luis Alberto Renee MD Unavailable [phone] Vandana Bates RN Unavailable +[phone] Clara Motley MD Unavailable +[phone] Clarence Hollingsworth MD Unavailable Dawn Agrawal LCSW Unavailable +[phone] Renay Ford Unavailable Clara Motley MD Unavailable +[phone] Encounter Details Date Type Department Care Team (Late st Contact Info) Description 02/24/2019 Scanned Document [facility] [address] [address] Provider, Generic Social History Tobacco Use Types [...] Description 04/19/2025 8:45 AM EST Office Visit [address] [phone] Clara Motley MD [address] [address] documented as of this encounter Visit Diagnoses Not on filedocumented in this encounter Care Teams Traffic Control Technician Relationship Specialty Start Date End Date Clara Motley MD PCP - General Internal Medicine 10/16/15 Clara Motley MD [address] [place] [address] PCP - MSSP Attributed 09/21/18 0 Clara Motley MD [address] [place] [address] PCP - MSSP Attributed 03/24/21 4 Clara Motley MD [address] [place] [address], [place] [address] PCP - MSSP Attributed 06/22/24 Daisy Ramsey MD [address] [place] [address] Consulting Provider Dermatology 06/17/17 Frank Livingston MD [address] [place] [address] Gastroenterology 06/17/17 Shirley De La Garza APRN [address] [place] [address] Nurse Practitioner Gynecology 06/17/17 Cordelia Engle MD [address] [address] Nephrology 06/17/17 Daja Sloan MD [address] [address] Ophthalmology 06/17/17 Arin Liu RN 1290 [facility] 4[address] [place] [address] ICP Community Tie Sawyer 01/29/18 04/01/19 Luis Alberto Renee MD 43 [place] [phone] Ophthalmology 05/19/18 Vandana Bates, JUAN MIGUEL [address] [facility] Fl 4 [place], [place] [phone] ICP Community Tie Sawyer 04/01/19 10/08/24 Clarence Hollingsworth MD 420 [place] [address] Primary Feed Crusher Operator Cardiovascular Disease 03/24/22 Dawn Agrawal LCSW [address] [address] [facility] Community Tie Sawyer 10/08/24 10/26/24 Renay Ford [address] araceli [address] [address] [facility] Community Tie Sawyer 10/26/24 documented as of this encounter
--- OUTSIDE RECORDS SUMMARY | 2025-01-25 09:34 | XMS_ITS | Encounter Summary ---
Author Organization [facility] Address [address] [place] [address] Care Team Providers Care Senior Product Analyst Name Role Phone Clara Motley MD Primary Care Provider + [phone] Daisy Ramsey MD Unavailable +[phone] Frank Livingston MD Unavailable +[phone] Shirley De La Garza APRN Unavailable Cordelia Engle MD Unavailable +[phone] Daja Sloan MD Unavailable +[phone] Luis Alberto Renee MD Unavailable [phone] Vandana Bates RN Unavailable [phone] Clara Motley MD Unavailable +[phone] Clarence Hollingsworth MD Unavailable Dawn Agrawal LCSW Unavailable +[phone] Renay Ford Unavailable Clara Motley MD Unavailable +[phone] Encounter Details Date Type Department Care Team (Late st Contact Info) Description 10/24/2020 Scanned Document [address] [place] [phone] Provider, Generic Social History Tobacco Use [...] Description 04/19/2025 8:45 AM EST Office Visit [facility] [place] [address] [place] [address] Clara Motley MD [address] [place] [address] documented as of this encounter Visit Diagnoses Not on filedocumented in this encounter Care Teams Senior Product Analyst Relationship Specialty Start Date End Date Clara Motley MD PCP - General Internal Medicine 10/16/15 Clara Motley MD [address] [place] [address] PCP - MSSP Attributed 03/24/21 4 Clara Motley MD [address] [place] [address] PCP - MSSP Attributed 06/22/24 Daisy Ramsey MD [address] [place] [address] Consulting Provider Dermatology 06/17/17 Frank Livingston MD [address] [place] [address] Gastroenterology 06/17/17 Shirely De La Garza APRN [address] [place] [address] Nurse Practitioner Gynecology 06/17/17 Cordelia Engle MD [address] [address] Nephrology 06/17/17 aDja Sloan MD [address] [address] Ophthalmology 06/17/17 Luis Alberto Renee MD [address] [place] [phone] Ophthalmology 05/19/18 Vandana Bates, JUAN MIGUEL [address] [phone] [facility] Community Hoist Operator 04/01/19 10/08/24 Clarence Hollingsworth MD [address] [place] [address] Primary Associate Quality Engineer Cardiovascular Disease 03/24/22 Dawn Agrawal LCSW [address] [phone] [facility] Community Hoist Operator 10/08/24 10/26/24 Renay Ford [address] araceli [address] [address] ICP Community Hoist Operator 10/26/24 documented as of this encounter
--- OUTSIDE RECORDS SUMMARY | 2025-01-25 09:34 | XMS_ITS | Encounter Summary ---
Author Organization [facility] Address 100 [place] [address] Care Team Providers Care Cell Technician Name Role Phone Clara Motley MD Primary Care Provider + [phone] Daisy Ramsey MD Unavailable +[phone] Frank Livingston MD Unavailable +[phone] Shirley De La Garza APRN Unavailable Cordelia Engle MD Unavailable +[phone] Daja Sloan MD Unavailable [phone] Luis Alberto Renee MD Unavailable Vandana Bates RN Unavailable +[phone] Clarence Hollingsworth MD Unavailable Dawn Agrawal [facility] Unavailable +[phone] Renay Ford Unavailable Clara Motley MD Unavailable +[phone] Encounter Details Date Type Department Care Team (Late st Contact Info) Description 08/24/2024 Scanned Document [facility] [address] [place] [address] Ophthalmology, Scan Social History Tobacco Use Types Packs/Day Years Used Date Smoking Tobacco: Never Smokeless Tobacco: Never Alcohol Use Standard Drinks/Week Comments Yes 1 (1 standard drink = 0.6 oz pur e alcohol) social [facility] Utilities Answer Date Recorded In the past [...] and Family Not on file 02/05/2024 Attends Conf[employer] Services Not on file 02/04 Active Member [...] any time in the past 12 m [facility], were you homeless or living in a mcfp (including now)? No 02/05/2024 Education Answer Date [...] Description 04/19/2025 8:45 AM EST Office Visit [facility] [address] [place] [address] Clara Motley MD [address] [place] [address] documented as of this encounter Visit Diagnoses Not on filedocumented in this encounter Care Teams Cell Technician Relationship Specialty Start Date End Date Clara Motley MD PCP - General Internal Medicine 10/16/15 Clara Motley MD [address] [place] [address] PCP - MSSP Attributed 06/22/24 Daisy Ramsey MD [address] [facility] [address] [place] [address] Consulting Provider Dermatology 06/17/17 Frank Livingston MD [address] [place] [address] Gastroenterology 06/17/17 Shirley De La Garza APRN [address] [place] [address] Nurse Practitioner Gynecology 06/17/17 Cordelia Engle MD [address] [address] Nephrology 06/17/17 Daja Sloan MD [address] [address] Ophthalmology 06/17/17 Luis Alberto Renee MD [address] [place] [phone] Ophthalmology 05/19/18 Vandana Bates, JUAN MIGUEL [address] [address] [facility] Community Director Global 04/01/19 10/08/24 Clarence Hollingsworth MD [address] [place] [address] Primary Cut And Print Machine Operator Cardiovascular Disease 03/24/22 Dawn Agrawal LCSW [address] araceli [address] [address] ICP Community Director Global 10/08/24 10/26/24 Renay Ford [address] [address] ICP Community Director Global 10/26/24 documented as of this encounter
--- OUTSIDE RECORDS SUMMARY | 2025-01-25 09:34 | XMS_ITS | Encounter Summary ---
Author Organization [facility] Address [address] [place] [address] Care Team Providers Care Tightener Name Role Phone Clara Motley MD Primary Care Provider + [phone] Daisy Ramsey MD Unavailable +[phone] Frank Livingston MD Unavailable +[phone] Shirley De La Garza APRN Unavailable Cordelia Engle MD Unavailable +[phone] Daja Sloan MD Unavailable +[phone] Luis Alberto Renee MD Unavailable [phone] Vandana Bates RN Unavailable +[phone] Clara Motley MD Unavailable +[phone] Clarence Hollingsworth MD Unavailable Dawn Agrawal LCSW Unavailable +[phone] Renay Ford Unavailable Clara Motley MD Unavailable +[phone] Encounter Details Date Type Department Care Team (Late st Contact Info) Description 06/12/2021 Scanned Document [address] [place] [phone] Provider, Generic Social History Tobacco Use [...] Upcoming Encounters Date Type Department Care Team ([facility] st Contact Info) Description 04/19/2025 8:45 AM EST Office Visit [facility] 100 [facility] [address] [place] [address] Clara Motley MD 100 [facility] [address] [place] [address] documented as of this encounter Visit Diagnoses Not on filedocumented in this encounter Care Teams Tightener Relationship Specialty Start Date End Date Clara Motley MD PCP - General Internal Medicine 10/16/15 Clara Motley MD 100 [facility] [address] [place] [address] PCP - MSSP Attributed 03/24/21 4 Clara Motley MD 100 [facility] [address] [place] [address] PCP - MSSP Attributed 06/22/24 Daisy Ramsey MD [address] [place] [address] Consulting Provider Dermatology 06/17/17 Frank Livingston MD [address] [place] [address] Gastroenterology 06/17/17 Shirley De La Garza APRN [address] [place] [address] Nurse Practitioner Gynecology 06/17/17 Cordelia Engle MD [address] [address] Nephrology 06/17/17 Daja Sloan MD [address] [address] Ophthalmology 06/17/17 Luis Alberto Renee MD 43 [place] [address] Ophthalmology 05/19/18 Vandana Bates, RN [address] [phone] [facility] Community Deburr Operator 04/01/19 10/08/24 Clarence Hollingsworth MD 420 [facility] [place] [address] Primary Marbleizer Cardiovascular Disease 03/24/22 Dawn Agrawal LCSW [address] [facility] 4[address] [place] [address] ICP Community Deburr Operator 10/08/24 10/26/24 Renay Ford [address] [place] [address] [facility] Community Deburr Operator 10/26/24 documented as of this encounter
--- OUTSIDE RECORDS SUMMARY | 2025-01-25 09:35 | XMS_ITS | Encounter Summary ---
Author Organization [facility] Address [address] [place] [address] Care Team Providers Care Cotton Sampler Name Role Phone Clara Motley MD Primary Care Provider + [phone] Daisy Ramsey MD Unavailable +[phone] Frank Livingston MD Unavailable +[phone] Shirley De La Garza APRN Unavailable Cordelia Engle MD Unavailable +[phone] Daja Sloan MD Unavailable +[phone] Clara Motley MD Unavailable +[phone] Arin Liu RN Unavailable +[phone] Luis Alberto Renee MD Unavailable +[phone] Vandana Bates RN Unavailable +[phone] Clara Motley MD Unavailable +[phone] Clarence Hollingsworth MD Unavailable Dawn Agrawal LCSW Unavailable +[phone] Renay Ford Unavailable Clara Motley MD Unavailable +[phone] Encounter Details Date Type Department Care Team (Late st Contact Info) Description 04/23/2015 Scanned Document [facility] [address] [address] Provider, Generic Social History Tobacco Use Types [...] Description 04/19/2025 8:45 AM EST Office Visit [address] [address] Clara Motley MD [address] [address] documented as of this encounter Visit Diagnoses Not on filedocumented in this encounter Care Teams Cotton Sampler Relationship Specialty Start Date End Date Clara Motley MD PCP - General Internal Medicine 10/16/15 Clara Motley MD [address] [place] [address] PCP - MSSP Attributed 09/21/18 0 Clara Motley MD [address] [place] [address] PCP - MSSP Attributed 03/24/21 4 Clara Motley MD [address] [place] [address] PCP - MSSP Attributed 06/22/24 Daisy Ramsey MD [address] [facility] [address] [place] [address] Consulting Provider Dermatology 06/17/17 Frank Livingston MD [address] [place] [address] Gastroenterology 06/17/17 Shirley De La Garza APRN [address] [place] [address] Nurse Practitioner Gynecology 06/17/17 Cordelia Engle MD [address] [address] Nephrology 06/17/17 Daja Sloan MD [address] [address] Ophthalmology 06/17/17 Arin Liu RN [facility]90 [facility] [address] [place] [address] ICP Community Corner Former 01/29/18 04/01/19 Luis Alberto Renee MD 43 [place] [address] Ophthalmology 05/19/18 Vandana Bates, JUAN MIGUEL [address] [facility] 4 [place], [place] [id number] ICP Community Corner Former 04/01/19 10/08/24 Clarence Hollingsworth MD 420 [place] [address] Primary Lead Trainer Cardiovascular Disease 03/24/22 Dawn Agrawal LCSW [address] [address] [facility] Community Corner Former 10/08/24 10/26/24 Renay Ford [address] [address] [facility] Community Corner Former 10/26/24 documented as of this encounter
--- OUTSIDE RECORDS SUMMARY | 2025-01-25 09:35 | XMS_ITS | Encounter Summary ---
Author Organization [facility] Address [address] [place] [address] Care Team Providers Care Glass Belt Sander Name Role Phone Clara Motley MD Primary Care Provider + [phone] Daisy Ramsey MD Unavailable +[phone] Frank Livingston MD Unavailable +[phone] Shirley De La Garza APRN Unavailable Cordelia Engle MD Unavailable +[phone] Daja Sloan MD Unavailable +[phone] Clara Motley MD Unavailable +[phone] Arin Liu RN Unavailable +[phone] Luis Alberto Renee MD Unavailable +[phone] Vandana Bates RN Unavailable +[phone] Clara Motley MD Unavailable +[phone] Clarence Hollingsworth MD Unavailable Dawn Agrawal LCSW Unavailable +[phone] Renay Ford Unavailable Clara Motley MD Unavailable +[phone] Encounter Details Date Type Department Care Team (Late st Contact Info) Description 06/24/2017 Scanned Document [facility] [address] [address] Provider, Generic Social History Tobacco Use Types [...] Description 04/19/2025 8:45 AM EST Office Visit [address] [address] Clara Motley MD [address] [address] documented as of this encounter Visit Diagnoses Not on filedocumented in this encounter Care Teams Glass Belt Sander Relationship Specialty Start Date End Date Clara Motley MD PCP - General Internal Medicine 10/16/15 Clara Motley MD [address] [place] [address] PCP - MSSP Attributed 09/21/18 0 Clara Motley MD [address] [place] [address] PCP - MSSP Attributed 03/24/21 4 Clara Motley MD [address] [place] [address] PCP - MSSP Attributed 06/22/24 Daisy Ramsey MD [address] [facility] [address] [place] [address] Consulting Provider Dermatology 06/17/17 Frank Livingston MD [address] [place] [address] Gastroenterology 06/17/17 Shirley De La Garza APRN [address] [place] [address] Nurse Practitioner Gynecology 06/17/17 Cordelia Engle MD [address] [address] Nephrology 06/17/17 Daja Sloan MD [address] [address] Ophthalmology 06/17/17 Arin Liu RN [facility] [place] [address] ICP Community Director Of Primary Care 01/29/18 04/01/19 Luis Alberto Renee MD 43 [place] [address] Ophthalmology 05/19/18 Vandana Bates, JUAN MIGUEL [address] [facility] 4 [place], [place] [id number] ICP Community Director Of Primary Care 04/01/19 10/08/24 Clarence Hollingsworth MD 420 [facility] [place] [address] Primary Filer And Sander Cardiovascular Disease 03/24/22 Dawn Agrawal LCSW [address] [address] [facility] Community Director Of Primary Care 10/08/24 10/26/24 Renay Ford [address] [address] [facility] Community Director Of Primary Care 10/26/24 documented as of this encounter
--- OUTSIDE RECORDS SUMMARY | 2025-01-25 09:35 | XMS_ITS | Encounter Summary ---
Author Organization [facility] Address [address] [place] [address] Care Team Providers Care Artist Mannequin Coloring Name Role Phone Clara Motley MD Primary Care Provider + [phone] Daisy Ramsey MD Unavailable +[phone] Frank Livingston MD Unavailable +[phone] Shirley De La Garza APRN Unavailable Cordelia Engle MD Unavailable +[phone] Daja Sloan MD Unavailable +[phone] Clara Motley MD Unavailable +[phone] Arin Liu RN Unavailable +[phone] Luis Alberto Renee MD Unavailable +[phone] Vandana Bates RN Unavailable +[phone] Clara Motley MD Unavailable +[phone] Clarence Hollingsworth MD Unavailable Dawn Agrawal LCSW Unavailable +[phone] Renay Ford Unavailable Clara Motley MD Unavailable +[phone] Encounter Details Date Type Department Care Team (Late st Contact Info) Description 11/25/2018 Scanned Document [facility] [address] [address] Gastroenterology, Scan Social History Tobacco Use Types [...] Description 04/19/2025 8:45 AM EST Office Visit [address] [address] Clara Motley MD [address] [place] [address] documented as of this encounter Procedures Procedure Name Priority Date/Time Associated Diagnosis Comments PATHOLOGY GENERAL 12/03/2018 documented in this encounter Results * PATHOLOGY GENERAL (12/03/2018) 12/03/2018 us Scan Gastroenterology [facility] HX PATH PROCEDURES Radames yordan Result - Final documented in this encounter Visit Diagnoses Not on filedocumented in this encounter Care Teams Artist Mannequin Coloring Relationship Specialty Start Date End Date Clara Motley MD PCP - General Internal Medicine 10/16/15 Clara Motley MD [address] [place] [address] [address] [place] [address] PCP - MSSP Attributed 09/21/18 0 Clara Motley MD [address] [place] [address] PCP - MSSP Attributed 03/24/2103/23/2 4 Clara Motley MD [address] [place] [address] PCP - MSSP Attributed 06/22/24 Daisy Ramsey MD [address] [facility] [address] [place] [address] Consulting Provider Dermatology 06/17/17 Frank Livingston MD [address] [place] [address] Gastroenterology 06/17/17 Shirley De La Garza APRN [address] [place] [address] Nurse Practitioner Gynecology 06/17/17 Cordelia Engle MD [address] [address] Nephrology 06/17/17 Daja Sloan MD [address] [address] Ophthalmology 06/17/17 Arin Liu RN 1290 [facility] [address] [place], [place] [address] [facility] Community Rn Procedures 01/29/18 04/01/19 Luis Alberto Renee MD [address] [place] [address] Ophthalmology 05/19/18 Vandana Bates, RN [address] [address] [facility] Community Rn Procedures 04/01/19 10/08/24 Clarence Hollingsworth MD [address] [place] [address] Primary Crayon Sawyer Cardiovascular Disease 03/24/22 Dawn Agrawal LCSW [address] [address] [facility] Community Rn Procedures 10/08/24 10/26/24 Renay Ford [address] araceli [address] [address] [facility] Community Rn Procedures 10/26/24 documented as of this encounter
--- OUTSIDE RECORDS SUMMARY | 2025-01-25 09:35 | XMS_ITS | Encounter Summary ---
Author Organization [facility] Address [address] [place] [address] Care Team Providers Care Rn Appeals Name Role Phone Clara Motley MD Primary Care Provider + [phone] Daisy Ramsey MD Unavailable +[phone] Frank Livingston MD Unavailable +[phone] Shirley De La Garza APRN Unavailable Cordelia Engle MD Unavailable +[phone] Daja Sloan MD Unavailable +[phone] Clara Motley MD Unavailable +[phone] Arin Liu RN Unavailable +[phone] Luis Alberto Renee MD Unavailable [phone] Vandana Bates RN Unavailable +[phone] Clara Motley MD Unavailable +[phone] Clarence Hollingsworth MD Unavailable Dawn Agrawal LCSW Unavailable +[phone] Renay Ford Unavailable Clara Motley MD Unavailable +[phone] Reason for Visit * Reason Comments Medication Refill Encounter Details Date Type Department Care Team (Late st Contact Info) Description 09/05/2018 Refill [facility] [address] [phone] Clara Motley MD [address] [address] Hyperlipidemia, unspecified hyperlipidemia type; Diabetes mellitus without [...] 04/19/2025 8:45 AM EST Office Visit [address] [address] Clara Motley MD [address] [place] [address] documented as of this encounter Visit Diagnoses Diagnosis Hyperlipidemia, unspecified hyperlipidemia type Diabetes mellitus without complication (HCC) Type II or unspecified type diabetes mellitus without mention of complication, not stated as uncontrolled Hypertension Unspecified essential hypertension Pure hypercholesterolemia documented in this encounter Care Teams Rn Appeals Relationship Specialty Start Date End Date Clara Motley MD PCP - General Internal Medicine 10/16/15 Clara Motley MD [address] [place] [address] PCP - MSSP Attributed 09/21/18 0 Clara Motley MD [address] [place] [address] PCP - MSSP Attributed 03/24/21 4 Clara Motley MD [address] [place] [address] PCP - MSSP Attributed 06/22/24 Daisy Ramsey MD 113 [facility] [address] [place] [address] Consulting Provider Dermatology 06/17/17 Frank Livingston MD [address] [place] [address] Gastroenterology 06/17/17 Shirley De La Garza APRN [address] [place] [address] Nurse Practitioner Gynecology 06/17/17 Cordelia Engle MD [address] [address] Nephrology 06/17/17 Daja Sloan MD [address] [address] Ophthalmology 06/17/17 Arin Liu, JUAN MIGUEL 1290 [facility] [address] [place] [address] [facility] Community Radio Division Lieutenant 01/29/18 04/01/19 Luis Alberto Renee MD [address] [place] [address] Ophthalmology 05/19/18 Vandana Bates, JUAN MIGUEL [address] [place] [address] ICP Community Radio Division Lieutenant 04/01/19 10/08/24 Clarence Hollingsworth MD [address] [place] [address] Primary Space Control Agent Cardiovascular Disease 03/24/22 Dawn Agrawal LCSW [address] [address] [facility] Community Radio Division Lieutenant 10/08/24 10/26/24 Renay Ford [address]aceli [address] [address] [facility] Community Radio Division Lieutenant 10/26/24 documented as of this encounter
--- OUTSIDE RECORDS SUMMARY | 2025-01-25 09:35 | XMS_ITS | Encounter Summary ---
Author Organization [facility] Address [address] [place] [address] Care Team Providers Care Corporate Sales Manager Name Role Phone Clara Motley MD Primary Care Provider + [phone] Daisy Ramsey MD Unavailable +[phone] Frank Livingston MD Unavailable +[phone] Shirley De La Garza APRN Unavailable Cordelia Engle MD Unavailable Daja Sloan MD Unavailable +[phone] Clara Motley MD Unavailable +[phone] Arin Liu RN Unavailable +[phone] Luis Alberto Renee MD Unavailable [phone] Vandana Bates RN Unavailable [phone] Clara Motley MD Unavailable +[phone] Clarence Hollingsworth MD Unavailable Dawn Agrawal LCSW Unavailable +[phone] Renay Ford Unavailable Clara Motley MD Unavailable +[phone] Reason for Visit * Reason Comments Medication Refill Encounter Details Date Type Department Care Team (Late st Contact Info) Description 12/12/[address] [address] Clara Motley MD [address] [place] [address] Diabetes mellitus without complication (HCC) Social History [...] Description 04/19/2025 8:45 AM EST Office Visit [address] [phone] Clara Motley MD [address] [place] [address] documented as of this encounter Visit Diagnoses Diagnosis Diabetes mellitus without complication (HCC) Type II or unspecified type diabetes mellitus without mention of complication, not stated as uncontrolled documented in this encounter Care Teams Corporate Sales Manager Relationship Specialty Start Date End Date Clara Motley MD PCP - General Internal Medicine 10/16/15 Clara Motley MD [address] [place] [address] PCP - MSSP Attributed 09/21/1803/23/ 0 Clara Motley MD [address] [place] [address] PCP - MSSP Attributed 03/24/21 4 Clara Motley MD [address] [place] [address] PCP - MSSP Attributed 06/22/24 Daisy Ramsey MD [address] [place] [address] Consulting Provider Dermatology 06/17/17 Frank Livingston MD [address] [place] [address] Gastroenterology 06/17/17 Shirley De La Garza APRN [address] [place] [address] Nurse Practitioner Gynecology 06/17/17 Cordelia Engle MD [address] [address] Nephrology 06/17/17 Daja Sloan MD [address] [address] Ophthalmology 06/17/17 Arin Liu, JUAN MIGUEL 1290 [facility] [address] [place], [place] [phone] [facility] Community Portfolio Lead 01/29/18 04/01/19 Luis Alberto Renee MD [address] [place] [phone] Ophthalmology 05/19/18 Vandana Bates, RN [address] [place] [address] [facility] Community Portfolio Lead 04/01/19 10/08/24 Clarence Hollingsworth MD [address] [place] [address] Primary Carbonator Cardiovascular Disease 03/24/22 Dawn Agrawla LCSW [address] [address] [facility] Community Portfolio Lead 10/08/24 10/26/24 Renay Ford [address] araceli [address] [address] [facility] Community Portfolio Lead 10/26/24 documented as of this encounter
--- OUTSIDE RECORDS SUMMARY | 2025-01-25 09:35 | XMS_ITS | Encounter Summary ---
Author Organization [facility] Address [address] [place] [address] Care Team Providers Care Dry Kiln Operator Name Role Phone Clara Motley MD Primary Care Provider + [phone] Daisy Ramsey MD Unavailable +[phone] Frank Livingston MD Unavailable +[phone] Shirley De La Garza APRN Unavailable Cordelia Engle MD Unavailable +[phone] Daja Sloan MD Unavailable +[phone] Clara Motley MD Unavailable +[phone] Arin Liu RN Unavailable +[phone] Luis Alberto Renee MD Unavailable +[phone] Vandana Batse RN Unavailable +[phone] Clara Motley MD Unavailable [phone] Clarence Hollingsworth MD Unavailable Dawn Agrawal LCSW Unavailable +[phone] Renay Ford Unavailable Clara Motley MD Unavailable +[phone] Encounter Details Date Type Department Care Team (Late st Contact Info) Description 06/30/2017 Scanned Document [facility] [address] [address] Provider, Generic Social History Tobacco Use Types [...] Description 04/19/2025 8:45 AM EST Office Visit [address] [address] Clara Motley MD [address] [address] documented as of this encounter Visit Diagnoses Not on filedocumented in this encounter Care Teams Dry Kiln Operator Relationship Specialty Start Date End Date Clara Motley MD PCP - General Internal Medicine 10/16/15 Clara Motley MD [address] [place] [address] PCP - MSSP Attributed 09/21/18 0 Clara Motley MD [address] [place] [address] PCP - MSSP Attributed 03/24/21 4 Clara Motley MD [address] [place] [address] PCP - MSSP Attributed 06/22/24 Daisy Ramsey MD [address] [facility] [address] [place] [address] Consulting Provider Dermatology 06/17/17 Frank Livingston MD [address] [place] [address] Gastroenterology 06/17/17 Shirley De La Garza APRN [address] [place] [address] Nurse Practitioner Gynecology 06/17/17 Cordelia Engle MD [address] [address] Nephrology 06/17/17 Daja Sloan MD [address] [address] Ophthalmology 06/17/17 Arin Liu RN [facility] [address] [place] [address] ICP Community Registered Dental Assistant Rda 01/29/18 04/01/19 Luis Alberto Renee MD 43 [place] [address] Ophthalmology 05/19/18 Vandana Bates, JUAN MIGUEL [address] [facility] 4 [place], [place] [address] ICP Community Registered Dental Assistant Rda 04/01/19 10/08/24 Clarence Hollingsworth MD 420 [facility] [place] [address] Primary Paper Steamer Cardiovascular Disease 03/24/22 Dawn Agrawal LCSW [address] [address] [facility] Community Registered Dental Assistant Rda 10/08/24 10/26/24 Renay Ford [address] [address] [facility] Community Registered Dental Assistant Rda 10/26/24 documented as of this encounter
--- OUTSIDE RECORDS SUMMARY | 2025-01-25 09:35 | XMS_ITS | Encounter Summary ---
Author Organization [facility] Address [address] [place] [address] Care Team Providers Care Systems Project Manager Name Role Phone Clara Motley MD Primary Care Provider + [phone] Daisy Ramsey MD Unavailable [phone] Frank Livingston MD Unavailable +[phone] Shirley De La Garza APRN Unavailable Cordelia Engle MD Unavailable +[phone] Daja Sloan MD Unavailable +[phone] Clara Motley MD Unavailable +[phone] Arin Liu RN Unavailable +[phone] Luis Alberto Renee MD Unavailable +[phone] Vandana Bates RN Unavailable +[phone] Clara Motley MD Unavailable +[phone] Clarence Hollingsworth MD Unavailable Dawn Agrawal LCSW Unavailable +[phone] Renay Ford Unavailable Clara Motley MD Unavailable +[phone] Encounter Details Date Type Department Care Team (Late st Contact Info) Description 10/12/2018 Scanned Document [facility] [address] [address] Gastroenterology, Scan Social History Tobacco Use Types [...] Description 04/19/2025 8:45 AM EST Office Visit [address] [address] Clara Motley MD [address] [address] documented as of this encounter Procedures Procedure Name Priority Date/Time Associated Diagnosis Comments PATHOLOGY GENERAL 10/15/2018 documented in this encounter Results * PATHOLOGY GENERAL (10/15/2018) 10/15/2018 us Scan Gastroenterology [facility] HX PATH PROCEDURES Radames yordan Result - Final documented in this encounter Visit Diagnoses Not on filedocumented in this encounter Care Teams Systems Project Manager Relationship Specialty Start Date End Date Clara Motley MD PCP - General Internal Medicine 10/16/15 Clara Motley MD [address] [place] [address] [address] [place] [address] PCP - MSSP Attributed 09/21/18 0 Clara Motley MD [address] [place] [address] PCP - MSSP Attributed 03/24/2103/23/2 4 Clara Motley MD [address] [place] [address] PCP - MSSP Attributed 06/22/24 Daisy Ramsey MD [address] [facility] [address] [place] [address] Consulting Provider Dermatology 06/17/17 Frank Livingston MD [address] [place] [address] Gastroenterology 06/17/17 Shirley De La Garza APRN [address] [place] [address] Nurse Practitioner Gynecology 06/17/17 Cordelia Engle MD [address] [address] Nephrology 06/17/17 Daja Sloan MD [address] [address] Ophthalmology 06/17/17 Arin Liu RN 1290 [facility] [address] [place], [place] [phone] [facility] Community Director Of Elementary Education 01/29/18 04/01/19 Luis Alberto Renee MD [address] [place] [address] Ophthalmology 05/19/18 Vandana Bates, RN [address] [address] [facility] Community Director Of Elementary Education 04/01/19 10/08/24 Clarence Hollingsworth MD [address] [place] [address] Primary Power Shovel Engineer Cardiovascular Disease 03/24/22 Dawn Agrawal LCSW [address] [address] [facility] Community Director Of Elementary Education 10/08/24 10/26/24 Renay Ford [address] araceli [address] [address] [facility] Community Director Of Elementary Education 10/26/24 documented as of this encounter
--- OUTSIDE RECORDS SUMMARY | 2025-01-25 09:35 | XMS_ITS | Encounter Summary ---
Author Organization [facility] Address [address] [place] [address] Care Team Providers Care Semiconductor Packages Sealer Name Role Phone Clara Motley MD Primary Care Provider + [phone] Daisy Ramsey MD Unavailable +[phone] Frank Livingston MD Unavailable +[phone] Shirley De La Garza APRN Unavailable Cordelia Engle MD Unavailable Daja Sloan MD Unavailable +[phone] Clara Motley MD Unavailable +[phone] Arin Liu RN Unavailable +[phone] Luis Alberto Renee MD Unavailable +[phone] Vandana Bates RN Unavailable +[phone] Clara Motley MD Unavailable +[phone] Clarence Hollingsworth MD Unavailable Dawn Agrawal LCSW Unavailable +[phone] Renay Ford Unavailable Clara Motley MD Unavailable +[phone] Encounter Details Date Type Department Care Team (Late st Contact Info) Description 06/13/2015 Scanned Document [facility] [address] [address] Provider, Generic Social History Tobacco Use Types [...] Description 04/19/2025 8:45 AM EST Office Visit [address] [address] Clara Motley MD [address] [address] documented as of this encounter Visit Diagnoses Not on filedocumented in this encounter Care Teams Semiconductor Packages Sealer Relationship Specialty Start Date End Date Clara Motley MD PCP - General Internal Medicine 10/16/15 Clara Motley MD [address] [place] [address] PCP - MSSP Attributed 09/21/18 0 Clara Motley MD [address] [place] [address] PCP - MSSP Attributed 03/24/21 4 Clara Motley MD [address] [place] [address] PCP - MSSP Attributed 06/22/24 Daisy Ramsey MD [address] [facility] [address] [place] [address] Consulting Provider Dermatology 06/17/17 Frank Livingston MD [address] [place] [address] Gastroenterology 06/17/17 Shirley De La Garza APRN [address] [place] [address] Nurse Practitioner Gynecology 06/17/17 Cordelia Engle MD [address] [address] Nephrology 06/17/17 Daja Sloan MD [address] [address] Ophthalmology 06/17/17 Arin Liu RN 1290 [facility] [address] [place] [address] ICP Community Quarantine Inspector 01/29/18 04/01/19 Luis Alberto Renee MD 43 [place] [address] Ophthalmology 05/19/18 Vandana Bates, JUAN MIGUEL [address] [facility] 4 [place], [place] [phone] ICP Community Quarantine Inspector 04/01/19 10/08/24 Clarence Hollingsworth MD [address] [place] [address] Primary Soap Chipper Cardiovascular Disease 03/24/22 Dawn Agrawal LCSW [address] [address] [facility] Community Quarantine Inspector 10/08/24 10/26/24 Renay Ford [address] [address] [facility] Community Quarantine Inspector 10/26/24 documented as of this encounter
--- OUTSIDE RECORDS SUMMARY | 2025-01-25 09:35 | XMS_ITS | Encounter Summary ---
Author Organization [facility]ly [facility] Address [address] [place] [address] Care Team Providers Care Instrument Mechanics Supervisor Name Role Phone Clara Motley MD Primary Care Provider + [phone] Daisy Ramsey MD Unavailable +[phone] Frank Livingston MD Unavailable +[phone] Shirley De La Garza APRN Unavailable Cordelia Engle MD Unavailable +[phone] Daja Sloan MD Unavailable +[phone] Luis Alberto Renee MD Unavailable +[phone] Vandana Bates RN Unavailable +[phone] Clara Motley MD Unavailable +[phone] Clarence Hollingsworth MD Unavailable Dawn Agrawal LCSW Unavailable +[phone] Renay Ford Unavailable Clara Motley MD Unavailable +[phone] Encounter Details Date Type Department Care Team (Late st Contact Info) Description 10/23/2022 Scanned Document [facility] NEPHROLOGY SCAN Nephrology, Scan Social History Tobacco [...] Description 04/19/2025 8:45 AM EST Office Visit [facility] [address] [place] [address] Clara Motley MD [address] [place] [address] documented as of this encounter Visit Diagnoses Not on filedocumented in this encounter Care Teams Instrument Mechanics Supervisor Relationship Specialty Start Date End Date Clara Motley MD PCP - General Internal Medicine 10/16/15 Clara Motley MD [address] [place] [address] PCP - MSSP Attributed 03/24/21 4 Clara Motley MD [address] [place] [address] PCP - MSSP Attributed 06/22/24 Daisy Ramsey MD [address] [place] [address] Consulting Provider Dermatology 06/17/17 Frank Livingston MD [address] [place] [address] Gastroenterology 06/17/17 Shirley De La Garza APRN [address] [place] [address] Nurse Practitioner Gynecology 06/17/17 Cordelia Engle MD [address] [address] Nephrology 06/17/17 Daja Sloan MD [address] [address] Ophthalmology 06/17/17 Luis Alberto Renee MD [address] [place] [phone] Ophthalmology 05/19/18 Vandnaa Bates, JUAN MIGUEL [address] [address] ICP Community Coke Loader 04/01/19 10/08/24 Clarence Hollingsworth MD [address] [place] [address] Primary Otr Refrigerated Cdl Truck Driver Cardiovascular Disease 03/24/22 Dawn Agrawal LCSW [address] [address] ICP Community Coke Loader 10/08/24 10/26/24 Renay Ford [address] [address] ICP Community Coke Loader 10/26/24 documented as of this encounter
--- OUTSIDE RECORDS SUMMARY | 2025-01-25 09:35 | XMS_ITS | Encounter Summary ---
Author Organization [facility] Address [address] [place] [address] Care Team Providers Care Ingredient Handler Name Role Phone Clara Motley MD Primary Care Provider + [phone] Daisy Ramsey MD Unavailable +[phone] Frank Livingston MD Unavailable +[phone] Shirley De La Garza APRN Unavailable Cordelia Engle MD Unavailable +[phone] Daja Sloan MD Unavailable +[phone] Clara Motley MD Unavailable +[phone] Arin Liu RN Unavailable +[phone] Luis Alberto Renee MD Unavailable +[phone] Vandana Bates RN Unavailable +[phone] Clara Motley MD Unavailable +[phone] Clarence Hollingsworth MD Unavailable Dawn Agrawal LCSW Unavailable +[phone] Renay Ford Unavailable Clara Motley MD Unavailable +[phone] Encounter Details Date Type Department Care Team (Late st Contact Info) Description 10/16/2018 Scanned Document [facility] [address] [address] Provider, Generic Social History Tobacco Use Types [...] Description 04/19/2025 8:45 AM EST Office Visit [address] [phone] Clara Motley MD [address] [address] documented as of this encounter Visit Diagnoses Not on filedocumented in this encounter Care Teams Ingredient Handler Relationship Specialty Start Date End Date Clara Motley MD PCP - General Internal Medicine 10/16/15 Clara Motley MD [address] [place] [address] PCP - MSSP Attributed 09/21/18 0 Clara Motley MD [address] [place] [address] PCP - MSSP Attributed 03/24/21 4 Clara Motley MD [address] [place] [address], [place] [address] PCP - MSSP Attributed 06/22/24 Daisy Ramsey MD [address] [place] [address] Consulting Provider Dermatology 06/17/17 Frank Livingston MD [address] [place] [address] Gastroenterology 06/17/17 Shirley De La Garza APRN [address] [place] [address] Nurse Practitioner Gynecology 06/17/17 Cordelia Engle MD [address] [address] Nephrology 06/17/17 Daja Sloan MD [address] [address] Ophthalmology 06/17/17 Arin Liu RN 1290 [facility] [address] [place] [address] ICP Community Accounts Payable Lead 01/29/18 04/01/19 Luis Alberto Renee MD 43 [place] [phone] Ophthalmology 05/19/18 Vandana Bates, JUAN MIGUEL [address] [facility] [address] [place], [place] [phone] ICP Community Accounts Payable Lead 04/01/19 10/08/24 Clarence Hollingsworth MD 420 [facility] [place] [address] Primary Project Financial Analyst Cardiovascular Disease 03/24/22 Dawn Agrawal LCSW [address] [address] [facility] Community Accounts Payable Lead 10/08/24 10/26/24 Renay Ford [address] araceli [address] [address] [facility] Community Accounts Payable Lead 10/26/24 documented as of this encounter
--- OUTSIDE RECORDS SUMMARY | 2025-01-25 09:35 | XMS_ITS | Encounter Summary ---
Author Organization [facility] Address [address] [place] [address] Care Team Providers Care Brokerage Purchase And Sale Clerk Name Role Phone Clara Motley MD Primary Care Provider + [phone] Daisy Ramsey MD Unavailable +[phone] Frank Livingston MD Unavailable +[phone] Shirley De La Garza APRN Unavailable Cordelia Engle MD Unavailable +[phone] Daja Sloan MD Unavailable +[phone] Clara Motley MD Unavailable +[phone] Arin Liu RN Unavailable +[phone] Luis Alberto Renee MD Unavailable +[phone] Vandana Bates RN Unavailable +[phone] Clara Motley MD Unavailable +[phone] Clarence Hollingsworth MD Unavailable Dawn Agrawal LCSW Unavailable +[phone] Renay Ford Unavailable Clara Motley MD Unavailable +[phone] Encounter Details Date Type Department Care Team (Late st Contact Info) Description 04/17/2016 Scanned Document [facility] [address] [address] Provider, Generic Social History Tobacco Use Types [...] 04/19/2025 8:45 AM EST Office Visit [address] [address] Clara Motley MD [address] [address] documented as of this encounter Visit Diagnoses Not on filedocumented in this encounter Care Teams Brokerage Purchase And Sale Clerk Relationship Specialty Start Date End Date Clara Motley MD PCP - General Internal Medicine 10/16/15 Clara Motley MD [address] [place] [address] PCP - MSSP Attributed 09/21/18 0 Clara Motley MD [address] [place] [address] PCP - MSSP Attributed 03/24/21 4 Clara Motley MD [address] [place] [address] PCP - MSSP Attributed 06/22/24 Daisy Ramsey MD [address] [facility] [address] [place] [address] Consulting Provider Dermatology 06/17/17 Frank Livingston MD [address] [place] [address] Gastroenterology 06/17/17 Shirley De La Garza APRN [address] [place] [address] Nurse Practitioner Gynecology 06/17/17 Cordelia Engle MD [address] [address] Nephrology 06/17/17 Daja Sloan MD [address] [address] Ophthalmology 06/17/17 Arin Liu RN [facility] [address] [place] [address] ICP Community Aircraft Cylinder Mechanic 01/29/18 04/01/19 Luis Alberto Renee MD 43 [place] [phone] Ophthalmology 05/19/18 Vandana Bates, JUAN MIGUEL [address] [facility] 4 [place], [place] [phone] ICP Community Aircraft Cylinder Mechanic 04/01/19 10/08/24 Clarence Hollingsworth MD 420 [facility] [place] [address] Primary Dedicated Truck Driver Cardiovascular Disease 03/24/22 Dawn Agrawal LCSW [address] [address] [facility] Community Aircraft Cylinder Mechanic 10/08/24 10/26/24 Renay Ford [address] [address] [facility] Community Aircraft Cylinder Mechanic 10/26/24 documented as of this encounter
--- OUTSIDE RECORDS SUMMARY | 2025-01-25 09:35 | XMS_ITS | Encounter Summary ---
Author Organization [facility] Address [address] [place] [address] Care Team Providers Care Surveillance Systems Analyst Name Role Phone Clara Motley MD Primary Care Provider + [phone] Daisy Ramsey MD Unavailable +[phone] Frank Livingston MD Unavailable +[phone] Shirley De La Garza APRN Unavailable Cordelia Engle MD Unavailable +[phone] Daja Sloan MD Unavailable +[phone] Clara Motley MD Unavailable +[phone] Arin Liu RN Unavailable +[phone] Luis Alberto Renee MD Unavailable +[phone] Vandana Bates RN Unavailable +[phone] Clara Motley MD Unavailable +[phone] Clarence Hollingsworth MD Unavailable Dawn Agrawal LCSW Unavailable +[phone] Renay Ford Unavailable Clara Motley MD Unavailable +[phone] Encounter Details Date Type Department Care Team (Late st Contact Info) Description 06/24/2017 Scanned Document [facility] [address] [address] Provider, Generic Social History Tobacco Use Types [...] Description 04/19/2025 8:45 AM EST Office Visit [address] [address] Clara Motley MD [address] [address] documented as of this encounter Visit Diagnoses Not on filedocumented in this encounter Care Teams Surveillance Systems Analyst Relationship Specialty Start Date End Date Clara Motley MD PCP - General Internal Medicine 10/16/15 Clara Motley MD [address] [place] [address] PCP - MSSP Attributed 09/21/18 0 Clara Motley MD [address] [place] [address] PCP - MSSP Attributed 03/24/21 4 Clara Motley MD [address] [place] [address] PCP - MSSP Attributed 06/22/24 Daisy Ramsey MD [address] [facility] [address] [place] [address] Consulting Provider Dermatology 06/17/17 Frank Livingston MD [address] [place] [address] Gastroenterology 06/17/17 Shirley De La Garza APRN [address] [place] [address] Nurse Practitioner Gynecology 06/17/17 Cordelia Engle MD [address] [address] Nephrology 06/17/17 Daja Sloan MD [address] [address] Ophthalmology 06/17/17 Arin Liu RN [facility] [address] [place] [address] ICP Community Veneer Clipper Helper 01/29/18 04/01/19 Luis Alberto Renee MD 43 [place] [address] Ophthalmology 05/19/18 Vandana Bates, JUAN MIGUEL [address] [facility] 4 [place], [place] [phone] ICP Community Veneer Clipper Helper 04/01/19 10/08/24 Clarence Hollingsworth MD 420 [place] [address] Primary Sustainable Agriculture Faculty Cardiovascular Disease 03/24/22 Dawn Agrawal LCSW [address] [address] [facility] Community Veneer Clipper Helper 10/08/24 10/26/24 Renay Ford [address] [address] [facility] Community Veneer Clipper Helper 10/26/24 documented as of this encounter
--- OUTSIDE RECORDS SUMMARY | 2025-01-25 09:35 | XMS_ITS | Encounter Summary ---
Author Organization [facility] Address [address] [place] [address] Care Team Providers Care Tractor Distributor Name Role Phone Clara Motley MD Primary Care Provider + [phone] Daisy Ramsey MD Unavailable +[phone] Frank Livingston MD Unavailable +[phone] Shirley De La Garza APRN Unavailable Cordelia Engle MD Unavailable +[phone] Daja Sloan MD Unavailable +[phone] Clara Motley MD Unavailable +[phone] Arin Liu RN Unavailable +[phone] Luis Alberto Renee MD Unavailable +[phone] Vandana Bates RN Unavailable +[phone] Clara Motley MD Unavailable +[phone] Clarence Hollingsworth MD Unavailable Dawn Agrawal LCSW Unavailable +[phone] Renay Ford Unavailable Clara Motley MD Unavailable +[phone] Reason for Visit * Reason Comments Medication Refill Encounter Details Date Type Department Care Team (Late st Contact Info) Description 06/09/2018 Refill [facility] [address] [address] Clara Motley MD [address] [address] Diabetes mellitus without complication (HCC) Social History [...] Description 04/19/2025 8:45 AM EST Office Visit [facility] [address] [address] Clara Motley MD [address] [address] documented as of this encounter Visit Diagnoses Diagnosis Diabetes mellitus without complication (HCC) Type II or unspecified type diabetes mellitus without mention of complication, not stated as uncontrolled documented in this encounter Care Teams Tractor Distributor Relationship Specialty Start Date End Date Clara Motley MD PCP - General Internal Medicine 10/16/15 Clara Motley MD [address] [place] [address] PCP - MSSP Attributed 09/21/18 0 Clara Motley MD [address] [place] [address] PCP - MSSP Attributed 03/24/21 4 Clara Motley MD [address] [place] [address] PCP - MSSP Attributed 06/22/24 Daisy Ramsey MD 113 [facility] [address] [place] [address] Consulting Provider Dermatology 06/17/17 Frank Livingston MD [address] [place] [address] Gastroenterology 06/17/17 Shirley De La Garza APRN [address] [place] [address] Nurse Practitioner Gynecology 06/17/17 Cordelia Engle MD [address] [address] Nephrology 06/17/17 Daja Sloan MD [address] [address] Ophthalmology 06/17/17 Arin Liu RN [address] [address] ICP Community Basketball Coach 01/29/18 04/01/19 Luis Alberto Renee MD [address] [place] [phone] Ophthalmology 05/19/18 Vandana Bates RN [address] [address] ICP Community Basketball Coach 04/01/19 10/08/24 Clarence Hollingsworth MD [address] [place] [address] Primary Medical Grade Shoemaker Cardiovascular Disease 03/24/22 Dawn Agrawal LCSW [address] [address] ICP Community Basketball Coach 10/08/24 10/26/24 Renay Ford [address] [address] ICP Community Basketball Coach 10/26/24 documented as of this encounter
--- OUTSIDE RECORDS SUMMARY | 2025-01-25 09:35 | XMS_ITS | Encounter Summary ---
Author Organization [facility] Address [address] [place] [address] Care Team Providers Care Sales Account Executive Name Role Phone Clara Motley MD Primary Care Provider + [phone] Daisy Ramsey MD Unavailable +[phone] Frank Livingston MD Unavailable +[phone] Shirley De La Garza PUNCH MOLDER Unavailable Cordelia Engle MD Unavailable +[phone] Daja Sloan MD Unavailable +[phone] Clara Motley MD Unavailable +[phone] Luis Alberto Renee MD Unavailable +[phone] Vandana Bates RN Unavailable +[phone] Clara Motley MD Unavailable +[phone] Clarence Hollingsworth MD Unavailable Dawn AgrawalW Unavailable +[phone] Renay Ford Unavailable Clara Motley MD Unavailable +[phone] Encounter Details Date Type Department Care Team (Late st Contact Info) Description 01/03/2020 Scanned Document [address] [place] [address] Provider, Generic Social History Tobacco [...] Description 04/19/2025 8:45 AM EST Office Visit [address] [address] Clara Motley MD [address] [place] [address] documented as of this encounter Procedures Procedure Name Priority Date/Time Associated Diagnosis Comments IMAGING DEXA 01/03/2020 IMAGING BREAST/BX/MAMMO 01/03/2020 documented in this encounter Results * IMAGING DEXA (01/03/2020) Anatomical Region Laterality Modality Other 01/03/2020 Narrative 01/03/2020 Ordered by an unspecified provider. Generic Provider IMG LEGACY PROCEDURES Edited Re sult - Final * IMAGING BREAST/BX/MAMMO (01/03/2020) Anatomical Region Laterality Modality Other 01/03/2020 Narrative 01/03/2020 Ordered by an unspecified provider. Generic Provider IMG LEGACY PROCEDURES Edited Re sult - Final documented in this encounter Visit Diagnoses Not on filedocumented in this encounter Care Teams Sales Account Executive Relationship Specialty Start Date End Date Clara Motley MD PCP - General Internal Medicine 10/16/15 Clara Motley MD [address] [place] [address] PCP - MSSP Attributed 09/21/18 0 Clara Motley MD [address] [place] [address] PCP - MSSP Attributed 03/24/21 4 Clara Motley MD [address] [place] [address] PCP - MSSP Attributed 06/22/24 Daisy Ramsey MD [address] [place] [address] Consulting Provider Dermatology 06/17/17 Frank Livingston MD [address] [place] [address] Gastroenterology 06/17/17 Shirley De La Garza APRN [address] [place] [address] Nurse Practitioner Gynecology 06/17/17 Cordelia Engle MD [address] [address] Nephrology 06/17/17 Daja Sloan MD [address] [address] Ophthalmology 06/17/17 Luis Alberto Renee MD [address] [place] [phone] Ophthalmology 05/19/18 Vandana Bates, JUAN MIGUEL [address] [address] [facility] Community Bleach Boiler Packer 04/01/19 10/08/24 Clarence Hollingsworth MD [address] [place] [address] Primary Corn Breeder Cardiovascular Disease 03/24/22 Dawn Agrawal LCSW [address] [address] ICP Community Bleach Boiler Packer 10/08/24 10/26/24 Renay Ford [address] [address] ICP Community Bleach Boiler Packer 10/26/24 documented as of this encounter
--- OUTSIDE RECORDS SUMMARY | 2025-01-25 09:35 | XMS_ITS | Encounter Summary ---
Author Organization [facility] Address [address] [place] [address] Care Team Providers Care Drapery Hand Name Role Phone Clara Motley MD Primary Care Provider + [phone] Daisy Ramsey MD Unavailable +[phone] Frank Livingston MD Unavailable +[phone] Shirley De La Garza APRN Unavailable Cordelia Engle MD Unavailable +[phone] Daja Sloan MD Unavailable +[phone] Clara Motley MD Unavailable +[phone] Arin Liu RN Unavailable +[phone] Luis Alberto Renee MD Unavailable +[phone] Vandana Bates RN Unavailable +[phone] Clara Motley MD Unavailable +[phone] Clarence Hollingsworth MD Unavailable Dawn Agrawal LCSW Unavailable +[phone] Renay Ford Unavailable Clara Motley MD Unavailable +[phone] Encounter Details Date Type Department Care Team (Late st Contact Info) Description 12/24/2016 Scanned Document [facility] [address] [address] Provider, Generic Social History Tobacco Use Types [...] Description 04/19/2025 8:45 AM EST Office Visit [address] [address] Clara Motley MD [address] [address] documented as of this encounter Visit Diagnoses Not on filedocumented in this encounter Care Teams Drapery Hand Relationship Specialty Start Date End Date Clara Motley MD PCP - General Internal Medicine 10/16/15 Clara Motley MD [address] [place] [address] PCP - MSSP Attributed 09/21/18 0 Clara Motley MD [address] [place] [address] PCP - MSSP Attributed 03/24/21 4 Clara Motley MD [address] [place] [address] PCP - MSSP Attributed 06/22/24 Daisy Ramsey MD [address] [facility] [address] [place] [address] Consulting Provider Dermatology 06/17/17 Frank Livingston MD [address] [place] [address] Gastroenterology 06/17/17 Shirley De La Garza APRN [address] [place] [address] Nurse Practitioner Gynecology 06/17/17 Cordelia Engle MD [address] [address] Nephrology 06/17/17 Daja Sloan MD [address] [address] Ophthalmology 06/17/17 Arin Liu RN 1290 [facility] [address] [place] [address] ICP Community Electrical And Electronic Assembler 01/29/18 04/01/19 Luis Alberto Renee MD 43 [place] [address] Ophthalmology 05/19/18 Vandana Bates, JUAN MIGUEL [address] [facility] 4 [place], [place] [phone] ICP Community Electrical And Electronic Assembler 04/01/19 10/08/24 Clarence Hollingsworth MD 420 [place] [address] Primary Supervisor Show Operations Cardiovascular Disease 03/24/22 Dawn Agrawal LCSW [address] [address] [facility] Community Electrical And Electronic Assembler 10/08/24 10/26/24 Renay Ford [address] [address] [facility] Community Electrical And Electronic Assembler 10/26/24 documented as of this encounter
--- OUTSIDE RECORDS SUMMARY | 2025-01-25 09:35 | XMS_ITS | Encounter Summary ---
Author Organization [facility] Address [address] [place] [address] Care Team Providers Care Image Consultant Name Role Phone Clara Motley MD Primary Care Provider + [phone] Daisy Ramsey MD Unavailable +[phone] Frank Livingston MD Unavailable +[phone] Shirley De La Garza APRN Unavailable Cordelia Engle MD Unavailable +[phone] Daja Sloan MD Unavailable +[phone] Clara Motley MD Unavailable +[phone] Arin Liu RN Unavailable +[phone] Luis Alberto Renee MD Unavailable +[phone] Vandana Bates RN Unavailable +[phone] Clara Motley MD Unavailable +[phone] Clarence Hollingsworth MD Unavailable Dawn Agrawal LCSW Unavailable +[phone] Renay Ford Unavailable Clara Motley MD Unavailable +[phone] Encounter Details Date Type Department Care Team (Late st Contact Info) Description 06/25/2016 Scanned Document [facility] [address] [address] Provider, Generic Social History Tobacco Use Types [...] Description 04/19/2025 8:45 AM EST Office Visit [address] [address] Clara Motley MD [address] [address] documented as of this encounter Visit Diagnoses Not on filedocumented in this encounter Care Teams Image Consultant Relationship Specialty Start Date End Date Clara Motley MD PCP - General Internal Medicine 10/16/15 Clara Motley MD [address] [place] [address] PCP - MSSP Attributed 09/21/18 0 Clara Motley MD [address] [place] [address] PCP - MSSP Attributed 03/24/21 4 Clara Motley MD [address] [place] [address] PCP - MSSP Attributed 06/22/24 Daisy Ramsey MD [address] [facility] [address] [place] [address] Consulting Provider Dermatology 06/17/17 Frank Livingston MD [address] [place] [address] Gastroenterology 06/17/17 Shirley De La Garza APRN [address] [place] [address] Nurse Practitioner Gynecology 06/17/17 Cordelia Engle MD [address] [address] Nephrology 06/17/17 Daja Sloan MD [address] [address] Ophthalmology 06/17/17 Arin Liu RN [facility] [address] [place] [address] ICP Community Switchbox Assembler 01/29/18 04/01/19 Luis Alberto Renee MD 43 [place] [address] Ophthalmology 05/19/18 Vandana Bates, JUAN MIGUEL [address] [facility] 4 [place], [place] [address] ICP Community Switchbox Assembler 04/01/19 10/08/24 Clarence Hollingsworth MD 420 [facility] [place] [address] Primary Accounting Machine Operator Cardiovascular Disease 03/24/22 Dawn Agrawal LCSW [address] [address] [facility] Community Switchbox Assembler 10/08/24 10/26/24 Renay Ford [address] [address] [facility] Community Switchbox Assembler 10/26/24 documented as of this encounter
--- OUTSIDE RECORDS SUMMARY | 2025-01-25 09:35 | XMS_ITS | Encounter Summary ---
Author Organization Formerly [facility] Address [address] [place] [address] Care Team Providers Care Charge Entry Specialist Name Role Phone Clara Motley MD Primary Care Provider + [phone] Daisy Ramsey MD Unavailable +[phone] Frank Livingston MD Unavailable +[phone] Shirley De La Garza APRN Unavailable Cordelia Engle MD Unavailable +[phone] Daja Sloan MD Unavailable +[phone] Luis Alberto Renee MD Unavailable +[phone] Vandana Bates RN Unavailable +[phone] Clara Motley MD Unavailable +[phone] Clarence Hollingsworth MD Unavailable Dawn AgrawalW Unavailable +[phone] Renay Ford Unavailable Clara Motley MD Unavailable +[phone] Encounter Details Date Type Department Care Team (Late st Contact Info) Description 10/09/2021 Scanned Document [address] [place] [phone] Provider, Generic Social History Tobacco Use [...] Upcoming Encounters Date Type Department Care Team ([facility] st Contact Info) Description 04/19/2025 8:45 AM EST Office Visit [facility] 100 [facility] [address] [place] [address] Clara Motley MD 100 [facility] [address] [place] [address] documented as of this encounter Visit Diagnoses Not on filedocumented in this encounter Care Teams Charge Entry Specialist Relationship Specialty Start Date End Date Clara Motley MD PCP - General Internal Medicine 10/16/15 Clara Motley MD [address] [place], [place] [address] [address] [place] [address] PCP - MSSP Attributed 03/24/21 4 Clara Motley MD [address] [place] [address] PCP - MSSP Attributed 06/22/24 Daisy Ramsey MD [address] [place] [address] [address] [place] [address] Consulting Provider Dermatology 06/17/17 Frank Livingston MD [address] [place] [address] Gastroenterology 06/17/17 Shirley De La Garza APRN [address] [place] [address] Nurse Practitioner Gynecology 06/17/17 Cordelia Engle MD [address] [address] Nephrology 06/17/17 Daja Sloan MD [address] [address] Ophthalmology 06/17/17 Luis Alberto Renee MD 43 [place] [address] Ophthalmology 05/19/18 Vandana Bates, RN [address] [facility] 4 [place], [place] [phone] [facility] Community Punch Out Crew Member 04/01/19 10/08/24 Clarence Hollingsworth MD 420 [facility] [place] [address] Primary Top Installer Cardiovascular Disease 03/24/22 Dawn Agrawal LCSW [address] [facility] 4A [place] [address] [facility] Community Punch Out Crew Member 10/08/24 10/26/24 Renay Ford [address] [place] [address] [facility] Community Punch Out Crew Member 10/26/24 documented as of this encounter
--- OUTSIDE RECORDS SUMMARY | 2025-01-25 09:35 | XMS_ITS | Encounter Summary ---
Author Organization [facility] Address [address] [place] [address] Care Team Providers Care Truck Loader Name Role Phone Clara Motley MD Primary Care Provider + [phone] Daisy Ramsey MD Unavailable +[phone] Frank Livingston MD Unavailable +[phone] Shirley De La Garza APRN Unavailable Cordelia Engle MD Unavailable +[phone] Daja Sloan MD Unavailable +[phone] Clara Motley MD Unavailable +[phone] Arin Liu RN Unavailable +[phone] Luis Alberto Renee MD Unavailable +[phone] Vandana Bates RN Unavailable +[phone] Clara Motley MD Unavailable +[phone] Clarence Hollingsworth MD Unavailable Dawn Agrawal LCSW Unavailable +[phone] Renay Ford Unavailable Clara Motley MD Unavailable +[phone] Encounter Details Date Type Department Care Team (Late st Contact Info) Description 07/08/2017 Scanned Document [facility] [address] [address] Provider, Generic Social History Tobacco Use Types [...] 04/19/2025 8:45 AM EST Office Visit [address] [address] Clara Motley MD [address] [address] documented as of this encounter Visit Diagnoses Not on filedocumented in this encounter Care Teams Truck Loader Relationship Specialty Start Date End Date Clara Motley MD PCP - General Internal Medicine 10/16/15 Clara Motley MD [address] [place] [address] PCP - MSSP Attributed 09/21/18 0 Clara Motley MD [address] [place] [address] PCP - MSSP Attributed 03/24/21 4 Clara Motley MD [address] [place] [address] PCP - MSSP Attributed 06/22/24 Daisy Ramsey MD [address] [facility] [address] [place] [address] Consulting Provider Dermatology 06/17/17 Frank Livingston MD [address] [place] [address] Gastroenterology 06/17/17 Shirley De La Garza APRN [address] [place] [place] [address] Nurse Practitioner Gynecology 06/17/17 Cordelia Engle MD [address] [address] Nephrology 06/17/17 Daja Sloan MD [address] [address] Ophthalmology 06/17/17 Arin Liu RN [facility] [address] [place] [address] [facility] Community Quality Review Trainer 01/29/18 04/01/19 Luis Alberto Renee MD 43 [place] [address] Ophthalmology 05/19/18 Vandana Bates, JUAN MIGUEL [address] [facility] 4 [place], [place] [address] [facility] Community Quality Review Trainer 04/01/19 10/08/24 Clarence Hollingsworth MD 420 [facility] [place] [address] Primary Data Reduction Technician Cardiovascular Disease 03/24/22 Dawn Agrawal LCSW [address] [address] [facility] Community Quality Review Trainer 10/08/24 10/26/24 Renay Ford [address] [address] [facility] Community Quality Review Trainer 10/26/24 documented as of this encounter
--- OUTSIDE RECORDS SUMMARY | 2025-01-25 09:35 | XMS_ITS | Encounter Summary ---
Author Organization [facility] Address [address] [place] [address] Care Team Providers Care Gun Fitter Name Role Phone Clara Motley MD Primary Care Provider + [phone] Daisy Ramsey MD Unavailable +[phone] Frank Livingston MD Unavailable +[phone] Shirley De La Garza APRN Unavailable Cordelia Engle MD Unavailable +[phone] Daja Sloan MD Unavailable +[phone] Clara Motley MD Unavailable +[phone] Luis Alberto Renee MD Unavailable +[phone] Vandana Bates RN Unavailable +[phone] Clara Motley MD Unavailable +[phone] Clarence Hollingsworth MD Unavailable ArictorresDawn alcantarW Unavailable +[phone] Renay Ford Unavailable Clara Motley MD Unavailable +[phone] Reason for Visit * Reason Comments Medication Refill Encounter Details Date Type Department Care Team (Late st Contact Info) Description 10/31/[address] [place] [address] Clara Motley MD [address] [address] Type 2 diabetes mellitus with complication, without [...] Description 04/19/2025 8:45 AM EST Office Visit [address] [address] Clara Motley MD 100 [place] [address] documented as of this encounter Visit Diagnoses Diagnosis Type 2 diabetes mellitus with complication, without long-term current use of insulin (HCC) HTN (hypertension), benign Essential hypertension, benign documented in this encounter Care Teams Gun Fitter Relationship Specialty Start Date End Date Clara Motley MD PCP - General Internal Medicine 10/16/15 Clara Motley MD [address] [address] PCP - MSSP Attributed 09/21/18 0 Clara Motley MD [address] [place] [address] PCP - MSSP Attributed 03/24/2103/23/ 4 Clara Motley MD [address] [place] [address] PCP - MSSP Attributed 06/22/24 Daisy Ramsey MD [address] [place] [address] Consulting Provider Dermatology 06/17/17 Frank Livingston MD [address] [place] [address] Gastroenterology 06/17/17 Shirley De La Garza APRN [address] [place] [address] Nurse Practitioner Gynecology 06/17/17 Cordelia Engle MD [address] [address] Nephrology 06/17/17 Daja Sloan MD [address] [address] Ophthalmology 06/17/17 Luis Alberto Renee MD [address] [place] [address] Ophthalmology 05/19/18 Vandana Bates, RN [address] [facility] 4 [place], [place] [address] [facility] Community Violin Teacher 04/01/19 10/08/24 Clarence Hollingsworth MD [address] [place] [address] Primary Barrel Drum Cutter Cardiovascular Disease 03/24/22 Dawn Agrawal LCSW [address] [address] [facility] Community Violin Teacher 10/08/24 10/26/24 Renay Ford [address] [address] [facility] Community Violin Teacher 10/26/24 documented as of this encounter
--- OUTSIDE RECORDS SUMMARY | 2025-01-25 09:35 | XMS_ITS | Encounter Summary ---
Author Organization [facility] Address 100 [place] [address] Care Team Providers Care Director Recreation Center Name Role Phone Clara Motley MD Primary Care Provider + [phone] Daisy Ramsey MD Unavailable +[phone] Frank Livingston MD Unavailable +[phone] Shirley De La Garza APRN Unavailable Cordelia Engle MD Unavailable +[phone] Daja Sloan MD Unavailable +[phone] Clara Motley MD Unavailable +[phone] Arin Liu RN Unavailable +[phone] Luis Alberto Renee MD Unavailable +[phone] Vandana Bates RN Unavailable +[phone] Clara Motley MD Unavailable +[phone] Clarence Hollingsworth MD Unavailable Dawn Agrawal LCSW Unavailable +[phone] Renay Ford Unavailable Clara Motley MD Unavailable +[phone] Reason for Visit * Reason Comments Medication Refill Encounter Details Date Type Department Care Team (Late st Contact Info) Description 01/10/2017 Refill [facility] 100 [facility] 101 [place] [address] Clara Motley MD [address] [address] Pure hypercholesterolemia Social History Tobacco Use Types [...] Description 04/19/2025 8:45 AM EST Office Visit [facility] [address] [phone] Clara Motley MD [address] [address] documented as of this encounter Visit Diagnoses Diagnosis Pure hypercholesterolemia documented in this encounter Care Teams Director Recreation Center Relationship Specialty Start Date End Date Clara Motley MD PCP - General Internal Medicine 10/16/15 Clara Motley MD [address] [address] PCP - MSSP Attributed 09/21/18 0 Clara Motley MD [address] [address] PCP - MSSP Attributed 03/24/21 4 Clara Motley MD [address] [place] [address] PCP - MSSP Attributed 06/22/24 Daisy Ramsey MD [address] [place] [address] Consulting Provider Dermatology 06/17/17 Frank Livingston MD [address] [place] [address] Gastroenterology 06/17/17 Shirley De La Garza APRN [address] [place] [address] Nurse Practitioner Gynecology 06/17/17 Cordelia Engle MD [address] [address] Nephrology 06/17/17 Daja Sloan MD [address] [address] Ophthalmology 06/17/17 Arin Liu RN [address] [facility] 4B [place] [address] [facility] Community Collar Packer 01/29/18 04/01/19 Luis Alberto Renee MD [address] [place] [phone] Ophthalmology 05/19/18 Vandana Bates RN [address] araceli [address] [place] [address] [address] [facility] Community Collar Packer 04/01/19 10/08/24 Clarence Hollingsworth MD 420 [place] [address] Primary Housekeeping Room Attendant Cardiovascular Disease 03/24/22 Dawn Agrawal LCSW [address] [address] [facility] Community Collar Packer 10/08/24 10/26/24 Renay Ford [address] araceli [address] [address] [facility] Community Collar Packer 10/26/24 documented as of this encounter
--- OUTSIDE RECORDS SUMMARY | 2025-01-25 09:35 | XMS_ITS | Encounter Summary ---
Author Organization [facility] Address 100 [place] [address] Care Team Providers Care Barrel Rifler Operator Name Role Phone Clara Motley MD Primary Care Provider + [phone] Daisy Ramsey MD Unavailable +[phone] Frank Livingston MD Unavailable +[phone] Shirley De La Garza APRN Unavailable Cordelia Engle MD Unavailable +[phone] Daja Sloan MD Unavailable +[phone] Clara Motley MD Unavailable +[phone] Arin Liu RN Unavailable +[phone] Luis Alberto Renee MD Unavailable Vandana Bates RN Unavailable +[phone] Clara Motley MD Unavailable +[phone] Clarence Hollingsworth MD Unavailable Dawn Agrawal LCSW Unavailable +[phone] Renay Ford Unavailable Clara Motley MD Unavailable +[phone] Reason for Visit * Reason Comments Medication Refill Encounter Details Date Type Department Care Team (Late st Contact Info) Description 04/17/2017 Refill [facility] [address] [address] Clara Motley MD [address] [address] Diabetes mellitus without complication (HCC) Social History [...] 04/19/2025 8:45 AM EST Office Visit [address] [phone] Clara Motley MD [address] [address] documented as of this encounter Visit Diagnoses Diagnosis Diabetes mellitus without complication (HCC) Type II or unspecified type diabetes mellitus without mention of complication, not stated as uncontrolled documented in this encounter Care Teams Barrel Rifler Operator Relationship Specialty Start Date End Date Clara Motley MD PCP - General Internal Medicine 10/16/15 Clara Motley MD [address] [place] [address] PCP - MSSP Attributed 09/21/18 0 Clara Motley MD [address] [place] [address] PCP - MSSP Attributed 03/24/21 4 Clara Motley MD [address] [place] [address] PCP - MSSP Attributed 06/22/24 Daisy Ramsey MD [address] [facility] [address] [place] [address] Consulting Provider Dermatology 06/17/17 Frank Livingston MD [address] [place] [address] Gastroenterology 06/17/17 Shirley De La Garza APRN [address] [place] [address] Nurse Practitioner Gynecology 06/17/17 Cordelia Engle MD [address] [address] Nephrology 06/17/17 Daja Sloan MD [address] [address] Ophthalmology 06/17/17 Arin Liu, JUAN MIGUEL 1290 [facility] [address] [place], [place] [address] [facility] Community Mash Grinder 01/29/18 04/01/19 Luis Alberto Renee MD [address] [place] [phone] Ophthalmology 05/19/18 Vandana Bates, RN [address] [address] [facility] Community Mash Grinder 04/01/19 10/08/24 Clarence Hollingsworth MD [address] [place] [address] Primary Associate Financial Advisor Cardiovascular Disease 03/24/22 Dawn Agrawal LCSW [address] [address] [facility] Community Mash Grinder 10/08/24 10/26/24 Renay Ford [address] araceli [address] [address] [facility] Community Mash Grinder 10/26/24 documented as of this encounter
--- OUTSIDE RECORDS SUMMARY | 2025-01-25 09:35 | XMS_ITS | Encounter Summary ---
Author Organization [facility] Address [address] [place] [address] Care Team Providers Care Tailer Off Name Role Phone Clara Motley MD Primary Care Provider + [phone] Daisy Ramsey MD Unavailable +[phone] Frank Livingston MD Unavailable +[phone] Shirley De La Garza APRN Unavailable Cordelia Engle MD Unavailable +[phone] Daja Sloan MD Unavailable +[phone] Clara Motley MD Unavailable +[phone] Arin Liu RN Unavailable +[phone] Luis Alberto Renee MD Unavailable Vandana Bates RN Unavailable +[phone] Clara Motley MD Unavailable +[phone] Clarence Hollingsworth MD Unavailable Dawn Agrawal LCSW Unavailable +[phone] Renay Ford Unavailable Clara Motley MD Unavailable +[phone] Encounter Details Date Type Department Care Team (Late st Contact Info) Description 01/08/2019 Scanned Document [facility] [address] [address] Clara Motley MD [address] [address] Social History Tobacco Use Types Packs/Day Years [...] Description 04/19/2025 8:45 AM EST Office Visit [address] [phone] Clara Motley MD [address] [address] documented as of this encounter Visit Diagnoses Not on filedocumented in this encounter Care Teams Tailer Off Relationship Specialty Start Date End Date Clara Motley MD PCP - General Internal Medicine 10/16/15 Clara Motley MD [address] [place] [address] PCP - MSSP Attributed 09/21/18 0 Clara Motley MD [address] [place] [address] PCP - MSSP Attributed 03/24/21 4 Clara Motley MD [address] [place] [address] PCP - MSSP Attributed 06/22/24 Daisy Ramsey MD [address] [place] [address] Consulting Provider Dermatology 06/17/17 Frank Livingston MD [address] [place] [address] Gastroenterology 06/17/17 Shirley De La Garza APRN [address] [place] [address] Nurse Practitioner Gynecology 06/17/17 Cordelia Engle MD [address] [address] Nephrology 06/17/17 Daja Sloan MD [address] [address] Ophthalmology 06/17/17 Arin Liu RN [address] [facility] [address] [place], [place] [phone] [facility] Community Chisel Grinder 01/29/18 04/01/19 Luis Alberto Renee MD [address] [place] [phone] Ophthalmology 05/19/18 Vandana Bates RN [address] [facility] 4 [place] [address] [facility] Community Chisel Grinder 04/01/19 10/08/24 Clarence Hollingsworth MD [address] [place] [address] Primary Horse Breaker Cardiovascular Disease 03/24/22 Dawn Agrawal LCSW [address] [address] [facility] Community Chisel Grinder 10/08/24 10/26/24 Renay Ford [address] [address] [facility] Community Chisel Grinder 10/26/24 documented as of this encounter
--- OUTSIDE RECORDS SUMMARY | 2025-01-25 09:35 | XMS_ITS | Encounter Summary ---
Author Organization [facility] Address [address] [place] [address] Care Team Providers Care Reconstructive Surgeon Name Role Phone Clara Motley MD Primary Care Provider + [phone] Daisy Ramsey MD Unavailable +[phone] Frank Livingston MD Unavailable +[phone] Shirley De La Garza APRN Unavailable Cordelia Engle MD Unavailable +[phone] Daja Sloan MD Unavailable +[phone] Clara Motley MD Unavailable +[phone] Arin Liu RN Unavailable +[phone] Luis Alberto Renee MD Unavailable +[phone] Vandana Bates RN Unavailable +[phone] Clara Motley MD Unavailable +[phone] Clarence Hollingsworth MD Unavailable Dawn Agrawal LCSW Unavailable +[phone] Renay Ford Unavailable Clara Motley MD Unavailable +[phone] Encounter Details Date Type Department Care Team (Late st Contact Info) Description 11/24/2018 Scanned Document [facility] [address] [address] Provider, Generic Social History Tobacco Use Types [...] Description 04/19/2025 8:45 AM EST Office Visit [address] [phone] Clara Motley MD [address] [address] documented as of this encounter Visit Diagnoses Not on filedocumented in this encounter Care Teams Reconstructive Surgeon Relationship Specialty Start Date End Date Clara Motley MD PCP - General Internal Medicine 10/16/15 Clara Motley MD [address] [place] [address] PCP - MSSP Attributed 09/21/18 0 Clara Motley MD [address] [place] [address] PCP - MSSP Attributed 03/24/21 4 Clara Motley MD [address] [place], [place] [address], [place] [address] PCP - MSSP Attributed 06/22/24 Daisy Ramsey MD [address] [place] [address] Consulting Provider Dermatology 06/17/17 Frank Livingston MD [address] [place] [address] Gastroenterology 06/17/17 Shirley De La Garza APRN [address] [place] [address] Nurse Practitioner Gynecology 06/17/17 Cordelia Engle MD [address] [address] Nephrology 06/17/17 Daja Sloan MD [address] [address] Ophthalmology 06/17/17 Arin Liu RN 1290 [facility] 4[address] [place] [address] [facility] Community Padded Products Finisher 01/29/18 04/01/19 Luis Alberto Renee MD 43 [place] [phone] Ophthalmology 05/19/18 Vandana Bates, JUAN MIGUEL [address] [facility] 4 [place], [place] [phone] [facility] Community Padded Products Finisher 04/01/19 10/08/24 Clarence Hollingsworth MD 420 [facility] [place] [address] Primary Electrical Parts Reconditioner Cardiovascular Disease 03/24/22 Dawn Agrawal LCSW [address] [address] [facility] Community Padded Products Finisher 10/08/24 10/26/24 Renay Ford [address]eli [address] [address] [facility] Community Padded Products Finisher 10/26/24 documented as of this encounter
--- OUTSIDE RECORDS SUMMARY | 2025-01-25 09:35 | XMS_ITS | Encounter Summary ---
Author Organization [facility] Address [address] [place] [address] Care Team Providers Care Freight Sorter Name Role Phone Clara Motley MD Primary Care Provider + [phone] Daisy Ramsey MD Unavailable +[phone] Frank Livingston MD Unavailable +[phone] Shirley De La Garza APRN Unavailable Cordelia Engle MD Unavailable +[phone] Daja Sloan MD Unavailable +[phone] Clara Motley MD Unavailable +[phone] Arin Liu RN Unavailable +[phone] Luis Alberto Renee MD Unavailable +[phone] Vandana Bates RN Unavailable +[phone] Clara Motley MD Unavailable +[phone] Clarence Hollingsworth MD Unavailable Dawn Agrawal LCSW Unavailable +[phone] Renay Ford Unavailable Clara Motley MD Unavailable +[phone] Encounter Details Date Type Department Care Team (Late st Contact Info) Description 05/20/2016 Scanned Document [facility] [address] [address] Provider, Generic Social History Tobacco Use Types [...] Description 04/19/2025 8:45 AM EST Office Visit [address] [address] Clara Motley MD [address] [address] documented as of this encounter Visit Diagnoses Not on filedocumented in this encounter Care Teams Freight Sorter Relationship Specialty Start Date End Date Clara Motley MD PCP - General Internal Medicine 10/16/15 Clara Motley MD [address] [place] [address] PCP - MSSP Attributed 09/21/18 0 Clara Motley MD [address] [place] [address] PCP - MSSP Attributed 03/24/21 4 Clara Motley MD [address] [place] [address] PCP - MSSP Attributed 06/22/24 Daisy Ramsey MD [address] [facility] [address] [place] [address] Consulting Provider Dermatology 06/17/17 Frank Livingston MD [address] [place] [address] Gastroenterology 06/17/17 Shirley De La Garza APRN [address] [place] [address] Nurse Practitioner Gynecology 06/17/17 Cordelia Engle MD [address] [address] Nephrology 06/17/17 Daja Sloan MD [address] [address] Ophthalmology 06/17/17 Arin Liu RN 1290 [facility] [address] [place] [address] [facility] Community Cement Patcher 01/29/18 04/01/19 Luis Alberto Renee MD 43 [place] [address] Ophthalmology 05/19/18 Vandana Bates, JUAN MIGUEL [address] [facility] 4 [place], [place] [phone] [facility] Community Cement Patcher 04/01/19 10/08/24 Clarence Hollingsworth MD 420 [facility] [place] [address] Primary Water Control Station Engineer Cardiovascular Disease 03/24/22 Dawn Agrawal LCSW [address] [address] [facility] Community Cement Patcher 10/08/24 10/26/24 Renay Ford [address] [address] [facility] Community Cement Patcher 10/26/24 documented as of this encounter
--- OUTSIDE RECORDS SUMMARY | 2025-01-25 09:35 | XMS_ITS | Encounter Summary ---
Author Organization [facility] Address [address] [place] [address] Care Team Providers Care Spring Intern Name Role Phone Clara Motley MD Primary Care Provider + [phone] Daisy Ramsey MD Unavailable +[phone] Frank Livingston MD Unavailable +[phone] Shirley De La Garza APRN Unavailable Cordelia Engle MD Unavailable +[phone] Daja Sloan MD Unavailable [phone] Clara Motley MD Unavailable +[phone] Arin Liu RN Unavailable +[phone] Luis Alberto Renee MD Unavailable +[phone] Vandana Bates RN Unavailable +[phone] Clara Motley MD Unavailable +[phone] Clarence Hollingsworth MD Unavailable Dawn Agrawal LCSW Unavailable +[phone] Renay Ford Unavailable Clara Motley MD Unavailable +[phone] Reason for Visit * Reason Comments Medication Refill Encounter Details Date Type Department Care Team (Late st Contact Info) Description 07/21/2017 [facility] 100 [facility] 101 [place] [address] Clara Motley MD [address] [address] Pure hypercholesterolemia Social History Tobacco Use Types [...] Description 04/19/2025 8:45 AM EST [facility] [address] [phone] Clara Motley MD [address] [address] documented as of this encounter Visit Diagnoses Diagnosis Pure hypercholesterolemia documented in this encounter Care Teams Spring Intern Relationship Specialty Start Date End Date Clara Motley MD PCP - General Internal Medicine 10/16/15 Clara Motley MD [address] [address] PCP - MSSP Attributed 09/21/18 0 Clara Motley MD [address] [address] PCP - MSSP Attributed 03/24/21 4 Clara Motley MD [address] [place] [address] PCP - MSSP Attributed 06/22/24 Daisy Ramsey MD [address] [place] [address] Consulting Provider Dermatology 06/17/17 Frank Livingston MD [address] [place] [address] Gastroenterology 06/17/17 Shirley De La Garza APRN [address] [place] [address] Nurse Practitioner Gynecology 06/17/17 Cordelia Engle MD [address] [address] Nephrology 06/17/17 Daja Sloan MD [address] [address] Ophthalmology 06/17/17 Arin Liu RN [address] [facility] 4[address] [place] [address] [facility] Community Ward Assistant 01/29/18 04/01/19 Luis Alberto Renee MD [address] [place] [phone] Ophthalmology 05/19/18 Vandana Bates RN [address] Oh araceli [address] [address] ICP Community Ward Assistant 04/01/19 10/08/24 Clarence Hollingsworth MD 420 [place] [address] Primary Inventory Control Planner Cardiovascular Disease 03/24/22 Dawn Agrawal LCSW [address] [address] [facility] Community Ward Assistant 10/08/24 10/26/24 Renay Ford [address] araceli [address] [address] ICP Community Ward Assistant 10/26/24 documented as of this encounter
--- OUTSIDE RECORDS SUMMARY | 2025-01-25 09:35 | XMS_ITS | Encounter Summary ---
Author Organization [facility] Address [address] [place] [address] Care Team Providers Care Site Inspector Name Role Phone Clara Motley MD Primary Care Provider + [phone] Daisy Ramsey MD Unavailable [phone] Frank Livingston MD Unavailable [phone] Shirley De La Garza APRN Unavailable Cordelia Engle MD Unavailable +[phone] Daja Sloan MD Unavailable +[phone] Clara Motley MD Unavailable +[phone] Arin Liu RN Unavailable +[phone] Luis Alberto Renee MD Unavailable Vandana Bates RN Unavailable +[phone] Clara Motley MD Unavailable +[phone] Clarence Hollingsworth MD Unavailable Dawn Agrawal LCSW Unavailable +[phone] Renay Ford Unavailable Clara Motley MD Unavailable +[phone] Encounter Details Date Type Department Care Team (Late st Contact Info) Description 07/05/2017 Scanned Document [facility] [address] [address] Provider, Generic Social History Tobacco Use Types [...] Description 04/19/2025 8:45 AM EST Office Visit [address] [address] Clara Motley MD [address] [address] documented as of this encounter Visit Diagnoses Not on filedocumented in this encounter Care Teams Site Inspector Relationship Specialty Start Date End Date Clara Motley MD PCP - General Internal Medicine 10/16/15 Clara Motley MD [address] [place] [address] PCP - MSSP Attributed 09/21/18 0 Clara Motley MD [address] [place] [address] PCP - MSSP Attributed 03/24/21 4 Clara Motley MD [address] [place] [address] PCP - MSSP Attributed 06/22/24 Daisy Ramsey MD [address] [facility] [address] [place] [address] Consulting Provider Dermatology 06/17/17 Frank Livingston MD [address] [place] [address] Gastroenterology 06/17/17 Shirley De La Garza APRN [address] [place] [address] Nurse Practitioner Gynecology 06/17/17 Cordelia Engle MD [address] [address] Nephrology 06/17/17 Daja Sloan MD [address] [address] Ophthalmology 06/17/17 Arin Liu RN 12[address] [facility] [address] [place] [address] ICP Community Elderly Companion 01/29/18 04/01/19 Luis Alberto Renee MD 43 [place] [address] Ophthalmology 05/19/18 Vandana Bates, JUAN MIGUEL [address] [facility] 4 [place], [place] [phone] ICP Community Elderly Companion 04/01/19 10/08/24 Clarence Hollingsworth MD 420 [facility] [place] [address] Primary Gynecology Teacher Cardiovascular Disease 03/24/22 Dawn gArawal LCSW [address] [address] [facility] Community Elderly Companion 10/08/24 10/26/24 Renay Ford [address] [address] [facility] Community Elderly Companion 10/26/24 documented as of this encounter
--- OUTSIDE RECORDS SUMMARY | 2025-01-25 09:35 | XMS_ITS | Encounter Summary ---
Author Organization [facility] Address [address] [place] [address] Care Team Providers Care Inside Sales Person Name Role Phone Clara Motley MD Primary Care Provider + [phone] Daisy Ramsey MD Unavailable [phone] Frank Livingston MD Unavailable [phone] Shirley De La Garza APRN Unavailable Cordelia Engle MD Unavailable [phone] Daja Sloan MD Unavailable [phone] Clara Motley MD Unavailable +[phone] Arin Liu RN Unavailable +[phone] Luis Alberto Renee MD Unavailable [phone] Vandana Bates RN Unavailable [phone] Clara Motley MD Unavailable [phone] Clarence Hollingsworth MD Unavailable Dawn Agrawal LCSW Unavailable +[phone] Renay Ford Unavailable Clara Motley MD Unavailable +[phone] Encounter Details Date Type Department Care Team (Late st Contact Info) Description 04/23/2015 Scanned Document [facility] [address] [address] Provider, Generic Social History Tobacco Use Types [...] Description 04/19/2025 8:45 AM EST Office Visit [address] [address] Clara Motley MD [address] [address] documented as of this encounter Visit Diagnoses Not on filedocumented in this encounter Care Teams Inside Sales Person Relationship Specialty Start Date End Date Clara Motley MD PCP - General Internal Medicine 10/16/15 Clara Motley MD [address] [place] [address] PCP - MSSP Attributed 09/21/18 0 Clara Motley MD [address] [place] [address] PCP - MSSP Attributed 03/24/21 4 Clara Motley MD [address] [place] [address] PCP - MSSP Attributed 06/22/24 Daisy Ramsey MD [address] [facility] [address] [place] [address] Consulting Provider Dermatology 06/17/17 Frank Livingston MD [address] [place] [address] Gastroenterology 06/17/17 Shirley De La Garza APRN [address] [place] [address] Nurse Practitioner Gynecology 06/17/17 Cordelia Engle MD [address] [address] Nephrology 06/17/17 Daja Sloan MD [address] [address] Ophthalmology 06/17/17 Arin Liu RN [facility] [address] [place] [address] ICP Community Machine Operator Hop Picker 01/29/18 04/01/19 Luis Alberto Renee MD 43 [place] [address] Ophthalmology 05/19/18 Vandana Bates, JUAN MIGUEL [address] [facility] 4 [place], [place] [phone] ICP Community Machine Operator Hop Picker 04/01/19 10/08/24 Clarence Hollingsworth MD 420 [facility] [place] [address] Primary Family Service Assistant Cardiovascular Disease 03/24/22 Dawn Agrawal LCSW [address] [address] [facility] Community Machine Operator Hop Picker 10/08/24 10/26/24 Renay Ford [address] [address] [facility] Community Machine Operator Hop Picker 10/26/24 documented as of this encounter
--- OUTSIDE RECORDS SUMMARY | 2025-01-25 09:36 | XMS_ITS | Encounter Summary ---
Author Organization [facility] Address [address] [place] [address] Care Team Providers Care Leather Grainer Name Role Phone Clara Motley MD Primary Care Provider + [phone] Daisy Ramsey MD Unavailable [phone] Frank Livingston MD Unavailable [phone] Shirley De La Garza APRN Unavailable Cordelia Engle MD Unavailable +[phone] Daja Sloan MD Unavailable +[phone] Clara Motley MD Unavailable +[phone] Arin Liu RN Unavailable +[phone] Luis Alberto Renee MD Unavailable [phone] Vandana Bates RN Unavailable +[phone] Clara Motley MD Unavailable +[phone] Clarence Hollingsworth MD Unavailable Dawn Agrawal LCSW Unavailable +[phone] Renay Ford Unavailable Clara Motley MD Unavailable +[phone] Encounter Details Date Type Department Care Team (Late st Contact Info) Description 02/24/2018 Scanned Document [facility] [address] [address] Provider, Generic Social History Tobacco Use Types [...] Description 04/19/2025 8:45 AM EST Office Visit [address] [phone] Clara Motley MD [address] [address] documented as of this encounter Visit Diagnoses Not on filedocumented in this encounter Care Teams Leather Grainer Relationship Specialty Start Date End Date Clara Motely MD PCP - General Internal Medicine 10/16/15 Clara Motley MD [address] [place] [address] PCP - MSSP Attributed 09/21/18 0 Clara Motley MD [address] [place] [address] PCP - MSSP Attributed 03/24/21 4 Clara Motley MD [address] [place], [place] [address], [place] [address] PCP - MSSP Attributed 06/22/24 Daisy Ramsey MD [address] [place] [address] Consulting Provider Dermatology 06/17/17 Frank iLvingston MD [address] [place] [address] Gastroenterology 06/17/17 Shirley De La Garza APRN [address] [place] [address] Nurse Practitioner Gynecology 06/17/17 Cordelia Engle MD [address] [address] Nephrology 06/17/17 Daja Sloan MD [address] [address] Ophthalmology 06/17/17 Arin Liu RN 1290 [facility] 4[address] [place] [address] ICP Community Plate Fitter 01/29/18 04/01/19 Luis Alberto Renee MD 43 [place] [phone] Ophthalmology 05/19/18 Vandana Bates, JUAN MIGUEL [address] [facility] 4 [place], [place] [phone] ICP Community Plate Fitter 04/01/19 10/08/24 Clarence Hollingsworth MD 420 [place] [address] Primary Slitting Machine Feeder Cardiovascular Disease 03/24/22 Dawn Agrawal LCSW [address] [address] [facility] Community Plate Fitter 10/08/24 10/26/24 Renay Ford [address] araceli [address] [address] [facility] Community Plate Fitter 10/26/24 documented as of this encounter
--- OUTSIDE RECORDS SUMMARY | 2025-01-25 09:36 | XMS_ITS | Clinical Summary ---
Author Organization [facility] Address [address] [place] [address] Care Team Providers Care Front Desk Clerk Name Role Phone Clara Motley MD Primary Care Provider [phone] Allergies Active Allergy Reactions Criticality Noted Date [...] 2 (two) times a day. 0 Active [place]-3 Fatty Acids (FISH OIL PO) Take 1 [...] predniSONE (DELTASONE) tablet 20 mg Take 3 tptz9msyp,2 tabx 4 days,4xwto3qwng,1/2 tabx4 days. 26 tablet 0 10/17/2023 Active [...] Advance Directives For more information, please contact: [phone] Latest Code Status on File Code Status [...] following way: discussion with patient. Care Teams Front Desk Clerk Relationship Specialty Start Date End Date Clara Motley MD [address] [place] [address] PCP - General Internal Medicine 10/13/18
--- OUTSIDE RECORDS SUMMARY | 2025-01-25 09:36 | XMS_ITS | Encounter Summary ---
Author Organization [facility] Address [address] [place] [address] Care Team Providers Care Traffic Court Magistrate Name Role Phone Clara Motley MD Primary Care Provider + [phone] Daisy Ramsey MD Unavailable [phone] Frank Livingston MD Unavailable [phone] Shirley De La Garza APRN Unavailable Cordelia Engle MD Unavailable [phone] Daja Sloan MD Unavailable [phone] Luis Alberto Renee MD Unavailable [phone] Clarence Hollingsworth MD Unavailable Renay Ford Unavailable Clara Motley MD Unavailable +[phone] Encounter Details Date Type Department Care Team (Late st Contact Info) Description 01/19/2025 Scanned Document [facility] 85 [place] [address] Ophthalmology, Scan Social History Tobacco Use Types Packs/Day Years Used Date Smoking Tobacco: Never Smokeless Tobacco: Never Alcohol Use Standard Drinks/Week Comments Yes 1 (1 standard drink = 0.6 oz pur e alcohol) social [facility] Utilities Answer Date Recorded In the past 12 months has e electric, gas, oil, or water company threatened to shut off services in your home? No 02/05/2024 Social Connection and Isolation Panel Answer Date Recorded In a typical week, how many times do you talk on the phone with family, friends, or neighbors? Once a week 02/05/2024 Frequency of Social Gatherings with Friends and Family Not on file 02/05/2024 Attends Orthodoxy Services Not on file 02/04 Active Member [...] any time in the past 12 m [facility], were you homeless or living in a snf (including now)? No 02/05/2024 Education Answer Date [...] AM EST Office Visit [facility] [address] [place] [address] Clara Motley MD [address] [place] [address] documented as of this encounter Visit Diagnoses Not on filedocumented in this encounter Care Teams Traffic Court Magistrate Relationship Specialty Start Date End Date Clara Motley MD PCP - General Internal Medicine 10/16/15 Clara Motley MD [address] [place] [address] PCP - MSSP Attributed 06/22/24 Daisy Ramsey MD 113 [facility] [address] [place] [address] Consulting Provider Dermatology 06/17/17 Frank Livingston MD [address] [place] [address] Gastroenterology 06/17/17 Shirley De La Garza APRN [address] [place] [address] Nurse Practitioner Gynecology 06/17/17 Cordelia Engle MD [address] [address] Nephrology 06/17/17 Daja Sloan MD [address] [address] Ophthalmology 06/17/17 Luis Alberto Renee MD [address] [place] [phone] Ophthalmology 05/19/18 Clarence Hollingsworth MD [address] [place] [address] Primary Lead Java J2Ee Developer Cardiovascular Disease 03/24/22 Renay Ford [address] [address] [facility] Community Embedded Firmware Developer 10/26/24 documented as of this encounter
--- OUTSIDE RECORDS SUMMARY | 2025-01-25 09:36 | XMS_ITS | Encounter Summary ---
Author Organization [facility] Address [address] [place] [address] Care Team Providers Care Machine Cell Tuber Name Role Phone Clara Motley MD Primary Care Provider + [phone] Daisy Ramsey MD Unavailable [phone] Frank Livingston MD Unavailable [phone] Shirley De La Garza APRN Unavailable Cordelia Engle MD Unavailable [phone] Daja Sloan MD Unavailable [phone] Clara Motley MD Unavailable +[phone] Arin Liu RN Unavailable +[phone] Luis Alberto Renee MD Unavailable [phone] Vandana Bates RN Unavailable [phone] Clara Motley MD Unavailable +[phone] Clarence Hollingsworth MD Unavailable Dawn Agrwaal LCSW Unavailable +[phone] Rneay Ford Unavailable Clara oMtley MD Unavailable +[phone] Reason for Visit * Reason Comments Medication Refill Encounter Details Date Type Department Care Team (Late st Contact Info) Description 11/15/2017 Refill [facility] [address] [address] Clara Motley MD [address] [address] Type 2 diabetes mellitus with complication, without [...] Description 04/19/2025 8:45 AM EST Office Visit [facility] [address] [phone] Clara Motley MD [address] [address] documented as of this encounter Visit Diagnoses Diagnosis Type 2 diabetes mellitus with complication, without long-term current use of insulin (HCC) documented in this encounter Care Teams Machine Cell Tuber Relationship Specialty Start Date End Date Clara Motley MD PCP - General Internal Medicine 10/16/15 Clara Motley MD [address] [place] [address] PCP - MSSP Attributed 09/21/18 0 Clara Motley MD [address] [place] [address] PCP - MSSP Attributed 03/24/2103/23/ 4 Clara Motley MD [address] [place] [address] PCP - MSSP Attributed 06/22/24 Daisy Ramsey MD [address] [facility] [address] [place] [address] Consulting Provider Dermatology 06/17/17 Frank Livingston MD [address] [place] [address] Gastroenterology 06/17/17 Shirley De La Garza APRN [address] [place] [address] Nurse Practitioner Gynecology 06/17/17 Cordelia Engle MD [address] [address] Nephrology 06/17/17 Daja Sloan MD [address] [address] Ophthalmology 06/17/17 Arin Liu, JUAN MIGUEL [address] [facility] [address] [place], [place] [phone] [facility] Community Stamp Redemption Clerk 01/29/18 04/01/19 Luis Alberto Renee MD [address] [place] [address] Ophthalmology 05/19/18 Vandana Bates, RN [address] [address] [facility] Community Stamp Redemption Clerk 04/01/19 10/08/24 Clarence Hollingsworth MD [address] [place] [address] Primary Sign Builder Cardiovascular Disease 03/24/22 Dawn Agrawal LCSW [address] [address] [facility] Community Stamp Redemption Clerk 10/08/24 10/26/24 Renay Ford [address] Oh araceli [address] [address] [facility] Community Stamp Redemption Clerk 10/26/24 documented as of this encounter
--- OUTSIDE RECORDS SUMMARY | 2025-01-25 09:36 | XMS_ITS | Encounter Summary ---
Author Organization [facility] Address [address] [place] [address] Care Team Providers Care Inspector Wire Products Name Role Phone Clara Motley MD Primary Care Provider + [phone] Daisy Ramsey MD Unavailable [phone] Frank Livingston MD Unavailable [phone] Shirley De La Garza APRN Unavailable Cordelia Engle MD Unavailable +[phone] Daja Sloan MD Unavailable [phone] Luis Alberto Renee MD Unavailable [phone] Clarence Hollingsworth MD Unavailable Renay Ford Unavailable Clara Motley MD Unavailable +[phone] Encounter Details Date Type Department Care Team (Late st Contact Info) Description 12/17/2024 Scanned Document [facility] OPTHALMOLOGY SCAN Ophthalmology, Scan Social History Tobacco Use Types Packs/Day Years Used Date Smoking Tobacco: Never Smokeless Tobacco: Never Alcohol Use Standard Drinks/Week Comments Yes 1 (1 standard drink = 0.6 oz pur e alcohol) social [facility] Utilities Answer Date Recorded In the past 12 months has [employer] electric, gas, oil, or water company threatened to shut off services in your home? No 02/05/2024 Social Connection and Isolation Panel Answer Date Recorded In a typical week, how many times do you talk on the phone with family, friends, or neighbors? Once a week 02/05/2024 Frequency of Social Gatherings with Friends and Family Not on file 02/05/2024 Attends [employer] Not on file 02/04 Active Member [...] any time in the past 12 m [facility], were you homeless or living in a custodial (including now)? No 02/05/2024 Education Answer Date [...] Visit [facility] [address] [place] [address] Clara Motley MD [address] [place] [address] documented as of this encounter Visit Diagnoses Not on filedocumented in this encounter Care Teams Inspector Wire Products Relationship Specialty Start Date End Date Clara Motley MD PCP - General Internal Medicine 10/16/15 Clara Motley MD [address] [place] [address] PCP - MSSP Attributed 06/22/24 Daisy Ramsey MD [address] [facility] [address] [place] [address] Consulting Provider Dermatology 06/17/17 Frank Livingston MD [address] [place] [address] Gastroenterology 06/17/17 Shirley De La Garza APRN [address] [place] [address] Nurse Practitioner Gynecology 06/17/17 Cordelia Engle MD [address] [place] [address] Nephrology 06/17/17 Daja Sloan MD [address] [address] Ophthalmology 06/17/17 Luis Alberto Renee MD [address] [place] [phone] Ophthalmology 05/19/18 Clarence Hollingsworth MD [address] [place] [address] Primary Lamination Spinner Cardiovascular Disease 03/24/22 Renay Ford [address] [address] [facility] Community Alternative Energy Engineer 10/26/24 documented as of this encounter
--- OUTSIDE RECORDS SUMMARY | 2025-01-25 09:36 | XMS_ITS | Encounter Summary ---
Author Organization [facility] Address [address] [place] [address] Care Team Providers Care Project Portfolio Analyst Name Role Phone Clara Motley MD Primary Care Provider + [phone] Daisy Ramsey MD Unavailable [phone] Frank Livingston MD Unavailable [phone] Shirley De La Garza APRN Unavailable Cordelia Engle MD Unavailable [phone] Daja Sloan MD Unavailable [phone] Clara Motley MD Unavailable [phone] Arin Liu RN Unavailable [phone] Luis Alberto Renee MD Unavailable [phone] Vandana Bates RN Unavailable [phone] Clara Motley MD Unavailable [phone] Clarence Hollingsworth MD Unavailable Dawn Agrawal LCSW Unavailable +[phone] Renay Ford Unavailable Clara Motley MD Unavailable +[phone] Reason for Visit * Reason Comments Medication Refill Encounter Details Date Type Department Care Team (Late st Contact Info) Description 01/19/2018 Refill [facility] [address] [phone] Clara Motley MD [address] [address] Pure hypercholesterolemia Social History Tobacco Use Types [...] Description 04/19/2025 8:45 AM EST Office Visit [address] [phone] Clara Motley MD [address] [address] documented as of this encounter Visit Diagnoses Diagnosis Pure hypercholesterolemia documented in this encounter Care Teams Project Portfolio Analyst Relationship Specialty Start Date End Date Clara Motley MD PCP - General Internal Medicine 10/16/15 Clara Motley MD [address] [place] [address] PCP - MSSP Attributed 09/21/1803/23/ 0 Clara Motley MD [address] [place] [address] PCP - MSSP Attributed 03/24/21 4 Clara Motley MD [address] [place] [address] PCP - MSSP Attributed 06/22/24 Daisy Ramsey MD [address] [place] [address] Consulting Provider Dermatology 06/17/17 Frank Livingston MD [address] [place] [address] Gastroenterology 06/17/17 Shirley De La Garza APRN [address] [place] [address] Nurse Practitioner Gynecology 06/17/17 Cordelia Engle MD [address] [address] Nephrology 06/17/17 Daja Sloan MD [address] [address] Ophthalmology 06/17/17 Arin Liu RN [address] [facility] [address] [place] [address] [facility] Community Garage Manager 01/29/18 04/01/19 Luis Alberto Renee MD [address] [place] [phone] Ophthalmology 05/19/18 Vandana Bates RN [address] [place] [address] [facility] Community Garage Manager 04/01/19 10/08/24 Clarence Hollingsworth MD [address] [place] [address] [place] [address] Primary German Teacher Cardiovascular Disease 03/24/22 Dawn Agrawal [facility] [address] [address] [facility] Community Garage Manager 10/08/24 10/26/24 Renay Ford [address] [address] [facility] Community Garage Manager 10/26/24 documented as of this encounter
--- OUTSIDE RECORDS SUMMARY | 2025-01-25 09:36 | XMS_ITS | Encounter Summary ---
Author Organization [facility] Address [address] [place] [address] Care Team Providers Care Pencil Sorter Name Role Phone Clara Motley MD Primary Care Provider + [phone] Daisy Ramsey MD Unavailable [phone] Frank Livingston MD Unavailable [phone] Shirley De La Garza APRN Unavailable Cordelia Engle MD Unavailable [phone] Daja Sloan MD Unavailable [phone] Clara Motley MD Unavailable [phone] Arin Liu RN Unavailable [phone] Luis Alberto Renee MD Unavailable [phone] Vandana Bates RN Unavailable [phone] Clara Motley MD Unavailable [phone] Clarence Hollingsworth MD Unavailable Dawn Agrawal LCSW Unavailable +[phone] Renay Ford Unavailable Clara Motley MD Unavailable [phone] Reason for Visit * Reason Comments Medication Refill Encounter Details Date Type Department Care Team (Late st Contact Info) Description 12/10/2017 Refill [facility] [address] [phone] Clara Motley MD [address] [address] HTN (hypertension), benign Social History Tobacco Use [...] AM EST Office Visit [facility] [address] [phone] Clara Motley MD 100 [place] [phone] documented as of this encounter Visit Diagnoses Diagnosis HTN (hypertension), benign Essential hypertension, benign documented in this encounter Care Teams Pencil Sorter Relationship Specialty Start Date End Date Clara Motley MD PCP - General Internal Medicine 10/16/15 Clara Motley MD [address] [place] [address] PCP - MSSP Attributed 09/21/1803/23/ 0 Clara Motley MD [address] [place] [address] PCP - MSSP Attributed 03/24/21 4 Clara Motley MD [address] [place] [address] PCP - MSSP Attributed 06/22/24 Daisy Ramsey MD [address] [facility] [address] [place] [address] Consulting Provider Dermatology 06/17/17 Frank Livingston MD [address] [place] [address] Gastroenterology 06/17/17 Shirley De La Garza APRN [address] [place] [address] Nurse Practitioner Gynecology 06/17/17 Cordelia Engle MD [address] [address] Nephrology 06/17/17 Daja Sloan MD [address] [address] Ophthalmology 06/17/17 Arin Liu RN 1290 [facility] [address] [place], [place] [phone] [facility] Community Ab Initio Etl Developer 01/29/18 04/01/19 Luis Alberto Renee MD [address] [place] [phone] Ophthalmology 05/19/18 Vandana Bates, RN [address] [place] [address] [facility] Community Ab Initio Etl Developer 04/01/19 10/08/24 Clarence Hollingsworth MD [address] [facility] [place] [address] Primary Hardware Trainer Cardiovascular Disease 03/24/22 Dawn Agrawal LCSW [address] [facility] [address] [place] [address] [facility] Community Ab Initio Etl Developer 10/08/24 10/26/24 Renay Ford [address] [address] [facility] Community Ab Initio Etl Developer 10/26/24 documented as of this encounter
== END 2025-01-25 10:25 | disposition home or self-care (01) ==
LOC: HO.HSMS 08:54
PROVIDERS: PCP Internal Medicine; Visit Provider Psychiatry & Neurology Neurology
DX: G25.2 Other specified forms of tremor (principal)
CPT/HCPCS: 99214